=== PATIENT | male | born 1930 | race Hispanic/Latino ===

== ENCOUNTER 2017-12-12 10:25 | Inpatient (IN) | payer MEDICARE ==
--- NOTE | 2017-12-12 10:50 | Emergency Department Report ---
ED Altered Mental Status HPI - General Stated Complaint: SYNCOPE Time Seen by Provider: 12/12/17 10:38 Source: patient, EMS, old records reviewed Limitations: Altered Mental Status - History of Present Illness Initial Comments: Patient is 87 years old male with history of hypertension diabetes, GERD and pacemaker. Patient brought to the ER from [facility] for which he was admitted for suicidal ideation by trying to put pillows on his head and also was found to be paranoid. Patient brought to the ER today for evaluation of altered mental status and facility stated that patient was found unresponsive after breakfast this morning. Patient is alert and talking in no acute distress in the ER. Patient denying any chest pain or shortness of breath. No weakness numbness or tingling sensation. MD Complaint: altered mental status - Related Data Home Medications Medication Instructions Recorded Confirmed Last Taken Aspirin [Adult Aspirin] 81 mg PO QAM 12/12/17 12/12/17 12/11/17 Carvedilol [Coreg] 6.25 mg PO BID 12/12/17 12/12/17 12/11/17 Divalproex Sodium [Depakote] 250 mg PO QAM 12/12/17 12/12/17 12/11/17 Donepezil [Aricept] 5 mg PO HS 12/12/17 12/12/17 12/11/17 Famotidine [Pepcid] 20 mg PO QAM 12/12/17 12/12/17 12/11/17 Furosemide [Lasix] 20 mg PO QDAY 12/12/17 12/12/17 12/11/17 Multivitamin Tab [Multiple Vitamin 1 each PO DAILY 12/12/17 12/12/17 12/11/17 TAB (Theragran)] QUEtiapine [SEROquel] 25 mg PO HS 12/12/17 12/12/17 12/11/17 Simvastatin [Zocor] 40 mg PO HS 12/12/17 12/12/17 Unknown Allergies Allergy/AdvReac Type Severity Reaction Status Date / Time Penicillins Allergy Hives Verified 12/12/17 12:15 ED Review of Systems ROS: Stated complaint: SYNCOPE Other details as noted in HPI Comment: All other systems reviewed and negative Constitutional: denies: chills, fever Respiratory: denies: cough, orthopnea Cardiovascular: denies: chest pain, palpitations Gastrointestinal: denies: abdominal pain, nausea, vomiting Neurological: confusion. denies: headache, weakness, numbness, paresthesias, abnormal gait, vertigo ED Past Medical Hx - Past Medical History Hx Hypertension: Yes Hx Heart Attack/AMI: Yes (pacemaker) Hx Diabetes: Yes Hx Psychiatric Treatment: Yes (dementia psychosis, suicidal ideation) - Medications Home Medications: Home Medications Medication Instructions Recorded Confirmed Last Taken Type Aspirin [Adult Aspirin] 81 mg PO QAM 12/12/17 12/12/17 12/11/17 History Carvedilol [Coreg] 6.25 mg PO BID 12/12/17 12/12/17 12/11/17 History Divalproex Sodium [Depakote] 250 mg PO QAM 12/12/17 12/12/17 12/11/17 History Donepezil [Aricept] 5 mg PO HS 12/12/17 12/12/17 12/11/17 History Famotidine [Pepcid] 20 mg PO QAM 12/12/17 12/12/17 12/11/17 History Furosemide [Lasix] 20 mg PO QDAY 12/12/17 12/12/17 12/11/17 History Multivitamin Tab [Multiple Vitamin 1 each PO DAILY 12/12/17 12/12/17 12/11/17 History TAB (Theragran)] QUEtiapine [SEROquel] 25 mg PO HS 12/12/17 12/12/17 12/11/17 History Simvastatin [Zocor] 40 mg PO HS 12/12/17 12/12/17 Unknown History ED Physical Exam - General Limitations: Altered Mental Status General appearance: alert, in no apparent distress - Head Head exam: Present: atraumatic, normocephalic, normal inspection - ENT ENT exam: Present: normal exam, normal orophraynx - Neck Neck exam: Present: normal inspection, full ROM. Absent: tenderness, meningismus, lymphadenopathy, thyromegaly - Respiratory Respiratory exam: Present: normal lung sounds bilaterally. Absent: respiratory distress, wheezes, rales, rhonchi, chest wall tenderness, accessory muscle use, decreased breath sounds, prolonged expiratory - Cardiovascular Cardiovascular Exam: Present: regular rate, normal heart sounds. Absent: systolic murmur, diastolic murmur - GI/Abdominal GI/Abdominal exam: Present: soft, normal bowel sounds. Absent: distended, tenderness, guarding, rebound, rigid, organomegaly, mass, bruit, pulsatile mass , hernia - Extremities Exam Extremities exam: Present: normal inspection, full ROM, normal capillary refill - Back Exam Back exam: Present: normal inspection, full ROM. Absent: tenderness, CVA tenderness (R), CVA tenderness (L), muscle spasm, paraspinal tenderness, vertebral tenderness - Neurological Exam Neurological exam: Present: alert, altered, CN II-XII intact, reflexes normal - Skin Skin exam: Present: warm, intact, normal color - Assessment Assessment Interval: Baseline - Level of Consciousness 1a. Level of Consciousness: alert/keenly responsive - LOC Questions 1b. LOC Questions: answers no questions correctly - LOC Command 1c. LOC Commands: performs tasks correctly - Best Gaze 2. Best Gaze: normal - Visual 3. Visual: no visual loss - Facial Palsy 4. Facial Palsy: normal symmetrical movement - Motor Arm 5b. Motor Arm Right: no drift 5a. Motor Arm Left: no drift - Motor Leg 6a. Motor Leg Left: no drift 6b. Motor Leg Right: no drift - Limb Ataxia 7. Limb Ataxia: absent - Sensory 8. Sensory: normal - Best Language 9. Best Language: no aphasia - Dysarthria 10. Dysarthria: normal - Extinction and Inattention 11. Extinction/Inattention: no abnormality - Scoring Total Score: 2 Stroke Severity: Minor Stroke ED Course Vital Signs 12/12/17 12/12/17 12/12/17 10:40 12:11 12:15 Temperature 96.8 F L Pulse Rate 71 78 Respiratory 16 22 Rate Blood Pressure 115/77 144/82 O2 Sat by Pulse 99 98 97 Oximetry 12/12/17 12/12/17 12/12/17 12:30 12:45 13:01 Temperature Pulse Rate 72 70 78 Respiratory 15 13 16 Rate Blood Pressure 146/93 144/73 160/97 O2 Sat by Pulse 97 97 96 Oximetry 12/12/17 12/12/17 12/12/17 13:15 13:30 13:36 Temperature Pulse Rate 80 75 Respiratory 15 14 13 Rate Blood Pressure 144/83 149/71 O2 Sat by Pulse 96 96 Oximetry - Lab Data Result diagrams: 12/12/17 10:50 12/12/17 10:50 Lab Results 12/12/17 12/12/17 12/12/17 Range/Units 10:50 10:50 10:50 WBC 6.7 (4.5-11.0) K/mm3 RBC 4.25 (3.65-5.03) M/mm3 Hgb 13.6 (11.8-15.2) gm/dl Hct 39.2 (35.5-45.6) % MCV 92 (84-94) fl MCH 32 (28-32) pg MCHC 35 H (32-34) % RDW 16.5 H (13.2-15.2) % Plt Count 139 L (140-440) K/mm3 Lymph % (Auto) 11.9 L (13.4-35.0) % [place] % (Auto) 11.8 H (0.0-7.3) % Eos % (Auto) 1.2 (0.0-4.3) % Baso % (Auto) 0.5 (0.0-1.8) % Lymph # 0.8 L (1.2-5.4) K/mm3 Weston # 0.8 (0.0-0.8) K/mm3 Eos # 0.1 (0.0-0.4) K/mm3 Baso # 0.0 (0.0-0.1) K/mm3 Seg Neutrophils % 74.6 H (40.0-70.0) % Seg Neutrophils # 5.0 (1.8-7.7) K/mm3 D-Dimer (0-234) ng/mlDDU Sodium 124 L (137-145) mmol/L Potassium 4.2 (3.6-5.0) mmol/L Chloride 88.0 L (98-107) mmol/L Carbon Dioxide 22 (22-30) mmol/L Anion Gap 18 mmol/L BUN 13 (9-20) mg/dL Creatinine 0.5 L (0.8-1.5) mg/dL Estimated GFR > 60 ml/min BUN/Creatinine Ratio 26 % Glucose 106 H (75-100) mg/dL Lactic Acid 3.60 H* (0.7-2.0) mmol/L Calcium 8.9 (8.4-10.2) mg/dL Total Bilirubin 0.90 (0.1-1.2) mg/dL AST 32 (5-40) units/L ALT 31 (7-56) units/L Alkaline Phosphatase 110 (35-129) units/L Ammonia (25-60) umol/L Troponin T < 0.010 (0.00-0.029) ng/mL Total Protein 6.1 L (6.3-8.2) g/dL Albumin 3.2 L (3.9-5) g/dL Albumin/Globulin Ratio 1.1 % Urine Color (Yellow) Urine Turbidity (Clear) Urine pH (5.0-7.0) Ur Specific [place] (1.003-1.030) Urine Protein (Negative) mg/dL Urine Glucose (UA) (Negative) mg/dL Urine Ketones (Negative) mg/dL Urine Blood (Negative) Urine Nitrite (Negative) Urine Bilirubin (Negative) Urine Urobilinogen (<2.0) mg/dL Ur Leukocyte Esterase (Negative) Urine WBC (Auto) (0.0-6.0) /HPF Urine RBC (Auto) (0.0-6.0) /HPF U Epithel Cells (Auto) (0-13.0) /HPF Urine Mucus /HPF 12/12/17 12/12/17 12/12/17 Range/Units 10:50 12:08 12:34 WBC (4.5-11.0) K/mm3 RBC (3.65-5.03) M/mm3 Hgb (11.8-15.2) gm/dl Hct (35.5-45.6) % MCV (84-94) fl MCH (28-32) pg MCHC (32-34) % RDW (13.2-15.2) % Plt Count (140-440) K/mm3 Lymph % (Auto) (13.4-35.0) % Weston % (Auto) (0.0-7.3) % Eos % (Auto) (0.0-4.3) % Baso % (Auto) (0.0-1.8) % Lymph # (1.2-5.4) K/mm3 Weston # (0.0-0.8) K/mm3 Eos # (0.0-0.4) K/mm3 Baso # (0.0-0.1) K/mm3 Seg Neutrophils % (40.0-70.0) % Seg Neutrophils # (1.8-7.7) K/mm3 D-Dimer 389.72 H (0-234) ng/mlDDU Sodium (137-145) mmol/L Potassium (3.6-5.0) mmol/L Chloride (98-107) mmol/L Carbon Dioxide (22-30) mmol/L Anion Gap mmol/L BUN (9-20) mg/dL Creatinine (0.8-1.5) mg/dL Estimated GFR ml/min BUN/Creatinine Ratio % Glucose (75-100) mg/dL Lactic Acid 2.30 H* (0.7-2.0) mmol/L Calcium (8.4-10.2) mg/dL Total Bilirubin (0.1-1.2) mg/dL AST (5-40) units/L ALT (7-56) units/L Alkaline Phosphatase (35-129) units/L Ammonia 55.0 (25-60) umol/L Troponin T (0.00-0.029) ng/mL Total Protein (6.3-8.2) g/dL Albumin (3.9-5) g/dL Albumin/Globulin Ratio % Urine Color (Yellow) Urine Turbidity (Clear) Urine pH (5.0-7.0) Ur Specific [place] (1.003-1.030) Urine Protein (Negative) mg/dL Urine Glucose (UA) (Negative) mg/dL Urine Ketones (Negative) mg/dL Urine Blood (Negative) Urine Nitrite (Negative) Urine Bilirubin (Negative) Urine Urobilinogen (<2.0) mg/dL Ur Leukocyte Esterase (Negative) Urine WBC (Auto) (0.0-6.0) /HPF Urine RBC (Auto) (0.0-6.0) /HPF U Epithel Cells (Auto) (0-13.0) /HPF Urine Mucus /HPF 12/12/17 Range/Units Unknown WBC (4.5-11.0) K/mm3 RBC (3.65-5.03) M/mm3 Hgb (11.8-15.2) gm/dl Hct (35.5-45.6) % MCV (84-94) fl MCH (28-32) pg MCHC (32-34) % RDW (13.2-15.2) % Plt Count (140-440) K/mm3 Lymph % (Auto) (13.4-35.0) % Weston % (Auto) (0.0-7.3) % Eos % (Auto) (0.0-4.3) % Baso % (Auto) (0.0-1.8) % Lymph # (1.2-5.4) K/mm3 Weston # (0.0-0.8) K/mm3 Eos # (0.0-0.4) K/mm3 Baso # (0.0-0.1) K/mm3 Seg Neutrophils % (40.0-70.0) % Seg Neutrophils # (1.8-7.7) K/mm3 D-Dimer (0-234) ng/mlDDU Sodium (137-145) mmol/L Potassium (3.6-5.0) mmol/L Chloride (98-107) mmol/L Carbon Dioxide (22-30) mmol/L Anion Gap mmol/L BUN (9-20) mg/dL Creatinine (0.8-1.5) mg/dL Estimated GFR ml/min BUN/Creatinine Ratio % Glucose (75-100) mg/dL Lactic Acid (0.7-2.0) mmol/L Calcium (8.4-10.2) mg/dL Total Bilirubin (0.1-1.2) mg/dL AST (5-40) units/L ALT (7-56) units/L Alkaline Phosphatase (35-129) units/L Ammonia (25-60) umol/L Troponin T (0.00-0.029) ng/mL Total Protein (6.3-8.2) g/dL Albumin (3.9-5) g/dL Albumin/Globulin Ratio % Urine Color Yellow (Yellow) Urine Turbidity Clear (Clear) Urine pH 6.0 (5.0-7.0) Ur Specific [place] 1.009 (1.003-1.030) Urine Protein <15 mg/dl (Negative) mg/dL Urine Glucose (UA) Neg (Negative) mg/dL Urine Ketones Neg (Negative) mg/dL Urine Blood Neg (Negative) Urine Nitrite Neg (Negative) Urine Bilirubin Neg (Negative) Urine Urobilinogen 2.0 (<2.0) mg/dL Ur Leukocyte Esterase Tr (Negative) Urine WBC (Auto) 3.0 (0.0-6.0) /HPF Urine RBC (Auto) 5.0 (0.0-6.0) /HPF U Epithel Cells (Auto) < 1.0 (0-13.0) /HPF Urine Mucus Few /HPF - EKG Data -: EKG Interpreted by Me EKG shows normal: QRS complexes Rate: normal Interpretation: no acute changes - Radiology Data Radiology results: report reviewed Referring Physician: RICK LUTZ Patient Name: GEORGIANA JAUREGUI Date of : 1930 Sex: Male Report Date: 2017-12-12 Report Status: Finalized Findings [facility] [address] [place] [address] Cat Scan Report Signed Patient: GEORGIANA JAUREGUI MR#: [id number] : 1930 Acct:[id number] Age/Sex: 87 / M ADM Date: 12/12/17 Loc: ED Attending Dr: Ordering Physician: RICK LUTZ Date of Service: 12/12/17 Procedure(s): CT head/brain wo con Accession Number(s): [id number] cc: RICK LUTZ CT HEAD WITHOUT CONTRAST: HISTORY: Altered mental status. TECHNIQUE: Sequential CT images without contrast. FINDINGS: Images obtained show bilateral prominence of the sulci and ventricles. There are no abnormal intra- or extra-axial blood or fluid collections. There are no focal masses or evidence of mass effect. The rhodes white matter differentiation appears within normal limits. Regions of periventricular decreased attenuation are consistent with microangiopathic ischemic disease. The posterior fossa structures including the fourth ventricle, cerebellum, and brainstem appear normal. IMPRESSION: Evidence of atrophy and microangiopathic ischemic disease. No acute intracranial process noted. Transcribed By: TTR Dictated By: VITO VILLEDA JR, MD Electronically Authenticated By: VITO VILLEDA JR, MD Signed Date/Time: 12/12/171227 DD/ 26 TD/TT: 12/12/171227 - Medical Decision Making I discussed the patient with Dr Munroe, he agreed to admit the patient to medical service. Critical Care Time: Yes Critical care time in (mins) excluding proc time.: 30 Critical care attestation.: If time is entered above; I have spent that time in minutes in the direct care of this critically ill patient, excluding procedure time. ED Disposition Clinical Impression: Altered mental status, Hyponatremia Disposition: 09 OP ADMIT IP TO THIS HOSP Is pt being admited?: Yes Condition: Stable Referrals: PRIMARY CARE, [Primary Care Provider] - 3-5 Days
[2017-12-12 11:20] LABS: Basophils % (Auto) 0.5 % (0.0-1.8); Eosinophils # (Auto) 0.1 K/mm3 (0.0-0.4); Eosinophils % (Auto) 1.2 % (0.0-4.3); Hematocrit 39.2 % (35.5-45.6); Hemoglobin 13.6 gm/dl (11.8-15.2); Lymphocytes # (Auto) 0.8 K/mm3 (1.2-5.4); Lymphocytes % (Auto) 11.9 % (13.4-35.0); Mean Corpuscular HGB Conc 35 % (32-34); Mean Corpuscular Hemoglobin 32 pg (28-32); Mean Corpuscular Volume 92 fl (84-94); Monocytes # (Auto) 0.8 K/mm3 (0.0-0.8); Monocytes % (Auto) 11.8 % (0.0-7.3); Platelet Count 139 K/mm3 (140-440); Red Blood Count 4.25 M/mm3 (3.65-5.03); Red Cell Distribution Width 16.5 % (13.2-15.2)
[2017-12-12 11:32] LABS: Alanine Aminotransferase 31 units/L (7-56); Albumin 3.2 g/dL (3.9-5); BUN/Creatinine Ratio 26; Blood Urea Nitrogen 13 mg/dL (9-20); Calcium 8.9 mg/dL (8.4-10.2); Hemolysis Index 44
--- NOTE | 2017-12-12 11:37 | XRay Report ---
AP CHEST: HISTORY: Altered mental status No comparison. There is borderline to mild cardiomegaly. A 2-lead pacemaker device is in position. The lungs are clear. No evidence for pneumonia, CHF or pneumothorax. Chronic bilateral rotator cuff tears are suspected. IMPRESSION: Borderline to mild cardiomegaly. Lungs clear.
[2017-12-12] MEDS ORDERED: NACL 0.9% 1000 ML 1,000 ML IV ONE (11:49)
--- NOTE | 2017-12-12 12:29 | Cat Scan Report ---
CT HEAD WITHOUT CONTRAST: HISTORY: Altered mental status. TECHNIQUE: Sequential CT images without contrast. FINDINGS: Images obtained show bilateral prominence of the sulci and ventricles. There are no abnormal intra- or extra-axial blood or fluid collections. There are no focal masses or evidence of mass effect. The rhodes white matter differentiation appears within normal limits. Regions of periventricular decreased attenuation are consistent with microangiopathic ischemic disease. The posterior fossa structures including the fourth ventricle, cerebellum, and brainstem appear normal. IMPRESSION: Evidence of atrophy and microangiopathic ischemic disease. No acute intracranial process noted.
--- NOTE | 2017-12-12 12:39 | History and Physical Report ---
History of Present Illness Chief complaint: Unresponsive History of present illness: 87 YO Male currently an inpatient at [facility] for Suicide Ideation with Dementia, HTN, DM, Psychosis, Cardiomyopathy S/P Pacemaker placement presents to ED for evaluation. Pt is confused and unable to provide history. Pt history taken from ED staff, and [facility] staff. As per staff, the patient was found down and unresponsive this morning shortly after breakfast. EMS notified,and upon arrival the patient was found to be confused. Pt transported to [facility] for further care and evaluation. Pt seen and evaluated in ED and found to have symptoms suspicious for CVA, Encephalopathy, Hyponatremia, and Acidosis. Pt admitted to telemetry and initiated on CVA protocol. Past History Past Medical History: acute VA, diabetes, hypertension, other (dementia) Past Surgical History: Other (pacemaker placment) Social history: single. denies: smoking, alcohol abuse, prescription drug abuse Family history: diabetes, hypertension Medications and Allergies Allergies Allergy/AdvReac Type Severity Reaction Status Date / Time Penicillins Allergy Hives Verified 12/12/17 12:15 Home Medications Medication Instructions Recorded Confirmed Last Taken Type Aspirin [Adult Aspirin] 81 mg PO QAM 12/12/17 12/12/17 12/11/17 History Carvedilol [Coreg] 6.25 mg PO BID 12/12/17 12/12/17 12/11/17 History Divalproex Sodium [Depakote] 250 mg PO QAM 12/12/17 12/12/17 12/11/17 History Donepezil [Aricept] 5 mg PO HS 12/12/17 12/12/17 12/11/17 History Famotidine [Pepcid] 20 mg PO QAM 12/12/17 12/12/17 12/11/17 History Furosemide [Lasix] 20 mg PO QDAY 12/12/17 12/12/17 12/11/17 History Multivitamin Tab [Multiple Vitamin 1 each PO DAILY 12/12/17 12/12/17 12/11/17 History TAB (Theragran)] QUEtiapine [SEROquel] 25 mg PO HS 12/12/17 12/12/17 12/11/17 History Simvastatin [Zocor] 40 mg PO HS 12/12/17 12/12/17 Unknown History Active Meds: Active Medications Sodium Chloride (Nacl 0.9% 1000 Ml) 1,000 mls @ 125 mls/hr IV ONCE ONE Stop: 12/12/17 19:48 Review of Systems ROS unobtainable: due to mental status Exam - Constitutional General appearance: Present: mild distress - EENT Eyes: Present: PERRL ENT: hearing intact, clear oral mucosa - Neck Neck: Present: supple, normal ROM - Respiratory Respiratory effort: normal Respiratory: bilateral: CTA - Cardiovascular Heart Sounds: Present: S1 & S2. Absent: rub, click - Extremities Extremities: pulses symmetrical, No edema Peripheral Pulses: within normal limits - Abdominal General gastrointestinal: Present: soft, non-tender, non-distended, normal bowel sounds Male genitourinary: Present: normal - Integumentary Integumentary: Present: clear, warm, dry - Musculoskeletal Musculoskeletal: gait normal, strength equal bilaterally - Psychiatric Psychiatric: no appropriate mood/affect, no intact judgment & insight, no memory intact - Neurologic Neurologic: CNII-XII intact, moves all extremities, no gait normal Results - Labs CBC & Chem 7: 12/12/17 10:50 12/12/17 10:50 Labs: Abnormal lab results 12/12/17 12/12/17 12/12/17 Range/Units 10:50 10:50 10:50 MCHC 35 H (32-34) % RDW 16.5 H (13.2-15.2) % Plt Count 139 L (140-440) K/mm3 Lymph % (Auto) 11.9 L (13.4-35.0) % [place] % (Auto) 11.8 H (0.0-7.3) % Lymph # 0.8 L (1.2-5.4) K/mm3 Seg Neutrophils % 74.6 H (40.0-70.0) % Sodium 124 L (137-145) mmol/L Chloride 88.0 L (98-107) mmol/L Creatinine 0.5 L (0.8-1.5) mg/dL Glucose 106 H (75-100) mg/dL Lactic Acid 3.60 H* (0.7-2.0) mmol/L Total Protein 6.1 L (6.3-8.2) g/dL Albumin 3.2 L (3.9-5) g/dL Assessment and Plan - Patient Problems (1) CVA (cerebral vascular accident) Current Visit: Yes Status: Acute Qualifiers: Precerebral and cerebral artery: posterior cerebral artery Laterality of affected vessel: unspecified Plan to address problem: CVA Protocol: CT Head, MRI Brain, MRA Brain, Echo, EEG, Carotid doppler, neuro checks, antiplatelet therapy, (2) Encephalopathy Current Visit: Yes Status: Acute Plan to address problem: CT head, neuro checks (3) Acidosis Current Visit: Yes Status: Acute Plan to address problem: IVF resuscitation therapy, supportive care. repeat bmp (4) Hyponatremia syndrome Current Visit: Yes Status: Acute Plan to address problem: IVF resuscitation, monitor uop q shift, repeat bmp (5) DVT prophylaxis Current Visit: Yes Status: Acute Plan to address problem: SCD to BLE while in bed. - Assessment Assessment Interval: Baseline - Level of Consciousness 1a. Level of Consciousness: arousable/minor stimuli - LOC Questions 1b. LOC Questions: answers no questions correctly - LOC Command 1c. LOC Commands: performs tasks correctly - Best Gaze 2. Best Gaze: normal - Visual 3. Visual: no visual loss - Facial Palsy 4. Facial Palsy: normal symmetrical movement - Motor Arm 5b. Motor Arm Right: no drift - Motor Leg 6a. Motor Leg Left: no drift - Limb Ataxia 7. Limb Ataxia: absent - Sensory 8. Sensory: normal - Best Language 9. Best Language: no aphasia - Dysarthria 10. Dysarthria: normal - Extinction and Inattention 11. Extinction/Inattention: no abnormality
[2017-12-12 13:05] LABS: Bilirubin,Urine NEG (Negative); Blood,Urine NEG (Negative); Color,Urine Yellow (Yellow); Mucus,Urine FEW /HPF; Protein,Urine <15 mg/dL mg/dL (Negative)
[2017-12-12] MEDS ORDERED: DULCOLAX PR PRN (14:16)
[2017-12-12] MEDS ORDERED: PROVENTIL IH PRN (14:16)
[2017-12-12] MEDS ORDERED: ZOFRAN IV PRN (14:16)
[2017-12-12] MEDS ORDERED: PHENERGAN PR PRN (14:16)
[2017-12-12] MEDS ORDERED: REGLAN PO PRN (14:16)
[2017-12-12] MEDS ORDERED: MILK OF MAGNESIA PO PRN (14:16)
[2017-12-12 20:47] LABS: Free T4 (Free Thyroxine) 1.6 ng/dL (0.76-1.46)
[2017-12-12] MEDS: TYLENOL PO PRN (22:59)
[2017-12-12] MEDS: ARICEPT PO SCH (22:59)
[2017-12-13 05:17] LABS: Chol/HDL Ratio 1.78 %
[2017-12-13] MEDS ORDERED: NACL 0.9% 50 ML ONE (08:47)
[2017-12-13] MEDS: PEPCID PO SCH (10:00)
[2017-12-13] MEDS: THERAGRAN Tab PO SCH (10:00)
[2017-12-13] MEDS: LASIX PO SCH (10:00)
[2017-12-13] MEDS: HALFPRIN EC PO SCH (10:00)
--- NOTE | 2017-12-13 11:11 | Cat Scan Report ---
CTA CHEST: HISTORY: Dyspnea. COMPARISON: none. TECHNIQUE: Helical CT in 1.25mm intervals following IV contrast. Pulmonary embolus protocol. Sagittal and coronal reformatted images. Rotational MIP images. FINDINGS: Contrast bolus is satisfactory. No pulmonary embolus is identified. Thyroid gland: Normal. Tracheobronchial tree: Normal. Esophagus: Normal. Heart: Mild cardiomegaly. 2-lead pacemaker device is in position. Pericardium: Trace pericardial effusion. Mediastinum: Normal. Lung Hopper: Minimal patchy acinar infiltrate is identified in the right lower lobe. Correlate for very early pneumonia. The remainder of the lungs are clear. Pleural Spaces: Normal. Musculoskeletal: Chronic appearing compression deformity at T12 is noted. No acute fracture or suspicious bony lesion is identified. IMPRESSION: No evidence for pulmonary embolus. Mild cardiomegaly. Trace pericardial effusion. Question very early right lower lobe pneumonia.
[2017-12-13 12:37] LABS: Basophils % (Auto) 0.5 % (0.0-1.8); Eosinophils # (Auto) 0.1 K/mm3 (0.0-0.4); Eosinophils % (Auto) 1.6 % (0.0-4.3); Hematocrit 37.6 % (35.5-45.6); Hemoglobin 13.1 gm/dl (11.8-15.2); Lymphocytes % (Auto) 11.3 % (13.4-35.0); Mean Corpuscular HGB Conc 35 % (32-34); Mean Corpuscular Hemoglobin 32 pg (28-32); Mean Corpuscular Volume 92 fl (84-94); Monocytes # (Auto) 0.9 K/mm3 (0.0-0.8); Monocytes % (Auto) 10.1 % (0.0-7.3); Platelet Count 125 K/mm3 (140-440); Red Cell Distribution Width 16.6 % (13.2-15.2)
[2017-12-13 12:59] LABS: BUN/Creatinine Ratio 30; Blood Urea Nitrogen 12 mg/dL (9-20); Calcium 8.6 mg/dL (8.4-10.2); Hemolysis Index 13
--- NOTE | 2017-12-13 13:11 | Consultation ---
History of Present Illness Consult date: 12/13/17 Requesting physician: GELY PHAM Reason for Consult: altered mental status History of present illness: History is taken from the chart as the patient is not communicative at this time. This is an 87 year old male with diagnosis of Dementia, HTN, DM, Psychosis, Cardiomyopathy S/P Pacemaker. He is an inpatient at [facility] for Suicide Ideation History obtained in the ER states that the patient was found down and unresponsive the morning of admiossion shortly after breakfast. EMS notified,and upon arrival the patient was found to be confused. Pt transported to [facility] for further care and evaluation. Pt seen and evaluated in ED and found to have symptoms suspicious for CVA, Encephalopathy. CT scan reveals atrophy and microangiopathic disease, no acute stroke. Echo reveals EF 40% This morning the patient is lethargic and awakens only to painful stimuli. Past History Past Medical History: acute PA, diabetes, hypertension, other (dementia) Past Surgical History: Other (pacemaker placment) Social history: single. denies: smoking, alcohol abuse, prescription drug abuse Family history: diabetes, hypertension Medications and Allergies Allergies Allergy/AdvReac Type Severity Reaction Status Date / Time Penicillins Allergy Hives Verified 12/12/17 12:15 Home Medications Medication Instructions Recorded Confirmed Last Taken Type Aspirin [Adult Aspirin] 81 mg PO QAM 12/12/17 12/12/17 12/11/17 History Carvedilol [Coreg] 6.25 mg PO BID 12/12/17 12/12/17 12/11/17 History Divalproex Sodium [Depakote] 250 mg PO QAM 12/12/17 12/12/17 12/11/17 History Donepezil [Aricept] 5 mg PO HS 12/12/17 12/12/17 12/11/17 History Famotidine [Pepcid] 20 mg PO QAM 12/12/17 12/12/17 12/11/17 History Furosemide [Lasix] 20 mg PO QDAY 12/12/17 12/12/17 12/11/17 History Multivitamin Tab [Multiple Vitamin 1 each PO DAILY 12/12/17 12/12/17 12/11/17 History TAB (Theragran)] QUEtiapine [SEROquel] 25 mg PO HS 12/12/17 12/12/17 12/11/17 History Simvastatin [Zocor] 40 mg PO HS 12/12/17 12/12/17 Unknown History Active Meds: Active Medications Acetaminophen (Tylenol) 650 mg PO Q4H PRN PRN Reason: Pain, Mild (1-3) Last Admin: 12/12/17 22:59 Dose: 650 mg Albuterol (Proventil) 2.5 mg IH Q3HRT PRN PRN Reason: Shortness Of Breath Aspirin (Halfprin Ec) 81 mg PO QAM [facility] Atorvastatin Calcium (Lipitor) 40 mg PO QHS [facility] Last Admin: 12/12/17 23:00 Dose: 40 mg Bisacodyl (Dulcolax) 10 mg GA QDAY PRN PRN Reason: Constipation Divalproex Sodium (Depakote Dr) 250 mg PO QAM [facility] Donepezil HCl (Aricept) 5 mg PO [facility] Last Admin: 12/12/17 22:59 Dose: 5 mg Famotidine (Pepcid) 20 mg PO QAM [facility] Furosemide (Lasix) 20 mg PO QDAY [facility] Magnesium Hydroxide (Milk Of Magnesia) 30 ml PO Q4H PRN PRN Reason: Constipation Metoclopramide HCl (Reglan) 10 mg PO Q6H PRN PRN Reason: Nausea And Vomiting Multivitamins (Theragran Tab) 1 each PO DAILY [facility] Ondansetron HCl (Zofran) 4 mg IV Q8H PRN PRN Reason: Nausea And Vomiting Promethazine HCl (Phenergan) 25 mg GA Q6H PRN PRN Reason: Nausea And Vomiting Quetiapine Fumarate (Seroquel) 25 mg PO [facility] Last Admin: 12/12/17 22:59 Dose: 25 mg Sodium Chloride (Sodium Chloride Flush Syringe 10 Ml) 10 ml IV PRN PRN PRN Reason: LINE FLUSH Review of Systems ROS unobtainable: due to mental status Physical Examination - Vital Signs Vital Signs: Vital Signs Temp Pulse Resp BP Pulse Ox 96.8 F L 71 16 115/77 99 12/12/17 10:40 12/12/17 10:40 12/12/17 10:40 12/12/17 10:40 12/12/17 10:40 - Physical Exam Narrative exam: Lying in bed with jaws wide open Neurological - occasional slurred speech. Arouses to painful stimuli only. Follows some simple commands. 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 face symmetric. Tongue midline. Motor - Raises both arms in the air, left better than right. Moves toes bilaterally. Moves rt. leg more than left. Reflexes - +1 throughout. Sensory intact - Assessment Assessment Interval: Baseline - Level of Consciousness 1a. Level of Consciousness: arousable/minor stimuli - LOC Questions 1b. LOC Questions: answers no questions correctly - LOC Command 1c. LOC Commands: performs tasks correctly - Best Gaze 2. Best Gaze: normal - Visual 3. Visual: no visual loss - Facial Palsy 4. Facial Palsy: normal symmetrical movement - Motor Arm 5b. Motor Arm Right: no drift - Motor Leg 6a. Motor Leg Left: no drift - Limb Ataxia 7. Limb Ataxia: absent - Sensory 8. Sensory: normal - Best Language 9. Best Language: no aphasia - Dysarthria 10. Dysarthria: normal - Extinction and Inattention 11. Extinction/Inattention: no abnormality Results - Laboratory Findings CBC and BMP: 12/13/17 12:22 12/13/17 12:22 Abnormal Lab Findings: Abnormal Labs 12/12/17 12/12/17 12/12/17 10:50 10:50 10:50 MCHC 35 H RDW 16.5 H Plt Count 139 L Lymph % (Auto) 11.9 L Garfield % (Auto) 11.8 H Lymph # 0.8 L Garfield # Seg Neutrophils % 74.6 H D-Dimer Sodium 124 L Chloride 88.0 L Creatinine 0.5 L Glucose 106 H Lactic Acid 3.60 H* Total Protein 6.1 L Albumin 3.2 L HDL Cholesterol Vitamin B12 Free T4 12/12/17 12/12/17 12/12/17 12:08 12:34 19:58 MCHC RDW Plt Count Lymph % (Auto) Garfield % (Auto) Lymph # Garfield # Seg Neutrophils % D-Dimer 389.72 H Sodium Chloride Creatinine Glucose Lactic Acid 2.30 H* Total Protein Albumin HDL Cholesterol Vitamin B12 Free T4 1.60 H 12/12/17 12/13/17 12/13/17 19:58 03:38 12:22 MCHC 35 H RDW 16.6 H Plt Count 125 L Lymph % (Auto) 11.3 L Garfield % (Auto) 10.1 H Lymph # 1.0 L Garfield # 0.9 H Seg Neutrophils % 76.5 H D-Dimer Sodium Chloride Creatinine Glucose Lactic Acid Total Protein Albumin HDL Cholesterol 70 H Vitamin B12 > 2000 H Free T4 12/13/17 12:22 MCHC RDW Plt Count Lymph % (Auto) Garfield % (Auto) Lymph # Garfield # Seg Neutrophils % D-Dimer Sodium 130 L Chloride 90.3 L Creatinine 0.4 L Glucose 69 L Lactic Acid Total Protein Albumin HDL Cholesterol Vitamin B12 Free T4 Assessment and Plan 87 yr old male with history of dementia, cardiac disease, hypertension, diabetes , psychosis, presented to ER after being found down at the [facility]. Stroke evaluation underway. EEG has been done - it is slo, but no seizure activity or focus. CT Chest - is detecting possibly an early pneumonia. This could be the reason for his AMS. He is also dehydrated and will need an I.V. Plan - Start IV fluids. Would repeat CT brain on Sun. or Mon. to evaluate for stroke which may not show up for several days on CT. Patient cannot have MRI because of pacemaker.
--- NOTE | 2017-12-13 18:08 | Progress Note ---
Assessment and Plan Assessment and plan: Patient is an 87-year-old male with history of hypertension, diabetes mellitus, GERD, cardiomyopathy with pacemaker severe dementia per family who was transferred from [facility] facility where he was admitted for suicidal ideation but transported over his head according to documentation and also with paranoia after being found unresponsive this morning shortly after breakfast. The time of arrival of EMS the patient was noted to be confused and was transported to [facility] for further evaluation. Information provided by son indicates that the patient has severe dementia and has been a resident of [facility] where he was transferred to [facility] and then sent [facility] for supposedly suicidal ideation the son also reports that the patient stated that he was not suicidal. Acute encephalopathy Unresponsive possible CVA versus TIA Hyponatremia Metabolic acidosis Plan Continue supportive care CT of the head is negative for acute pathology MRI MRA could not be obtained due to pacemaker Continue neuro checks Continue IV hydration doubt pneumonia at this time Recheck sodium level Obtain mental health consult DVT and GI prophylaxis History Interval history: Patient seen and examined very lethargic not much information obtained no adverse event reported some stuff. Hospitalist Physical - Physical exam Narrative exam: VITAL SIGNS: Reviewed. GENERAL: The patient appeared lethargic.. Vital signs as documented. HEAD: No signs of head trauma. EYES: Pupils are equal. Extraocular motions intact. EARS: Hearing grossly intact. MOUTH: Oropharynx is normal. NECK: No adenopathy, no JVD. CHEST: Chest with clear breath sounds bilaterally. No wheezes, rales, or rhonchi. CARDIAC: Regular rate and rhythm. S1 and S2, without murmurs, gallops, or rubs. VASCULAR: No Edema. Peripheral pulses normal and equal in all extremities. ABDOMEN: Soft, without detectable tenderness. No sign of distention. No rebound or guarding, and no masses palpated. Bowel Sounds normal. MUSCULOSKELETAL: Good range of motion of all major joints. Extremities without clubbing, cyanosis or edema. NEUROLOGIC EXAM: Positive but arousable oriented to person only.. No focal sensory or strength deficits. PSYCHIATRIC: Unable to appropriately assess due to patient's drowsiness. SKIN: No rash or lesions. - Constitutional Vitals: Temp Pulse Resp BP Pulse Ox 98.0 F 69 16 145/68 98 12/13/17 15:53 12/13/17 15:53 12/13/17 15:53 12/13/17 15:53 12/13/17 15:53 General appearance: Present: mild distress Results - Labs CBC & Chem 7: 12/14/17 04:47 12/14/17 04:47 Labs: Laboratory Last Values WBC 8.6 K/mm3 (4.5-11.0) 12/13/17 12:22 RBC 4.10 M/mm3 (3.65-5.03) 12/13/17 12:22 Hgb 13.1 gm/dl (11.8-15.2) 12/13/17 12:22 Hct 37.6 % (35.5-45.6) 12/13/17 12:22 MCV 92 fl (84-94) 12/13/17 12:22 MCH 32 pg (28-32) 12/13/17 12:22 MCHC 35 % (32-34) H 12/13/17 12:22 RDW 16.6 % (13.2-15.2) H 12/13/17 12:22 Plt Count 125 K/mm3 (140-440) L 12/13/17 12:22 Lymph % (Auto) 11.3 % (13.4-35.0) L 12/13/17 12:22 Caldwell % (Auto) 10.1 % (0.0-7.3) H 12/13/17 12:22 Eos % (Auto) 1.6 % (0.0-4.3) 12/13/17 12:22 Baso % (Auto) 0.5 % (0.0-1.8) 12/13/17 12:22 Lymph # 1.0 K/mm3 (1.2-5.4) L 12/13/17 12:22 Caldwell # 0.9 K/mm3 (0.0-0.8) H 12/13/17 12:22 Eos # 0.1 K/mm3 (0.0-0.4) 12/13/17 12:22 Baso # 0.0 K/mm3 (0.0-0.1) 12/13/17 12:22 Seg Neutrophils % 76.5 % (40.0-70.0) H 12/13/17 12:22 Seg Neutrophils # 6.6 K/mm3 (1.8-7.7) 12/13/17 12:22 D-Dimer 389.72 ng/mlDDU (0-234) H 12/12/17 12:34 Sodium 130 mmol/L (137-145) L 12/13/17 12:22 Potassium 3.7 mmol/L (3.6-5.0) 12/13/17 12:22 Chloride 90.3 mmol/L (98-107) L 12/13/17 12:22 Carbon Dioxide 26 mmol/L (22-30) 12/13/17 12:22 Anion Gap 17 mmol/L 12/13/17 12:22 BUN 12 mg/dL (9-20) 12/13/17 12:22 Creatinine 0.4 mg/dL (0.8-1.5) L 12/13/17 12:22 Estimated GFR > 60 ml/min 12/13/17 12:22 BUN/Creatinine Ratio 30 % 12/13/17 12:22 Glucose 69 mg/dL (75-100) L 12/13/17 12:22 Lactic Acid 1.10 mmol/L (0.7-2.0) 12/13/17 12:22 Calcium 8.6 mg/dL (8.4-10.2) 12/13/17 12:22 Total Bilirubin 0.90 mg/dL (0.1-1.2) 12/12/17 10:50 AST 32 units/L (5-40) 12/12/17 10:50 ALT 31 units/L (7-56) 12/12/17 10:50 Alkaline Phosphatase 110 units/L (35-129) 12/12/17 10:50 Ammonia 55.0 umol/L (25-60) 12/12/17 10:50 Troponin T < 0.010 ng/mL (0.00-0.029) 12/12/17 10:50 Total Protein 6.1 g/dL (6.3-8.2) L 12/12/17 10:50 Albumin 3.2 g/dL (3.9-5) L 12/12/17 10:50 Albumin/Globulin Ratio 1.1 % 12/12/17 10:50 Triglycerides 76 mg/dL (2-149) 12/13/17 03:38 Cholesterol 125 mg/dL (50-199) 12/13/17 03:38 LDL Cholesterol Direct 57 mg/dL (50-130) 12/13/17 03:38 HDL Cholesterol 70 mg/dL (40-59) H 12/13/17 03:38 Cholesterol/HDL Ratio 1.78 % 12/13/17 03:38 Vitamin B12 > 2000 pg/mL (211-911) H 12/12/17 19:58 TSH 2.470 mlU/mL (0.270-4.200) 12/12/17 19:58 Free T4 1.60 ng/dL (0.76-1.46) H 12/12/17 19:58 Urine Color Yellow (Yellow) 12/12/17 Unknown Urine Turbidity Clear (Clear) 12/12/17 Unknown Urine pH 6.0 (5.0-7.0) 12/12/17 Unknown Ur Specific [place] 1.009 (1.003-1.030) 12/12/17 Unknown Urine Protein <15 mg/dl mg/dL (Negative) 12/12/17 Unknown Urine Glucose (UA) Neg mg/dL (Negative) 12/12/17 Unknown Urine Ketones Neg mg/dL (Negative) 12/12/17 Unknown Urine Blood Neg (Negative) 12/12/17 Unknown Urine Nitrite Neg (Negative) 12/12/17 Unknown Urine Bilirubin Neg (Negative) 12/12/17 Unknown Urine Urobilinogen 2.0 mg/dL (<2.0) 12/12/17 Unknown Ur Leukocyte Esterase Tr (Negative) 12/12/17 Unknown Urine WBC (Auto) 3.0 /HPF (0.0-6.0) 12/12/17 Unknown Urine RBC (Auto) 5.0 /HPF (0.0-6.0) 12/12/17 Unknown U Epithel Cells (Auto) < 1.0 /HPF (0-13.0) 12/12/17 Unknown Urine Mucus Few /HPF 12/12/17 Unknown
[2017-12-13] MEDS: ARICEPT PO SCH (22:21)
[2017-12-14 05:52] LABS: Hematocrit 38.5 % (35.5-45.6); Hemoglobin 13.5 gm/dl (11.8-15.2); Mean Corpuscular HGB Conc 35 % (32-34); Mean Corpuscular Hemoglobin 32 pg (28-32); Mean Corpuscular Volume 92 fl (84-94); Platelet Count 147 K/mm3 (140-440); Red Cell Distribution Width 16.8 % (13.2-15.2)
[2017-12-14 06:11] LABS: BUN/Creatinine Ratio 70; Blood Urea Nitrogen 28 mg/dL (9-20); Calcium 8.8 mg/dL (8.4-10.2); Hemolysis Index 11
[2017-12-14] MEDS: LASIX PO SCH (11:32)
[2017-12-14] MEDS: PEPCID PO SCH (11:32)
[2017-12-14] MEDS: HALFPRIN EC PO SCH (11:33)
[2017-12-14] MEDS: THERAGRAN Tab PO SCH (11:33)
--- NOTE | 2017-12-14 12:01 | Progress Note ---
Assessment and Plan Assessment and plan: Patient is an 87-year-old male with history of hypertension, diabetes mellitus, GERD, cardiomyopathy with pacemaker severe dementia per family who was transferred from [facility] facility where he was admitted for suicidal ideation but transported over his head according to documentation and also with paranoia after being found unresponsive this morning shortly after breakfast. The time of arrival of EMS the patient was noted to be confused and was transported to [facility] for further evaluation. Information provided by son indicates that the patient has severe dementia and has been a resident of [facility] where he was transferred to [facility] and then sent [facility] for supposedly suicidal ideation the son also reports that the patient stated that he was not suicidal. Acute encephalopathy Unresponsive possible CVA versus TIA Hyponatremia-RESOLVING Metabolic acidosis Hypoglycemia-Could be the etiology Plan Continue supportive care CT of the head is negative for acute pathology MRI, MRA could not be obtained due to pacemaker Continue D5 Neurology input noted Continue Neuro checks Continue IV hydration doubt pneumonia at this time Recheck sodium level Obtain mental health consult DVT and GI prophylaxis History Interval history: Patient seen and examined much more awake today. Reports no acute distress Hospitalist Physical - Physical exam Narrative exam: VITAL SIGNS: Reviewed. GENERAL: The patient appeared lethargic.. Vital signs as documented. HEAD: No signs of head trauma. EYES: Pupils are equal. Extraocular motions intact. EARS: Hearing grossly intact. MOUTH: Oropharynx is normal. NECK: No adenopathy, no JVD. CHEST: Chest with clear breath sounds bilaterally. No wheezes, rales, or rhonchi. CARDIAC: Regular rate and rhythm. S1 and S2, without murmurs, gallops, or rubs. VASCULAR: No Edema. Peripheral pulses normal and equal in all extremities. ABDOMEN: Soft, without detectable tenderness. No sign of distention. No rebound or guarding, and no masses palpated. Bowel Sounds normal. MUSCULOSKELETAL: Good range of motion of all major joints. Extremities without clubbing, cyanosis or edema. NEUROLOGIC EXAM: Awake and oriented to person No focal sensory or strength deficits. PSYCHIATRIC: Unable to appropriately assess due to patient's drowsiness. SKIN: No rash or lesions. - Constitutional Vitals: Temp Pulse Resp BP Pulse Ox 97.9 F 70 20 122/73 98 12/14/17 07:35 12/14/17 07:31 12/14/17 07:31 12/14/17 07:31 12/14/17 07:31 General appearance: Present: mild distress Results - Labs CBC & Chem 7: 12/14/17 04:47 12/14/17 04:47 Labs: Laboratory Last Values WBC 6.8 K/mm3 (4.5-11.0) 12/14/17 04:47 RBC 4.20 M/mm3 (3.65-5.03) 12/14/17 04:47 Hgb 13.5 gm/dl (11.8-15.2) 12/14/17 04:47 Hct 38.5 % (35.5-45.6) 12/14/17 04:47 MCV 92 fl (84-94) 12/14/17 04:47 MCH 32 pg (28-32) 12/14/17 04:47 MCHC 35 % (32-34) H 12/14/17 04:47 RDW 16.8 % (13.2-15.2) H 12/14/17 04:47 Plt Count 147 K/mm3 (140-440) 12/14/17 04:47 Lymph % (Auto) 11.3 % (13.4-35.0) L 12/13/17 12:22 Montgomery % (Auto) 10.1 % (0.0-7.3) H 12/13/17 12:22 Eos % (Auto) 1.6 % (0.0-4.3) 12/13/17 12:22 Baso % (Auto) 0.5 % (0.0-1.8) 12/13/17 12:22 Lymph # 1.0 K/mm3 (1.2-5.4) L 12/13/17 12:22 Montgomery # 0.9 K/mm3 (0.0-0.8) H 12/13/17 12:22 Eos # 0.1 K/mm3 (0.0-0.4) 12/13/17 12:22 Baso # 0.0 K/mm3 (0.0-0.1) 12/13/17 12:22 Seg Neutrophils % 76.5 % (40.0-70.0) H 12/13/17 12:22 Seg Neutrophils # 6.6 K/mm3 (1.8-7.7) 12/13/17 12:22 D-Dimer 389.72 ng/mlDDU (0-234) H 12/12/17 12:34 Sodium 133 mmol/L (137-145) L 12/14/17 04:47 Potassium 3.8 mmol/L (3.6-5.0) 12/14/17 04:47 Chloride 91.4 mmol/L (98-107) L 12/14/17 04:47 Carbon Dioxide 29 mmol/L (22-30) 12/14/17 04:47 Anion Gap 16 mmol/L 12/14/17 04:47 BUN 28 mg/dL (9-20) H 12/14/17 04:47 Creatinine 0.4 mg/dL (0.8-1.5) L 12/14/17 04:47 Estimated GFR > 60 ml/min 12/14/17 04:47 BUN/Creatinine Ratio 70 % 12/14/17 04:47 Glucose 59 mg/dL (75-100) L 12/14/17 04:47 Lactic Acid 1.10 mmol/L (0.7-2.0) 12/13/17 12:22 Calcium 8.8 mg/dL (8.4-10.2) 12/14/17 04:47 Total Bilirubin 0.90 mg/dL (0.1-1.2) 12/12/17 10:50 AST 32 units/L (5-40) 12/12/17 10:50 ALT 31 units/L (7-56) 12/12/17 10:50 Alkaline Phosphatase 110 units/L (35-129) 12/12/17 10:50 Ammonia 55.0 umol/L (25-60) 12/12/17 10:50 Troponin T < 0.010 ng/mL (0.00-0.029) 12/12/17 10:50 Total Protein 6.1 g/dL (6.3-8.2) L 12/12/17 10:50 Albumin 3.2 g/dL (3.9-5) L 12/12/17 10:50 Albumin/Globulin Ratio 1.1 % 12/12/17 10:50 Triglycerides 76 mg/dL (2-149) 12/13/17 03:38 Cholesterol 125 mg/dL (50-199) 12/13/17 03:38 LDL Cholesterol Direct 57 mg/dL (50-130) 12/13/17 03:38 HDL Cholesterol 70 mg/dL (40-59) H 12/13/17 03:38 Cholesterol/HDL Ratio 1.78 % 12/13/17 03:38 Vitamin B12 > 2000 pg/mL (211-911) H 12/12/17 19:58 TSH 2.470 mlU/mL (0.270-4.200) 12/12/17 19:58 Free T4 1.60 ng/dL (0.76-1.46) H 12/12/17 19:58 Urine Color Yellow (Yellow) 12/12/17 Unknown Urine Turbidity Clear (Clear) 12/12/17 Unknown Urine pH 6.0 (5.0-7.0) 12/12/17 Unknown Ur Specific Evans 1.009 (1.003-1.030) 12/12/17 Unknown Urine Protein <15 mg/dl mg/dL (Negative) 12/12/17 Unknown Urine Glucose (UA) Neg mg/dL (Negative) 12/12/17 Unknown Urine Ketones Neg mg/dL (Negative) 12/12/17 Unknown Urine Blood Neg (Negative) 12/12/17 Unknown Urine Nitrite Neg (Negative) 12/12/17 Unknown Urine Bilirubin Neg (Negative) 12/12/17 Unknown Urine Urobilinogen 2.0 mg/dL (<2.0) 12/12/17 Unknown Ur Leukocyte Esterase Tr (Negative) 12/12/17 Unknown Urine WBC (Auto) 3.0 /HPF (0.0-6.0) 12/12/17 Unknown Urine RBC (Auto) 5.0 /HPF (0.0-6.0) 12/12/17 Unknown U Epithel Cells (Auto) < 1.0 /HPF (0-13.0) 12/12/17 Unknown Urine Mucus Few /HPF 12/12/17 Unknown
[2017-12-14] MEDS: ARICEPT PO SCH (22:33)
--- NOTE | 2017-12-15 07:37 | Discharge Summary ---
Providers - Providers Date of Admission: 12/12/17 14:17 Attending physician: GERBER HERNANDEZ MD 12/12/17 14:17 Occupational Therapy Evaluate and Treat [CONS] Routine Comment: Reason For Exam: Neuro deficits Physical Therapy Evaluation and Treat [CONS] Routine Comment: Reason For Exam: Neuro deficits 12/12/17 16:33 Consult to Physician [CONS] Routine Comment: LEFT MESSAGE WITH THANIA AT 1659 Consulting Provider: EMELINA ARRIOLA Physician Instructions: Reason For Exam: cva 12/13/17 08:13 Consult to Wound/ET Nurse [CONS] Routine Reason For Exam: wound eval, redness buttock & skin tear left elbow 12/13/17 10:16 Consult to Mental Health [CONS] Routine Reason For Exam: suicidal hx Place consult to:: mental health Notified:: YES Phone number called:: [phone] Was contact made?: No Time called:: 10:45 Comment:: LEFT MESSAGE ON VOICE MAIL ONLY OPTION. 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 The time of arrival of EMS the patient was noted to be confused and was transported to [facility] for further evaluation. Information provided by son indicates that the patient has severe dementia and has been a resident of [facility] where he was transferred to [facility] and then sent [facility] for supposedly suicidal ideation the son also reports that the patient stated that he was not suicidal. Imaging studies are negative, glycemic and this could be the etiology patient was treated with D5 and D50 with good improvement in mental status. Pain is as tolerated his diet and is stable for discharge Acute encephalopathy Unresponsive possible CVA versus TIA Hyponatremia-RESOLVING Severe dementia Alzheimer dementia Metabolic acidosis Hypoglycemia-Could be the etiology Disposition: DC/TX-03 SNF [facility] Time spent for discharge: 35 MINS Exam - Constitutional Vitals: Temp Pulse Resp BP Pulse Ox 97.1 F L 100 H 20 151/74 96 12/14/17 20:12 12/14/17 22:00 12/14/17 22:00 12/14/17 20:12 12/14/17 22:00 Plan Activity: advance as tolerated, up only with assistance Diet: low fat Special Instructions: record daily BP diary Follow up with: PRIMARY CAREMD [Primary Care Provider] - 3-5 Days COURTNEY ONEAL MD [Staff Physician] - 7 Days CHELLE GURROLA MD [Staff Physician] - 7 Days Prescriptions: AtorvaSTATin [Lipitor] 40 mg PO QHS #30 tablet
--- NOTE | 2017-12-15 10:01 | Cat Scan Report ---
FINAL REPORT EXAM: CT HEAD/BRAIN WO CON HISTORY: CVA TECHNIQUE: CT of the Head without IV contrast. PRIORS: CT head December 12, 2017. FINDINGS: Decreased attenuation regions in the periventricular and subcortical white matter are nonspecific and may represent small vessel ischemic disease, encephalopathy, edema, or a demyelinating process. Small vessel ischemic disease (leukoaroaiosis) favored. Vascular calcifications. There is no evidence for acute ischemia. There is no hemorrhage. There is no midline shift. There is no hydrocephalus. There is no mass. Age appropriate rhodes-white matter attenuation is noted. [id number] atrophy. There is no calvarial fracture. Opacification of the left mastoid air cells and middle ear is unchanged compared to the prior. Right mastoid air cells and middle air are aerated without opacification. Mild mucosal thickening in both ethmoid sinuses. Globes are intact. IMPRESSION: No acute intracranial findings. Chronic ischemic disease. Atrophy, mild to moderate. Suspect left otomastoiditis. Differential diagnosis includes physiological fluid.
[2017-12-15] MEDS: THERAGRAN Tab PO SCH (10:19)
[2017-12-15] MEDS: PEPCID PO SCH (10:19)
[2017-12-15] MEDS: HALFPRIN EC PO SCH (10:19)
[2017-12-15] MEDS: LASIX PO SCH (10:19)
[2017-12-15] MEDS ORDERED: D50W (25GM) Syringe IV ONE (13:55)
--- NOTE | 2017-12-15 14:19 | Progress Note ---
Assessment and Plan Assessment and plan: Patient is an 87-year-old male with history of hypertension, diabetes mellitus, GERD, cardiomyopathy with pacemaker severe dementia per family who was transferred from [facility] where he was admitted for suicidal ideation but transported over his head according to documentation and also with paranoia after being found unresponsive this morning shortly after breakfast. The time of arrival of EMS the patient was noted to be confused and was transported to [facility] for further evaluation. Information provided by son indicates that the patient has severe dementia and has been a resident of [facility] where he was transferred to [facility] and then sent [facility] for supposedly suicidal ideation the son also reports that the patient stated that he was not suicidal. Acute encephalopathy Unresponsive possible CVA versus TIA Hyponatremia-RESOLVING Metabolic acidosis Hypoglycemia-Could be the etiology Plan Continue supportive care CT of the head is negative for acute pathology MRI, MRA could not be obtained due to pacemaker Continue D5 Neurology input noted Continue Neuro checks Continue IV hydration doubt pneumonia at this time Recheck sodium level Obtain mental health consult DVT and GI prophylaxis Pending discharge back to facility. History Interval history: Patient seen and examined much more awake today. New complaints. Hospitalist Physical - Physical exam Narrative exam: VITAL SIGNS: Reviewed. GENERAL: The patient appeared lethargic.. Vital signs as documented. HEAD: No signs of head trauma. EYES: Pupils are equal. Extraocular motions intact. EARS: Hearing grossly intact. MOUTH: Oropharynx is normal. NECK: No adenopathy, no JVD. CHEST: Chest with clear breath sounds bilaterally. No wheezes, rales, or rhonchi. CARDIAC: Regular rate and rhythm. S1 and S2, without murmurs, gallops, or rubs. VASCULAR: No Edema. Peripheral pulses normal and equal in all extremities. ABDOMEN: Soft, without detectable tenderness. No sign of distention. No rebound or guarding, and no masses palpated. Bowel Sounds normal. MUSCULOSKELETAL: Good range of motion of all major joints. Extremities without clubbing, cyanosis or edema. NEUROLOGIC EXAM: Awake and oriented to person No focal sensory or strength deficits. PSYCHIATRIC: Unable to appropriately assess due to patient's drowsiness. SKIN: No rash or lesions. - Constitutional Vitals: Temp Pulse Resp BP Pulse Ox 97.4 F L 75 18 118/70 97 12/15/17 07:29 12/15/17 07:29 12/15/17 07:29 12/15/17 07:29 12/15/17 07:29 General appearance: Present: mild distress Results - Labs CBC & Chem 7: 12/14/17 04:47 12/14/17 04:47 Labs: Laboratory Last Values WBC 6.8 K/mm3 (4.5-11.0) 12/14/17 04:47 RBC 4.20 M/mm3 (3.65-5.03) 12/14/17 04:47 Hgb 13.5 gm/dl (11.8-15.2) 12/14/17 04:47 Hct 38.5 % (35.5-45.6) 12/14/17 04:47 MCV 92 fl (84-94) 12/14/17 04:47 MCH 32 pg (28-32) 12/14/17 04:47 MCHC 35 % (32-34) H 12/14/17 04:47 RDW 16.8 % (13.2-15.2) H 12/14/17 04:47 Plt Count 147 K/mm3 (140-440) 12/14/17 04:47 Lymph % (Auto) 11.3 % (13.4-35.0) L 12/13/17 12:22 Lane % (Auto) 10.1 % (0.0-7.3) H 12/13/17 12:22 Eos % (Auto) 1.6 % (0.0-4.3) 12/13/17 12:22 Baso % (Auto) 0.5 % (0.0-1.8) 12/13/17 12:22 Lymph # 1.0 K/mm3 (1.2-5.4) L 12/13/17 12:22 Lane # 0.9 K/mm3 (0.0-0.8) H 12/13/17 12:22 Eos # 0.1 K/mm3 (0.0-0.4) 12/13/17 12:22 Baso # 0.0 K/mm3 (0.0-0.1) 12/13/17 12:22 Seg Neutrophils % 76.5 % (40.0-70.0) H 12/13/17 12:22 Seg Neutrophils # 6.6 K/mm3 (1.8-7.7) 12/13/17 12:22 D-Dimer 389.72 ng/mlDDU (0-234) H 12/12/17 12:34 Sodium 133 mmol/L (137-145) L 12/14/17 04:47 Potassium 3.8 mmol/L (3.6-5.0) 12/14/17 04:47 Chloride 91.4 mmol/L (98-107) L 12/14/17 04:47 Carbon Dioxide 29 mmol/L (22-30) 12/14/17 04:47 Anion Gap 16 mmol/L 12/14/17 04:47 BUN 28 mg/dL (9-20) H 12/14/17 04:47 Creatinine 0.4 mg/dL (0.8-1.5) L 12/14/17 04:47 Estimated GFR > 60 ml/min 12/14/17 04:47 BUN/Creatinine Ratio 70 % 12/14/17 04:47 Glucose 59 mg/dL (75-100) L 12/14/17 04:47 POC Glucose 96 (70-105) 12/15/17 14:03 Lactic Acid 1.10 mmol/L (0.7-2.0) 12/13/17 12:22 Calcium 8.8 mg/dL (8.4-10.2) 12/14/17 04:47 Total Bilirubin 0.90 mg/dL (0.1-1.2) 12/12/17 10:50 AST 32 units/L (5-40) 12/12/17 10:50 ALT 31 units/L (7-56) 12/12/17 10:50 Alkaline Phosphatase 110 units/L (35-129) 12/12/17 10:50 Ammonia 55.0 umol/L (25-60) 12/12/17 10:50 Troponin T < 0.010 ng/mL (0.00-0.029) 12/12/17 10:50 Total Protein 6.1 g/dL (6.3-8.2) L 12/12/17 10:50 Albumin 3.2 g/dL (3.9-5) L 12/12/17 10:50 Albumin/Globulin Ratio 1.1 % 12/12/17 10:50 Triglycerides 76 mg/dL (2-149) 12/13/17 03:38 Cholesterol 125 mg/dL (50-199) 12/13/17 03:38 LDL Cholesterol Direct 57 mg/dL (50-130) 12/13/17 03:38 HDL Cholesterol 70 mg/dL (40-59) H 12/13/17 03:38 Cholesterol/HDL Ratio 1.78 % 12/13/17 03:38 Vitamin B12 > 2000 pg/mL (211-911) H 12/12/17 19:58 TSH 2.470 mlU/mL (0.270-4.200) 12/12/17 19:58 Free T4 1.60 ng/dL (0.76-1.46) H 12/12/17 19:58 Urine Color Yellow (Yellow) 12/12/17 Unknown Urine Turbidity Clear (Clear) 12/12/17 Unknown Urine pH 6.0 (5.0-7.0) 12/12/17 Unknown Ur Specific [place] 1.009 (1.003-1.030) 12/12/17 Unknown Urine Protein <15 mg/dl mg/dL (Negative) 12/12/17 Unknown Urine Glucose (UA) Neg mg/dL (Negative) 12/12/17 Unknown Urine Ketones Neg mg/dL (Negative) 12/12/17 Unknown Urine Blood Neg (Negative) 12/12/17 Unknown Urine Nitrite Neg (Negative) 12/12/17 Unknown Urine Bilirubin Neg (Negative) 12/12/17 Unknown Urine Urobilinogen 2.0 mg/dL (<2.0) 12/12/17 Unknown Ur Leukocyte Esterase Tr (Negative) 12/12/17 Unknown Urine WBC (Auto) 3.0 /HPF (0.0-6.0) 12/12/17 Unknown Urine RBC (Auto) 5.0 /HPF (0.0-6.0) 12/12/17 Unknown U Epithel Cells (Auto) < 1.0 /HPF (0-13.0) 12/12/17 Unknown Urine Mucus Few /HPF 12/12/17 Unknown
[2017-12-15] MEDS: D5W/0.45% NACL/KCL 20 MEQ 20 MEQ/1,000 ML BAG IV SCH (15:41)
[2017-12-15] MEDS ORDERED: ATIVAN IV ONE (17:51)
--- NOTE | 2017-12-15 18:39 | Event Note ---
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
[2017-12-15] MEDS ORDERED: NACL 0.9% 1000 ML 1,000 ML IV ONE (18:43)
--- NOTE | 2017-12-15 18:54 | Cat Scan Report ---
FINAL REPORT PROCEDURE: CT HEAD/BRAIN WO CON TECHNIQUE: Computerized tomography of the head was performed without contrast material. HISTORY: AMS COMPARISON: 12/15/2017 FINDINGS: There are diffuse involutional changes, with prominence of the ventricles and the sulci. There is no CT evidence of intracranial mass, hemorrhage, acute territorial infarction, or hydrocephalus. The intracranial arteries are symmetric in density. There is fluid density within bilateral mastoid air cells. No fracture is seen IMPRESSION: No CT evidence of acute abnormality
[2017-12-15] MEDS ORDERED: VERSED IV NR (19:00)
--- NOTE | 2017-12-15 19:20 | Consultation ---
History of Present Illness - Reason for Consult Consult date: 12/15/17 Reason for consult: psychiatric evaluation - Chief Complaint Chief complaint: "dementia" - History of Present Psychiatric Illness Mr. Delatorre is a 87-year-old male with history of hypertension, diabetes mellitus , GERD, cardiomyopathy with pacemaker, severe dementia per family who was transferred from [facility] where he was admitted for suicidal ideation. He was found unresponsive. According to the record, information provided by son indicates that the patient has severe dementia and has been a resident of [facility] where he was transferred to [facility] and then sent [facility] for SI. Reportedly his son stated he was not suicidal. The medical team is addressing his medical needs, to include: acute encephalopathy, CVA versus TIA, hyponatremia, and metabolic acidosis. Today, staff report he has not had any behavioral problems. He is reported to scream out with over stimulation. Mr. Delatorre would say one word in response to questions and nothing at all to other questions. He made eye contact. He states he has dementia. Unable to obtain additional information from him. From a psychiatric standpoint, he does not need to return to the psychiatric facility. Medications and Allergies Allergies Allergy/AdvReac Type Severity Reaction Status Date / Time Penicillins Allergy Hives Verified 12/12/17 12:15 Home Medications Medication Instructions Recorded Confirmed Last Taken Type Aspirin [Adult Aspirin] 81 mg PO QAM 12/12/17 12/12/17 12/11/17 History Carvedilol [Coreg] 6.25 mg PO BID 12/12/17 12/12/17 12/11/17 History Divalproex Sodium [Depakote] 250 mg PO QAM 12/12/17 12/12/17 12/11/17 History Donepezil [Aricept] 5 mg PO HS 12/12/17 12/12/17 12/11/17 History Famotidine [Pepcid] 20 mg PO QAM 12/12/17 12/12/17 12/11/17 History Furosemide [Lasix] 20 mg PO QDAY 12/12/17 12/12/17 12/11/17 History Multivitamin Tab [Multiple Vitamin 1 each PO DAILY 12/12/17 12/12/17 12/11/17 History TAB (Theragran)] QUEtiapine [SEROquel] 25 mg PO HS 09/12/12/17 12/11/17 History AtorvaSTATin [Lipitor] 40 mg PO QHS #30 tablet 12/15/17 Unknown Rx Active Meds: Active Medications Acetaminophen (Tylenol) 650 mg PO Q4H PRN PRN Reason: Pain, Mild (1-3) Last Admin: 12/12/17 22:59 Dose: 650 mg Albuterol (Proventil) 2.5 mg IH Q3HRT PRN PRN Reason: Shortness Of Breath Aspirin (Halfprin Ec) 81 mg PO QAM [facility] Last Admin: 12/15/17 10:19 Dose: 81 mg Atorvastatin Calcium (Lipitor) 40 mg PO QHS [facility] Last Admin: 12/14/17 22:33 Dose: 40 mg Bisacodyl (Dulcolax) 10 mg [place] QDAY PRN PRN Reason: Constipation Divalproex Sodium (Depakote Dr) [facility] Last Admin: 12/15/17 10:20 Dose: 250 mg Donepezil HCl (Aricept) 5 mg PO HS [facility] Last Admin: 12/14/17 22:33 Dose: 5 mg Famotidine (Pepcid) [facility] Last Admin: 12/15/17 10:19 Dose: 20 mg Furosemide (Lasix) 20 mg PO QDAY [facility] Last Admin: 12/15/17 10:19 Dose: 20 mg Potassium Chloride/Dextrose/Sod Cl (D5w/0.45% Nacl/Kcl 20 Meq) 20 meq in 1,000 mls @ 75 mls/hr IV DIRECT [facility] Last Admin: 12/15/17 15:41 Dose: 75 mls/hr Levetiracetam 750 mg/ Sodium (Chloride) 107.5 mls @ 400 mls/hr IV Q12HR [facility] Ceftriaxone Sodium (Rocephin/Ns 2 Gm/100 Ml) 2 gm in 100 mls @ 200 mls/hr IV Q24H [facility]; Protocol Sodium Chloride (Nacl 0.9% 1000 Ml) 1,000 mls @ 999 mls/hr IV BOLUS ONE Stop: 12/15/17 19:43 Azithromycin 500 mg/ Sodium (Chloride) 250 mls @ 250 mls/hr IV Q24H [facility] Magnesium Hydroxide (Milk Of Magnesia) 30 ml PO Q4H PRN PRN Reason: Constipation Metoclopramide HCl (Reglan) 10 mg PO Q6H PRN PRN Reason: Nausea And Vomiting Midazolam HCl (Versed) 5 mg IV ONCE NR Stop: 12/15/17 23:59 Multivitamins (Theragran Tab) 1 each PO DAILY [facility] Last Admin: 12/15/17 10:19 Dose: 1 each Ondansetron HCl (Zofran) 4 mg IV Q8H PRN PRN Reason: Nausea And Vomiting Promethazine HCl (Phenergan) 25 mg [place] Q6H PRN PRN Reason: Nausea And Vomiting Quetiapine Fumarate (Seroquel) 25 mg PO HS [facility] Last Admin: 12/14/17 22:33 Dose: 25 mg Sodium Chloride (Sodium Chloride Flush Syringe 10 Ml) 10 ml IV PRN PRN PRN Reason: LINE FLUSH Mental Status Exam - Vital signs Last Vital Signs Temp 97.5 F L 12/15/17 13:44 Pulse 111 H 12/15/17 18:52 Resp 18 12/15/17 13:44 BP 67/40 12/15/17 18:52 Pulse Ox 99 12/15/17 18:52 Results Result Diagrams: 12/14/17 04:47 12/14/17 04:47 Abnormal lab results 12/15/17 12/15/17 Range/Units 17:48 18:04 POC ABG pH 7.084 L (7.35-7.45) POC ABG pCO2 82.8 H (35-45) POC ABG pO2 106 H (80-105) POC Glucose 108 H (70-105) All other labs normal.
--- NOTE | 2017-12-15 19:54 | XRay Report ---
FINAL REPORT EXAM: XR CHEST 1V AP HISTORY: ETT placement TECHNIQUE: Frontal portable view of the chest Comparison: None FINDINGS: The tip of the endotracheal tube is projected at the level of the bozena directed toward the right mainstem bronchus. There is mild elevation the left hemidiaphragm. There is no evidence of focal infiltrate, pneumothorax or pleural fluid collection. The cardiac silhouette is enlarged with dual lead AICD. The thoracic aorta is tortuous with atherosclerotic vascular calcification. The bony structures are notable for marked degenerative change of the shoulder joints bilaterally and dextrocurvature of the thoracic spine. IMPRESSION: 1. The tip of the endotracheal tube projected at the level of the bozena. If the tip were pulled back approximately 2.5 centimeters the tip would be below the level of the clavicles and above the level of the bozena. 2. No evidence of an acute pulmonary process.
[2017-12-15] MEDS: ROCEPHIN/NS 2 GM/100 ML 2 GM/100 ML BAG IV SCH (22:54)
[2017-12-15] MEDS: ZITHROMAX 500 MG in NACL 0.9% 250ML 250 ML IV SCH (22:55)
[2017-12-16] MEDS: KEPPRA 750 MG in NACL 0.9% 100 ML IV SCH ×3 (00:05→22:35)
[2017-12-16] MEDS: ARICEPT PO SCH ×2 (00:07→21:01)
[2017-12-16] MEDS ORDERED: VERSED IV ONE (00:24)
--- NOTE | 2017-12-16 03:32 | XRay Report ---
FINAL REPORT PROCEDURE: XR CHEST 1V AP TECHNIQUE: Chest radiograph anteroposterior view. CPT 10499 HISTORY: follow up respiratory failure COMPARISON: 12/15/2017 FINDINGS: Heart: Normal. Mediastinum/Vessels: There is calcified plaque in the thoracic aorta. There is no aneurysm.. Lungs/Pleural space: Lungs are expanded. There are no infiltrates, effusions or pneumothoraces. There is no pulmonary edema.. Bony thorax: No acute osseous abnormality. Life support devices: Endotracheal tube is in the mid trachea. Pacemaker leads are in proper position.. IMPRESSION: Heart size is normal.. There is no acute lung disease. ETT is in proper position.
[2017-12-16] MEDS: D5W/0.45% NACL/KCL 20 MEQ 20 MEQ/1,000 ML BAG IV SCH (06:09)
--- NOTE | 2017-12-16 11:19 | Progress Note ---
Subjective - Reason for Consult Consult date: 12/16/17 Reason for consult: Psychiatry Follow-up - Chief Complaint Chief complaint: "The patient is intubated" 87-year-old male with history of hypertension, diabetes mellitus, GERD, cardiomyopathy with pacemaker, severe dementia per family who was transferred from [facility] where he was admitted for suicidal ideation. He was found unresponsive. According to the record, information provided by son indicates that the patient has severe dementia and has been a resident of [facility] where he was transferred to [facility] and then sent [facility] for SI. Reportedly his son stated he was not suicidal. The medical team is addressing his medical needs, to include: acute encephalopathy, CVA versus TIA, hyponatremia, and metabolic acidosis. Per the record, the patient was intubated yesterday afternoon. Per the initial psy consult, the patient do not need to return back to the psy facility. Mental Status Exam - Vital signs Last Vital Signs Temp 98.2 F 12/16/17 08:00 Pulse 74 12/16/17 09:00 Resp 24 12/16/17 09:00 BP 125/65 12/16/17 09:00 Pulse Ox 99 12/16/17 09:00 - Exam Narrative exam: Cannot complete the MSE because of the patient's condition (intubated). Assessment and Plan Impression: Hx of Dementia. The patient was intubated yesterday afternoon. Recommendation/Plan: Per the initial psy consult (12/15/2017) the patient do not need to return back to a psy facility. Psychiatry sign off.
--- NOTE | 2017-12-16 11:45 | Consultation ---
History of Present Illness Consult date: 12/16/17 Requesting physician: KAVON WATSON Reason for consult: other (Acute Hypercapnic Hypoxemic Respiratory Failure) History of present illness: PULMONARY/CCM CONSULT NOTE (Full dictation # [id number]) Please see dictated notes for full details Past History Past Medical History: acute GA, diabetes, hypertension, other (dementia) Past Surgical History: Other (pacemaker placment) Social history: single. denies: smoking, alcohol abuse, prescription drug abuse Family history: diabetes, hypertension Medications and Allergies Allergies Allergy/AdvReac Type Severity Reaction Status Date / Time Penicillins Allergy Hives Verified 12/12/17 12:15 Home Medications Medication Instructions Recorded Confirmed Last Taken Type Aspirin [Adult Aspirin] 81 mg PO QAM 12/12/17 12/12/17 12/11/17 History Carvedilol [Coreg] 6.25 mg PO BID 12/12/17 12/12/17 12/11/17 History Divalproex Sodium [Depakote] 250 mg PO QAM 12/12/17 12/12/17 12/11/17 History Donepezil [Aricept] 5 mg PO HS 12/12/17 12/12/17 12/11/17 History Famotidine [Pepcid] 20 mg PO QAM 12/12/17 12/12/17 12/11/17 History Furosemide [Lasix] 20 mg PO QDAY 12/12/17 12/12/17 12/11/17 History Multivitamin Tab [Multiple Vitamin 1 each PO DAILY 12/12/17 12/12/17 12/11/17 History TAB (Theragran)] QUEtiapine [SEROquel] 25 mg PO HS 12/12/17 12/12/17 12/11/17 History AtorvaSTATin [Lipitor] 40 mg PO QHS #30 tablet 12/15/17 Unknown Rx Active Meds: Active Medications Acetaminophen (Tylenol) 650 mg PO Q4H PRN PRN Reason: Pain, Mild (1-3) Last Admin: 12/12/17 22:59 Dose: 650 mg Albuterol (Proventil) 2.5 mg IH Q3HRT PRN PRN Reason: Shortness Of Breath Aspirin (Halfprin Ec) 81 mg PO QAM [facility] Last Admin: 12/15/17 10:19 Dose: 81 mg Atorvastatin Calcium (Lipitor) 40 mg PO QHS [facility] Last Admin: 12/16/17 00:07 Dose: Not Given Bisacodyl (Dulcolax) 10 mg MD QDAY PRN PRN Reason: Constipation Divalproex Sodium (Depakote Dr) 250 mg PO QAM [facility] Last Admin: 12/15/17 10:20 Dose: 250 mg Donepezil HCl (Aricept) 5 mg PO HS [facility] Last Admin: 12/16/17 00:07 Dose: Not Given Famotidine (Pepcid) 20 mg PO BID [facility] Furosemide (Lasix) 20 mg PO QDAY [facility] Last Admin: 12/15/17 10:19 Dose: 20 mg Potassium Chloride/Dextrose/Sod Cl (D5w/0.45% Nacl/Kcl 20 Meq) 20 meq in 1,000 mls @ 75 mls/hr IV DIRECT [facility] Last Admin: 12/16/17 06:09 Dose: 75 mls/hr Levetiracetam 750 mg/ Sodium (Chloride) 107.5 mls @ 400 mls/hr IV Q12HR [facility] Last Admin: 12/16/17 00:05 Dose: 400 mls/hr Ceftriaxone Sodium (Rocephin/Ns 2 Gm/100 Ml) 2 gm in 100 mls @ 200 mls/hr IV Q24H [facility]; Protocol Last Admin: 12/15/17 22:54 Dose: 200 mls/hr Azithromycin 500 mg/ Sodium (Chloride) 250 mls @ 250 mls/hr IV Q24H [facility] Last Admin: 12/15/17 22:55 Dose: 250 mls/hr Magnesium Hydroxide (Milk Of Magnesia) 30 ml PO Q4H PRN PRN Reason: Constipation Metoclopramide HCl (Reglan) 10 mg PO Q6H PRN PRN Reason: Nausea And Vomiting Multivitamins (Theragran Tab) 1 each PO DAILY [facility] Last Admin: 12/15/17 10:19 Dose: 1 each Ondansetron HCl (Zofran) 4 mg IV Q8H PRN PRN Reason: Nausea And Vomiting Promethazine HCl (Phenergan) 25 mg MD Q6H PRN PRN Reason: Nausea And Vomiting Quetiapine Fumarate (Seroquel) 25 mg PO HS [facility] Last Admin: 12/16/17 00:07 Dose: Not Given Sodium Chloride (Sodium Chloride Flush Syringe 10 Ml) 10 ml IV PRN PRN PRN Reason: LINE FLUSH Physical Examination Vital signs: Vital Signs Temp Pulse Resp BP Pulse Ox 96.8 F L 71 16 115/77 99 12/12/17 10:40 12/12/17 10:40 12/12/17 10:40 12/12/17 10:40 12/12/17 10:40 Results - Laboratory Findings CBC and BMP: 12/14/17 04:47 12/14/17 04:47 ABG POC ABG pH 7.495 (7.35-7.45) H 12/16/17 05:56 POC ABG pCO2 31.7 (35-45) L 12/16/17 05:56 POC ABG pO2 112 (80-105) H 12/16/17 05:56 POC ABG HCO3 24.5 12/16/17 05:56 POC ABG Total CO2 25 12/16/17 05:56 POC ABG O2 Sat 99 12/16/17 05:56 PT/INR, D-dimer D-Dimer 389.72 ng/mlDDU (0-234) H 12/12/17 12:34 Abnormal lab findings: Abnormal Labs 12/12/17 12/12/17 12/12/17 10:50 10:50 10:50 MCHC 35 H RDW 16.5 H Plt Count 139 L Lymph % (Auto) 11.9 L [place] % (Auto) 11.8 H Lymph # 0.8 L [place] # Seg Neutrophils % 74.6 H D-Dimer POC ABG pH POC ABG pCO2 POC ABG pO2 Sodium 124 L Chloride 88.0 L BUN Creatinine 0.5 L Glucose 106 H POC Glucose Lactic Acid 3.60 H* Total Protein 6.1 L Albumin 3.2 L HDL Cholesterol Vitamin B12 Free T4 12/12/17 12/12/17 12/12/17 12:08 12:34 19:58 MCHC RDW Plt Count Lymph % (Auto) [place] % (Auto) Lymph # [place] # Seg Neutrophils % D-Dimer 389.72 H POC ABG pH POC ABG pCO2 POC ABG pO2 Sodium Chloride BUN Creatinine Glucose POC Glucose Lactic Acid 2.30 H* Total Protein Albumin HDL Cholesterol Vitamin B12 Free T4 1.60 H 12/12/17 12/13/17 12/13/17 19:58 03:38 12:22 MCHC 35 H RDW 16.6 H Plt Count 125 L Lymph % (Auto) 11.3 L [place] % (Auto) 10.1 H Lymph # 1.0 L [place] # 0.9 H Seg Neutrophils % 76.5 H D-Dimer POC ABG pH POC ABG pCO2 POC ABG pO2 Sodium Chloride BUN Creatinine Glucose POC Glucose Lactic Acid Total Protein Albumin HDL Cholesterol 70 H Vitamin B12 > 2000 H Free T4 12/13/17 12/14/17 12/14/17 12:22 04:47 04:47 MCHC 35 H RDW 16.8 H Plt Count Lymph % (Auto) [place] % (Auto) Lymph # [place] # Seg Neutrophils % D-Dimer POC ABG pH POC ABG pCO2 POC ABG pO2 Sodium 130 L 133 L Chloride 90.3 L 91.4 L BUN 28 H Creatinine 0.4 L 0.4 L Glucose 69 L 59 L POC Glucose Lactic Acid Total Protein Albumin HDL Cholesterol Vitamin B12 Free T4 12/15/17 12/15/17 12/15/17 17:48 18:04 20:01 MCHC RDW Plt Count Lymph % (Auto) [place] % (Auto) Lymph # [place] # Seg Neutrophils % D-Dimer POC ABG pH 7.084 L POC ABG pCO2 82.8 H 52.2 H POC ABG pO2 106 H 502 H Sodium Chloride BUN Creatinine Glucose POC Glucose 108 H Lactic Acid Total Protein Albumin HDL Cholesterol Vitamin B12 Free T4 12/16/17 05:56 MCHC RDW Plt Count Lymph % (Auto) [place] % (Auto) Lymph # [place] # Seg Neutrophils % D-Dimer POC ABG pH 7.495 H POC ABG pCO2 31.7 L POC ABG pO2 112 H Sodium Chloride BUN Creatinine Glucose POC Glucose Lactic Acid Total Protein Albumin HDL Cholesterol Vitamin B12 Free T4
[2017-12-16] MEDS ORDERED: SIMPLE SYRUP FEEDTUBE PRN ×2 (12:41)
[2017-12-16] MEDS ORDERED: PANCREAZE DR 10,500 UNIT FEEDTUBE PRN (12:41)
[2017-12-16] MEDS ORDERED: SODIUM BICARBONATE FEEDTUBE PRN (12:41)
--- NOTE | 2017-12-16 13:45 | XRay Report ---
AP ABDOMEN: HISTORY: Feeding tube placement. The Dobbhoff tube terminates in the antrum of the stomach. The abdominal gas pattern is unremarkable. No masses or organomegaly is identified and there is no gross evidence of free air or fluid. No significant soft tissue calcifications are noted. Cholecystectomy changes. IMPRESSION: Unremarkable abdomen.
[2017-12-16] MEDS: PEPCID PO SCH ×2 (14:02→21:01)
[2017-12-16] MEDS: THERAGRAN Tab PO SCH (14:02)
[2017-12-16] MEDS: LASIX PO SCH (14:03)
[2017-12-16] MEDS: HALFPRIN EC PO SCH (14:04)
--- NOTE | 2017-12-16 18:32 | Progress Note ---
Assessment and Plan Assessment and plan: Patient is an 87-year-old male with history of hypertension, diabetes mellitus, GERD, cardiomyopathy with pacemaker severe dementia per family who was transferred from [facility] where he was admitted for suicidal ideation but transported over his head according to documentation and also with paranoia after being found unresponsive this morning shortly after breakfast. The time of arrival of EMS the patient was noted to be confused and was transported to [facility] for further evaluation. Information provided by son indicates that the patient has severe dementia and has been a resident of [facility] where he was transferred to [facility] and then sent [facility] for supposedly suicidal ideation the son also reports that the patient stated that he was not suicidal. Imaging studies are negative, glycemic and this could be the etiology patient was treated with D5 and D50 with good improvement in mental status. PATIENT WAS Billed for discharge and shortly after the patient had a seizure episode and ABG showed sever respiratory acidosis with Hypercapenia requiring intubation. My colleague spoke with family and patient was made a DNR Acute encephalopathy Acute Respiratory failure on mv for 24 hrs Aspiration penumonia SEIZURE DISORDER Unresponsive possible CVA versus TIA Hyponatremia-RESOLVING Severe dementia Alzheimer dementia Metabolic acidosis Hypoglycemia-Could be the etiology Plan Continue supportive care Continue ventilatory support IV Rocephin and Zithromax initiated for possible pneumonia Intensivit consult Neurology consult Loan Adviser consult requested CT of the head is negative for acute pathology MRI, MRA could not be obtained due to pacemaker Continue Neuro checks Now DNR DVT and GI prophylaxis The high probability of a clinically significant, sudden or life threatening deterioration of the [neuro] system(s) required my full and direct attention, intervention and personal management. The aggregate critical care time was [45] minutes. This time is in addition to time spent performing reported procedures but includes the following: [x] Data Review and interpretation [x] Patient assessment and monitoring of vital signs [x] Documentation [x] Medication orders and management History Interval history: Patient seen and examined remains on mechanical ventilation Hospitalist Physical - Physical exam Narrative exam: VITAL SIGNS: Reviewed. GENERAL: intubated HEAD: No signs of head trauma. EYES: Pupils are equal. EARS: unable to access MOUTH: ETT Inplace NECK: No adenopathy, no JVD. CHEST: Chest with clear breath sounds bilaterally. CARDIAC: Regular rate and rhythm. S1 and S2, without murmurs, gallops, or rubs. VASCULAR: No Edema. Peripheral pulses normal and equal in all extremities. ABDOMEN: Soft, without detectable tenderness. No sign of distention. No rebound or guarding, and no masses palpated. Bowel Sounds normal. MUSCULOSKELETAL: Extremities without clubbing, cyanosis or edema. NEUROLOGIC EXAM: Sedated SKIN: No rash or lesions. - Constitutional Vitals: Temp Pulse Resp BP Pulse Ox 98.6 F 71 17 137/61 100 12/16/17 16:00 12/16/17 18:00 12/16/17 18:00 12/16/17 18:00 12/16/17 18:09 General appearance: Present: mild distress Results - Labs CBC & Chem 7: 12/14/17 04:47 12/14/17 04:47 Labs: Laboratory Last Values WBC 6.8 K/mm3 (4.5-11.0) 12/14/17 04:47 RBC 4.20 M/mm3 (3.65-5.03) 12/14/17 04:47 Hgb 13.5 gm/dl (11.8-15.2) 12/14/17 04:47 Hct 38.5 % (35.5-45.6) 12/14/17 04:47 MCV 92 fl (84-94) 12/14/17 04:47 MCH 32 pg (28-32) 12/14/17 04:47 MCHC 35 % (32-34) H 12/14/17 04:47 RDW 16.8 % (13.2-15.2) H 12/14/17 04:47 Plt Count 147 K/mm3 (140-440) 12/14/17 04:47 Lymph % (Auto) 11.3 % (13.4-35.0) L 12/13/17 12:22 [place] % (Auto) 10.1 % (0.0-7.3) H 12/13/17 12:22 Eos % (Auto) 1.6 % (0.0-4.3) 12/13/17 12:22 Baso % (Auto) 0.5 % (0.0-1.8) 12/13/17 12:22 Lymph # 1.0 K/mm3 (1.2-5.4) L 12/13/17 12:22 [place] # 0.9 K/mm3 (0.0-0.8) H 12/13/17 12:22 Eos # 0.1 K/mm3 (0.0-0.4) 12/13/17 12:22 Baso # 0.0 K/mm3 (0.0-0.1) 12/13/17 12:22 Seg Neutrophils % 76.5 % (40.0-70.0) H 12/13/17 12:22 Seg Neutrophils # 6.6 K/mm3 (1.8-7.7) 12/13/17 12:22 D-Dimer 389.72 ng/mlDDU (0-234) H 12/12/17 12:34 POC ABG pH 7.407 (7.35-7.45) 12/16/17 16:00 POC ABG pCO2 42.9 (35-45) 12/16/17 16:00 POC ABG pO2 133 (80-105) H 12/16/17 16:00 POC ABG HCO3 27.0 12/16/17 16:00 POC ABG Total CO2 28 12/16/17 16:00 POC ABG O2 Sat 99 12/16/17 16:00 POC ABG Base Excess 2 12/16/17 16:00 FiO2 30 % 12/16/17 16:00 Sodium 133 mmol/L (137-145) L 12/14/17 04:47 Potassium 3.8 mmol/L (3.6-5.0) 12/14/17 04:47 Chloride 91.4 mmol/L (98-107) L 12/14/17 04:47 Carbon Dioxide 29 mmol/L (22-30) 12/14/17 04:47 Anion Gap 16 mmol/L 12/14/17 04:47 BUN 28 mg/dL (9-20) H 12/14/17 04:47 Creatinine 0.4 mg/dL (0.8-1.5) L 12/14/17 04:47 Estimated GFR > 60 ml/min 12/14/17 04:47 BUN/Creatinine Ratio 70 % 12/14/17 04:47 Glucose 59 mg/dL (75-100) L 12/14/17 04:47 POC Glucose 85 (70-105) 12/15/17 18:25 Lactic Acid 1.10 mmol/L (0.7-2.0) 12/13/17 12:22 Calcium 8.8 mg/dL (8.4-10.2) 12/14/17 04:47 Total Bilirubin 0.90 mg/dL (0.1-1.2) 12/12/17 10:50 AST 32 units/L (5-40) 12/12/17 10:50 ALT 31 units/L (7-56) 12/12/17 10:50 Alkaline Phosphatase 110 units/L (35-129) 12/12/17 10:50 Ammonia 55.0 umol/L (25-60) 12/12/17 10:50 Troponin T < 0.010 ng/mL (0.00-0.029) 12/12/17 18:35 Total Protein 6.1 g/dL (6.3-8.2) L 12/12/17 10:50 Albumin 3.2 g/dL (3.9-5) L 12/12/17 10:50 Albumin/Globulin Ratio 1.1 % 12/12/17 10:50 Triglycerides 76 mg/dL (2-149) 12/13/17 03:38 Cholesterol 125 mg/dL (50-199) 12/13/17 03:38 LDL Cholesterol Direct 57 mg/dL (50-130) 12/13/17 03:38 HDL Cholesterol 70 mg/dL (40-59) H 12/13/17 03:38 Cholesterol/HDL Ratio 1.78 % 12/13/17 03:38 Vitamin B12 > 2000 pg/mL (211-911) H 12/12/17 19:58 TSH 2.470 mlU/mL (0.270-4.200) 12/12/17 19:58 Free T4 1.60 ng/dL (0.76-1.46) H 12/12/17 19:58 Urine Color Yellow (Yellow) 12/12/17 Unknown Urine Turbidity Clear (Clear) 12/12/17 Unknown Urine pH 6.0 (5.0-7.0) 12/12/17 Unknown Ur Specific [place] 1.009 (1.003-1.030) 12/12/17 Unknown Urine Protein <15 mg/dl mg/dL (Negative) 12/12/17 Unknown Urine Glucose (UA) Neg mg/dL (Negative) 12/12/17 Unknown Urine Ketones Neg mg/dL (Negative) 12/12/17 Unknown Urine Blood Neg (Negative) 12/12/17 Unknown Urine Nitrite Neg (Negative) 12/12/17 Unknown Urine Bilirubin Neg (Negative) 12/12/17 Unknown Urine Urobilinogen 2.0 mg/dL (<2.0) 12/12/17 Unknown Ur Leukocyte Esterase Tr (Negative) 12/12/17 Unknown Urine WBC (Auto) 3.0 /HPF (0.0-6.0) 12/12/17 Unknown Urine RBC (Auto) 5.0 /HPF (0.0-6.0) 12/12/17 Unknown U Epithel Cells (Auto) < 1.0 /HPF (0-13.0) 12/12/17 Unknown Urine Mucus Few /HPF 12/12/17 Unknown
[2017-12-16 19:26] LABS: Basophils % (Auto) 0.3 % (0.0-1.8); Eosinophils % (Auto) 0.3 % (0.0-4.3); Hematocrit 36.3 % (35.5-45.6); Hemoglobin 12.2 gm/dl (11.8-15.2); Lymphocytes # (Auto) 1.2 K/mm3 (1.2-5.4); Lymphocytes % (Auto) 8.7 % (13.4-35.0); Mean Corpuscular HGB Conc 34 % (32-34); Mean Corpuscular Hemoglobin 31 pg (28-32); Mean Corpuscular Volume 94 fl (84-94); Monocytes # (Auto) 1.2 K/mm3 (0.0-0.8); Monocytes % (Auto) 8.6 % (0.0-7.3); Platelet Count 148 K/mm3 (140-440); Red Blood Count 3.87 M/mm3 (3.65-5.03); Red Cell Distribution Width 16.4 % (13.2-15.2)
[2017-12-16] MEDS: ZITHROMAX 500 MG in NACL 0.9% 250ML 250 ML IV SCH (19:30)
[2017-12-16 19:40] LABS: BUN/Creatinine Ratio 60; Blood Urea Nitrogen 30 mg/dL (9-20); Calcium 8.6 mg/dL (8.4-10.2); Hemolysis Index 55
[2017-12-16] MEDS: ROCEPHIN/NS 2 GM/100 ML 2 GM/100 ML BAG IV SCH (20:40)
[2017-12-16] MEDS: LOVENOX SUB-Q SCH (21:00)
[2017-12-16] MEDS ORDERED: NACL 0.9% 250ML 250 ML IV ONE ×2 (22:40→23:27)
--- NOTE | 2017-12-17 00:22 | Consultation ---
PULMONARY CRITICAL CARE CONSULTATION CONSULTING PHYSICIAN: Dr. Klein. This is in coverage for Dr. Miles. REASON FOR CONSULTATION: Acute respiratory failure, on the mechanical ventilator support. CHIEF COMPLAINT AND HISTORY OF PRESENT ILLNESS: As follows: The patient is an 87-year-old male with a past medical history significant for an element of dementia. Currently, the patient at [facility] where he was being managed for suicidal ideations with his dementia. He came into the Emergency Room after being found down and unresponsive about 4 days ago after breakfast. He was confused in the Emergency Room. There was a clinical suspicion of a cerebrovascular accident. He was hyponatremic. He had an acidosis. He was admitted apparently to the medical floor with the above-mentioned diagnosis. Yesterday, a rapid response was called secondary to seizure type activity in the patient. He was evaluated by the responding physician, who was found to be in significant respiratory failure with hypercapnic etiology, they also was possible seizure activity. He was intubated after transfer to the intensive care unit. When I stopped by to see him today, he was on the mechanical ventilator. He looked pretty anxious, appeared to be asking for the endotracheal tube to be removed. I do not have any history of vomiting or overt aspiration. The patient's tobacco use/abuse history is unknown. He is not a current smoker. Remote history is unknown. The above is as much of the history of presentation as I have. PAST MEDICAL HISTORY: According to the record significant for coronary artery disease, diabetes, hypertension, and dementia. PAST SURGICAL HISTORY: He has had a pacemaker placed in his heart or in his chest wall. MEDICATIONS: He was on at the time I stopped by to see him were reviewed. Pertinent medications included the following: Tylenol 650 mg p.o. q. hours p.r.n. mild pain and fevers. Albuterol treatments, nebulized q. 3 hours p.r.n. shortness of breath, aspirin 81 mg p.o. daily, all p.o. meds now via the feeding tube. Lipitor 40 mg p.o. at bedtime, Zithromax 500 mg IV daily. Rocephin 2 grams IV daily. Depakote 250 mg p.o. q.a.m., Aricept 5 mg p.o. at bedtime, Lovenox 40 mg subcutaneous daily, Pepcid 20 mg p.o. b.i.d., Lasix 20 mg p.o. daily, Keppra 750 mg IV 12 hours, Reglan 10 mg p.o. q.6 hours p.r.n. nausea and vomiting, daily multivitamin, Zofran 4 mg IV q hours p.r.n. nausea and vomiting, and Seroquel 25 mg p.o. at bedtime. ALLERGIES: PENICILLINS. Nature of this allergy is unknown. DIET: Well-built gentleman, acute weight loss or gain history is unknown. FAMILY AND SOCIAL HISTORY: Reported as being single, was at the [facility], it is unclear if he was living in the community prior. No current alcohol, tobacco, or illicit drug use or abuse. Remote history is unknown. There is a family history of diabetes and hypertension. REVIEW OF SYSTEMS: Difficult to obtain secondary to the patient's medical and mental condition as well as a history of dementia. Since he has been here, no gross hematochezia or melena, no gross hematuria, no hematemesis, no bloody tracheal secretions. He had reported seizure type activity. Complete review of system was attempted to be obtained. Pertinent positives and/or negatives as in body of history above, otherwise unobtainable or noncontributory. PHYSICAL EXAMINATION: VITAL SIGNS: At presentation, he was afebrile, temperature 96.8 degrees Fahrenheit, pulse of 71, respiratory rate of 16, blood pressure 115/77, oxygen sats were 99%, inspired oxygen concentration at the time was not recorded. At the time of my evaluation, O2 sats were 100% that was on the assist control, mode of ventilation, tidal volumes 450, set rate of 20, PEEP of 6, and 30% FiO2. GENERAL: Elderly looking male, normocephalic, atraumatic, riding the set rate of 20 on the mechanical ventilator without overt ventilator patient dyssynchrony. HEAD, EYES, EARS, NOSE AND THROAT: He is anicteric. No conjunctival erythema. Endotracheal tube is in place, taped at the lips around 23 cm. Oropharynx is moist. No gross jugular venous distention. Grossly, no palpable lymph nodes in the supraclavicular or submandibular lymph node chains. LUNGS: Auscultation of both lung dunham reveal diminished breath sounds, occasional referred upper airway sounds clear mostly. HEART: Heart sounds 1 and 2 were heard. At the time of my evaluation, regular rate and rhythm without rubs or murmurs. ABDOMEN: Soft, full, bowel sounds are positive, nontender, no palpable hepatosplenomegaly. EXTREMITIES: Without overt digital clubbing, cyanosis, or pedal edema. NEUROLOGIC: The pupils were equal, round, about 3 mm, reactive to light. Extraocular muscle movements were intact. He moved all 4 extremities spontaneously. SKIN: Normal turgor without cellulitis or rash. LABORATORY DATA: From my review Admission white cell count 6700, hemoglobin 13.6, hematocrit 39.2 and platelet count was 139. D-dimer slightly elevated at 389. Serum sodium 124, potassium 4.2, chloride 88, bicarbonate 22, BUN 13, creatinine 0.5, glucose 106. Lactic acid level was 3.6 at presentation. Albumin 3.2, otherwise liver function tests essentially within normal limits. TSH within normal limits. Urinalysis negative for nitrites, showed trace leukocyte esterase with only 3 white cells per high power field and no bacteria reported. Platelet count is 147 today. Arterial blood gas at the time of the code showed a pH of 7.08, pCO2 of 83 and pO2 of 106 that was on 100% oxygen. Atrial blood gas this morning shows a pH of 7.50, pCO2 of 32, pO2 of 112 on the above-mentioned ventilator settings on 30%. Serum sodium is up to 133. Microbiology studies: Tracheal aspirate has been sent, results pending. Radiographic studies have been reviewed. A CT scan of the head was done at presentation, it was read as microangiopathic disease, atrophy, in no acute process. A repeat CT scan was done, post-decompensation yesterday. No acute abnormality. A repeat CT scan was done about 8 hours after, again no acute findings. A 2D echocardiogram was done at presentation, reduced ejection fraction 35-40%, reduced right ventricular global systolic function also, right ventricular systolic pressures calculated at 24 mmHg and a small pericardial effusion. A chest x-ray was done at presentation, implanted cardiac device in the left upper anterior chest wall. The film is rotated to the left. Mild blunting of the left costophrenic angle, cannot rule out a small pleural effusion. On the day of decompensation, initial post-intubation chest x-ray shows the ET tube riding low, left costophrenic angle is clear. No focal infiltrates or acute process. ET tube has been retracted to the level of the aortic knob now. No gross pneumothorax, no gross bony fracture. ASSESSMENT: 1. Acute hypercapnic hypoxemic respiratory failure, now on mechanical ventilatory support. 2. Acute encephalopathy, presumably related to the hypercapnia. 3. Hyponatremia, moderate at presentation, resolving. 4. Respiratory acidosis. 5. Thrombocytopenia at presentation, now resolved. 6. Elevated D-dimer with negative CT angiogram. 7. Cardiomyopathy, heart failure with reduced ejection fraction. 8. Lactic acidosis at presentation, resolved. 9. Hypoalbuminemia. PLAN: I will begin a spontaneous breathing trial right away. There is a small chance that the might have been some iatrogenic contribution to the hypoventilation and respiratory acidosis. We will avoid over sedating medications at this point. Keppra will be continued. If he continues to have troubles that we might consider a different antiepileptic drug. I will continue supplemental oxygen to keep sats greater than or equal to about 90%. Dopplers of the lower extremities will be ordered to complete the venous thromboembolic disorder workup and make sure PE or venous thromboembolic event did not contribute to his acute decompensation. He has been started on gastrointestinal prophylaxis as well as deep venous thrombosis prophylaxis. Ventilator-associated pneumonia bundle has been instituted. Aspiration precautions included. Enteral nutrition will be the feeding modality of choice. Psychiatric evaluation will be continued post-extubation. The set rate has been reduced to 8-10 as he is most likely a chronic CO2 retainer. Flu and pneumonia vaccination will be addressed per protocol. Thank you very much for the consult, Dr. Klein. We will follow along. We will make further recommendations as picture progresses/becomes clearer. I should mention a Neurology consult has also been placed. He is critically ill on life-sustaining interventions including mechanical ventilatory support at risk for further decompensation in the respiratory system including the risk of . At this time, I spent about 35-40 minutes of critical care time without overlap and excluding any procedural time that may be necessary. JOB# [id number] CLAUDIO/ANISH BECKER
[2017-12-17] MEDS: D5W/0.45% NACL/KCL 20 MEQ 20 MEQ/1,000 ML BAG IV SCH (02:35)
--- NOTE | 2017-12-17 02:40 | XRay Report ---
FINAL REPORT EXAM: XR CHEST 1V AP HISTORY: follow up respiratory failure COMPARISON: December 16, 2017 FINDINGS: Frontal view(s) of the chest obtained. Stable mild cardiac enlargement. ET tube is been removed. Feeding tube is present. Distal tip not visualized but extends at least to the mid stomach. Left-sided cardiac pacer remains in place. Patient is rotated to the left. Consolidation left lung base and small to moderate effusion new from prior study. Right lung is clear. IMPRESSION: Consolidation effusion at the left lung base new from prior study concerning for atelectasis and/or pneumonia. Removal of ET tube and placement of feeding tube.
[2017-12-17 04:56] LABS: Hematocrit 32.4 % (35.5-45.6); Mean Corpuscular HGB Conc 34 % (32-34); Mean Corpuscular Hemoglobin 32 pg (28-32); Mean Corpuscular Volume 94 fl (84-94); Platelet Count 131 K/mm3 (140-440); Red Blood Count 3.46 M/mm3 (3.65-5.03)
[2017-12-17 05:06] LABS: BUN/Creatinine Ratio 56; Blood Urea Nitrogen 28 mg/dL (9-20); Calcium 8.3 mg/dL (8.4-10.2); Hemolysis Index 4
--- NOTE | 2017-12-17 09:33 | Progress Note ---
Assessment and Plan Acute encephalopathy Acute Respiratory failure s/p intubation and MVS Acute hypercapnic respiratory failure Hypotension Aspiration pneumonia Seizure disorder Hyponatremia-improving Severe dementia Alzheimer dementia Metabolic acidosis Hypoglycemia-Could be the etiology for seizures Plan Continue supportive care Discontinue furosemide, re-evaluate need for ongoing diuresis CT of the head is negative for acute pathology MRI, MRA could not be obtained due to pacemaker Continue Neuro checks Mobility, avoid contractures Aspiration precautions MIXER PIGMENT to evaluate swallow function Avoid delirium Psychiatry evaluation( apparently was found trying to smother himself with a pillow overnight) VTE prophylaxis Stress ulcer prophylaxis Complete antibiotic therapy Discharge planning Subjective Date of service: 12/17/17 Objective Vital Signs - 12hr 12/16/17 12/16/17 12/16/17 22:00 23:00 23:20 Temperature Pulse Rate 73 80 76 Pulse Rate [ Apical] Respiratory 13 12 18 Rate Blood Pressure 73/36 79/50 68/35 O2 Sat by Pulse 99 99 100 Oximetry 12/16/17 12/16/17 12/17/17 23:22 23:40 00:00 Temperature 95.8 F L Pulse Rate 77 73 Pulse Rate [ Apical] Respiratory 25 H 24 Rate Blood Pressure 68/35 81/45 O2 Sat by Pulse 98 98 Oximetry 12/17/17 12/17/17 12/17/17 01:00 02:00 03:00 Temperature Pulse Rate 81 80 75 Pulse Rate [ Apical] Respiratory 16 19 19 Rate Blood Pressure 111/54 111/54 100/50 O2 Sat by Pulse 100 100 Oximetry 12/17/17 12/17/17 12/17/17 03:09 04:00 04:59 Temperature 98.6 F Pulse Rate 73 Pulse Rate [ Apical] Respiratory 18 11 L Rate Blood Pressure 94/49 O2 Sat by Pulse 100 Oximetry 12/17/17 12/17/17 12/17/17 05:00 06:00 07:00 Temperature Pulse Rate 77 69 74 Pulse Rate [ Apical] Respiratory 23 18 14 Rate Blood Pressure 101/56 103/46 91/37 O2 Sat by Pulse 100 100 100 Oximetry 12/17/17 12/17/17 12/17/17 08:00 09:00 09:04 Temperature 97.9 F Pulse Rate 74 70 Pulse Rate [ 70 Apical] Respiratory 15 14 Rate Blood Pressure 81/45 86/43 O2 Sat by Pulse 99 100 100 Oximetry CBC and BMP: 12/23/17 13:36 12/23/17 13:36 ABG, PT/INR, D-dimer: ABG POC ABG pH 7.407 (7.35-7.45) 12/16/17 16:00 POC ABG pCO2 42.9 (35-45) 12/16/17 16:00 POC ABG pO2 133 (80-105) H 12/16/17 16:00 POC ABG HCO3 27.0 12/16/17 16:00 POC ABG Total CO2 28 12/16/17 16:00 POC ABG O2 Sat 99 12/16/17 16:00 PT/INR, D-dimer D-Dimer 389.72 ng/mlDDU (0-234) H 12/12/17 12:34 Abnormal lab findings: Abnormal Labs 12/12/17 12/12/17 12/12/17 10:50 10:50 10:50 WBC RBC Hgb Hct MCHC 35 H RDW 16.5 H Plt Count 139 L Lymph % (Auto) 11.9 L [place] % (Auto) 11.8 H Lymph # 0.8 L [place] # Seg Neutrophils % 74.6 H Seg Neutrophils # D-Dimer POC ABG pH POC ABG pCO2 POC ABG pO2 Sodium 124 L Chloride 88.0 L Carbon Dioxide BUN Creatinine 0.5 L Glucose 106 H POC Glucose Lactic Acid 3.60 H* Calcium Total Protein 6.1 L Albumin 3.2 L HDL Cholesterol Vitamin B12 Free T4 12/12/17 12/12/17 12/12/17 12:08 12:34 19:58 WBC RBC Hgb Hct MCHC RDW Plt Count Lymph % (Auto) [place] % (Auto) Lymph # [place] # Seg Neutrophils % Seg Neutrophils # D-Dimer 389.72 H POC ABG pH POC ABG pCO2 POC ABG pO2 Sodium Chloride Carbon Dioxide BUN Creatinine Glucose POC Glucose Lactic Acid 2.30 H* Calcium Total Protein Albumin HDL Cholesterol Vitamin B12 Free T4 1.60 H 12/12/17 12/13/17 12/13/17 19:58 03:38 12:22 WBC RBC Hgb Hct MCHC 35 H RDW 16.6 H Plt Count 125 L Lymph % (Auto) 11.3 L [place] % (Auto) 10.1 H Lymph # 1.0 L [place] # 0.9 H Seg Neutrophils % 76.5 H Seg Neutrophils # D-Dimer POC ABG pH POC ABG pCO2 POC ABG pO2 Sodium Chloride Carbon Dioxide BUN Creatinine Glucose POC Glucose Lactic Acid Calcium Total Protein Albumin HDL Cholesterol 70 H Vitamin B12 > 2000 H Free T4 12/13/17 12/14/17 12/14/17 12:22 04:47 04:47 WBC RBC Hgb Hct MCHC 35 H RDW 16.8 H Plt Count Lymph % (Auto) [place] % (Auto) Lymph # [place] # Seg Neutrophils % Seg Neutrophils # D-Dimer POC ABG pH POC ABG pCO2 POC ABG pO2 Sodium 130 L 133 L Chloride 90.3 L 91.4 L Carbon Dioxide BUN 28 H Creatinine 0.4 L 0.4 L Glucose 69 L 59 L POC Glucose Lactic Acid Calcium Total Protein Albumin HDL Cholesterol Vitamin B12 Free T4 12/15/17 12/15/17 12/15/17 17:48 18:04 20:01 WBC RBC Hgb Hct MCHC RDW Plt Count Lymph % (Auto) [place] % (Auto) Lymph # [place] # Seg Neutrophils % Seg Neutrophils # D-Dimer POC ABG pH 7.084 L POC ABG pCO2 82.8 H 52.2 H POC ABG pO2 106 H 502 H Sodium Chloride Carbon Dioxide BUN Creatinine Glucose POC Glucose 108 H Lactic Acid Calcium Total Protein Albumin HDL Cholesterol Vitamin B12 Free T4 12/16/17 12/16/17 12/16/17 05:56 16:00 17:41 WBC RBC Hgb Hct MCHC RDW Plt Count Lymph % (Auto) [place] % (Auto) Lymph # [place] # Seg Neutrophils % Seg Neutrophils # D-Dimer POC ABG pH 7.495 H POC ABG pCO2 31.7 L POC ABG pO2 112 H 133 H Sodium Chloride Carbon Dioxide BUN Creatinine Glucose POC Glucose 106 H Lactic Acid Calcium Total Protein Albumin HDL Cholesterol Vitamin B12 Free T4 12/16/17 12/16/17 12/16/17 18:55 18:55 22:48 WBC 13.6 H RBC Hgb Hct MCHC RDW 16.4 H Plt Count Lymph % (Auto) 8.7 L [place] % (Auto) 8.6 H Lymph # [place] # 1.2 H Seg Neutrophils % 82.1 H Seg Neutrophils # 11.2 H D-Dimer POC ABG pH POC ABG pCO2 POC ABG pO2 Sodium 131 L Chloride Carbon Dioxide 20 L D BUN 30 H Creatinine 0.5 L Glucose 118 H POC Glucose 121 H Lactic Acid Calcium Total Protein Albumin HDL Cholesterol Vitamin B12 Free T4 12/17/17 12/17/17 04:35 04:35 WBC RBC 3.46 L Hgb 11.0 L Hct 32.4 L MCHC RDW 17.0 H Plt Count 131 L Lymph % (Auto) [place] % (Auto) Lymph # [place] # Seg Neutrophils % Seg Neutrophils # D-Dimer POC ABG pH POC ABG pCO2 POC ABG pO2 Sodium 132 L Chloride 97.8 L Carbon Dioxide BUN 28 H Creatinine 0.5 L Glucose POC Glucose Lactic Acid Calcium 8.3 L Total Protein Albumin HDL Cholesterol Vitamin B12 Free T4
[2017-12-17] MEDS ORDERED: NACL 0.9% 250ML 250 ML IV SCH (09:45)
[2017-12-17] MEDS: KEPPRA 750 MG in NACL 0.9% 100 ML IV SCH (09:56)
[2017-12-17] MEDS: PEPCID PO SCH ×2 (09:57→21:42)
[2017-12-17] MEDS: HALFPRIN EC PO SCH (09:57)
[2017-12-17] MEDS: THERAGRAN Tab PO SCH (09:57)
--- NOTE | 2017-12-17 13:27 | Progress Note ---
Subjective Date of service: 12/17/17 Interval history: went over the CT and there is considerably more atrophy over the right parietal lobe no stroke plan EEG low sodium can aggravate encephalopathy willl follow up Thanks Objective - Vital Sign Vital Signs - 12hr 12/17/17 12/17/17 12/17/17 02:00 03:00 03:09 Temperature 98.6 F Pulse Rate 80 75 Pulse Rate [ Apical] Respiratory 19 19 Rate Blood Pressure 111/54 100/50 O2 Sat by Pulse 100 Oximetry 12/17/17 12/17/17 12/17/17 04:00 04:59 05:00 Temperature Pulse Rate 73 77 Pulse Rate [ Apical] Respiratory 18 11 L 23 Rate Blood Pressure 94/49 101/56 O2 Sat by Pulse 100 100 Oximetry 12/17/17 12/17/17 12/17/17 06:00 07:00 08:00 Temperature 97.9 F Pulse Rate 69 74 74 Pulse Rate [ 70 Apical] Respiratory 18 14 15 Rate Blood Pressure 103/46 91/37 81/45 O2 Sat by Pulse 100 100 99 Oximetry 12/17/17 12/17/17 12/17/17 09:00 09:04 10:00 Temperature Pulse Rate 70 73 Pulse Rate [ Apical] Respiratory 14 15 Rate Blood Pressure 86/43 97/49 O2 Sat by Pulse 100 100 100 Oximetry 12/17/17 11:00 Temperature Pulse Rate 70 Pulse Rate [ Apical] Respiratory 15 Rate Blood Pressure 95/42 O2 Sat by Pulse 100 Oximetry - Laboratory Findings CBC and BMP: 12/17/17 04:35 12/17/17 04:35 Abnormal Lab Findings: Abnormal Labs 12/12/17 12/12/17 12/12/17 10:50 10:50 10:50 WBC RBC Hgb Hct MCHC 35 H RDW 16.5 H Plt Count 139 L Lymph % (Auto) 11.9 L [place] % (Auto) 11.8 H Lymph # 0.8 L [place] # Seg Neutrophils % 74.6 H Seg Neutrophils # D-Dimer POC ABG pH POC ABG pCO2 POC ABG pO2 Sodium 124 L Chloride 88.0 L Carbon Dioxide BUN Creatinine 0.5 L Glucose 106 H POC Glucose Lactic Acid 3.60 H* Calcium Total Protein 6.1 L Albumin 3.2 L HDL Cholesterol Vitamin B12 Free T4 09/20/18 09/20/18 09/20/18 12:08 12:34 19:58 WBC RBC Hgb Hct MCHC RDW Plt Count Lymph % (Auto) [place] % (Auto) Lymph # [place] # Seg Neutrophils % Seg Neutrophils # D-Dimer 389.72 H POC ABG pH POC ABG pCO2 POC ABG pO2 Sodium Chloride Carbon Dioxide BUN Creatinine Glucose POC Glucose Lactic Acid 2.30 H* Calcium Total Protein Albumin HDL Cholesterol Vitamin B12 Free T4 1.60 H 12/12/17 12/13/17 12/13/17 19:58 03:38 12:22 WBC RBC Hgb Hct MCHC 35 H RDW 16.6 H Plt Count 125 L Lymph % (Auto) 11.3 L [place] % (Auto) 10.1 H Lymph # 1.0 L [place] # 0.9 H Seg Neutrophils % 76.5 H Seg Neutrophils # D-Dimer POC ABG pH POC ABG pCO2 POC ABG pO2 Sodium Chloride Carbon Dioxide BUN Creatinine Glucose POC Glucose Lactic Acid Calcium Total Protein Albumin HDL Cholesterol 70 H Vitamin B12 > 2000 H Free T4 12/13/17 12/14/17 12/14/17 12:22 04:47 04:47 WBC RBC Hgb Hct MCHC 35 H RDW 16.8 H Plt Count Lymph % (Auto) [place] % (Auto) Lymph # [place] # Seg Neutrophils % Seg Neutrophils # D-Dimer POC ABG pH POC ABG pCO2 POC ABG pO2 Sodium 130 L 133 L Chloride 90.3 L 91.4 L Carbon Dioxide BUN 28 H Creatinine 0.4 L 0.4 L Glucose 69 L 59 L POC Glucose Lactic Acid Calcium Total Protein Albumin HDL Cholesterol Vitamin B12 Free T4 12/15/17 12/15/17 12/15/17 17:48 18:04 20:01 WBC RBC Hgb Hct MCHC RDW Plt Count Lymph % (Auto) [place] % (Auto) Lymph # [place] # Seg Neutrophils % Seg Neutrophils # D-Dimer POC ABG pH 7.084 L POC ABG pCO2 82.8 H 52.2 H POC ABG pO2 106 H 502 H Sodium Chloride Carbon Dioxide BUN Creatinine Glucose POC Glucose 108 H Lactic Acid Calcium Total Protein Albumin HDL Cholesterol Vitamin B12 Free T4 12/16/17 12/16/17 12/16/17 05:56 16:00 17:41 WBC RBC Hgb Hct MCHC RDW Plt Count Lymph % (Auto) [place] % (Auto) Lymph # [place] # Seg Neutrophils % Seg Neutrophils # D-Dimer POC ABG pH 7.495 H POC ABG pCO2 31.7 L POC ABG pO2 112 H 133 H Sodium Chloride Carbon Dioxide BUN Creatinine Glucose POC Glucose 106 H Lactic Acid Calcium Total Protein Albumin HDL Cholesterol Vitamin B12 Free T4 12/16/17 12/16/17 12/16/17 18:55 18:55 22:48 WBC 13.6 H RBC Hgb Hct MCHC RDW 16.4 H Plt Count Lymph % (Auto) 8.7 L [place] % (Auto) 8.6 H Lymph # [place] # 1.2 H Seg Neutrophils % 82.1 H Seg Neutrophils # 11.2 H D-Dimer POC ABG pH POC ABG pCO2 POC ABG pO2 Sodium 131 L Chloride Carbon Dioxide 20 L D BUN 30 H Creatinine 0.5 L Glucose 118 H POC Glucose 121 H Lactic Acid Calcium Total Protein Albumin HDL Cholesterol Vitamin B12 Free T4 12/17/17 12/17/17 04:35 04:35 WBC RBC 3.46 L Hgb 11.0 L Hct 32.4 L MCHC RDW 17.0 H Plt Count 131 L Lymph % (Auto) [place] % (Auto) Lymph # [place] # Seg Neutrophils % Seg Neutrophils # D-Dimer POC ABG pH POC ABG pCO2 POC ABG pO2 Sodium 132 L Chloride 97.8 L Carbon Dioxide BUN 28 H Creatinine 0.5 L Glucose POC Glucose Lactic Acid Calcium 8.3 L Total Protein Albumin HDL Cholesterol Vitamin B12 Free T4
--- NOTE | 2017-12-17 16:07 | Progress Note ---
Assessment and Plan Assessment and plan: Acute encephalopathy Acute Respiratory failure Hypotension Aspiration penumonia SEIZURE DISORDER Hyponatremia-RESOLVING Severe dementia Alzheimer dementia Metabolic acidosis Hypoglycemia-Could be the etiology Plan Continue supportive care Volume resuscitate CT of the head is negative for acute pathology MRI, MRA could not be obtained due to pacemaker, neurology evaluated Continue Neuro checks Now DNR DVT and GI prophylaxis Transferred to intermediate care unit History Interval history: Patient was seen and evaluated, patient was lethargic. Hospitalist Physical - Physical exam Narrative exam: Not in cardiopulmonary distress. The patient appeared well nourished and normally developed. Vital signs as documented. Head exam is unremarkable. No scleral icterus . Neck is without jugular venous distension, thyromegaly, or carotid bruits. Lungs are clear to auscultation. Cardiac exam reveals regular rate and Rhythm. First and second heart sounds normal. No murmurs, rubs or gallops. Abdominal exam reveals normal bowel sounds, no masses, no organomegaly and no aortic enlargement. Extremities are nonedematous and both femoral and pedal pulses are normal. 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 - Constitutional Vitals: Temp Pulse Resp BP Pulse Ox 97.9 F 73 14 98/51 100 12/17/17 16:00 12/17/17 16:00 12/17/17 16:00 12/17/17 16:00 12/17/17 16:00 General appearance: Present: mild distress Results - Labs CBC & Chem 7: 12/17/17 04:35 12/17/17 04:35 Labs: Laboratory Last Values WBC 8.8 K/mm3 (4.5-11.0) 12/17/17 04:35 RBC 3.46 M/mm3 (3.65-5.03) L 12/17/17 04:35 Hgb 11.0 gm/dl (11.8-15.2) L 12/17/17 04:35 Hct 32.4 % (35.5-45.6) L 12/17/17 04:35 MCV 94 fl (84-94) 12/17/17 04:35 MCH 32 pg (28-32) 12/17/17 04:35 MCHC 34 % (32-34) 12/17/17 04:35 RDW 17.0 % (13.2-15.2) H 12/17/17 04:35 Plt Count 131 K/mm3 (140-440) L 12/17/17 04:35 Lymph % (Auto) 8.7 % (13.4-35.0) L 12/16/17 18:55 [place] % (Auto) 8.6 % (0.0-7.3) H 12/16/17 18:55 [place] % (Auto) 0.3 % (0.0-4.3) 12/16/17 18:55 Baso % (Auto) 0.3 % (0.0-1.8) 12/16/17 18:55 Lymph # 1.2 K/mm3 (1.2-5.4) 12/16/17 18:55 [place] # 1.2 K/mm3 (0.0-0.8) H 12/16/17 18:55 Eos # 0.0 K/mm3 (0.0-0.4) 12/16/17 18:55 Baso # 0.0 K/mm3 (0.0-0.1) 12/16/17 18:55 Seg Neutrophils % 82.1 % (40.0-70.0) H 12/16/17 18:55 Seg Neutrophils # 11.2 K/mm3 (1.8-7.7) H 12/16/17 18:55 D-Dimer 389.72 ng/mlDDU (0-234) H 12/12/17 12:34 POC ABG pH 7.407 (7.35-7.45) 12/16/17 16:00 POC ABG pCO2 42.9 (35-45) 12/16/17 16:00 POC ABG pO2 133 (80-105) H 12/16/17 16:00 POC ABG HCO3 27.0 12/16/17 16:00 POC ABG Total CO2 28 12/16/17 16:00 POC ABG O2 Sat 99 12/16/17 16:00 POC ABG Base Excess 2 12/16/17 16:00 FiO2 30 % 12/16/17 16:00 Sodium 132 mmol/L (137-145) L 12/17/17 04:35 Potassium 3.9 mmol/L (3.6-5.0) 12/17/17 04:35 Chloride 97.8 mmol/L (98-107) L 12/17/17 04:35 Carbon Dioxide 25 mmol/L (22-30) 12/17/17 04:35 Anion Gap 13 mmol/L 12/17/17 04:35 BUN 28 mg/dL (9-20) H 12/17/17 04:35 Creatinine 0.5 mg/dL (0.8-1.5) L 12/17/17 04:35 Estimated GFR > 60 ml/min 12/17/17 04:35 BUN/Creatinine Ratio 56 % 12/17/17 04:35 Glucose 96 mg/dL (75-100) 12/17/17 04:35 POC Glucose 83 (70-105) 12/17/17 12:48 Lactic Acid 1.10 mmol/L (0.7-2.0) 12/13/17 12:22 Calcium 8.3 mg/dL (8.4-10.2) L 12/17/17 04:35 Total Bilirubin 0.90 mg/dL (0.1-1.2) 12/12/17 10:50 AST 32 units/L (5-40) 12/12/17 10:50 ALT 31 units/L (7-56) 12/12/17 10:50 Alkaline Phosphatase 110 units/L (35-129) 12/12/17 10:50 Ammonia 55.0 umol/L (25-60) 12/12/17 10:50 Troponin T < 0.010 ng/mL (0.00-0.029) 12/12/17 18:35 Total Protein 6.1 g/dL (6.3-8.2) L 12/12/17 10:50 Albumin 3.2 g/dL (3.9-5) L 12/12/17 10:50 Albumin/Globulin Ratio 1.1 % 12/12/17 10:50 Triglycerides 76 mg/dL (2-149) 12/13/17 03:38 Cholesterol 125 mg/dL (50-199) 12/13/17 03:38 LDL Cholesterol Direct 57 mg/dL (50-130) 12/13/17 03:38 HDL Cholesterol 70 mg/dL (40-59) H 12/13/17 03:38 Cholesterol/HDL Ratio 1.78 % 12/13/17 03:38 Vitamin B12 > 2000 pg/mL (211-911) H 12/12/17 19:58 TSH 2.470 mlU/mL (0.270-4.200) 12/12/17 19:58 Free T4 1.60 ng/dL (0.76-1.46) H 12/12/17 19:58 Urine Color Yellow (Yellow) 12/12/17 Unknown Urine Turbidity Clear (Clear) 12/12/17 Unknown Urine pH 6.0 (5.0-7.0) 12/12/17 Unknown Ur Specific [place] 1.009 (1.003-1.030) 12/12/17 Unknown Urine Protein <15 mg/dl mg/dL (Negative) 12/12/17 Unknown Urine Glucose (UA) Neg mg/dL (Negative) 12/12/17 Unknown Urine Ketones Neg mg/dL (Negative) 12/12/17 Unknown Urine Blood Neg (Negative) 12/12/17 Unknown Urine Nitrite Neg (Negative) 12/12/17 Unknown Urine Bilirubin Neg (Negative) 12/12/17 Unknown Urine Urobilinogen 2.0 mg/dL (<2.0) 12/12/17 Unknown Ur Leukocyte Esterase Tr (Negative) 12/12/17 Unknown Urine WBC (Auto) 3.0 /HPF (0.0-6.0) 12/12/17 Unknown Urine RBC (Auto) 5.0 /HPF (0.0-6.0) 12/12/17 Unknown U Epithel Cells (Auto) < 1.0 /HPF (0-13.0) 12/12/17 Unknown Urine Mucus Few /HPF 12/12/17 Unknown
[2017-12-17] MEDS: KEPPRA PO SCH (21:41)
[2017-12-17] MEDS: LOVENOX SUB-Q SCH (21:41)
[2017-12-17] MEDS: ARICEPT PO SCH (21:42)
[2017-12-17] MEDS: ROCEPHIN/NS 2 GM/100 ML 2 GM/100 ML BAG IV SCH (21:42)
[2017-12-17] MEDS: ZITHROMAX 500 MG in NACL 0.9% 250ML 250 ML IV SCH (21:42)
--- NOTE | 2017-12-18 02:47 | XRay Report ---
FINAL REPORT EXAM: XR CHEST 1V AP HISTORY: follow up respiratory failure COMPARISON: December 17, 2017 FINDINGS: Frontal view(s) of the chest obtained. Stable mild cardiac enlargement. Feeding tube and left-sided cardiac pacer remain in place. Slight decreased in size consolidation effusion at the left lung base. Small effusion consolidation likely remain. Right lung is clear. IMPRESSION: Improved aeration of the left lung base. Small consolidation and effusion likely remain.
[2017-12-18 05:07] LABS: Basophils % (Auto) 0.6 % (0.0-1.8); Eosinophils # (Auto) 0.1 K/mm3 (0.0-0.4); Eosinophils % (Auto) 1.7 % (0.0-4.3); Hematocrit 31.8 % (35.5-45.6); Lymphocytes # (Auto) 1.3 K/mm3 (1.2-5.4); Lymphocytes % (Auto) 17.6 % (13.4-35.0); Mean Corpuscular HGB Conc 35 % (32-34); Mean Corpuscular Hemoglobin 32 pg (28-32); Mean Corpuscular Volume 94 fl (84-94); Monocytes # (Auto) 0.8 K/mm3 (0.0-0.8); Monocytes % (Auto) 10.6 % (0.0-7.3); Platelet Count 137 K/mm3 (140-440); Red Cell Distribution Width 16.9 % (13.2-15.2)
[2017-12-18 05:27] LABS: BUN/Creatinine Ratio 60; Blood Urea Nitrogen 30 mg/dL (9-20); Calcium 8.3 mg/dL (8.4-10.2); Hemolysis Index 6
[2017-12-18] MEDS: KEPPRA PO SCH ×2 (11:06→21:01)
[2017-12-18] MEDS: THERAGRAN Tab PO SCH (11:07)
[2017-12-18] MEDS: PEPCID PO SCH ×2 (11:07→21:10)
[2017-12-18] MEDS: HALFPRIN EC PO SCH (11:07)
--- NOTE | 2017-12-18 11:41 | Progress Note ---
Assessment and Plan Acute hypercapnic hypoxemic respiratory failure, now on mechanical ventilatory support. Acute encephalopathy, presumably related to the hypercapnia. Hyponatremia, moderate at presentation, resolving. Respiratory acidosis. Thrombocytopenia at presentation, now resolved. Elevated D-dimer with negative CT angiogram. Cardiomyopathy, heart failure with reduced ejection fraction. Lactic acidosis at presentation, resolved. Hypoalbuminemia. - IVNS 250 mls bolus then run at 75mls/hr to complete 1 liter - continue supplemental oxygen to keep sats > 90% - ABG to evaluate for hypercapnia - continue BIPAP scheduled qhs with prn daytime use - aspiration precautions - complete AB's course - continue enteral nutrition as tolerated Subjective Date of service: 12/18/17 Principal diagnosis: Acute hypercapnic hypoxemic respiratory failure; Acute encephalopathy Interval history: Patient is seen today for: Acute hypercapnic hypoxemic respiratory failure s/p MVS; Acute encephalopathy; Hyponatremia; Respiratory acidosis; Thrombocytopenia Seen and examined at bedside; 24hour events reviewed; nursing and respiratory care staff consulted; no adverse overnight events reported to me; resting in bed ; lethargic; BP's borderline with MAP's < 60 mmHg at times; No N/V/F/C Objective Vital Signs - 12hr 12/18/17 12/18/17 12/18/17 00:00 01:00 01:20 Temperature 98.7 F Pulse Rate 81 78 82 Respiratory 16 13 19 Rate Blood Pressure 113/56 109/45 92/42 O2 Sat by Pulse 100 100 100 Oximetry 12/18/17 12/18/17 12/18/17 02:00 03:00 04:00 Temperature 98.9 F Pulse Rate 74 74 73 Respiratory 19 16 18 Rate Blood Pressure 110/57 93/57 93/57 O2 Sat by Pulse 100 100 100 Oximetry 12/18/17 12/18/17 12/18/17 04:16 05:00 06:00 Temperature Pulse Rate 81 76 75 Respiratory 18 18 21 Rate Blood Pressure 104/50 105/34 109/82 O2 Sat by Pulse 100 100 100 Oximetry 12/18/17 12/18/17 12/18/17 07:00 08:00 08:09 Temperature 97.9 F Pulse Rate 77 71 77 Respiratory 18 18 19 Rate Blood Pressure 109/82 102/72 104/45 O2 Sat by Pulse 100 100 100 Oximetry 12/18/17 08:11 Temperature Pulse Rate Respiratory Rate Blood Pressure O2 Sat by Pulse 100 Oximetry Constitutional: no acute distress, other (elderly looking CM, normocephalic and atraumatic) Eyes: non-icteric ENT: oropharynx moist, other (Mallampati 2) Neck: supple, no lymphadenopathy, no JVD, other (No thyromegaly) Effort: mildly labored Ascultation: Bilateral: diminished breath sounds, rhonchi (bases) Percussion: Bilateral: not dull Cardiovascular: regular rate and rhythm, murmur noted (systolic) Gastrointestinal: normoactive bowel sounds, soft, non-tender, non-distended, other (No HSM) Integumentary: normal Extremities: no cyanosis, no edema, pink and warm, pulses normal Neurologic: non-focal exam (grossly), pupils equal and round, motor strength normal and Psychiatric: other (flat affect) CBC and BMP: 12/18/17 04:40 12/18/17 04:40 ABG, PT/INR, D-dimer: ABG POC ABG pH 7.407 (7.35-7.45) 12/16/17 16:00 POC ABG pCO2 42.9 (35-45) 12/16/17 16:00 POC ABG pO2 133 (80-105) H 12/16/17 16:00 POC ABG HCO3 27.0 12/16/17 16:00 POC ABG Total CO2 28 12/16/17 16:00 POC ABG O2 Sat 99 12/16/17 16:00 PT/INR, D-dimer D-Dimer 389.72 ng/mlDDU (0-234) H 12/12/17 12:34 Abnormal lab findings: Abnormal Labs 12/12/17 12/12/17 12/12/17 10:50 10:50 10:50 WBC RBC Hgb Hct MCHC 35 H RDW 16.5 H Plt Count 139 L Lymph % (Auto) 11.9 L [place] % (Auto) 11.8 H Lymph # 0.8 L [place] # Seg Neutrophils % 74.6 H Seg Neutrophils # D-Dimer POC ABG pH POC ABG pCO2 POC ABG pO2 Sodium 124 L Chloride 88.0 L Carbon Dioxide BUN Creatinine 0.5 L Glucose 106 H POC Glucose Lactic Acid 3.60 H* Calcium Total Protein 6.1 L Albumin 3.2 L HDL Cholesterol Vitamin B12 Free T4 12/12/17 12/12/17 12/12/17 12:08 12:34 19:58 WBC RBC Hgb Hct MCHC RDW Plt Count Lymph % (Auto) [place] % (Auto) Lymph # [place] # Seg Neutrophils % Seg Neutrophils # D-Dimer 389.72 H POC ABG pH POC ABG pCO2 POC ABG pO2 Sodium Chloride Carbon Dioxide BUN Creatinine Glucose POC Glucose Lactic Acid 2.30 H* Calcium Total Protein Albumin HDL Cholesterol Vitamin B12 Free T4 1.60 H 12/12/17 12/13/17 12/13/17 19:58 03:38 12:22 WBC RBC Hgb Hct MCHC 35 H RDW 16.6 H Plt Count 125 L Lymph % (Auto) 11.3 L [place] % (Auto) 10.1 H Lymph # 1.0 L [place] # 0.9 H Seg Neutrophils % 76.5 H Seg Neutrophils # D-Dimer POC ABG pH POC ABG pCO2 POC ABG pO2 Sodium Chloride Carbon Dioxide BUN Creatinine Glucose POC Glucose Lactic Acid Calcium Total Protein Albumin HDL Cholesterol 70 H Vitamin B12 > 2000 H Free T4 12/13/17 12/14/17 12/14/17 12:22 04:47 04:47 WBC RBC Hgb Hct MCHC 35 H RDW 16.8 H Plt Count Lymph % (Auto) [place] % (Auto) Lymph # [place] # Seg Neutrophils % Seg Neutrophils # D-Dimer POC ABG pH POC ABG pCO2 POC ABG pO2 Sodium 130 L 133 L Chloride 90.3 L 91.4 L Carbon Dioxide BUN 28 H Creatinine 0.4 L 0.4 L Glucose 69 L 59 L POC Glucose Lactic Acid Calcium Total Protein Albumin HDL Cholesterol Vitamin B12 Free T4 12/15/17 12/15/17 12/15/17 17:48 18:04 20:01 WBC RBC Hgb Hct MCHC RDW Plt Count Lymph % (Auto) [place] % (Auto) Lymph # [place] # Seg Neutrophils % Seg Neutrophils # D-Dimer POC ABG pH 7.084 L POC ABG pCO2 82.8 H 52.2 H POC ABG pO2 106 H 502 H Sodium Chloride Carbon Dioxide BUN Creatinine Glucose POC Glucose 108 H Lactic Acid Calcium Total Protein Albumin HDL Cholesterol Vitamin B12 Free T4 12/16/17 12/16/17 12/16/17 05:56 16:00 17:41 WBC RBC Hgb Hct MCHC RDW Plt Count Lymph % (Auto) [place] % (Auto) Lymph # [place] # Seg Neutrophils % Seg Neutrophils # D-Dimer POC ABG pH 7.495 H POC ABG pCO2 31.7 L POC ABG pO2 112 H 133 H Sodium Chloride Carbon Dioxide BUN Creatinine Glucose POC Glucose 106 H Lactic Acid Calcium Total Protein Albumin HDL Cholesterol Vitamin B12 Free T4 12/16/17 12/16/17 12/16/17 18:55 18:55 22:48 WBC 13.6 H RBC Hgb Hct MCHC RDW 16.4 H Plt Count Lymph % (Auto) 8.7 L [place] % (Auto) 8.6 H Lymph # [place] # 1.2 H Seg Neutrophils % 82.1 H Seg Neutrophils # 11.2 H D-Dimer POC ABG pH POC ABG pCO2 POC ABG pO2 Sodium 131 L Chloride Carbon Dioxide 20 L D BUN 30 H Creatinine 0.5 L Glucose 118 H POC Glucose 121 H Lactic Acid Calcium Total Protein Albumin HDL Cholesterol Vitamin B12 Free T4 12/17/17 12/17/17 12/18/17 04:35 04:35 04:40 WBC RBC 3.46 L 3.40 L Hgb 11.0 L 11.0 L Hct 32.4 L 31.8 L MCHC 35 H RDW 17.0 H 16.9 H Plt Count 131 L 137 L Lymph % (Auto) [place] % (Auto) 10.6 H Lymph # [place] # Seg Neutrophils % Seg Neutrophils # D-Dimer POC ABG pH POC ABG pCO2 POC ABG pO2 Sodium 132 L Chloride 97.8 L Carbon Dioxide BUN 28 H Creatinine 0.5 L Glucose POC Glucose Lactic Acid Calcium 8.3 L Total Protein Albumin HDL Cholesterol Vitamin B12 Free T4 12/18/17 04:40 WBC RBC Hgb Hct MCHC RDW Plt Count Lymph % (Auto) [place] % (Auto) Lymph # [place] # Seg Neutrophils % Seg Neutrophils # D-Dimer POC ABG pH POC ABG pCO2 POC ABG pO2 Sodium Chloride Carbon Dioxide BUN 30 H Creatinine 0.5 L Glucose POC Glucose Lactic Acid Calcium 8.3 L Total Protein Albumin HDL Cholesterol Vitamin B12 Free T4 Chest x-ray: image reviewed (AICD; small volume LLL atelectasis) Allied health notes reviewed: nursing
[2017-12-18] MEDS ORDERED: NACL 0.9% 1000 ML 1,000 ML ONE (11:59)
[2017-12-18] MEDS ORDERED: NACL 0.9% 250ML 250 ML IV SCH (12:00)
[2017-12-18] MEDS ORDERED: NACL 0.9% 1000 ML 1,000 ML IV SCH (12:00)
[2017-12-18] MEDS: SODIUM CHLORIDE FLUSH SYRINGE 10 ML IV PRN (12:29)
--- NOTE | 2017-12-18 13:18 | Progress Note ---
Subjective Date of service: 12/18/17 Principal diagnosis: Acute hypercapnic hypoxemic respiratory failure; Acute encephalopathy Interval history: agree that encephalopathy likely from hypercapnia plan further check EEG plan f/u Objective - Vital Sign Vital Signs - 12hr 12/18/17 12/18/17 12/18/17 01:20 02:00 03:00 Temperature Pulse Rate 82 74 74 Respiratory 19 19 16 Rate Blood Pressure 92/42 110/57 93/57 O2 Sat by Pulse 100 100 100 Oximetry 12/18/17 12/18/17 12/18/17 04:00 04:16 05:00 Temperature 98.9 F Pulse Rate 73 81 76 Respiratory 18 18 18 Rate Blood Pressure 93/57 104/50 105/34 O2 Sat by Pulse 100 100 100 Oximetry 12/18/17 12/18/17 12/18/17 06:00 07:00 08:00 Temperature 97.9 F Pulse Rate 75 77 71 Respiratory 21 18 18 Rate Blood Pressure 109/82 109/82 102/72 O2 Sat by Pulse 100 100 100 Oximetry 12/18/17 12/18/17 12/18/17 08:09 08:11 09:00 Temperature Pulse Rate 77 71 Respiratory 19 14 Rate Blood Pressure 104/45 96/47 O2 Sat by Pulse 100 100 100 Oximetry 12/18/17 12/18/17 12/18/17 10:00 11:00 12:51 Temperature Pulse Rate 73 76 Respiratory 13 13 Rate Blood Pressure 89/38 89/38 O2 Sat by Pulse 99 99 100 Oximetry - Laboratory Findings CBC and BMP: 12/18/17 04:40 12/18/17 04:40 Abnormal Lab Findings: Abnormal Labs 12/12/17 12/12/17 12/12/17 10:50 10:50 10:50 WBC RBC Hgb Hct MCHC 35 H RDW 16.5 H Plt Count 139 L Lymph % (Auto) 11.9 L [place] % (Auto) 11.8 H Lymph # 0.8 L [place] # Seg Neutrophils % 74.6 H Seg Neutrophils # D-Dimer POC ABG pH POC ABG pCO2 POC ABG pO2 Sodium 124 L Chloride 88.0 L Carbon Dioxide BUN Creatinine 0.5 L Glucose 106 H POC Glucose Lactic Acid 3.60 H* Calcium Total Protein 6.1 L Albumin 3.2 L HDL Cholesterol Vitamin B12 Free T4 12/12/17 12/12/17 12/12/17 12:08 12:34 19:58 WBC RBC Hgb Hct MCHC RDW Plt Count Lymph % (Auto) [place] % (Auto) Lymph # [place] # Seg Neutrophils % Seg Neutrophils # D-Dimer 389.72 H POC ABG pH POC ABG pCO2 POC ABG pO2 Sodium Chloride Carbon Dioxide BUN Creatinine Glucose POC Glucose Lactic Acid 2.30 H* Calcium Total Protein Albumin HDL Cholesterol Vitamin B12 Free T4 1.60 H 12/12/17 12/13/17 12/13/17 19:58 03:38 12:22 WBC RBC Hgb Hct MCHC 35 H RDW 16.6 H Plt Count 125 L Lymph % (Auto) 11.3 L [place] % (Auto) 10.1 H Lymph # 1.0 L [place] # 0.9 H Seg Neutrophils % 76.5 H Seg Neutrophils # D-Dimer POC ABG pH POC ABG pCO2 POC ABG pO2 Sodium Chloride Carbon Dioxide BUN Creatinine Glucose POC Glucose Lactic Acid Calcium Total Protein Albumin HDL Cholesterol 70 H Vitamin B12 > 2000 H Free T4 12/13/17 12/14/17 12/14/17 12:22 04:47 04:47 WBC RBC Hgb Hct MCHC 35 H RDW 16.8 H Plt Count Lymph % (Auto) [place] % (Auto) Lymph # [place] # Seg Neutrophils % Seg Neutrophils # D-Dimer POC ABG pH POC ABG pCO2 POC ABG pO2 Sodium 130 L 133 L Chloride 90.3 L 91.4 L Carbon Dioxide BUN 28 H Creatinine 0.4 L 0.4 L Glucose 69 L 59 L POC Glucose Lactic Acid Calcium Total Protein Albumin HDL Cholesterol Vitamin B12 Free T4 12/15/17 12/15/17 12/15/17 17:48 18:04 20:01 WBC RBC Hgb Hct MCHC RDW Plt Count Lymph % (Auto) [place] % (Auto) Lymph # [place] # Seg Neutrophils % Seg Neutrophils # D-Dimer POC ABG pH 7.084 L POC ABG pCO2 82.8 H 52.2 H POC ABG pO2 106 H 502 H Sodium Chloride Carbon Dioxide BUN Creatinine Glucose POC Glucose 108 H Lactic Acid Calcium Total Protein Albumin HDL Cholesterol Vitamin B12 Free T4 12/16/17 12/16/17 12/16/17 05:56 16:00 17:41 WBC RBC Hgb Hct MCHC RDW Plt Count Lymph % (Auto) [place] % (Auto) Lymph # [place] # Seg Neutrophils % Seg Neutrophils # D-Dimer POC ABG pH 7.495 H POC ABG pCO2 31.7 L POC ABG pO2 112 H 133 H Sodium Chloride Carbon Dioxide BUN Creatinine Glucose POC Glucose 106 H Lactic Acid Calcium Total Protein Albumin HDL Cholesterol Vitamin B12 Free T4 12/16/17 12/16/17 12/16/17 18:55 18:55 22:48 WBC 13.6 H RBC Hgb Hct MCHC RDW 16.4 H Plt Count Lymph % (Auto) 8.7 L [place] % (Auto) 8.6 H Lymph # [place] # 1.2 H Seg Neutrophils % 82.1 H Seg Neutrophils # 11.2 H D-Dimer POC ABG pH POC ABG pCO2 POC ABG pO2 Sodium 131 L Chloride Carbon Dioxide 20 L D BUN 30 H Creatinine 0.5 L Glucose 118 H POC Glucose 121 H Lactic Acid Calcium Total Protein Albumin HDL Cholesterol Vitamin B12 Free T4 12/17/17 12/17/17 12/18/17 04:35 04:35 04:40 WBC RBC 3.46 L 3.40 L Hgb 11.0 L 11.0 L Hct 32.4 L 31.8 L MCHC 35 H RDW 17.0 H 16.9 H Plt Count 131 L 137 L Lymph % (Auto) [place] % (Auto) 10.6 H Lymph # [place] # Seg Neutrophils % Seg Neutrophils # D-Dimer POC ABG pH POC ABG pCO2 POC ABG pO2 Sodium 132 L Chloride 97.8 L Carbon Dioxide BUN 28 H Creatinine 0.5 L Glucose POC Glucose Lactic Acid Calcium 8.3 L Total Protein Albumin HDL Cholesterol Vitamin B12 Free T4 12/18/17 12/18/17 04:40 12:51 WBC RBC Hgb Hct MCHC RDW Plt Count Lymph % (Auto) [place] % (Auto) Lymph # [place] # Seg Neutrophils % Seg Neutrophils # D-Dimer POC ABG pH POC ABG pCO2 46.4 H POC ABG pO2 131 H Sodium Chloride Carbon Dioxide BUN 30 H Creatinine 0.5 L Glucose POC Glucose Lactic Acid Calcium 8.3 L Total Protein Albumin HDL Cholesterol Vitamin B12 Free T4
--- NOTE | 2017-12-18 14:48 | Vascular Lab Report ---
CAROTID DUPLEX STUDY: RIGHT PSVEDV CCA PROX:815 CCA DIST:905 ICA PROX:9432 ICA MID:8827 ICA DIST:7930 ECA: 701 VERT: 110 30 LEFT PSVEDV CCA PROX:5412 CCA DIST:4813 ICA PROX:6118 ICA MID:8531 ICA DIST:8030 ECA: 504 VERT: 64 20 REASON FOR EXAM: Stroke. COMMENTS ON THE RIGHT: Doppler frequency analysis is consistent with 16 to 49 percent diameter reduction of the internal carotid artery. A small amount of plaque is seen. The common carotid artery is patent. The external carotid artery is patent. The vertebral artery has antegrade flow. COMMENTS ON THE LEFT: Doppler frequency analysis is consistent with 16 to 49 percent diameter reduction of the internal carotid artery. A small to moderate amount of plaque is seen. The common carotid artery is patent. The external carotid artery is patent. The vertebral artery has antegrade flow. IMPRESSION: Less than 50% diameter reduction in the internal carotid arteries bilaterally. Recommend repeat carotid artery duplex in 12 months.
--- NOTE | 2017-12-18 16:18 | Progress Note ---
Assessment and Plan Assessment and plan: Acute encephalopathy Acute Respiratory failure Hypotension Aspiration penumonia SEIZURE DISORDER Hyponatremia-RESOLVING Severe dementia Alzheimer dementia Metabolic acidosis Hypoglycemia-Could be the etiology Plan Continue supportive care Volume resuscitate CT of the head is negative for acute pathology MRI, MRA could not be obtained due to pacemaker, neurology evaluated Continue Neuro checks Now DNR DVT and GI prophylaxis Transferred to intermediate care unit History Interval history: Patient was seen and evaluated, patient was lethargic. Hospitalist Physical - Physical exam Narrative exam: Not in cardiopulmonary distress. The patient appeared well nourished and normally developed. Vital signs as documented. Head exam is unremarkable. No scleral icterus . Neck is without jugular venous distension, thyromegaly, or carotid bruits. Lungs are clear to auscultation. Cardiac exam reveals regular rate and Rhythm. First and second heart sounds normal. No murmurs, rubs or gallops. Abdominal exam reveals normal bowel sounds, no masses, no organomegaly and no aortic enlargement. Extremities are nonedematous and both femoral and pedal pulses are normal. 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 - Constitutional Vitals: Temp Pulse Resp BP Pulse Ox 98.9 F 70 16 125/65 100 12/18/17 12:00 12/18/17 14:00 12/18/17 14:00 12/18/17 14:00 12/18/17 14:00 General appearance: Present: mild distress Results - Labs CBC & Chem 7: 12/18/17 04:40 12/18/17 04:40 Labs: Laboratory Last Values WBC 7.2 K/mm3 (4.5-11.0) 12/18/17 04:40 RBC 3.40 M/mm3 (3.65-5.03) L 12/18/17 04:40 Hgb 11.0 gm/dl (11.8-15.2) L 12/18/17 04:40 Hct 31.8 % (35.5-45.6) L 12/18/17 04:40 MCV 94 fl (84-94) 12/18/17 04:40 MCH 32 pg (28-32) 12/18/17 04:40 MCHC 35 % (32-34) H 12/18/17 04:40 RDW 16.9 % (13.2-15.2) H 12/18/17 04:40 Plt Count 137 K/mm3 (140-440) L 12/18/17 04:40 Lymph % (Auto) 17.6 % (13.4-35.0) 12/18/17 04:40 [place] % (Auto) 10.6 % (0.0-7.3) H 12/18/17 04:40 Eos % (Auto) 1.7 % (0.0-4.3) 12/18/17 04:40 Baso % (Auto) 0.6 % (0.0-1.8) 12/18/17 04:40 Lymph # 1.3 K/mm3 (1.2-5.4) 12/18/17 04:40 [place] # 0.8 K/mm3 (0.0-0.8) 12/18/17 04:40 Eos # 0.1 K/mm3 (0.0-0.4) 12/18/17 04:40 Baso # 0.0 K/mm3 (0.0-0.1) 12/18/17 04:40 Seg Neutrophils % 69.5 % (40.0-70.0) 12/18/17 04:40 Seg Neutrophils # 5.0 K/mm3 (1.8-7.7) 12/18/17 04:40 D-Dimer 389.72 ng/mlDDU (0-234) H 12/12/17 12:34 POC ABG pH 7.411 (7.35-7.45) 12/18/17 12:51 POC ABG pCO2 46.4 (35-45) H 12/18/17 12:51 POC ABG pO2 131 (80-105) H 12/18/17 12:51 POC ABG HCO3 29.4 12/18/17 12:51 POC ABG Total CO2 31 12/18/17 12:51 POC ABG O2 Sat 99 12/18/17 12:51 POC ABG Base Excess 5 12/18/17 12:51 FiO2 28 % 12/18/17 12:51 Sodium 140 mmol/L (137-145) D 12/18/17 04:40 Potassium 3.9 mmol/L (3.6-5.0) 12/18/17 04:40 Chloride 102.6 mmol/L (98-107) 12/18/17 04:40 Carbon Dioxide 27 mmol/L (22-30) 12/18/17 04:40 Anion Gap 14 mmol/L 12/18/17 04:40 BUN 30 mg/dL (9-20) H 12/18/17 04:40 Creatinine 0.5 mg/dL (0.8-1.5) L 12/18/17 04:40 Estimated GFR > 60 ml/min 12/18/17 04:40 BUN/Creatinine Ratio 60 % 12/18/17 04:40 Glucose 79 mg/dL (75-100) 12/18/17 04:40 POC Glucose 104 (70-105) 12/18/17 12:04 Lactic Acid 1.10 mmol/L (0.7-2.0) 12/13/17 12:22 Calcium 8.3 mg/dL (8.4-10.2) L 12/18/17 04:40 Total Bilirubin 0.90 mg/dL (0.1-1.2) 12/12/17 10:50 AST 32 units/L (5-40) 12/12/17 10:50 ALT 31 units/L (7-56) 12/12/17 10:50 Alkaline Phosphatase 110 units/L (35-129) 12/12/17 10:50 Ammonia 55.0 umol/L (25-60) 12/12/17 10:50 Troponin T < 0.010 ng/mL (0.00-0.029) 12/12/17 18:35 Total Protein 6.1 g/dL (6.3-8.2) L 12/12/17 10:50 Albumin 3.2 g/dL (3.9-5) L 12/12/17 10:50 Albumin/Globulin Ratio 1.1 % 12/12/17 10:50 Triglycerides 76 mg/dL (2-149) 12/13/17 03:38 Cholesterol 125 mg/dL (50-199) 12/13/17 03:38 LDL Cholesterol Direct 57 mg/dL (50-130) 12/13/17 03:38 HDL Cholesterol 70 mg/dL (40-59) H 12/13/17 03:38 Cholesterol/HDL Ratio 1.78 % 12/13/17 03:38 Vitamin B12 > 2000 pg/mL (211-911) H 12/12/17 19:58 TSH 2.470 mlU/mL (0.270-4.200) 12/12/17 19:58 Free T4 1.60 ng/dL (0.76-1.46) H 12/12/17 19:58 Urine Color Yellow (Yellow) 12/12/17 Unknown Urine Turbidity Clear (Clear) 12/12/17 Unknown Urine pH 6.0 (5.0-7.0) 12/12/17 Unknown Ur Specific [place] 1.009 (1.003-1.030) 12/12/17 Unknown Urine Protein <15 mg/dl mg/dL (Negative) 12/12/17 Unknown Urine Glucose (UA) Neg mg/dL (Negative) 12/12/17 Unknown Urine Ketones Neg mg/dL (Negative) 12/12/17 Unknown Urine Blood Neg (Negative) 12/12/17 Unknown Urine Nitrite Neg (Negative) 12/12/17 Unknown Urine Bilirubin Neg (Negative) 12/12/17 Unknown Urine Urobilinogen 2.0 mg/dL (<2.0) 12/12/17 Unknown Ur Leukocyte Esterase Tr (Negative) 12/12/17 Unknown Urine WBC (Auto) 3.0 /HPF (0.0-6.0) 12/12/17 Unknown Urine RBC (Auto) 5.0 /HPF (0.0-6.0) 12/12/17 Unknown U Epithel Cells (Auto) < 1.0 /HPF (0-13.0) 12/12/17 Unknown Urine Mucus Few /HPF 12/12/17 Unknown
[2017-12-18] MEDS: ROCEPHIN/NS 2 GM/100 ML 2 GM/100 ML BAG IV SCH (20:35)
[2017-12-18] MEDS: ZITHROMAX 500 MG in NACL 0.9% 250ML 250 ML IV SCH (20:40)
[2017-12-18] MEDS: LOVENOX SUB-Q SCH (21:00)
[2017-12-18] MEDS: ARICEPT PO SCH (21:01)
[2017-12-19] MEDS: PEPCID PO SCH ×2 (09:47→22:05)
[2017-12-19] MEDS: HALFPRIN EC PO SCH (09:47)
[2017-12-19] MEDS: THERAGRAN Tab PO SCH (09:47)
[2017-12-19] MEDS: KEPPRA PO SCH ×2 (09:47→22:04)
[2017-12-19] MEDS: DepaKENE Liq FEEDTUBE SCH (11:55)
--- NOTE | 2017-12-19 13:26 | Progress Note ---
Assessment and Plan Patient weak. Resting on 2 litres O2.O2 saturation 98%. No acute respiratory distress. Patient encephalopathic.Not oriented. - Patient Problems (1) CVA (cerebral vascular accident) Current Visit: Yes Status: Acute Qualifiers: Precerebral and cerebral artery: posterior cerebral artery Laterality of affected vessel: unspecified Plan to address problem: Management as per neurology. (2) Encephalopathy Current Visit: Yes Status: Acute Plan to address problem: management as per primary care and neurology. (3) Left lower lobe pulmonary infiltrate Current Visit: Yes Status: Acute Plan to address problem: Patient is on Zithromax and ceftrioxone. Subjective Date of service: 12/19/17 Principal diagnosis: Acute hypercapnic hypoxemic respiratory failure; Acute encephalopathy Interval history: Patient weak. Resting on 2 litres O2.O2 saturation 98%. No acute respiratory distress. Patient encephalopathic.Not oriented. Objective Vital Signs - 12hr 12/19/17 12/19/17 12/19/17 02:00 03:00 04:00 Temperature 95.9 F L Pulse Rate 77 78 72 Respiratory 21 18 18 Rate Blood Pressure 119/52 129/55 129/55 O2 Sat by Pulse 100 100 100 Oximetry 12/19/17 12/19/17 12/19/17 04:13 05:00 06:00 Temperature Pulse Rate 76 74 71 Respiratory 18 18 18 Rate Blood Pressure 140/50 140/50 142/58 O2 Sat by Pulse 100 100 100 Oximetry 12/19/17 12/19/17 12/19/17 07:00 08:00 08:02 Temperature 95.8 F L Pulse Rate 72 73 Respiratory 18 18 Rate Blood Pressure 137/67 137/67 O2 Sat by Pulse 100 100 100 Oximetry 12/19/17 12/19/17 12/19/17 09:00 10:00 11:00 Temperature Pulse Rate 78 75 79 Respiratory 15 14 16 Rate Blood Pressure 143/72 143/72 137/63 O2 Sat by Pulse 100 100 100 Oximetry 12/19/17 12/19/17 12:00 13:00 Temperature Pulse Rate 73 75 Respiratory 15 14 Rate Blood Pressure 130/70 133/77 O2 Sat by Pulse 100 99 Oximetry Constitutional: no acute distress, alert, other (elderly looking CM, normocephalic and atraumatic. Encephalopathic. weak.) Eyes: non-icteric ENT: oropharynx moist, other (Mallampati 2) Neck: supple, no lymphadenopathy, no JVD, other (No thyromegaly) Effort: mildly labored Ascultation: Bilateral: diminished breath sounds, rhonchi (bases) Percussion: Bilateral: not dull Cardiovascular: regular rate and rhythm, murmur noted (systolic) Gastrointestinal: normoactive bowel sounds, soft, non-tender, non-distended, other (No HSM) Integumentary: normal Extremities: no cyanosis, no edema, pink and warm, pulses normal Neurologic: non-focal exam (grossly), pupils equal and round, motor strength normal and Psychiatric: other (flat affect) CBC and BMP: 12/18/17 04:40 12/18/17 04:40 ABG, PT/INR, D-dimer: ABG POC ABG pH 7.411 (7.35-7.45) 12/18/17 12:51 POC ABG pCO2 46.4 (35-45) H 12/18/17 12:51 POC ABG pO2 131 (80-105) H 12/18/17 12:51 POC ABG HCO3 29.4 12/18/17 12:51 POC ABG Total CO2 31 12/18/17 12:51 POC ABG O2 Sat 99 12/18/17 12:51 PT/INR, D-dimer D-Dimer 389.72 ng/mlDDU (0-234) H 12/12/17 12:34 Abnormal lab findings: Abnormal Labs 12/12/17 12/12/17 12/12/17 10:50 10:50 10:50 WBC RBC Hgb Hct MCHC 35 H RDW 16.5 H Plt Count 139 L Lymph % (Auto) 11.9 L [place] % (Auto) 11.8 H Lymph # 0.8 L [place] # Seg Neutrophils % 74.6 H Seg Neutrophils # D-Dimer POC ABG pH POC ABG pCO2 POC ABG pO2 Sodium 124 L Chloride 88.0 L Carbon Dioxide BUN Creatinine 0.5 L Glucose 106 H POC Glucose Lactic Acid 3.60 H* Calcium Total Protein 6.1 L Albumin 3.2 L HDL Cholesterol Vitamin B12 Free T4 12/12/17 12/12/17 12/12/17 12:08 12:34 19:58 WBC RBC Hgb Hct MCHC RDW Plt Count Lymph % (Auto) [place] % (Auto) Lymph # [place] # Seg Neutrophils % Seg Neutrophils # D-Dimer 389.72 H POC ABG pH POC ABG pCO2 POC ABG pO2 Sodium Chloride Carbon Dioxide BUN Creatinine Glucose POC Glucose Lactic Acid 2.30 H* Calcium Total Protein Albumin HDL Cholesterol Vitamin B12 Free T4 1.60 H 12/12/17 12/13/17 12/13/17 19:58 03:38 12:22 WBC RBC Hgb Hct MCHC 35 H RDW 16.6 H Plt Count 125 L Lymph % (Auto) 11.3 L [place] % (Auto) 10.1 H Lymph # 1.0 L [place] # 0.9 H Seg Neutrophils % 76.5 H Seg Neutrophils # D-Dimer POC ABG pH POC ABG pCO2 POC ABG pO2 Sodium Chloride Carbon Dioxide BUN Creatinine Glucose POC Glucose Lactic Acid Calcium Total Protein Albumin HDL Cholesterol 70 H Vitamin B12 > 2000 H Free T4 12/13/17 12/14/17 12/14/17 12:22 04:47 04:47 WBC RBC Hgb Hct MCHC 35 H RDW 16.8 H Plt Count Lymph % (Auto) [place] % (Auto) Lymph # [place] # Seg Neutrophils % Seg Neutrophils # D-Dimer POC ABG pH POC ABG pCO2 POC ABG pO2 Sodium 130 L 133 L Chloride 90.3 L 91.4 L Carbon Dioxide BUN 28 H Creatinine 0.4 L 0.4 L Glucose 69 L 59 L POC Glucose Lactic Acid Calcium Total Protein Albumin HDL Cholesterol Vitamin B12 Free T4 12/15/17 12/15/17 12/15/17 17:48 18:04 20:01 WBC RBC Hgb Hct MCHC RDW Plt Count Lymph % (Auto) [place] % (Auto) Lymph # [place] # Seg Neutrophils % Seg Neutrophils # D-Dimer POC ABG pH 7.084 L POC ABG pCO2 82.8 H 52.2 H POC ABG pO2 106 H 502 H Sodium Chloride Carbon Dioxide BUN Creatinine Glucose POC Glucose 108 H Lactic Acid Calcium Total Protein Albumin HDL Cholesterol Vitamin B12 Free T4 12/16/17 12/16/17 12/16/17 05:56 16:00 17:41 WBC RBC Hgb Hct MCHC RDW Plt Count Lymph % (Auto) [place] % (Auto) Lymph # [place] # Seg Neutrophils % Seg Neutrophils # D-Dimer POC ABG pH 7.495 H POC ABG pCO2 31.7 L POC ABG pO2 112 H 133 H Sodium Chloride Carbon Dioxide BUN Creatinine Glucose POC Glucose 106 H Lactic Acid Calcium Total Protein Albumin HDL Cholesterol Vitamin B12 Free T4 12/16/17 12/16/17 12/16/17 18:55 18:55 22:48 WBC 13.6 H RBC Hgb Hct MCHC RDW 16.4 H Plt Count Lymph % (Auto) 8.7 L [place] % (Auto) 8.6 H Lymph # [place] # 1.2 H Seg Neutrophils % 82.1 H Seg Neutrophils # 11.2 H D-Dimer POC ABG pH POC ABG pCO2 POC ABG pO2 Sodium 131 L Chloride Carbon Dioxide 20 L D BUN 30 H Creatinine 0.5 L Glucose 118 H POC Glucose 121 H Lactic Acid Calcium Total Protein Albumin HDL Cholesterol Vitamin B12 Free T4 12/17/17 12/17/17 12/18/17 04:35 04:35 04:40 WBC RBC 3.46 L 3.40 L Hgb 11.0 L 11.0 L Hct 32.4 L 31.8 L MCHC 35 H RDW 17.0 H 16.9 H Plt Count 131 L 137 L Lymph % (Auto) [place] % (Auto) 10.6 H Lymph # [place] # Seg Neutrophils % Seg Neutrophils # D-Dimer POC ABG pH POC ABG pCO2 POC ABG pO2 Sodium 132 L Chloride 97.8 L Carbon Dioxide BUN 28 H Creatinine 0.5 L Glucose POC Glucose Lactic Acid Calcium 8.3 L Total Protein Albumin HDL Cholesterol Vitamin B12 Free T4 12/18/17 12/18/17 12/18/17 04:40 12:51 17:18 WBC RBC Hgb Hct MCHC RDW Plt Count Lymph % (Auto) [place] % (Auto) Lymph # [place] # Seg Neutrophils % Seg Neutrophils # D-Dimer POC ABG pH POC ABG pCO2 46.4 H POC ABG pO2 131 H Sodium Chloride Carbon Dioxide BUN 30 H Creatinine 0.5 L Glucose POC Glucose 109 H Lactic Acid Calcium 8.3 L Total Protein Albumin HDL Cholesterol Vitamin B12 Free T4 Chest x-ray: report reviewed (Improved seration of left lung base.), image reviewed Allied health notes reviewed: nursing
--- NOTE | 2017-12-19 16:27 | Progress Note ---
Assessment and Plan Assessment and plan: 87 YO Male currently an inpatient at [facility] for Suicide Ideation with Dementia, HTN, DM, Psychosis, Cardiomyopathy S/P Pacemaker placement presents to ED for evaluation. Pt is confused and unable to provide history. Pt history taken from ED staff, and [place] staff. As per staff, the patient was found down and unresponsive this morning shortly after breakfast. EMS notified,and upon arrival the patient was found to be confused. Pt transported to [facility] for further care and evaluation. Pt seen and evaluated in ED and found to have symptoms suspicious for CVA, Encephalopathy, Hyponatremia, and Acidosis. Pt admitted to telemetry and initiated on CVA protocol. Acute encephalopathy - Resolving Acute Respiratory failure - And is extubated and on when necessary BiPAP Hypotension - Patient was given bolus of IV fluid, blood pressure is normalized since yesterday Aspiration penumonia - Patient is on IV antibiotics SEIZURE DISORDER - Patient is on Keppra and now severe episode after admission Hyponatremia - Resolved Severe dementia Alzheimer dementia - Supportive care Metabolic acidosis - Resolved Hypoglycemia - Resolved CODE STATUS: AND Disposition - Continue intermediate unit care. History Interval history: Patient was seen and evaluated, patient was more responsive this morning Hospitalist Physical - Physical exam Narrative exam: Not in cardiopulmonary distress. The patient appeared well nourished and normally developed. Vital signs as documented. Head exam is unremarkable. No scleral icterus . Neck is without jugular venous distension, thyromegaly, or carotid bruits. Lungs are clear to auscultation. Cardiac exam reveals regular rate and Rhythm. First and second heart sounds normal. No murmurs, rubs or gallops. Abdominal exam reveals normal bowel sounds, no masses, no organomegaly and no aortic enlargement. Extremities are nonedematous and both femoral and pedal pulses are normal. 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 - Constitutional Vitals: Temp Pulse Resp BP Pulse Ox 96.7 F L 75 16 129/63 98 12/19/17 12:00 12/19/17 15:00 12/19/17 15:00 12/19/17 15:00 12/19/17 15:00 General appearance: Present: mild distress Results - Labs CBC & Chem 7: 12/18/17 04:40 12/18/17 04:40 Labs: Laboratory Last Values WBC 7.2 K/mm3 (4.5-11.0) 12/18/17 04:40 RBC 3.40 M/mm3 (3.65-5.03) L 12/18/17 04:40 Hgb 11.0 gm/dl (11.8-15.2) L 12/18/17 04:40 Hct 31.8 % (35.5-45.6) L 12/18/17 04:40 MCV 94 fl (84-94) 12/18/17 04:40 MCH 32 pg (28-32) 12/18/17 04:40 MCHC 35 % (32-34) H 12/18/17 04:40 RDW 16.9 % (13.2-15.2) H 12/18/17 04:40 Plt Count 137 K/mm3 (140-440) L 12/18/17 04:40 Lymph % (Auto) 17.6 % (13.4-35.0) 12/18/17 04:40 [place] % (Auto) 10.6 % (0.0-7.3) H 12/18/17 04:40 Eos % (Auto) 1.7 % (0.0-4.3) 12/18/17 04:40 Baso % (Auto) 0.6 % (0.0-1.8) 12/18/17 04:40 Lymph # 1.3 K/mm3 (1.2-5.4) 12/18/17 04:40 [place] # 0.8 K/mm3 (0.0-0.8) 12/18/17 04:40 Eos # 0.1 K/mm3 (0.0-0.4) 12/18/17 04:40 Baso # 0.0 K/mm3 (0.0-0.1) 12/18/17 04:40 Seg Neutrophils % 69.5 % (40.0-70.0) 12/18/17 04:40 Seg Neutrophils # 5.0 K/mm3 (1.8-7.7) 12/18/17 04:40 D-Dimer 389.72 ng/mlDDU (0-234) H 12/12/17 12:34 POC ABG pH 7.411 (7.35-7.45) 12/18/17 12:51 POC ABG pCO2 46.4 (35-45) H 12/18/17 12:51 POC ABG pO2 131 (80-105) H 12/18/17 12:51 POC ABG HCO3 29.4 12/18/17 12:51 POC ABG Total CO2 31 12/18/17 12:51 POC ABG O2 Sat 99 12/18/17 12:51 POC ABG Base Excess 5 12/18/17 12:51 FiO2 28 % 12/18/17 12:51 Sodium 140 mmol/L (137-145) D 12/18/17 04:40 Potassium 3.9 mmol/L (3.6-5.0) 12/18/17 04:40 Chloride 102.6 mmol/L (98-107) 12/18/17 04:40 Carbon Dioxide 27 mmol/L (22-30) 12/18/17 04:40 Anion Gap 14 mmol/L 12/18/17 04:40 BUN 30 mg/dL (9-20) H 12/18/17 04:40 Creatinine 0.5 mg/dL (0.8-1.5) L 12/18/17 04:40 Estimated GFR > 60 ml/min 12/18/17 04:40 BUN/Creatinine Ratio 60 % 12/18/17 04:40 Glucose 79 mg/dL (75-100) 12/18/17 04:40 POC Glucose 97 (70-105) 12/19/17 12:15 Lactic Acid 1.10 mmol/L (0.7-2.0) 12/13/17 12:22 Calcium 8.3 mg/dL (8.4-10.2) L 12/18/17 04:40 Total Bilirubin 0.90 mg/dL (0.1-1.2) 12/12/17 10:50 AST 32 units/L (5-40) 12/12/17 10:50 ALT 31 units/L (7-56) 12/12/17 10:50 Alkaline Phosphatase 110 units/L (35-129) 12/12/17 10:50 Ammonia 55.0 umol/L (25-60) 12/12/17 10:50 Troponin T < 0.010 ng/mL (0.00-0.029) 12/12/17 18:35 Total Protein 6.1 g/dL (6.3-8.2) L 12/12/17 10:50 Albumin 3.2 g/dL (3.9-5) L 12/12/17 10:50 Albumin/Globulin Ratio 1.1 % 12/12/17 10:50 Triglycerides 76 mg/dL (2-149) 12/13/17 03:38 Cholesterol 125 mg/dL (50-199) 12/13/17 03:38 LDL Cholesterol Direct 57 mg/dL (50-130) 12/13/17 03:38 HDL Cholesterol 70 mg/dL (40-59) H 12/13/17 03:38 Cholesterol/HDL Ratio 1.78 % 12/13/17 03:38 Vitamin B12 > 2000 pg/mL (211-911) H 12/12/17 19:58 TSH 2.470 mlU/mL (0.270-4.200) 12/12/17 19:58 Free T4 1.60 ng/dL (0.76-1.46) H 12/12/17 19:58 Urine Color Yellow (Yellow) 12/12/17 Unknown Urine Turbidity Clear (Clear) 12/12/17 Unknown Urine pH 6.0 (5.0-7.0) 12/12/17 Unknown Ur Specific [place] 1.009 (1.003-1.030) 12/12/17 Unknown Urine Protein <15 mg/dl mg/dL (Negative) 12/12/17 Unknown Urine Glucose (UA) Neg mg/dL (Negative) 12/12/17 Unknown Urine Ketones Neg mg/dL (Negative) 12/12/17 Unknown Urine Blood Neg (Negative) 12/12/17 Unknown Urine Nitrite Neg (Negative) 12/12/17 Unknown Urine Bilirubin Neg (Negative) 12/12/17 Unknown Urine Urobilinogen 2.0 mg/dL (<2.0) 12/12/17 Unknown Ur Leukocyte Esterase Tr (Negative) 12/12/17 Unknown Urine WBC (Auto) 3.0 /HPF (0.0-6.0) 12/12/17 Unknown Urine RBC (Auto) 5.0 /HPF (0.0-6.0) 12/12/17 Unknown U Epithel Cells (Auto) < 1.0 /HPF (0-13.0) 12/12/17 Unknown Urine Mucus Few /HPF 12/12/17 Unknown
--- NOTE | 2017-12-19 16:33 | Progress Note ---
Subjective Date of service: 12/19/17 Principal diagnosis: Acute hypercapnic hypoxemic respiratory failure; Acute encephalopathy Interval history: I have pressonally reviewed two radiology reports on CT of the head from last three days these show only age related changes nothing acute there seems to be proble with viewing the images which I plan to do personally in radiology department the reports are filed under " radiology" reports but are CT's agree with plan Thanks Objective - Vital Sign Vital Signs - 12hr 12/19/17 12/19/17 12/19/17 05:00 06:00 07:00 Temperature Pulse Rate 74 71 72 Respiratory 18 18 18 Rate Blood Pressure 140/50 142/58 137/67 O2 Sat by Pulse 100 100 100 Oximetry 12/19/17 12/19/17 12/19/17 08:00 08:02 09:00 Temperature 95.8 F L Pulse Rate 73 78 Respiratory 18 15 Rate Blood Pressure 137/67 143/72 O2 Sat by Pulse 100 100 100 Oximetry 12/19/17 12/19/17 12/19/17 10:00 11:00 12:00 Temperature 96.7 F L Pulse Rate 75 79 73 Respiratory 14 16 15 Rate Blood Pressure 143/72 137/63 130/70 O2 Sat by Pulse 100 100 100 Oximetry 12/19/17 12/19/17 12/19/17 13:00 14:00 15:00 Temperature Pulse Rate 75 76 75 Respiratory 14 14 16 Rate Blood Pressure 133/77 116/55 129/63 O2 Sat by Pulse 99 98 98 Oximetry - Laboratory Findings CBC and BMP: 12/18/17 04:40 12/18/17 04:40 Abnormal Lab Findings: Abnormal Labs 12/12/17 12/12/17 12/12/17 10:50 10:50 10:50 WBC RBC Hgb Hct MCHC 35 H RDW 16.5 H Plt Count 139 L Lymph % (Auto) 11.9 L [place] % (Auto) 11.8 H Lymph # 0.8 L [place] # Seg Neutrophils % 74.6 H Seg Neutrophils # D-Dimer POC ABG pH POC ABG pCO2 POC ABG pO2 Sodium 124 L Chloride 88.0 L Carbon Dioxide BUN Creatinine 0.5 L Glucose 106 H POC Glucose Lactic Acid 3.60 H* Calcium Total Protein 6.1 L Albumin 3.2 L HDL Cholesterol Vitamin B12 Free T4 12/12/17 12/12/17 12/12/17 12:08 12:34 19:58 WBC RBC Hgb Hct MCHC RDW Plt Count Lymph % (Auto) [place] % (Auto) Lymph # [place] # Seg Neutrophils % Seg Neutrophils # D-Dimer 389.72 H POC ABG pH POC ABG pCO2 POC ABG pO2 Sodium Chloride Carbon Dioxide BUN Creatinine Glucose POC Glucose Lactic Acid 2.30 H* Calcium Total Protein Albumin HDL Cholesterol Vitamin B12 Free T4 1.60 H 12/12/17 12/13/17 12/13/17 19:58 03:38 12:22 WBC RBC Hgb Hct MCHC 35 H RDW 16.6 H Plt Count 125 L Lymph % (Auto) 11.3 L [place] % (Auto) 10.1 H Lymph # 1.0 L [place] # 0.9 H Seg Neutrophils % 76.5 H Seg Neutrophils # D-Dimer POC ABG pH POC ABG pCO2 POC ABG pO2 Sodium Chloride Carbon Dioxide BUN Creatinine Glucose POC Glucose Lactic Acid Calcium Total Protein Albumin HDL Cholesterol 70 H Vitamin B12 > 2000 H Free T4 12/13/17 12/14/17 12/14/17 12:22 04:47 04:47 WBC RBC Hgb Hct MCHC 35 H RDW 16.8 H Plt Count Lymph % (Auto) [place] % (Auto) Lymph # [place] # Seg Neutrophils % Seg Neutrophils # D-Dimer POC ABG pH POC ABG pCO2 POC ABG pO2 Sodium 130 L 133 L Chloride 90.3 L 91.4 L Carbon Dioxide BUN 28 H Creatinine 0.4 L 0.4 L Glucose 69 L 59 L POC Glucose Lactic Acid Calcium Total Protein Albumin HDL Cholesterol Vitamin B12 Free T4 12/15/17 12/15/17 12/15/17 17:48 18:04 20:01 WBC RBC Hgb Hct MCHC RDW Plt Count Lymph % (Auto) [place] % (Auto) Lymph # [place] # Seg Neutrophils % Seg Neutrophils # D-Dimer POC ABG pH 7.084 L POC ABG pCO2 82.8 H 52.2 H POC ABG pO2 106 H 502 H Sodium Chloride Carbon Dioxide BUN Creatinine Glucose POC Glucose 108 H Lactic Acid Calcium Total Protein Albumin HDL Cholesterol Vitamin B12 Free T4 12/16/17 12/16/17 12/16/17 05:56 16:00 17:41 WBC RBC Hgb Hct MCHC RDW Plt Count Lymph % (Auto) [place] % (Auto) Lymph # [place] # Seg Neutrophils % Seg Neutrophils # D-Dimer POC ABG pH 7.495 H POC ABG pCO2 31.7 L POC ABG pO2 112 H 133 H Sodium Chloride Carbon Dioxide BUN Creatinine Glucose POC Glucose 106 H Lactic Acid Calcium Total Protein Albumin HDL Cholesterol Vitamin B12 Free T4 12/16/17 12/16/17 12/16/17 18:55 18:55 22:48 WBC 13.6 H RBC Hgb Hct MCHC RDW 16.4 H Plt Count Lymph % (Auto) 8.7 L [place] % (Auto) 8.6 H Lymph # [place] # 1.2 H Seg Neutrophils % 82.1 H Seg Neutrophils # 11.2 H D-Dimer POC ABG pH POC ABG pCO2 POC ABG pO2 Sodium 131 L Chloride Carbon Dioxide 20 L D BUN 30 H Creatinine 0.5 L Glucose 118 H POC Glucose 121 H Lactic Acid Calcium Total Protein Albumin HDL Cholesterol Vitamin B12 Free T4 12/17/17 12/17/17 12/18/17 04:35 04:35 04:40 WBC RBC 3.46 L 3.40 L Hgb 11.0 L 11.0 L Hct 32.4 L 31.8 L MCHC 35 H RDW 17.0 H 16.9 H Plt Count 131 L 137 L Lymph % (Auto) [place] % (Auto) 10.6 H Lymph # [place] # Seg Neutrophils % Seg Neutrophils # D-Dimer POC ABG pH POC ABG pCO2 POC ABG pO2 Sodium 132 L Chloride 97.8 L Carbon Dioxide BUN 28 H Creatinine 0.5 L Glucose POC Glucose Lactic Acid Calcium 8.3 L Total Protein Albumin HDL Cholesterol Vitamin B12 Free T4 12/18/17 12/18/17 12/18/17 04:40 12:51 17:18 WBC RBC Hgb Hct MCHC RDW Plt Count Lymph % (Auto) [place] % (Auto) Lymph # [place] # Seg Neutrophils % Seg Neutrophils # D-Dimer POC ABG pH POC ABG pCO2 46.4 H POC ABG pO2 131 H Sodium Chloride Carbon Dioxide BUN 30 H Creatinine 0.5 L Glucose POC Glucose 109 H Lactic Acid Calcium 8.3 L Total Protein Albumin HDL Cholesterol Vitamin B12 Free T4
[2017-12-19] MEDS: ZITHROMAX 500 MG in NACL 0.9% 250ML 250 ML IV SCH (20:03)
[2017-12-19] MEDS: ROCEPHIN/NS 2 GM/100 ML 2 GM/100 ML BAG IV SCH (20:05)
[2017-12-19] MEDS: ARICEPT PO SCH (22:05)
[2017-12-19] MEDS: LOVENOX SUB-Q SCH (22:06)
[2017-12-20] MEDS: DepaKENE Liq FEEDTUBE SCH (10:24)
[2017-12-20] MEDS: HALFPRIN EC PO SCH (10:24)
[2017-12-20] MEDS: PEPCID PO SCH ×2 (10:24→21:34)
[2017-12-20] MEDS: KEPPRA PO SCH ×2 (10:24→21:33)
[2017-12-20] MEDS: THERAGRAN Tab PO SCH (10:25)
--- NOTE | 2017-12-20 13:08 | Progress Note ---
Subjective - Reason for Consult Consult date: 12/20/17 Reason for consult: Psychiatry Follow-up - Chief Complaint Chief complaint: "How are you" The patient was initially assessed by psy 12/15/2017. 87-year-old male with history of hypertension, diabetes mellitus, GERD, cardiomyopathy with pacemaker, severe dementia per family who was transferred from [facility] where he was admitted for suicidal ideation. Today the patient is calm and cooperative during the assessment. He was able to tell me his name and recall 1/3 numbers in 5 mins. He had to be redirected to keep him on topic. He did acknowledged that he reside at [facility]. He denies SI/HI's and AVH's. Per the initial psy assessment, the patient do not need to return back to the psy facility. Mental Status Exam - Vital signs Last Vital Signs Temp 98.5 F 12/20/17 12:00 Pulse 74 12/20/17 10:01 Resp 18 12/20/17 10:01 BP 124/49 12/20/17 10:01 Pulse Ox 97 12/20/17 10:01 - Exam Narrative exam: MSE: Appearance: calm, cooperative Behavior: regular eye contact Speech: regular rate and tone Mood: "okay" Affect: congruent to mood Thought Process: circumstantial Thought Content: denies SI/HI's and AVH's Motor Activity: sitting up in bed Cognition: A/O x 3, with slight confusion Insight: variable Judgment: variable Assessment and Plan Impression: Hx of Dementia. The patient is calm and cooperative during the assessment. Recommendation/Plan: Continue Aricept 5 mg PO HS for dementia symptoms. Per the initial psy consult (12/15/2017) the patient do not need to return back to a psy facility. Psychiatry sign off. Recommend Delirium precautions below: 1. Frequently reorient patient and involve him/her in their care (simple explanations of procedures, tests, medications). 2. Lights on and shades open during daytime hours. 3. Write date and goals of care in a visible place. 4. Try to avoid unnecessary interruptions to sleep during nighttime hours. 5. Obtain glasses, hearing aids from home if patient uses these at baseline. 6. Avoid medications that may exacerbate delirium (especially narcotics, benzodiazepines, barbiturates, ambien, lunesta, and medications with excessive anticholinergic properties).
--- NOTE | 2017-12-20 14:11 | Progress Note ---
Assessment and Plan Assessment and plan: 87 YO Male currently an inpatient at [facility] for Suicide Ideation with Dementia, HTN, DM, Psychosis, Cardiomyopathy S/P Pacemaker placement presents to ED for evaluation. Pt is confused and unable to provide history. Pt history taken from ED staff, and [place] staff. As per staff, the patient was found down and unresponsive this morning shortly after breakfast. EMS notified,and upon arrival the patient was found to be confused. Pt transported to [facility] for further care and evaluation. Pt seen and evaluated in ED and found to have symptoms suspicious for CVA, Encephalopathy, Hyponatremia, and Acidosis. Pt admitted to telemetry and initiated on CVA protocol. Acute encephalopathy - Resolving Acute Respiratory failure - And is extubated and on when necessary BiPAP Hypotension - Patient was given bolus of IV fluid, blood pressure is normalized since yesterday Aspiration penumonia - Patient is on IV antibiotics SEIZURE DISORDER - Patient is on Keppra and now severe episode after admission Hyponatremia - Resolved Severe dementia Alzheimer dementia - Supportive care Metabolic acidosis - Resolved Hypoglycemia - Resolved CODE STATUS: AND Disposition - Patient need sppech evaluation. He is on NG tube feeding. History Interval history: Patient was seen and evaluated, patient was more responsive this morning, answers questions appropriately. Hospitalist Physical - Physical exam Narrative exam: Not in cardiopulmonary distress. The patient appeared well nourished and normally developed. Vital signs as documented. Head exam is unremarkable. No scleral icterus . Neck is without jugular venous distension, thyromegaly, or carotid bruits. Lungs are clear to auscultation. Cardiac exam reveals regular rate and Rhythm. First and second heart sounds normal. No murmurs, rubs or gallops. Abdominal exam reveals normal bowel sounds, no masses, no organomegaly and no aortic enlargement. Extremities are nonedematous and both femoral and pedal pulses are normal. 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 Hearing is better today. - Constitutional Vitals: Temp Pulse Resp BP Pulse Ox 98.5 F 74 18 124/49 97 12/20/17 12:00 12/20/17 10:01 12/20/17 10:01 12/20/17 10:01 12/20/17 10:01 General appearance: Present: mild distress Results - Labs CBC & Chem 7: 12/18/17 04:40 12/18/17 04:40 Labs: Laboratory Last Values WBC 7.2 K/mm3 (4.5-11.0) 12/18/17 04:40 RBC 3.40 M/mm3 (3.65-5.03) L 12/18/17 04:40 Hgb 11.0 gm/dl (11.8-15.2) L 12/18/17 04:40 Hct 31.8 % (35.5-45.6) L 12/18/17 04:40 MCV 94 fl (84-94) 12/18/17 04:40 MCH 32 pg (28-32) 12/18/17 04:40 MCHC 35 % (32-34) H 12/18/17 04:40 RDW 16.9 % (13.2-15.2) H 12/18/17 04:40 Plt Count 137 K/mm3 (140-440) L 12/18/17 04:40 Lymph % (Auto) 17.6 % (13.4-35.0) 12/18/17 04:40 [place] % (Auto) 10.6 % (0.0-7.3) H 12/18/17 04:40 Eos % (Auto) 1.7 % (0.0-4.3) 12/18/17 04:40 Baso % (Auto) 0.6 % (0.0-1.8) 12/18/17 04:40 Lymph # 1.3 K/mm3 (1.2-5.4) 12/18/17 04:40 [place] # 0.8 K/mm3 (0.0-0.8) 12/18/17 04:40 Eos # 0.1 K/mm3 (0.0-0.4) 12/18/17 04:40 Baso # 0.0 K/mm3 (0.0-0.1) 12/18/17 04:40 Seg Neutrophils % 69.5 % (40.0-70.0) 12/18/17 04:40 Seg Neutrophils # 5.0 K/mm3 (1.8-7.7) 12/18/17 04:40 D-Dimer 389.72 ng/mlDDU (0-234) H 12/12/17 12:34 POC ABG pH 7.411 (7.35-7.45) 12/18/17 12:51 POC ABG pCO2 46.4 (35-45) H 12/18/17 12:51 POC ABG pO2 131 (80-105) H 12/18/17 12:51 POC ABG HCO3 29.4 12/18/17 12:51 POC ABG Total CO2 31 12/18/17 12:51 POC ABG O2 Sat 99 12/18/17 12:51 POC ABG Base Excess 5 12/18/17 12:51 FiO2 28 % 12/18/17 12:51 Sodium 140 mmol/L (137-145) D 12/18/17 04:40 Potassium 3.9 mmol/L (3.6-5.0) 12/18/17 04:40 Chloride 102.6 mmol/L (98-107) 12/18/17 04:40 Carbon Dioxide 27 mmol/L (22-30) 12/18/17 04:40 Anion Gap 14 mmol/L 12/18/17 04:40 BUN 30 mg/dL (9-20) H 12/18/17 04:40 Creatinine 0.5 mg/dL (0.8-1.5) L 12/18/17 04:40 Estimated GFR > 60 ml/min 12/18/17 04:40 BUN/Creatinine Ratio 60 % 12/18/17 04:40 Glucose 79 mg/dL (75-100) 12/18/17 04:40 POC Glucose 96 (70-105) 12/20/17 12:06 Lactic Acid 1.10 mmol/L (0.7-2.0) 12/13/17 12:22 Calcium 8.3 mg/dL (8.4-10.2) L 12/18/17 04:40 Total Bilirubin 0.90 mg/dL (0.1-1.2) 12/12/17 10:50 AST 32 units/L (5-40) 12/12/17 10:50 ALT 31 units/L (7-56) 12/12/17 10:50 Alkaline Phosphatase 110 units/L (35-129) 12/12/17 10:50 Ammonia 55.0 umol/L (25-60) 12/12/17 10:50 Troponin T < 0.010 ng/mL (0.00-0.029) 12/12/17 18:35 Total Protein 6.1 g/dL (6.3-8.2) L 12/12/17 10:50 Albumin 3.2 g/dL (3.9-5) L 12/12/17 10:50 Albumin/Globulin Ratio 1.1 % 12/12/17 10:50 Triglycerides 76 mg/dL (2-149) 12/13/17 03:38 Cholesterol 125 mg/dL (50-199) 12/13/17 03:38 LDL Cholesterol Direct 57 mg/dL (50-130) 12/13/17 03:38 HDL Cholesterol 70 mg/dL (40-59) H 12/13/17 03:38 Cholesterol/HDL Ratio 1.78 % 12/13/17 03:38 Vitamin B12 > 2000 pg/mL (211-911) H 12/12/17 19:58 TSH 2.470 mlU/mL (0.270-4.200) 12/12/17 19:58 Free T4 1.60 ng/dL (0.76-1.46) H 12/12/17 19:58 Urine Color Yellow (Yellow) 12/12/17 Unknown Urine Turbidity Clear (Clear) 12/12/17 Unknown Urine pH 6.0 (5.0-7.0) 12/12/17 Unknown Ur Specific [place] 1.009 (1.003-1.030) 12/12/17 Unknown Urine Protein <15 mg/dl mg/dL (Negative) 12/12/17 Unknown Urine Glucose (UA) Neg mg/dL (Negative) 12/12/17 Unknown Urine Ketones Neg mg/dL (Negative) 12/12/17 Unknown Urine Blood Neg (Negative) 12/12/17 Unknown Urine Nitrite Neg (Negative) 12/12/17 Unknown Urine Bilirubin Neg (Negative) 12/12/17 Unknown Urine Urobilinogen 2.0 mg/dL (<2.0) 12/12/17 Unknown Ur Leukocyte Esterase Tr (Negative) 12/12/17 Unknown Urine WBC (Auto) 3.0 /HPF (0.0-6.0) 12/12/17 Unknown Urine RBC (Auto) 5.0 /HPF (0.0-6.0) 12/12/17 Unknown U Epithel Cells (Auto) < 1.0 /HPF (0-13.0) 12/12/17 Unknown Urine Mucus Few /HPF 12/12/17 Unknown
--- NOTE | 2017-12-20 18:35 | Progress Note ---
Assessment and Plan Patient awake.. Resting on 2 litres O2.O2 saturation 98%. No acute respiratory distress. Patient encephalopathic.Not well oriented. - Patient Problems (1) CVA (cerebral vascular accident) Current Visit: Yes Status: Acute Qualifiers: Precerebral and cerebral artery: posterior cerebral artery Laterality of affected vessel: unspecified Plan to address problem: Management as per neurology. (2) Encephalopathy Current Visit: Yes Status: Acute Plan to address problem: management as per primary care and neurology. (3) Left lower lobe pulmonary infiltrate Current Visit: Yes Status: Acute Plan to address problem: Patient is on Zithromax and ceftrioxone. Subjective Date of service: 12/20/17 Principal diagnosis: Acute hypercapnic hypoxemic respiratory failure; Acute encephalopathy Interval history: Patient awake.. Resting on 2 litres O2.O2 saturation 98%. No acute respiratory distress. Patient encephalopathic.Not well oriented. Objective Vital Signs - 12hr 12/20/17 12/20/17 12/20/17 07:00 08:00 09:00 Temperature 97.9 F Pulse Rate 77 76 93 H Respiratory 18 18 20 Rate Blood Pressure 143/62 153/54 141/70 O2 Sat by Pulse 98 97 97 Oximetry 12/20/17 12/20/17 12/20/17 10:00 10:01 11:00 Temperature Pulse Rate 83 74 74 Respiratory 18 19 Rate Blood Pressure 124/49 130/53 O2 Sat by Pulse 98 97 98 Oximetry 12/20/17 12/20/17 12/20/17 12:00 13:00 14:00 Temperature 98.5 F Pulse Rate 74 77 75 Respiratory 19 19 19 Rate Blood Pressure 126/59 126/59 118/59 O2 Sat by Pulse 98 98 98 Oximetry 12/20/17 12/20/17 12/20/17 15:00 16:00 17:00 Temperature 98.5 F Pulse Rate 72 76 72 Respiratory 20 19 19 Rate Blood Pressure 117/54 124/55 126/64 O2 Sat by Pulse 97 98 98 Oximetry Constitutional: no acute distress, alert, other (elderly looking CM, normocephalic and atraumatic. Encephalopathic. weak.) Eyes: non-icteric ENT: oropharynx moist, other (Mallampati 2) Neck: supple, no lymphadenopathy, no JVD, other (No thyromegaly) Effort: mildly labored Ascultation: Bilateral: diminished breath sounds, rhonchi (bases) Percussion: Bilateral: not dull Cardiovascular: regular rate and rhythm, murmur noted (systolic) Gastrointestinal: normoactive bowel sounds, soft, non-tender, non-distended, other (No HSM) Integumentary: normal Extremities: no cyanosis, no edema, pink and warm, pulses normal Neurologic: non-focal exam (grossly), pupils equal and round, motor strength normal and Psychiatric: other (flat affect) CBC and BMP: 12/18/17 04:40 12/18/17 04:40 ABG, PT/INR, D-dimer: ABG POC ABG pH 7.411 (7.35-7.45) 12/18/17 12:51 POC ABG pCO2 46.4 (35-45) H 12/18/17 12:51 POC ABG pO2 131 (80-105) H 12/18/17 12:51 POC ABG HCO3 29.4 12/18/17 12:51 POC ABG Total CO2 31 12/18/17 12:51 POC ABG O2 Sat 99 12/18/17 12:51 PT/INR, D-dimer D-Dimer 389.72 ng/mlDDU (0-234) H 12/12/17 12:34 Abnormal lab findings: Abnormal Labs 12/12/17 12/12/17 12/12/17 10:50 10:50 10:50 WBC RBC Hgb Hct MCHC 35 H RDW 16.5 H Plt Count 139 L Lymph % (Auto) 11.9 L [place] % (Auto) 11.8 H Lymph # 0.8 L [place] # Seg Neutrophils % 74.6 H Seg Neutrophils # D-Dimer POC ABG pH POC ABG pCO2 POC ABG pO2 Sodium 124 L Chloride 88.0 L Carbon Dioxide BUN Creatinine 0.5 L Glucose 106 H POC Glucose Lactic Acid 3.60 H* Calcium Total Protein 6.1 L Albumin 3.2 L HDL Cholesterol Vitamin B12 Free T4 12/12/17 12/12/17 12/12/17 12:08 12:34 19:58 WBC RBC Hgb Hct MCHC RDW Plt Count Lymph % (Auto) [place] % (Auto) Lymph # [place] # Seg Neutrophils % Seg Neutrophils # D-Dimer 389.72 H POC ABG pH POC ABG pCO2 POC ABG pO2 Sodium Chloride Carbon Dioxide BUN Creatinine Glucose POC Glucose Lactic Acid 2.30 H* Calcium Total Protein Albumin HDL Cholesterol Vitamin B12 Free T4 1.60 H 12/12/17 12/13/17 12/13/17 19:58 03:38 12:22 WBC RBC Hgb Hct MCHC 35 H RDW 16.6 H Plt Count 125 L Lymph % (Auto) 11.3 L [place] % (Auto) 10.1 H Lymph # 1.0 L [place] # 0.9 H Seg Neutrophils % 76.5 H Seg Neutrophils # D-Dimer POC ABG pH POC ABG pCO2 POC ABG pO2 Sodium Chloride Carbon Dioxide BUN Creatinine Glucose POC Glucose Lactic Acid Calcium Total Protein Albumin HDL Cholesterol 70 H Vitamin B12 > 2000 H Free T4 12/13/17 12/14/17 12/14/17 12:22 04:47 04:47 WBC RBC Hgb Hct MCHC 35 H RDW 16.8 H Plt Count Lymph % (Auto) [place] % (Auto) Lymph # [place] # Seg Neutrophils % Seg Neutrophils # D-Dimer POC ABG pH POC ABG pCO2 POC ABG pO2 Sodium 130 L 133 L Chloride 90.3 L 91.4 L Carbon Dioxide BUN 28 H Creatinine 0.4 L 0.4 L Glucose 69 L 59 L POC Glucose Lactic Acid Calcium Total Protein Albumin HDL Cholesterol Vitamin B12 Free T4 12/15/17 12/15/17 12/15/17 17:48 18:04 20:01 WBC RBC Hgb Hct MCHC RDW Plt Count Lymph % (Auto) [place] % (Auto) Lymph # [place] # Seg Neutrophils % Seg Neutrophils # D-Dimer POC ABG pH 7.084 L POC ABG pCO2 82.8 H 52.2 H POC ABG pO2 106 H 502 H Sodium Chloride Carbon Dioxide BUN Creatinine Glucose POC Glucose 108 H Lactic Acid Calcium Total Protein Albumin HDL Cholesterol Vitamin B12 Free T4 12/16/17 12/16/17 12/16/17 05:56 16:00 17:41 WBC RBC Hgb Hct MCHC RDW Plt Count Lymph % (Auto) [place] % (Auto) Lymph # [place] # Seg Neutrophils % Seg Neutrophils # D-Dimer POC ABG pH 7.495 H POC ABG pCO2 31.7 L POC ABG pO2 112 H 133 H Sodium Chloride Carbon Dioxide BUN Creatinine Glucose POC Glucose 106 H Lactic Acid Calcium Total Protein Albumin HDL Cholesterol Vitamin B12 Free T4 09/12/16/17 12/16/17 18:55 18:55 22:48 WBC 13.6 H RBC Hgb Hct MCHC RDW 16.4 H Plt Count Lymph % (Auto) 8.7 L [place] % (Auto) 8.6 H Lymph # [place] # 1.2 H Seg Neutrophils % 82.1 H Seg Neutrophils # 11.2 H D-Dimer POC ABG pH POC ABG pCO2 POC ABG pO2 Sodium 131 L Chloride Carbon Dioxide 20 L D BUN 30 H Creatinine 0.5 L Glucose 118 H POC Glucose 121 H Lactic Acid Calcium Total Protein Albumin HDL Cholesterol Vitamin B12 Free T4 12/17/17 12/17/17 12/18/17 04:35 04:35 04:40 WBC RBC 3.46 L 3.40 L Hgb 11.0 L 11.0 L Hct 32.4 L 31.8 L MCHC 35 H RDW 17.0 H 16.9 H Plt Count 131 L 137 L Lymph % (Auto) [place] % (Auto) 10.6 H Lymph # [place] # Seg Neutrophils % Seg Neutrophils # D-Dimer POC ABG pH POC ABG pCO2 POC ABG pO2 Sodium 132 L Chloride 97.8 L Carbon Dioxide BUN 28 H Creatinine 0.5 L Glucose POC Glucose Lactic Acid Calcium 8.3 L Total Protein Albumin HDL Cholesterol Vitamin B12 Free T4 12/18/17 12/18/17 12/18/17 04:40 12:51 17:18 WBC RBC Hgb Hct MCHC RDW Plt Count Lymph % (Auto) [place] % (Auto) Lymph # [place] # Seg Neutrophils % Seg Neutrophils # D-Dimer POC ABG pH POC ABG pCO2 46.4 H POC ABG pO2 131 H Sodium Chloride Carbon Dioxide BUN 30 H Creatinine 0.5 L Glucose POC Glucose 109 H Lactic Acid Calcium 8.3 L Total Protein Albumin HDL Cholesterol Vitamin B12 Free T4 Allied health notes reviewed: nursing
[2017-12-20] MEDS: ZITHROMAX 500 MG in NACL 0.9% 250ML 250 ML IV SCH (19:59)
[2017-12-20] MEDS: ROCEPHIN/NS 2 GM/100 ML 2 GM/100 ML BAG IV SCH (20:00)
[2017-12-20] MEDS: LOVENOX SUB-Q SCH (21:33)
[2017-12-20] MEDS: ARICEPT PO SCH (21:34)
[2017-12-21] MEDS: DepaKENE Liq FEEDTUBE SCH (10:03)
[2017-12-21] MEDS: PEPCID PO SCH ×2 (10:03→21:01)
[2017-12-21] MEDS: KEPPRA PO SCH ×2 (10:03→21:01)
[2017-12-21] MEDS: HALFPRIN EC PO SCH (10:03)
[2017-12-21] MEDS: THERAGRAN Tab PO SCH (10:03)
--- NOTE | 2017-12-21 12:52 | Progress Note ---
Assessment and Plan Assessment and plan: 87 YO Male currently an inpatient at [facility] ([facility]) for Suicide Ideation with Dementia, HTN, DM, Psychosis, Cardiomyopathy S/P Pacemaker placement presents to ED for evaluation. Pt is confused and unable to provide history. Pt history taken from ED staff, and [place] staff. As per staff, the patient was found down and unresponsive this morning shortly after breakfast. EMS notified,and upon arrival the patient was found to be confused. Pt transported to [facility] for further care and evaluation. Pt seen and evaluated in ED and found to have symptoms suspicious for CVA, Encephalopathy, Hyponatremia, and Acidosis. Pt admitted to telemetry and initiated on CVA protocol. Acute encephalopathy - Resolving Acute Respiratory failure - And is extubated and on when necessary BiPAP Hypotension - Patient was given bolus of IV fluid, blood pressure is normalized since yesterday Aspiration penumonia - Patient is on IV antibiotics SEIZURE DISORDER - Patient is on Keppra and now severe episode after admission Hyponatremia - Resolved Severe dementia Alzheimer dementia - Supportive care Metabolic acidosis - Resolved Hypoglycemia - Resolved CODE STATUS: AND Disposition - Patient need speech evaluation. I have reconsulted and asked the patient's nurse to call speech therapy, but he wasn't seen. - Patient's son asked to be transferred to a long-term facility close to his home, will discuss this with immigration case manager on Saturday. History Interval history: Patient was seen and evaluated, patient was more responsive this morning, answers questions appropriately. Hospitalist Physical - Physical exam Narrative exam: Not in cardiopulmonary distress. The patient appeared well nourished and normally developed. Vital signs as documented. Head exam is unremarkable. No scleral icterus . Neck is without jugular venous distension, thyromegaly, or carotid bruits. Lungs are clear to auscultation. Cardiac exam reveals regular rate and Rhythm. First and second heart sounds normal. No murmurs, rubs or gallops. Abdominal exam reveals normal bowel sounds, no masses, no organomegaly and no aortic enlargement. Extremities are nonedematous and both femoral and pedal pulses are normal. 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 Hearing is better today. - Constitutional Vitals: Temp Pulse Resp BP Pulse Ox 97.5 F L 86 23 111/54 97 12/21/17 12:00 12/21/17 12:01 12/21/17 12:01 12/21/17 12:01 12/21/17 12:11 General appearance: Present: mild distress Results - Labs CBC & Chem 7: 12/18/17 04:40 12/18/17 04:40 Labs: Laboratory Last Values WBC 7.2 K/mm3 (4.5-11.0) 12/18/17 04:40 RBC 3.40 M/mm3 (3.65-5.03) L 12/18/17 04:40 Hgb 11.0 gm/dl (11.8-15.2) L 12/18/17 04:40 Hct 31.8 % (35.5-45.6) L 12/18/17 04:40 MCV 94 fl (84-94) 12/18/17 04:40 MCH 32 pg (28-32) 12/18/17 04:40 MCHC 35 % (32-34) H 12/18/17 04:40 RDW 16.9 % (13.2-15.2) H 12/18/17 04:40 Plt Count 137 K/mm3 (140-440) L 12/18/17 04:40 Lymph % (Auto) 17.6 % (13.4-35.0) 12/18/17 04:40 [place] % (Auto) 10.6 % (0.0-7.3) H 12/18/17 04:40 Eos % (Auto) 1.7 % (0.0-4.3) 12/18/17 04:40 Baso % (Auto) 0.6 % (0.0-1.8) 12/18/17 04:40 Lymph # 1.3 K/mm3 (1.2-5.4) 12/18/17 04:40 [place] # 0.8 K/mm3 (0.0-0.8) 12/18/17 04:40 Eos # 0.1 K/mm3 (0.0-0.4) 12/18/17 04:40 Baso # 0.0 K/mm3 (0.0-0.1) 12/18/17 04:40 Seg Neutrophils % 69.5 % (40.0-70.0) 12/18/17 04:40 Seg Neutrophils # 5.0 K/mm3 (1.8-7.7) 12/18/17 04:40 D-Dimer 389.72 ng/mlDDU (0-234) H 12/12/17 12:34 POC ABG pH 7.411 (7.35-7.45) 12/18/17 12:51 POC ABG pCO2 46.4 (35-45) H 12/18/17 12:51 POC ABG pO2 131 (80-105) H 12/18/17 12:51 POC ABG HCO3 29.4 12/18/17 12:51 POC ABG Total CO2 31 12/18/17 12:51 POC ABG O2 Sat 99 12/18/17 12:51 POC ABG Base Excess 5 12/18/17 12:51 FiO2 28 % 12/18/17 12:51 Sodium 140 mmol/L (137-145) D 12/18/17 04:40 Potassium 3.9 mmol/L (3.6-5.0) 12/18/17 04:40 Chloride 102.6 mmol/L (98-107) 12/18/17 04:40 Carbon Dioxide 27 mmol/L (22-30) 12/18/17 04:40 Anion Gap 14 mmol/L 12/18/17 04:40 BUN 30 mg/dL (9-20) H 12/18/17 04:40 Creatinine 0.5 mg/dL (0.8-1.5) L 12/18/17 04:40 Estimated GFR > 60 ml/min 12/18/17 04:40 BUN/Creatinine Ratio 60 % 12/18/17 04:40 Glucose 79 mg/dL (75-100) 12/18/17 04:40 POC Glucose 93 (70-105) 12/21/17 12:17 Lactic Acid 1.10 mmol/L (0.7-2.0) 12/13/17 12:22 Calcium 8.3 mg/dL (8.4-10.2) L 12/18/17 04:40 Total Bilirubin 0.90 mg/dL (0.1-1.2) 12/12/17 10:50 AST 32 units/L (5-40) 12/12/17 10:50 ALT 31 units/L (7-56) 12/12/17 10:50 Alkaline Phosphatase 110 units/L (35-129) 12/12/17 10:50 Ammonia 55.0 umol/L (25-60) 12/12/17 10:50 Troponin T < 0.010 ng/mL (0.00-0.029) 12/12/17 18:35 Total Protein 6.1 g/dL (6.3-8.2) L 12/12/17 10:50 Albumin 3.2 g/dL (3.9-5) L 12/12/17 10:50 Albumin/Globulin Ratio 1.1 % 12/12/17 10:50 Triglycerides 76 mg/dL (2-149) 12/13/17 03:38 Cholesterol 125 mg/dL (50-199) 12/13/17 03:38 LDL Cholesterol Direct 57 mg/dL (50-130) 12/13/17 03:38 HDL Cholesterol 70 mg/dL (40-59) H 12/13/17 03:38 Cholesterol/HDL Ratio 1.78 % 12/13/17 03:38 Vitamin B12 > 2000 pg/mL (211-911) H 12/12/17 19:58 TSH 2.470 mlU/mL (0.270-4.200) 12/12/17 19:58 Free T4 1.60 ng/dL (0.76-1.46) H 12/12/17 19:58 Urine Color Yellow (Yellow) 12/12/17 Unknown Urine Turbidity Clear (Clear) 12/12/17 Unknown Urine pH 6.0 (5.0-7.0) 12/12/17 Unknown Ur Specific [place] 1.009 (1.003-1.030) 12/12/17 Unknown Urine Protein <15 mg/dl mg/dL (Negative) 12/12/17 Unknown Urine Glucose (UA) Neg mg/dL (Negative) 12/12/17 Unknown Urine Ketones Neg mg/dL (Negative) 12/12/17 Unknown Urine Blood Neg (Negative) 12/12/17 Unknown Urine Nitrite Neg (Negative) 12/12/17 Unknown Urine Bilirubin Neg (Negative) 12/12/17 Unknown Urine Urobilinogen 2.0 mg/dL (<2.0) 12/12/17 Unknown Ur Leukocyte Esterase Tr (Negative) 12/12/17 Unknown Urine WBC (Auto) 3.0 /HPF (0.0-6.0) 12/12/17 Unknown Urine RBC (Auto) 5.0 /HPF (0.0-6.0) 12/12/17 Unknown U Epithel Cells (Auto) < 1.0 /HPF (0-13.0) 12/12/17 Unknown Urine Mucus Few /HPF 12/12/17 Unknown
--- NOTE | 2017-12-21 15:57 | Progress Note ---
Assessment and Plan Patient awake.Patients condition same. Resting on 2 litres O2.O2 saturation 97% . No acute respiratory distress. Patient encephalopathic.Not well oriented. - Patient Problems (1) CVA (cerebral vascular accident) Current Visit: Yes Status: Acute Qualifiers: Precerebral and cerebral artery: posterior cerebral artery Laterality of affected vessel: unspecified Plan to address problem: Management as per neurology. (2) Encephalopathy Current Visit: Yes Status: Acute Plan to address problem: management as per primary care and neurology. (3) Left lower lobe pulmonary infiltrate Current Visit: Yes Status: Acute Plan to address problem: Patient is on Zithromax and ceftrioxone. Subjective Date of service: 12/21/17 Principal diagnosis: Acute hypercapnic hypoxemic respiratory failure; Acute encephalopathy Interval history: Patient awake. Condition same. Resting on 2 litres O2.O2 saturation 97%. No acute respiratory distress. Patient encephalopathic.Not well oriented. Objective Vital Signs - 12hr 12/21/17 12/21/17 12/21/17 04:00 05:00 06:00 Temperature 99 F Pulse Rate 79 71 74 Respiratory 18 19 19 Rate Blood Pressure 125/58 126/57 126/59 O2 Sat by Pulse 97 98 97 Oximetry 12/21/17 12/21/17 12/21/17 07:00 08:00 08:01 Temperature 97.8 F Pulse Rate 71 87 Respiratory 19 18 Rate Blood Pressure 126/58 108/59 O2 Sat by Pulse 98 98 Oximetry 12/21/17 12/21/17 12/21/17 09:01 10:00 11:00 Temperature Pulse Rate 87 86 78 Respiratory 22 15 20 Rate Blood Pressure 118/48 111/54 111/42 O2 Sat by Pulse 96 97 97 Oximetry 12/21/17 12/21/17 12/21/17 12:00 12:01 12:11 Temperature 97.5 F L Pulse Rate 86 Respiratory 23 Rate Blood Pressure 111/54 O2 Sat by Pulse 97 97 Oximetry 12/21/17 12/21/17 13:00 14:01 Temperature Pulse Rate 90 84 Respiratory 20 21 Rate Blood Pressure 106/53 78/44 O2 Sat by Pulse 97 97 Oximetry Constitutional: no acute distress, alert, other (elderly looking CM, normocephalic and atraumatic. Encephalopathic. weak.) Eyes: non-icteric ENT: oropharynx moist, other (Mallampati 2) Neck: supple, no lymphadenopathy, no JVD, other (No thyromegaly) Effort: mildly labored Ascultation: Bilateral: diminished breath sounds, rhonchi (bases) Percussion: Bilateral: not dull Cardiovascular: regular rate and rhythm, murmur noted (systolic) Gastrointestinal: normoactive bowel sounds, soft, non-tender, non-distended, other (No HSM) Integumentary: normal Extremities: no cyanosis, no edema, pink and warm, pulses normal Neurologic: non-focal exam (grossly), pupils equal and round, motor strength normal and Psychiatric: other (flat affect) CBC and BMP: 12/18/17 04:40 12/18/17 04:40 ABG, PT/INR, D-dimer: ABG POC ABG pH 7.411 (7.35-7.45) 12/18/17 12:51 POC ABG pCO2 46.4 (35-45) H 12/18/17 12:51 POC ABG pO2 131 (80-105) H 12/18/17 12:51 POC ABG HCO3 29.4 12/18/17 12:51 POC ABG Total CO2 31 12/18/17 12:51 POC ABG O2 Sat 99 12/18/17 12:51 PT/INR, D-dimer D-Dimer 389.72 ng/mlDDU (0-234) H 12/12/17 12:34 Abnormal lab findings: Abnormal Labs 12/12/17 12/12/17 12/12/17 10:50 10:50 10:50 WBC RBC Hgb Hct MCHC 35 H RDW 16.5 H Plt Count 139 L Lymph % (Auto) 11.9 L [place] % (Auto) 11.8 H Lymph # 0.8 L [place] # Seg Neutrophils % 74.6 H Seg Neutrophils # D-Dimer POC ABG pH POC ABG pCO2 POC ABG pO2 Sodium 124 L Chloride 88.0 L Carbon Dioxide BUN Creatinine 0.5 L Glucose 106 H POC Glucose Lactic Acid 3.60 H* Calcium Total Protein 6.1 L Albumin 3.2 L HDL Cholesterol Vitamin B12 Free T4 12/12/17 12/12/17 12/12/17 12:08 12:34 19:58 WBC RBC Hgb Hct MCHC RDW Plt Count Lymph % (Auto) [place] % (Auto) Lymph # [place] # Seg Neutrophils % Seg Neutrophils # D-Dimer 389.72 H POC ABG pH POC ABG pCO2 POC ABG pO2 Sodium Chloride Carbon Dioxide BUN Creatinine Glucose POC Glucose Lactic Acid 2.30 H* Calcium Total Protein Albumin HDL Cholesterol Vitamin B12 Free T4 1.60 H 12/12/17 12/13/17 12/13/17 19:58 03:38 12:22 WBC RBC Hgb Hct MCHC 35 H RDW 16.6 H Plt Count 125 L Lymph % (Auto) 11.3 L [place] % (Auto) 10.1 H Lymph # 1.0 L [place] # 0.9 H Seg Neutrophils % 76.5 H Seg Neutrophils # D-Dimer POC ABG pH POC ABG pCO2 POC ABG pO2 Sodium Chloride Carbon Dioxide BUN Creatinine Glucose POC Glucose Lactic Acid Calcium Total Protein Albumin HDL Cholesterol 70 H Vitamin B12 > 2000 H Free T4 12/13/17 12/14/17 12/14/17 12:22 04:47 04:47 WBC RBC Hgb Hct MCHC 35 H RDW 16.8 H Plt Count Lymph % (Auto) [place] % (Auto) Lymph # [place] # Seg Neutrophils % Seg Neutrophils # D-Dimer POC ABG pH POC ABG pCO2 POC ABG pO2 Sodium 130 L 133 L Chloride 90.3 L 91.4 L Carbon Dioxide BUN 28 H Creatinine 0.4 L 0.4 L Glucose 69 L 59 L POC Glucose Lactic Acid Calcium Total Protein Albumin HDL Cholesterol Vitamin B12 Free T4 12/15/17 12/15/17 12/15/17 17:48 18:04 20:01 WBC RBC Hgb Hct MCHC RDW Plt Count Lymph % (Auto) [place] % (Auto) Lymph # [place] # Seg Neutrophils % Seg Neutrophils # D-Dimer POC ABG pH 7.084 L POC ABG pCO2 82.8 H 52.2 H POC ABG pO2 106 H 502 H Sodium Chloride Carbon Dioxide BUN Creatinine Glucose POC Glucose 108 H Lactic Acid Calcium Total Protein Albumin HDL Cholesterol Vitamin B12 Free T4 12/16/17 12/16/17 12/16/17 05:56 16:00 17:41 WBC RBC Hgb Hct MCHC RDW Plt Count Lymph % (Auto) [place] % (Auto) Lymph # [place] # Seg Neutrophils % Seg Neutrophils # D-Dimer POC ABG pH 7.495 H POC ABG pCO2 31.7 L POC ABG pO2 112 H 133 H Sodium Chloride Carbon Dioxide BUN Creatinine Glucose POC Glucose 106 H Lactic Acid Calcium Total Protein Albumin HDL Cholesterol Vitamin B12 Free T4 12/16/17 12/16/17 12/16/17 18:55 18:55 22:48 WBC 13.6 H RBC Hgb Hct MCHC RDW 16.4 H Plt Count Lymph % (Auto) 8.7 L [place] % (Auto) 8.6 H Lymph # [place] # 1.2 H Seg Neutrophils % 82.1 H Seg Neutrophils # 11.2 H D-Dimer POC ABG pH POC ABG pCO2 POC ABG pO2 Sodium 131 L Chloride Carbon Dioxide 20 L D BUN 30 H Creatinine 0.5 L Glucose 118 H POC Glucose 121 H Lactic Acid Calcium Total Protein Albumin HDL Cholesterol Vitamin B12 Free T4 12/17/17 12/17/17 12/18/17 04:35 04:35 04:40 WBC RBC 3.46 L 3.40 L Hgb 11.0 L 11.0 L Hct 32.4 L 31.8 L MCHC 35 H RDW 17.0 H 16.9 H Plt Count 131 L 137 L Lymph % (Auto) [place] % (Auto) 10.6 H Lymph # [place] # Seg Neutrophils % Seg Neutrophils # D-Dimer POC ABG pH POC ABG pCO2 POC ABG pO2 Sodium 132 L Chloride 97.8 L Carbon Dioxide BUN 28 H Creatinine 0.5 L Glucose POC Glucose Lactic Acid Calcium 8.3 L Total Protein Albumin HDL Cholesterol Vitamin B12 Free T4 12/18/17 12/18/17 12/18/17 04:40 12:51 17:18 WBC RBC Hgb Hct MCHC RDW Plt Count Lymph % (Auto) [place] % (Auto) Lymph # [place] # Seg Neutrophils % Seg Neutrophils # D-Dimer POC ABG pH POC ABG pCO2 46.4 H POC ABG pO2 131 H Sodium Chloride Carbon Dioxide BUN 30 H Creatinine 0.5 L Glucose POC Glucose 109 H Lactic Acid Calcium 8.3 L Total Protein Albumin HDL Cholesterol Vitamin B12 Free T4 Allied health notes reviewed: nursing
[2017-12-21] MEDS: FLONASE NS SCH ×2 (18:18→23:56)
[2017-12-21] MEDS: ARICEPT PO SCH (21:01)
[2017-12-21] MEDS: ZITHROMAX 500 MG in NACL 0.9% 250ML 250 ML IV SCH (21:02)
[2017-12-21] MEDS: LOVENOX SUB-Q SCH (21:02)
[2017-12-21] MEDS: ROCEPHIN/NS 2 GM/100 ML 2 GM/100 ML BAG IV SCH (21:02)
[2017-12-21] MEDS: SODIUM CHLORIDE FLUSH SYRINGE 10 ML IV PRN (21:03)
[2017-12-22] MEDS: TYLENOL PO PRN (02:05)
[2017-12-22] MEDS: KEPPRA PO SCH ×2 (09:16→21:54)
[2017-12-22] MEDS: DepaKENE Liq FEEDTUBE SCH (09:16)
[2017-12-22] MEDS: HALFPRIN EC PO SCH (09:17)
[2017-12-22] MEDS: THERAGRAN Tab PO SCH (09:17)
[2017-12-22] MEDS: PEPCID PO SCH ×2 (09:17→21:54)
[2017-12-22] MEDS: FLONASE NS SCH ×2 (09:21→21:55)
--- NOTE | 2017-12-22 11:21 | XRay Report ---
FINAL REPORT EXAM: XR CHEST 1V AP HISTORY: SOB COMPARISON: Chest radiograph performed on 12/17/2017. TECHNIQUE: Single frontal view of the chest FINDINGS: Left-sided pacemaker device is unchanged in position. Enteric tube with tip in the stomach. The cardiomediastinal silhouette is normal in appearance. Unchanged silhouetting of the left hemidiaphragm. The right lung is clear. No pneumothorax. No acute bony or soft tissue abnormality. IMPRESSION: Unchanged silhouetting of the left hemidiaphragm that may represent atelectasis, infiltrate, or effusion.
--- NOTE | 2017-12-22 12:54 | Progress Note ---
Assessment and Plan Assessment and plan: 87 YO Male currently an inpatient at [facility] for Suicide Ideation with Dementia, HTN, DM, Psychosis, Cardiomyopathy S/P Pacemaker placement presents to ED for evaluation. Pt is confused and unable to provide history. Pt history taken from ED staff, and [place] staff. As per staff, the patient was found down and unresponsive this morning shortly after breakfast. EMS notified,and upon arrival the patient was found to be confused. Pt transported to [facility] for further care and evaluation. Pt seen and evaluated in ED and found to have symptoms suspicious for CVA, Encephalopathy, Hyponatremia, and Acidosis. Pt admitted to telemetry and initiated on CVA protocol. Acute encephalopathy - Resolving Acute Respiratory failure - And is extubated and on when necessary BiPAP Hypotension - Patient was given bolus of IV fluid, blood pressure is normalized since yesterday Aspiration penumonia - Patient is on IV antibiotics SEIZURE DISORDER - Patient is on Keppra and now severe episode after admission Hyponatremia - Resolved Severe dementia Alzheimer dementia - Supportive care Metabolic acidosis - Resolved Hypoglycemia - Resolved CODE STATUS: AND Disposition - Patient need speech evaluation. I have reconsulted and asked the patient's nurse to call speech therapy, but he wasn't seen. - Patient's son asked to be transferred to a jail facility close to his home, will discuss this with porter sample case on Saturday. History Interval history: Patient was seen and evaluated, patient was more responsive this morning. Patient has dementia and paranoia. Hospitalist Physical - Physical exam Narrative exam: Not in cardiopulmonary distress. The patient appeared well nourished and normally developed. Vital signs as documented. Head exam is unremarkable. No scleral icterus . Neck is without jugular venous distension, thyromegaly, or carotid bruits. Lungs are clear to auscultation. Cardiac exam reveals regular rate and Rhythm. First and second heart sounds normal. No murmurs, rubs or gallops. Abdominal exam reveals normal bowel sounds, no masses, no organomegaly and no aortic enlargement. Extremities are nonedematous and both femoral and pedal pulses are normal. 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 Hearing is better today. - Constitutional Vitals: Temp Pulse Resp BP Pulse Ox 98.8 F 85 21 122/50 99 12/22/17 08:00 12/22/17 10:12/22/17 10:12/22/17 10:00 12/22/17 10:00 General appearance: Present: mild distress Results - Labs CBC & Chem 7: 12/18/17 04:40 12/18/17 04:40 Labs: Laboratory Last Values WBC 7.2 K/mm3 (4.5-11.0) 12/18/17 04:40 RBC 3.40 M/mm3 (3.65-5.03) L 12/18/17 04:40 Hgb 11.0 gm/dl (11.8-15.2) L 12/18/17 04:40 Hct 31.8 % (35.5-45.6) L 12/18/17 04:40 MCV 94 fl (84-94) 12/18/17 04:40 MCH 32 pg (28-32) 12/18/17 04:40 MCHC 35 % (32-34) H 12/18/17 04:40 RDW 16.9 % (13.2-15.2) H 12/18/17 04:40 Plt Count 137 K/mm3 (140-440) L 12/18/17 04:40 Lymph % (Auto) 17.6 % (13.4-35.0) 12/18/17 04:40 [place] % (Auto) 10.6 % (0.0-7.3) H 12/18/17 04:40 Eos % (Auto) 1.7 % (0.0-4.3) 12/18/17 04:40 Baso % (Auto) 0.6 % (0.0-1.8) 12/18/17 04:40 Lymph # 1.3 K/mm3 (1.2-5.4) 12/18/17 04:40 [place] # 0.8 K/mm3 (0.0-0.8) 12/18/17 04:40 Eos # 0.1 K/mm3 (0.0-0.4) 12/18/17 04:40 Baso # 0.0 K/mm3 (0.0-0.1) 12/18/17 04:40 Seg Neutrophils % 69.5 % (40.0-70.0) 12/18/17 04:40 Seg Neutrophils # 5.0 K/mm3 (1.8-7.7) 12/18/17 04:40 D-Dimer 389.72 ng/mlDDU (0-234) H 12/12/17 12:34 POC ABG pH 7.411 (7.35-7.45) 12/18/17 12:51 POC ABG pCO2 46.4 (35-45) H 12/18/17 12:51 POC ABG pO2 131 (80-105) H 12/18/17 12:51 POC ABG HCO3 29.4 12/18/17 12:51 POC ABG Total CO2 31 12/18/17 12:51 POC ABG O2 Sat 99 12/18/17 12:51 POC ABG Base Excess 5 12/18/17 12:51 FiO2 28 % 12/18/17 12:51 Sodium 140 mmol/L (137-145) D 12/18/17 04:40 Potassium 3.9 mmol/L (3.6-5.0) 12/18/17 04:40 Chloride 102.6 mmol/L (98-107) 12/18/17 04:40 Carbon Dioxide 27 mmol/L (22-30) 12/18/17 04:40 Anion Gap 14 mmol/L 12/18/17 04:40 BUN 30 mg/dL (9-20) H 12/18/17 04:40 Creatinine 0.5 mg/dL (0.8-1.5) L 12/18/17 04:40 Estimated GFR > 60 ml/min 12/18/17 04:40 BUN/Creatinine Ratio 60 % 12/18/17 04:40 Glucose 79 mg/dL (75-100) 12/18/17 04:40 POC Glucose 120 (70-105) H 12/22/17 11:43 Lactic Acid 1.10 mmol/L (0.7-2.0) 12/13/17 12:22 Calcium 8.3 mg/dL (8.4-10.2) L 12/18/17 04:40 Total Bilirubin 0.90 mg/dL (0.1-1.2) 12/12/17 10:50 AST 32 units/L (5-40) 12/12/17 10:50 ALT 31 units/L (7-56) 12/12/17 10:50 Alkaline Phosphatase 110 units/L (35-129) 12/12/17 10:50 Ammonia 55.0 umol/L (25-60) 12/12/17 10:50 Troponin T < 0.010 ng/mL (0.00-0.029) 12/12/17 18:35 Total Protein 6.1 g/dL (6.3-8.2) L 12/12/17 10:50 Albumin 3.2 g/dL (3.9-5) L 12/12/17 10:50 Albumin/Globulin Ratio 1.1 % 12/12/17 10:50 Triglycerides 76 mg/dL (2-149) 12/13/17 03:38 Cholesterol 125 mg/dL (50-199) 12/13/17 03:38 LDL Cholesterol Direct 57 mg/dL (50-130) 12/13/17 03:38 HDL Cholesterol 70 mg/dL (40-59) H 12/13/17 03:38 Cholesterol/HDL Ratio 1.78 % 12/13/17 03:38 Vitamin B12 > 2000 pg/mL (211-911) H 12/12/17 19:58 TSH 2.470 mlU/mL (0.270-4.200) 12/12/17 19:58 Free T4 1.60 ng/dL (0.76-1.46) H 12/12/17 19:58 Urine Color Yellow (Yellow) 12/12/17 Unknown Urine Turbidity Clear (Clear) 12/12/17 Unknown Urine pH 6.0 (5.0-7.0) 12/12/17 Unknown Ur Specific [place] 1.009 (1.003-1.030) 12/12/17 Unknown Urine Protein <15 mg/dl mg/dL (Negative) 12/12/17 Unknown Urine Glucose (UA) Neg mg/dL (Negative) 12/12/17 Unknown Urine Ketones Neg mg/dL (Negative) 12/12/17 Unknown Urine Blood Neg (Negative) 12/12/17 Unknown Urine Nitrite Neg (Negative) 12/12/17 Unknown Urine Bilirubin Neg (Negative) 12/12/17 Unknown Urine Urobilinogen 2.0 mg/dL (<2.0) 12/12/17 Unknown Ur Leukocyte Esterase Tr (Negative) 12/12/17 Unknown Urine WBC (Auto) 3.0 /HPF (0.0-6.0) 12/12/17 Unknown Urine RBC (Auto) 5.0 /HPF (0.0-6.0) 12/12/17 Unknown U Epithel Cells (Auto) < 1.0 /HPF (0-13.0) 12/12/17 Unknown Urine Mucus Few /HPF 12/12/17 Unknown
--- NOTE | 2017-12-22 14:11 | Progress Note ---
Assessment and Plan Patient awake but confused. Resting on 2 litres O2.O2 saturation 98%. No acute respiratory distress. Patient encephalopathic. - Patient Problems (1) CVA (cerebral vascular accident) Current Visit: Yes Status: Acute Qualifiers: Precerebral and cerebral artery: posterior cerebral artery Laterality of affected vessel: unspecified Plan to address problem: Management as per neurology. (2) Encephalopathy Current Visit: Yes Status: Acute Plan to address problem: management as per primary care and neurology. (3) Left lower lobe pulmonary infiltrate Current Visit: Yes Status: Acute Plan to address problem: Patient is on Zithromax and ceftrioxone. Subjective Date of service: 12/22/17 Principal diagnosis: Acute hypercapnic hypoxemic respiratory failure; Acute encephalopathy Interval history: Patient awake but confused. Resting on 2 litres O2.O2 saturation 98%. No acute respiratory distress. Patient encephalopathic. Objective Vital Signs - 12hr 12/22/17 12/22/17 12/22/17 03:00 04:00 05:00 Temperature 98.5 F Pulse Rate 77 81 84 Respiratory 19 18 20 Rate Blood Pressure 96/44 118/51 110/58 O2 Sat by Pulse 98 99 99 Oximetry 12/22/17 12/22/17 12/22/17 06:00 07:00 08:00 Temperature 98.8 F Pulse Rate 93 H 83 89 Respiratory 20 19 22 Rate Blood Pressure 118/65 110/44 112/51 O2 Sat by Pulse 98 98 99 Oximetry 12/22/17 12/22/17 12/22/17 08:56 09:00 10:00 Temperature Pulse Rate 84 85 Respiratory 20 21 Rate Blood Pressure 112/55 122/50 O2 Sat by Pulse 99 99 99 Oximetry Constitutional: no acute distress, alert, other (elderly looking CM, normocephalic and atraumatic. Encephalopathic. weak.) Eyes: non-icteric ENT: oropharynx moist, other (Mallampati 2) Neck: supple, no lymphadenopathy, no JVD, other (No thyromegaly) Effort: mildly labored Ascultation: Bilateral: diminished breath sounds, rhonchi (bases) Percussion: Bilateral: not dull Cardiovascular: regular rate and rhythm, murmur noted (systolic) Gastrointestinal: normoactive bowel sounds, soft, non-tender, non-distended, other (No HSM) Integumentary: normal Extremities: no cyanosis, no edema, pink and warm, pulses normal Neurologic: non-focal exam (grossly), pupils equal and round, motor strength normal and Psychiatric: other (flat affect) CBC and BMP: 12/18/17 04:40 12/18/17 04:40 ABG, PT/INR, D-dimer: ABG POC ABG pH 7.411 (7.35-7.45) 12/18/17 12:51 POC ABG pCO2 46.4 (35-45) H 12/18/17 12:51 POC ABG pO2 131 (80-105) H 12/18/17 12:51 POC ABG HCO3 29.4 12/18/17 12:51 POC ABG Total CO2 31 12/18/17 12:51 POC ABG O2 Sat 99 12/18/17 12:51 PT/INR, D-dimer D-Dimer 389.72 ng/mlDDU (0-234) H 12/12/17 12:34 Abnormal lab findings: Abnormal Labs 12/12/17 12/12/17 12/12/17 10:50 10:50 10:50 WBC RBC Hgb Hct MCHC 35 H RDW 16.5 H Plt Count 139 L Lymph % (Auto) 11.9 L [place] % (Auto) 11.8 H Lymph # 0.8 L [place] # Seg Neutrophils % 74.6 H Seg Neutrophils # D-Dimer POC ABG pH POC ABG pCO2 POC ABG pO2 Sodium 124 L Chloride 88.0 L Carbon Dioxide BUN Creatinine 0.5 L Glucose 106 H POC Glucose Lactic Acid 3.60 H* Calcium Total Protein 6.1 L Albumin 3.2 L HDL Cholesterol Vitamin B12 Free T4 12/12/17 12/12/17 12/12/17 12:08 12:34 19:58 WBC RBC Hgb Hct MCHC RDW Plt Count Lymph % (Auto) [place] % (Auto) Lymph # [place] # Seg Neutrophils % Seg Neutrophils # D-Dimer 389.72 H POC ABG pH POC ABG pCO2 POC ABG pO2 Sodium Chloride Carbon Dioxide BUN Creatinine Glucose POC Glucose Lactic Acid 2.30 H* Calcium Total Protein Albumin HDL Cholesterol Vitamin B12 Free T4 1.60 H 12/12/17 12/13/17 12/13/17 19:58 03:38 12:22 WBC RBC Hgb Hct MCHC 35 H RDW 16.6 H Plt Count 125 L Lymph % (Auto) 11.3 L [place] % (Auto) 10.1 H Lymph # 1.0 L [place] # 0.9 H Seg Neutrophils % 76.5 H Seg Neutrophils # D-Dimer POC ABG pH POC ABG pCO2 POC ABG pO2 Sodium Chloride Carbon Dioxide BUN Creatinine Glucose POC Glucose Lactic Acid Calcium Total Protein Albumin HDL Cholesterol 70 H Vitamin B12 > 2000 H Free T4 12/13/17 12/14/17 12/14/17 12:22 04:47 04:47 WBC RBC Hgb Hct MCHC 35 H RDW 16.8 H Plt Count Lymph % (Auto) [place] % (Auto) Lymph # [place] # Seg Neutrophils % Seg Neutrophils # D-Dimer POC ABG pH POC ABG pCO2 POC ABG pO2 Sodium 130 L 133 L Chloride 90.3 L 91.4 L Carbon Dioxide BUN 28 H Creatinine 0.4 L 0.4 L Glucose 69 L 59 L POC Glucose Lactic Acid Calcium Total Protein Albumin HDL Cholesterol Vitamin B12 Free T4 12/15/17 12/15/17 12/15/17 17:48 18:04 20:01 WBC RBC Hgb Hct MCHC RDW Plt Count Lymph % (Auto) [place] % (Auto) Lymph # [place] # Seg Neutrophils % Seg Neutrophils # D-Dimer POC ABG pH 7.084 L POC ABG pCO2 82.8 H 52.2 H POC ABG pO2 106 H 502 H Sodium Chloride Carbon Dioxide BUN Creatinine Glucose POC Glucose 108 H Lactic Acid Calcium Total Protein Albumin HDL Cholesterol Vitamin B12 Free T4 12/16/17 12/16/17 12/16/17 05:56 16:00 17:41 WBC RBC Hgb Hct MCHC RDW Plt Count Lymph % (Auto) [place] % (Auto) Lymph # [place] # Seg Neutrophils % Seg Neutrophils # D-Dimer POC ABG pH 7.495 H POC ABG pCO2 31.7 L POC ABG pO2 112 H 133 H Sodium Chloride Carbon Dioxide BUN Creatinine Glucose POC Glucose 106 H Lactic Acid Calcium Total Protein Albumin HDL Cholesterol Vitamin B12 Free T4 12/16/17 12/16/17 12/16/17 18:55 18:55 22:48 WBC 13.6 H RBC Hgb Hct MCHC RDW 16.4 H Plt Count Lymph % (Auto) 8.7 L [place] % (Auto) 8.6 H Lymph # [place] # 1.2 H Seg Neutrophils % 82.1 H Seg Neutrophils # 11.2 H D-Dimer POC ABG pH POC ABG pCO2 POC ABG pO2 Sodium 131 L Chlor[place] Carbon Dioxide 20 L D BUN 30 H Creatinine 0.5 L Glucose 118 H POC Glucose 121 H Lactic Acid Calcium Total Protein Albumin HDL Cholesterol Vitamin B12 Free T4 12/17/17 12/17/17 12/18/17 04:35 04:35 04:40 WBC RBC 3.46 L 3.40 L Hgb 11.0 L 11.0 L Hct 32.4 L 31.8 L MCHC 35 H RDW 17.0 H 16.9 H Plt Count 131 L 137 L Lymph % (Auto) [place] % (Auto) 10.6 H Lymph # [place] # Seg Neutrophils % Seg Neutrophils # D-Dimer POC ABG pH POC ABG pCO2 POC ABG pO2 Sodium 132 L Chloride 97.8 L Carbon Dioxide BUN 28 H Creatinine 0.5 L Glucose POC Glucose Lactic Acid Calcium 8.3 L Total Protein Albumin HDL Cholesterol Vitamin B12 Free T4 12/18/17 12/18/17 12/18/17 04:40 12:51 17:18 WBC RBC Hgb Hct MCHC RDW Plt Count Lymph % (Auto) [place] % (Auto) Lymph # [place] # Seg Neutrophils % Seg Neutrophils # D-Dimer POC ABG pH POC ABG pCO2 46.4 H POC ABG pO2 131 H Sodium Chloride Carbon Dioxide BUN 30 H Creatinine 0.5 L Glucose POC Glucose 109 H Lactic Acid Calcium 8.3 L Total Protein Albumin HDL Cholesterol Vitamin B12 Free T4 12/22/17 12/22/17 05:49 11:43 WBC RBC Hgb Hct MCHC RDW Plt Count Lymph % (Auto) [place] % (Auto) Lymph # [place] # Seg Neutrophils % Seg Neutrophils # D-Dimer POC ABG pH POC ABG pCO2 POC ABG pO2 Sodium Chloride Carbon Dioxide BUN Creatinine Glucose POC Glucose 112 H 120 H Lactic Acid Calcium Total Protein Albumin HDL Cholesterol Vitamin B12 Free T4 Chest x-ray: report reviewed (Left base atelectasis, infiltrate or effusion.), image reviewed Allied health notes reviewed: nursing
[2017-12-22] MEDS: ARICEPT PO SCH (21:54)
[2017-12-22] MEDS: LOVENOX SUB-Q SCH (21:54)
[2017-12-23] MEDS: FLONASE NS SCH ×2 (09:27→22:11)
[2017-12-23] MEDS: KEPPRA PO SCH ×2 (09:27→22:03)
[2017-12-23] MEDS: PEPCID PO SCH ×2 (09:28→21:56)
[2017-12-23] MEDS: HALFPRIN EC PO SCH (09:28)
[2017-12-23] MEDS: DepaKENE Liq FEEDTUBE SCH (09:28)
[2017-12-23] MEDS: THERAGRAN Tab PO SCH (09:28)
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
--- NOTE | 2017-12-23 13:03 | Progress Note ---
Assessment and Plan Assessment and plan: 87 YO Male currently an inpatient at [facility] with Dementia, HTN, DM, Psychosis, Cardiomyopathy S/P Pacemaker placement presents to ED for evaluation. Pt is confused and unable to provide history. Pt history taken from ED staff, and [place] staff. As per staff, the patient was found down and unresponsive this morning shortly after breakfast. EMS notified,and upon arrival the patient was found to be confused. Pt transported to [facility] for further care and evaluation. Pt seen and evaluated in ED and found to have symptoms suspicious for CVA, Encephalopathy, Hyponatremia, and Acidosis. Pt admitted to telemetry and initiated on CVA protocol. Acute encephalopathy - Resolving Acute Respiratory failure - And is extubated and on when necessary BiPAP Hypotension - Patient was given bolus of IV fluid, blood pressure is normalized since yesterday Aspiration penumonia - Patient is on IV antibiotics SEIZURE DISORDER - Patient is on Keppra and now severe episode after admission Hyponatremia - Resolved Severe dementia Alzheimer dementia - Supportive care Metabolic acidosis - Resolved Hypoglycemia - Resolved CODE STATUS: AND Disposition - to SNF once stable This morning while evaluated by PT the patient developed tachycardia in the 140- 150's and EKG showed a fib, cardiology consult placed. History Interval history: Patient was seen and evaluated, patient was alert. Not in distress. Hospitalist Physical - Physical exam Narrative exam: Not in cardiopulmonary distress. The patient appeared well nourished and normally developed. Vital signs as documented. Head exam is unremarkable. No scleral icterus . Neck is without jugular venous distension, thyromegaly, or carotid bruits. Lungs are clear to auscultation. Cardiac exam reveals regular rate and Rhythm. First and second heart sounds normal. No murmurs, rubs or gallops. Abdominal exam reveals normal bowel sounds, no masses, no organomegaly and no aortic enlargement. Extremities are nonedematous and both femoral and pedal pulses are normal. [place]: Patient is communicative, answers questions appropriately. Hearing is better today. - Constitutional Vitals: Temp Pulse Resp BP Pulse Ox 97.3 F L 106 H 22 113/54 100 12/23/17 12:00 12/23/17 12:00 12/23/17 12:00 12/23/17 12:00 12/23/17 12:00 General appearance: Present: mild distress Results - Labs CBC & Chem 7: 12/18/17 04:40 12/18/17 04:40 Labs: Laboratory Last Values WBC 7.2 K/mm3 (4.5-11.0) 12/18/17 04:40 RBC 3.40 M/mm3 (3.65-5.03) L 12/18/17 04:40 Hgb 11.0 gm/dl (11.8-15.2) L 12/18/17 04:40 Hct 31.8 % (35.5-45.6) L 12/18/17 04:40 MCV 94 fl (84-94) 12/18/17 04:40 MCH 32 pg (28-32) 12/18/17 04:40 MCHC 35 % (32-34) H 12/18/17 04:40 RDW 16.9 % (13.2-15.2) H 12/18/17 04:40 Plt Count 137 K/mm3 (140-440) L 12/18/17 04:40 Lymph % (Auto) 17.6 % (13.4-35.0) 12/18/17 04:40 [place] % (Auto) 10.6 % (0.0-7.3) H 12/18/17 04:40 Eos % (Auto) 1.7 % (0.0-4.3) 12/18/17 04:40 Baso % (Auto) 0.6 % (0.0-1.8) 12/18/17 04:40 Lymph # 1.3 K/mm3 (1.2-5.4) 12/18/17 04:40 [place] # 0.8 K/mm3 (0.0-0.8) 12/18/17 04:40 Eos # 0.1 K/mm3 (0.0-0.4) 12/18/17 04:40 Baso # 0.0 K/mm3 (0.0-0.1) 12/18/17 04:40 Seg Neutrophils % 69.5 % (40.0-70.0) 12/18/17 04:40 Seg Neutrophils # 5.0 K/mm3 (1.8-7.7) 12/18/17 04:40 D-Dimer 389.72 ng/mlDDU (0-234) H 12/12/17 12:34 POC ABG pH 7.411 (7.35-7.45) 12/18/17 12:51 POC ABG pCO2 46.4 (35-45) H 12/18/17 12:51 POC ABG pO2 131 (80-105) H 12/18/17 12:51 POC ABG HCO3 29.4 12/18/17 12:51 POC ABG Total CO2 31 12/18/17 12:51 POC ABG O2 Sat 99 12/18/17 12:51 POC ABG Base Excess 5 12/18/17 12:51 FiO2 28 % 12/18/17 12:51 Sodium 140 mmol/L (137-145) D 12/18/17 04:40 Potassium 3.9 mmol/L (3.6-5.0) 12/18/17 04:40 Chloride 102.6 mmol/L (98-107) 12/18/17 04:40 Carbon Dioxide 27 mmol/L (22-30) 12/18/17 04:40 Anion Gap 14 mmol/L 12/18/17 04:40 BUN 30 mg/dL (9-20) H 12/18/17 04:40 Creatinine 0.5 mg/dL (0.8-1.5) L 12/18/17 04:40 Estimated GFR > 60 ml/min 12/18/17 04:40 BUN/Creatinine Ratio 60 % 12/18/17 04:40 Glucose 79 mg/dL (75-100) 12/18/17 04:40 POC Glucose 145 (70-105) H 12/23/17 12:05 Lactic Acid 1.10 mmol/L (0.7-2.0) 12/13/17 12:22 Calcium 8.3 mg/dL (8.4-10.2) L 12/18/17 04:40 Total Bilirubin 0.90 mg/dL (0.1-1.2) 12/12/17 10:50 AST 32 units/L (5-40) 12/12/17 10:50 ALT 31 units/L (7-56) 12/12/17 10:50 Alkaline Phosphatase 110 units/L (35-129) 12/12/17 10:50 Ammonia 55.0 umol/L (25-60) 12/12/17 10:50 Troponin T < 0.010 ng/mL (0.00-0.029) 12/12/17 18:35 Total Protein 6.1 g/dL (6.3-8.2) L 12/12/17 10:50 Albumin 3.2 g/dL (3.9-5) L 12/12/17 10:50 Albumin/Globulin Ratio 1.1 % 12/12/17 10:50 Triglycerides 76 mg/dL (2-149) 12/13/17 03:38 Cholesterol 125 mg/dL (50-199) 12/13/17 03:38 LDL Cholesterol Direct 57 mg/dL (50-130) 12/13/17 03:38 HDL Cholesterol 70 mg/dL (40-59) H 12/13/17 03:38 Cholesterol/HDL Ratio 1.78 % 12/13/17 03:38 Vitamin B12 > 2000 pg/mL (211-911) H 12/12/17 19:58 TSH 2.470 mlU/mL (0.270-4.200) 12/12/17 19:58 Free T4 1.60 ng/dL (0.76-1.46) H 12/12/17 19:58 Urine Color Yellow (Yellow) 12/12/17 Unknown Urine Turbidity Clear (Clear) 12/12/17 Unknown Urine pH 6.0 (5.0-7.0) 12/12/17 Unknown Ur Specific [place] 1.009 (1.003-1.030) 12/12/17 Unknown Urine Protein <15 mg/dl mg/dL (Negative) 12/12/17 Unknown Urine Glucose (UA) Neg mg/dL (Negative) 12/12/17 Unknown Urine Ketones Neg mg/dL (Negative) 12/12/17 Unknown Urine Blood Neg (Negative) 12/12/17 Unknown Urine Nitrite Neg (Negative) 12/12/17 Unknown Urine Bilirubin Neg (Negative) 12/12/17 Unknown Urine Urobilinogen 2.0 mg/dL (<2.0) 12/12/17 Unknown Ur Leukocyte Esterase Tr (Negative) 12/12/17 Unknown Urine WBC (Auto) 3.0 /HPF (0.0-6.0) 12/12/17 Unknown Urine RBC (Auto) 5.0 /HPF (0.0-6.0) 12/12/17 Unknown U Epithel Cells (Auto) < 1.0 /HPF (0-13.0) 12/12/17 Unknown Urine Mucus Few /HPF 12/12/17 Unknown
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
[2017-12-23 14:30] LABS: Basophils # (Auto) 0.1 K/mm3 (0.0-0.1); Basophils % (Auto) 0.6 % (0.0-1.8); Eosinophils # (Auto) 0.2 K/mm3 (0.0-0.4); Eosinophils % (Auto) 1.7 % (0.0-4.3); Hematocrit 21.4 % (35.5-45.6); Hemoglobin 7.3 gm/dl (11.8-15.2); Lymphocytes # (Auto) 1.9 K/mm3 (1.2-5.4); Lymphocytes % (Auto) 16.8 % (13.4-35.0); Mean Corpuscular HGB Conc 34 % (32-34); Mean Corpuscular Hemoglobin 33 pg (28-32); Mean Corpuscular Volume 95 fl (84-94); Monocytes # (Auto) 0.9 K/mm3 (0.0-0.8); Monocytes % (Auto) 8.5 % (0.0-7.3); Platelet Count 301 K/mm3 (140-440); Red Blood Count 2.24 M/mm3 (3.65-5.03); Red Cell Distribution Width 16.7 % (13.2-15.2)
[2017-12-23 14:39] LABS: BUN/Creatinine Ratio 122; Blood Urea Nitrogen 61 mg/dL (9-20); Hemolysis Index 11
[2017-12-23] MEDS: ARICEPT PO SCH (21:54)
[2017-12-23] MEDS: LOPRESSOR PO SCH (21:54)
[2017-12-23] MEDS: LOVENOX SUB-Q SCH (22:10)
[2017-12-24 05:52] LABS: Hemoglobin 6.6 gm/dl (11.8-15.2); Mean Corpuscular HGB Conc 33 % (32-34); Mean Corpuscular Hemoglobin 32 pg (28-32); Mean Corpuscular Volume 98 fl (84-94); Platelet Count 336 K/mm3 (140-440); Red Blood Count 2.04 M/mm3 (3.65-5.03); Red Cell Distribution Width 17.2 % (13.2-15.2)
[2017-12-24 06:07] LABS: Hematocrit 19.9 % (35.5-45.6)
[2017-12-24 07:47] LABS: Hematocrit 20.3 % (35.5-45.6); Hemoglobin 6.7 gm/dl (11.8-15.2); Mean Corpuscular HGB Conc 33 % (32-34); Mean Corpuscular Hemoglobin 32 pg (28-32); Mean Corpuscular Volume 98 fl (84-94); Platelet Count 339 K/mm3 (140-440); Red Blood Count 2.08 M/mm3 (3.65-5.03); Red Cell Distribution Width 17.3 % (13.2-15.2)
[2017-12-24] MEDS ORDERED: NACL 0.9% 500 ML 500 ML IV ONE (08:49)
[2017-12-24] MEDS: DepaKENE Liq FEEDTUBE SCH (09:09)
[2017-12-24] MEDS: PEPCID PO SCH ×2 (09:09→21:20)
[2017-12-24] MEDS: FLONASE NS SCH ×2 (09:09→21:20)
[2017-12-24] MEDS: KEPPRA PO SCH ×2 (09:09→21:24)
[2017-12-24] MEDS: THERAGRAN Tab PO SCH (09:09)
[2017-12-24] MEDS: LASIX PO SCH (09:10)
[2017-12-24] MEDS: HALFPRIN EC PO SCH (09:10)
[2017-12-24] MEDS: LOPRESSOR PO SCH ×2 (09:14→21:22)
--- NOTE | 2017-12-24 10:56 | Progress Note ---
Assessment and Plan Assessment: Atrial fibrillation with CVR H/o CAD with PCI per pt report H/o cardiomyopathy with AICD in situ per pt report - EF 35-40% Elevated DDimer - chest CTA negative for PE AMS / acute encephalopathy Seizure disorder Pneumonia - suspected aspiration Acute respiratory failure, s/p intubation Anemia HTN DM Advanced dementia ? SI/HI - psych team evaluated and signed off AND/DNR code status Plan: Currently stable cardiac status. Cont present cardiac regimen. Pt may benefit from systemic anticoagulation in regards to atrial fibrillation. However, pt's anemia with H&H of 6.7/20.3, advanced dementia, seizure disorder, advanced age, ? SI/HI are concerning. Will not initiate systemic AC at this time. Monitor H&H closely. 1 unit PRBC ordered for transfusion today per primary. Recommend further eval/management per primary. The patient has been seen in conjunction with Dr. Kat who agrees with the assessment and plan of care. Subjective Date of service: 12/24/17 Principal diagnosis: Acute hypercapnic hypoxemic respiratory failure; Acute encephalopathy Interval history: pt resting in bed, appears more withdrawn today, no apparent distress. unable to answer where he is or what year it is. tele reviewed - he remains in AFib with CVR. Objective Last Vital Signs Temp 98.1 F 12/24/17 08:00 Pulse 83 12/24/17 10:01 Resp 20 12/24/17 10:01 BP 104/42 12/24/17 10:01 Pulse Ox 100 12/24/17 10:01 - Physical Examination General: No Apparent Distress, Other (withdrawn, confused) HEENT: Positive: PERRL, Normocephaly, Mucus Membranes Moist Neck: Positive: neck supple, trachea midline Cardiac: Positive: irregularly irregular, S1/S2 Lungs: Positive: Decreased Breath Sounds Neuro: Positive: Grossly Intact, Other (withdrawn) Skin: Negative: Rash, Wound Musculoskeletal: No Pain Extremities: Absent: edema - Labs and Meds CBC 12/23/17 12/24/17 12/24/17 Range/Units 13:36 04:58 07:16 WBC 11.0 12.9 H 13.5 H (4.5-11.0) K/mm3 RBC 2.24 L 2.04 L 2.08 L (3.65-5.03) M/mm3 Hgb 7.3 L 6.6 L 6.7 L (11.8-15.2) gm/dl Hct 21.4 L 19.9 L* 20.3 L (35.5-45.6) % Plt Count 301 336 339 (140-440) K/mm3 Lymph # 1.9 (1.2-5.4) K/mm3 [place] # 0.9 H (0.0-0.8) K/mm3 Eos # 0.2 (0.0-0.4) K/mm3 Baso # 0.1 (0.0-0.1) K/mm3 Comprehensive Metabolic Panel 12/23/17 Range/Units 13:36 Sodium 137 (137-145) mmol/L Potassium 4.7 (3.6-5.0) mmol/L Chloride 100.5 (98-107) mmol/L Carbon Dioxide 30 (22-30) mmol/L BUN 61 H (9-20) mg/dL Creatinine 0.5 L (0.8-1.5) mg/dL Glucose 138 H (75-100) mg/dL Calcium 9.0 (8.4-10.2) mg/dL - Imaging and Cardiology EKG: report reviewed, image reviewed Echo: report reviewed (12/12/2017 showed mild LVH, EF 35-40%, LA and RA mod dilated, RV mod dilated, RV systolic function mildly reduced, small pericardial effusion. ) - Telemetry EKG Rhythm: Atrial Fibrillation - Allied health notes Allied health notes reviewed: nursing
[2017-12-24] MEDS ORDERED: NACL 0.9% 500 ML 500 ML ONE (11:26)
--- NOTE | 2017-12-24 16:31 | Progress Note ---
Assessment and Plan Assessment Acute encephalopathy Acute Respiratory failure s/p intubation and MVS Acute hypercapnic respiratory failure Hypotension Aspiration pneumonia Seizure disorder Hyponatremia-reolved Severe dementia Alzheimer dementia Metabolic acidosis Hypoglycemia-reolved Anemia Atrial fibrillation, being evaluated by Cardiology Plan Supplemental oxygen as needed to keep O2 sats>90% Continue supportive care Transfuse 1 unit PRBCs FOBT Mobility, avoid contractures Aspiration precautions Modified diet Avoid delirium VTE prophylaxis-SCDs for now Stress ulcer prophylaxis Complete antibiotic therapy Discharge planning Subjective Date of service: 12/24/17 Principal diagnosis: Acute hypercapnic hypoxemic respiratory failure; Acute encephalopathy Interval history: Seen and examined. Vitals, labs, medications, chart reviewed. denies any chest pain, no shortness of breath, no fevers or chills. "I feel pretty good" Not in any distress. reviewed 24 hour events. Rn samuel not report any acute events Objective Vital Signs - 12hr 12/24/17 12/24/17 12/24/17 05:00 06:00 07:00 Temperature Pulse Rate 80 77 76 Pulse Rate [ Apical] Respiratory 21 19 18 Rate Blood Pressure 94/48 97/50 90/37 O2 Sat by Pulse 98 99 100 Oximetry 12/24/17 12/24/17 12/24/17 08:00 09:00 09:14 Temperature 98.1 F Pulse Rate 83 79 86 Pulse Rate [ 79 Apical] Respiratory 18 19 Rate Blood Pressure 87/44 96/48 96/48 O2 Sat by Pulse 98 100 Oximetry 12/24/17 12/24/17 12/24/17 10:01 11:01 11:45 Temperature 97.9 F Pulse Rate 83 86 77 Pulse Rate [ Apical] Respiratory 20 19 21 Rate Blood Pressure 104/42 93/32 101/52 O2 Sat by Pulse 100 98 96 Oximetry 12/24/17 12/24/17 12/24/17 12:00 12:15 12:50 Temperature 97.2 F L Pulse Rate 77 82 86 Pulse Rate [ 77 Apical] Respiratory 18 18 16 Rate Blood Pressure 98/54 114/51 114/56 O2 Sat by Pulse 96 98 99 Oximetry 12/24/17 12/24/17 12/24/17 13:00 13:10 13:20 Temperature 97.6 F Pulse Rate 88 79 84 Pulse Rate [ Apical] Respiratory 18 19 19 Rate Blood Pressure 108/47 108/47 122/54 O2 Sat by Pulse 98 100 100 Oximetry 12/24/17 12/24/17 12/24/17 13:30 13:40 13:50 Temperature Pulse Rate 87 87 82 Pulse Rate [ Apical] Respiratory 22 17 19 Rate Blood Pressure 122/54 114/56 99/54 O2 Sat by Pulse 100 99 99 Oximetry 12/24/17 12/24/17 12/24/17 14:00 14:10 14:20 Temperature 97.7 F Pulse Rate 80 84 82 Pulse Rate [ Apical] Respiratory 17 19 18 Rate Blood Pressure 111/70 111/70 114/51 O2 Sat by Pulse 99 100 99 Oximetry 12/24/17 12/24/17 12/24/17 14:30 14:40 14:50 Temperature Pulse Rate 84 81 82 Pulse Rate [ Apical] Respiratory 18 18 19 Rate Blood Pressure 102/55 102/55 123/57 O2 Sat by Pulse 98 99 99 Oximetry Constitutional: no acute distress, alert, other (elderly looking CM, normocephalic and atraumatic. Encephalopathic. weak.) Eyes: non-icteric ENT: oropharynx moist, other (Mallampati 2) Neck: supple, no lymphadenopathy, no JVD, other (No thyromegaly) Effort: mildly labored Ascultation: Bilateral: diminished breath sounds, rhonchi (bases) Percussion: Bilateral: not dull Cardiovascular: irregular rhythm, murmur noted (systolic) Gastrointestinal: normoactive bowel sounds, soft, non-tender, non-distended, other (No HSM) Integumentary: normal Extremities: no cyanosis, no edema, pink and warm, pulses normal Neurologic: non-focal exam (grossly), pupils equal and round, motor strength normal and Psychiatric: other (flat affect) CBC and BMP: 12/24/17 07:16 12/23/17 13:36 ABG, PT/INR, D-dimer: ABG POC ABG pH 7.411 (7.35-7.45) 12/18/17 12:51 POC ABG pCO2 46.4 (35-45) H 12/18/17 12:51 POC ABG pO2 131 (80-105) H 12/18/17 12:51 POC ABG HCO3 29.4 12/18/17 12:51 POC ABG Total CO2 31 12/18/17 12:51 POC ABG O2 Sat 99 12/18/17 12:51 PT/INR, D-dimer D-Dimer 389.72 ng/mlDDU (0-234) H 12/12/17 12:34 Abnormal lab findings: Abnormal Labs 12/12/17 12/12/17 12/12/17 10:50 10:50 10:50 WBC RBC Hgb Hct MCV MCH MCHC 35 H RDW 16.5 H Plt Count 139 L Lymph % (Auto) 11.9 L Gregory % (Auto) 11.8 H Lymph # 0.8 L Gregory # Seg Neutrophils % 74.6 H Seg Neutrophils # D-Dimer POC ABG pH POC ABG pCO2 POC ABG pO2 Sodium 124 L Chloride 88.0 L Carbon Dioxide BUN Creatinine 0.5 L Glucose 106 H POC Glucose Lactic Acid 3.60 H* Calcium Total Protein 6.1 L Albumin 3.2 L HDL Cholesterol Vitamin B12 Free T4 Crossmatch 12/12/17 12/12/17 12/12/17 12:08 12:34 19:58 WBC RBC Hgb Hct MCV MCH MCHC RDW Plt Count Lymph % (Auto) Gregory % (Auto) Lymph # Gregory # Seg Neutrophils % Seg Neutrophils # D-Dimer 389.72 H POC ABG pH POC ABG pCO2 POC ABG pO2 Sodium Chloride Carbon Dioxide BUN Creatinine Glucose POC Glucose Lactic Acid 2.30 H* Calcium Total Protein Albumin HDL Cholesterol Vitamin B12 Free T4 1.60 H Crossmatch 12/12/17 12/13/17 12/13/17 19:58 03:38 12:22 WBC RBC Hgb Hct MCV MCH MCHC 35 H RDW 16.6 H Plt Count 125 L Lymph % (Auto) 11.3 L Gregory % (Auto) 10.1 H Lymph # 1.0 L Gregory # 0.9 H Seg Neutrophils % 76.5 H Seg Neutrophils # D-Dimer POC ABG pH POC ABG pCO2 POC ABG pO2 Sodium Chloride Carbon Dioxide BUN Creatinine Glucose POC Glucose Lactic Acid Calcium Total Protein Albumin HDL Cholesterol 70 H Vitamin B12 > 2000 H Free T4 Crossmatch 12/13/17 12/14/17 12/14/17 12:22 04:47 04:47 WBC RBC Hgb Hct MCV MCH MCHC 35 H RDW 16.8 H Plt Count Lymph % (Auto) Gregory % (Auto) Lymph # Gregory # Seg Neutrophils % Seg Neutrophils # D-Dimer POC ABG pH POC ABG pCO2 POC ABG pO2 Sodium 130 L 133 L Chloride 90.3 L 91.4 L Carbon Dioxide BUN 28 H Creatinine 0.4 L 0.4 L Glucose 69 L 59 L POC Glucose Lactic Acid Calcium Total Protein Albumin HDL Cholesterol Vitamin B12 Free T4 Crossmatch 12/15/17 12/15/17 12/15/17 17:48 18:04 20:01 WBC RBC Hgb Hct MCV MCH MCHC RDW Plt Count Lymph % (Auto) Gregory % (Auto) Lymph # Gregory # Seg Neutrophils % Seg Neutrophils # D-Dimer POC ABG pH 7.084 L POC ABG pCO2 82.8 H 52.2 H POC ABG pO2 106 H 502 H Sodium Chloride Carbon Dioxide BUN Creatinine Glucose POC Glucose 108 H Lactic Acid Calcium Total Protein Albumin HDL Cholesterol Vitamin B12 Free T4 Crossmatch 12/16/17 12/16/17 12/16/17 05:56 16:00 17:41 WBC RBC Hgb Hct MCV MCH MCHC RDW Plt Count Lymph % (Auto) Gregory % (Auto) Lymph # Gregory # Seg Neutrophils % Seg Neutrophils # D-Dimer POC ABG pH 7.495 H POC ABG pCO2 31.7 L POC ABG pO2 112 H 133 H Sodium Chloride Carbon Dioxide BUN Creatinine Glucose POC Glucose 106 H Lactic Acid Calcium Total Protein Albumin HDL Cholesterol Vitamin B12 Free T4 Crossmatch 12/16/17 12/16/17 12/16/17 18:55 18:55 22:48 WBC 13.6 H RBC Hgb Hct MCV MCH MCHC RDW 16.4 H Plt Count Lymph % (Auto) 8.7 L Gregory % (Auto) 8.6 H Lymph # Gregory # 1.2 H Seg Neutrophils % 82.1 H Seg Neutrophils # 11.2 H D-Dimer POC ABG pH POC ABG pCO2 POC ABG pO2 Sodium 131 L Chloride Carbon Dioxide 20 L D BUN 30 H Creatinine 0.5 L Glucose 118 H POC Glucose 121 H Lactic Acid Calcium Total Protein Albumin HDL Cholesterol Vitamin B12 Free T4 Crossmatch 12/17/17 12/17/17 12/18/17 04:35 04:35 04:40 WBC RBC 3.46 L 3.40 L Hgb 11.0 L 11.0 L Hct 32.4 L 31.8 L MCV MCH MCHC 35 H RDW 17.0 H 16.9 H Plt Count 131 L 137 L Lymph % (Auto) Gregory % (Auto) 10.6 H Lymph # Gregory # Seg Neutrophils % Seg Neutrophils # D-Dimer POC ABG pH POC ABG pCO2 POC ABG pO2 Sodium 132 L Chloride 97.8 L Carbon Dioxide BUN 28 H Creatinine 0.5 L Glucose POC Glucose Lactic Acid Calcium 8.3 L Total Protein Albumin HDL Cholesterol Vitamin B12 Free T4 Crossmatch 12/18/17 12/18/17 12/18/17 04:40 12:51 17:18 WBC RBC Hgb Hct MCV MCH MCHC RDW Plt Count Lymph % (Auto) Gregory % (Auto) Lymph # Gregory # Seg Neutrophils % Seg Neutrophils # D-Dimer POC ABG pH POC ABG pCO2 46.4 H POC ABG pO2 131 H Sodium Chloride Carbon Dioxide BUN 30 H Creatinine 0.5 L Glucose POC Glucose 109 H Lactic Acid Calcium 8.3 L Total Protein Albumin HDL Cholesterol Vitamin B12 Free T4 Crossmatch 12/22/17 12/22/17 12/23/17 05:49 11:43 06:45 WBC RBC Hgb Hct MCV MCH MCHC RDW Plt Count Lymph % (Auto) Gregory % (Auto) Lymph # Gregory # Seg Neutrophils % Seg Neutrophils # D-Dimer POC ABG pH POC ABG pCO2 POC ABG pO2 Sodium Chloride Carbon Dioxide BUN Creatinine Glucose POC Glucose 112 H 120 H 138 H Lactic Acid Calcium Total Protein Albumin HDL Cholesterol Vitamin B12 Free T4 Crossmatch 12/23/17 12/23/17 12/23/17 12:05 13:36 13:36 WBC RBC 2.24 L Hgb 7.3 L Hct 21.4 L MCV 95 H MCH 33 H MCHC RDW 16.7 H Plt Count Lymph % (Auto) Gregory % (Auto) 8.5 H Lymph # Gregory # 0.9 H Seg Neutrophils % 72.4 H Seg Neutrophils # 8.0 H D-Dimer POC ABG pH POC ABG pCO2 POC ABG pO2 Sodium Chloride Carbon Dioxide BUN 61 H Creatinine 0.5 L Glucose 138 H POC Glucose 145 H Lactic Acid Calcium Total Protein Albumin HDL Cholesterol Vitamin B12 Free T4 Crossmatch 12/23/17 12/23/17 12/24/17 18:03 23:50 04:58 WBC 12.9 H RBC 2.04 L Hgb 6.6 L Hct 19.9 L* MCV 98 H MCH MCHC RDW 17.2 H Plt Count Lymph % (Auto) Gregory % (Auto) Lymph # Gregory # Seg Neutrophils % Seg Neutrophils # D-Dimer POC ABG pH POC ABG pCO2 POC ABG pO2 Sodium Chloride Carbon Dioxide BUN Creatinine Glucose POC Glucose 176 H 107 H Lactic Acid Calcium Total Protein Albumin HDL Cholesterol Vitamin B12 Free T4 Crossmatch 12/24/17 12/24/17 12/24/17 05:56 07:16 09:43 WBC 13.5 H RBC 2.08 L Hgb 6.7 L Hct 20.3 L MCV 98 H MCH MCHC RDW 17.3 H Plt Count Lymph % (Auto) Gregory % (Auto) Lymph # Gregory # Seg Neutrophils % Seg Neutrophils # D-Dimer POC ABG pH POC ABG pCO2 POC ABG pO2 Sodium Chloride Carbon Dioxide BUN Creatinine Glucose POC Glucose 122 H Lactic Acid Calcium Total Protein Albumin HDL Cholesterol Vitamin B12 Free T4 Crossmatch See Detail 12/24/17 12:06 WBC RBC Hgb Hct MCV MCH MCHC RDW Plt Count Lymph % (Auto) Gregory % (Auto) Lymph # Gregory # Seg Neutrophils % Seg Neutrophils # D-Dimer POC ABG pH POC ABG pCO2 POC ABG pO2 Sodium Chloride Carbon Dioxide BUN Creatinine Glucose POC Glucose 163 H Lactic Acid Calcium Total Protein Albumin HDL Cholesterol Vitamin B12 Free T4 Crossmatch Allied health notes reviewed: nursing
--- NOTE | 2017-12-24 17:46 | Progress Note ---
Assessment and Plan Assessment and plan: 87 YO Male currently an inpatient at [facility] for Suicide Ideation with Dementia, HTN, DM, Psychosis, Cardiomyopathy S/P Pacemaker placement presents to ED for evaluation. Pt is confused and unable to provide history. Pt history taken from ED staff, and [facility] staff. As per staff, the patient was found down and unresponsive this morning shortly after breakfast. EMS notified,and upon arrival the patient was found to be confused. Pt transported to [facility] for further care and evaluation. Pt seen and evaluated in ED and found to have symptoms suspicious for CVA, Encephalopathy, Hyponatremia, and Acidosis. Pt admitted to telemetry and initiated on CVA protocol. Afib-per son, patient known to have Afib and was on anticoagulation prior- Eliquis But not sure as patient also had a hx of bleeding ulcer in the past. -CARDIOLOGY FOLLOWING Acute blood loss Anemia-Give one unit of PRBC, START PPI. CHECK STOOL FOR OCCULT BLOOD- GI CONSULT Acute encephalopathy - Resolving Acute Respiratory failure And is extubated and on when necessary BiPAP Hypotension - Patient was given bolus of IV fluid, blood pressure is normalized since yesterday Aspiration penumonia - Patient is on IV antibiotics SEIZURE DISORDER - Patient is on Keppra and now severe episode after admission Hyponatremia - Resolved Severe dementia Alzheimer dementia - Supportive care Metabolic acidosis - Resolved Hypoglycemia - Resolved CODE STATUS: AND Disposition - to SNF once stable - Discussed with son The high probability of a clinically significant, sudden or life threatening deterioration of the [GI, neurol] system(s) required my full and direct attention, intervention and personal management. The aggregate critical care time was [35] minutes. This time is in addition to time spent performing reported procedures but includes the following: [x] Data Review and interpretation [x] Patient assessment and monitoring of vital signs [x] Documentation [x] Medication orders and management Hospitalist Physical - Physical exam Narrative exam: Not in cardiopulmonary distress. The patient appeared well nourished and normally developed. Vital signs as documented. Head exam is unremarkable. No scleral icterus . Neck is without jugular venous distension, thyromegaly, or carotid bruits. Lungs are clear to auscultation. Cardiac exam reveals regular rate and Rhythm. First and second heart sounds normal. No murmurs, rubs or gallops. Abdominal exam reveals normal bowel sounds, no masses, no organomegaly and no aortic enlargement. Extremities are nonedematous and both femoral and pedal pulses are normal. 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 Delayed speech today - Constitutional Vitals: Temp Pulse Resp BP Pulse Ox 97.7 F 82 19 123/57 99 12/24/17 14:00 12/24/17 14:50 12/24/17 14:50 12/24/17 14:50 12/24/17 14:50 General appearance: Present: no acute distress Results - Labs CBC & Chem 7: 12/24/17 07:16 12/23/17 13:36 Labs: Laboratory Last Values WBC 13.5 K/mm3 (4.5-11.0) H 12/24/17 07:16 RBC 2.08 M/mm3 (3.65-5.03) L 12/24/17 07:16 Hgb 6.7 gm/dl (11.8-15.2) L 12/24/17 07:16 Hct 20.3 % (35.5-45.6) L 12/24/17 07:16 MCV 98 fl (84-94) H 12/24/17 07:16 MCH 32 pg (28-32) 12/24/17 07:16 MCHC 33 % (32-34) 12/24/17 07:16 RDW 17.3 % (13.2-15.2) H 12/24/17 07:16 Plt Count 339 K/mm3 (140-440) 12/24/17 07:16 Lymph % (Auto) 16.8 % (13.4-35.0) 12/23/17 13:36 Moffat % (Auto) 8.5 % (0.0-7.3) H 12/23/17 13:36 Eos % (Auto) 1.7 % (0.0-4.3) 12/23/17 13:36 Baso % (Auto) 0.6 % (0.0-1.8) 12/23/17 13:36 Lymph # 1.9 K/mm3 (1.2-5.4) 12/23/17 13:36 Moffat # 0.9 K/mm3 (0.0-0.8) H 12/23/17 13:36 Eos # 0.2 K/mm3 (0.0-0.4) 12/23/17 13:36 Baso # 0.1 K/mm3 (0.0-0.1) 12/23/17 13:36 Seg Neutrophils % 72.4 % (40.0-70.0) H 12/23/17 13:36 Seg Neutrophils # 8.0 K/mm3 (1.8-7.7) H 12/23/17 13:36 D-Dimer 389.72 ng/mlDDU (0-234) H 12/12/17 12:34 POC ABG pH 7.411 (7.35-7.45) 12/18/17 12:51 POC ABG pCO2 46.4 (35-45) H 12/18/17 12:51 POC ABG pO2 131 (80-105) H 12/18/17 12:51 POC ABG HCO3 29.4 12/18/17 12:51 POC ABG Total CO2 31 12/18/17 12:51 POC ABG O2 Sat 99 12/18/17 12:51 POC ABG Base Excess 5 12/18/17 12:51 FiO2 28 % 12/18/17 12:51 Sodium 137 mmol/L (137-145) 12/23/17 13:36 Potassium 4.7 mmol/L (3.6-5.0) 12/23/17 13:36 Chloride 100.5 mmol/L (98-107) 12/23/17 13:36 Carbon Dioxide 30 mmol/L (22-30) 12/23/17 13:36 Anion Gap 11 mmol/L 12/23/17 13:36 BUN 61 mg/dL (9-20) H 12/23/17 13:36 Creatinine 0.5 mg/dL (0.8-1.5) L 12/23/17 13:36 Estimated GFR > 60 ml/min 12/23/17 13:36 BUN/Creatinine Ratio 122 % 12/23/17 13:36 Glucose 138 mg/dL (75-100) H 12/23/17 13:36 POC Glucose 163 (70-105) H 12/24/17 12:06 Lactic Acid 1.10 mmol/L (0.7-2.0) 12/13/17 12:22 Calcium 9.0 mg/dL (8.4-10.2) 12/23/17 13:36 Total Bilirubin 0.90 mg/dL (0.1-1.2) 12/12/17 10:50 AST 32 units/L (5-40) 12/12/17 10:50 ALT 31 units/L (7-56) 12/12/17 10:50 Alkaline Phosphatase 110 units/L (35-129) 12/12/17 10:50 Ammonia 55.0 umol/L (25-60) 12/12/17 10:50 Troponin T < 0.010 ng/mL (0.00-0.029) 12/12/17 18:35 Total Protein 6.1 g/dL (6.3-8.2) L 12/12/17 10:50 Albumin 3.2 g/dL (3.9-5) L 12/12/17 10:50 Albumin/Globulin Ratio 1.1 % 12/12/17 10:50 Triglycerides 76 mg/dL (2-149) 12/13/17 03:38 Cholesterol 125 mg/dL (50-199) 12/13/17 03:38 LDL Cholesterol Direct 57 mg/dL (50-130) 12/13/17 03:38 HDL Cholesterol 70 mg/dL (40-59) H 12/13/17 03:38 Cholesterol/HDL Ratio 1.78 % 12/13/17 03:38 Vitamin B12 > 2000 pg/mL (211-911) H 12/12/17 19:58 TSH 2.470 mlU/mL (0.270-4.200) 12/12/17 19:58 Free T4 1.60 ng/dL (0.76-1.46) H 12/12/17 19:58 Urine Color Yellow (Yellow) 12/12/17 Unknown Urine Turbidity Clear (Clear) 12/12/17 Unknown Urine pH 6.0 (5.0-7.0) 12/12/17 Unknown Ur Specific [place] 1.009 (1.003-1.030) 12/12/17 Unknown Urine Protein <15 mg/dl mg/dL (Negative) 12/12/17 Unknown Urine Glucose (UA) Neg mg/dL (Negative) 12/12/17 Unknown Urine Ketones Neg mg/dL (Negative) 12/12/17 Unknown Urine Blood Neg (Negative) 12/12/17 Unknown Urine Nitrite Neg (Negative) 12/12/17 Unknown Urine Bilirubin Neg (Negative) 12/12/17 Unknown Urine Urobilinogen 2.0 mg/dL (<2.0) 12/12/17 Unknown Ur Leukocyte Esterase Tr (Negative) 12/12/17 Unknown Urine WBC (Auto) 3.0 /HPF (0.0-6.0) 12/12/17 Unknown Urine RBC (Auto) 5.0 /HPF (0.0-6.0) 12/12/17 Unknown U Epithel Cells (Auto) < 1.0 /HPF (0-13.0) 12/12/17 Unknown Urine Mucus Few /HPF 12/12/17 Unknown Blood Type O POSITIVE 12/24/17 09:43 Antibody Screen Negative 12/24/17 09:43 Crossmatch See Detail 12/24/17 09:43
[2017-12-24 19:23] LABS: Hematocrit 22.5 % (35.5-45.6); Hemoglobin 7.5 gm/dl (11.8-15.2); Mean Corpuscular HGB Conc 33 % (32-34); Mean Corpuscular Hemoglobin 32 pg (28-32); Mean Corpuscular Volume 96 fl (84-94); Platelet Count 353 K/mm3 (140-440); Red Blood Count 2.35 M/mm3 (3.65-5.03); Red Cell Distribution Width 17.3 % (13.2-15.2)
[2017-12-24] MEDS: ARICEPT PO SCH (21:24)
[2017-12-25 05:00] LABS: Hematocrit 22.7 % (35.5-45.6); Hemoglobin 7.6 gm/dl (11.8-15.2); Mean Corpuscular HGB Conc 34 % (32-34); Mean Corpuscular Hemoglobin 32 pg (28-32); Mean Corpuscular Volume 97 fl (84-94); Platelet Count 356 K/mm3 (140-440); Red Blood Count 2.35 M/mm3 (3.65-5.03); Red Cell Distribution Width 17.7 % (13.2-15.2)
[2017-12-25 05:18] LABS: BUN/Creatinine Ratio 90; Blood Urea Nitrogen 54 mg/dL (9-20); Calcium 8.2 mg/dL (8.4-10.2); Hemolysis Index 0
--- NOTE | 2017-12-25 08:58 | Progress Note ---
Assessment and Plan Assessment Acute encephalopathy Acute Respiratory failure s/p intubation and MVS Acute hypercapnic respiratory failure Hypotension Aspiration pneumonia Seizure disorder Hyponatremia-reolved Severe dementia Alzheimer dementia Metabolic acidosis Hypoglycemia-reolved Anemia Atrial fibrillation, being evaluated by Cardiology Plan Supplemental oxygen as needed to keep O2 sats>90% Continue supportive care Transfuse 1 unit PRBCs FOBT Mobility, avoid contractures Aspiration precautions Modified diet Avoid delirium VTE prophylaxis-SCDs for now Stress ulcer prophylaxis Complete antibiotic therapy Discharge planning Subjective Date of service: 12/25/17 Principal diagnosis: Acute hypercapnic hypoxemic respiratory failure; Acute encephalopathy Interval history: Seen and examined. Vitals, labs, medications, chart reviewed. denies any chest pain, no shortness of breath, no fevers or chills. "I feel pretty good" Not in any distress. reviewed 24 hour events. Rn samuel not report any acute events Objective Vital Signs - 12hr 12/24/17 12/24/17 12/24/17 21:00 21:22 22:00 Temperature Pulse Rate 81 79 84 Respiratory 16 17 Rate Blood Pressure 115/54 117/56 97/64 O2 Sat by Pulse 100 98 Oximetry 12/24/17 12/24/17 12/25/17 23:00 23:34 00:00 Temperature 97.6 F Pulse Rate 76 72 73 Respiratory 16 18 18 Rate Blood Pressure 104/54 105/58 102/57 O2 Sat by Pulse 99 100 100 Oximetry 12/25/17 12/25/17 12/25/17 00:08 01:00 02:00 Temperature Pulse Rate 70 72 74 Respiratory 18 17 18 Rate Blood Pressure 102/57 121/61 114/64 O2 Sat by Pulse 100 100 100 Oximetry 12/25/17 12/25/17 12/25/17 03:00 04:00 05:00 Temperature 97.5 F L Pulse Rate 77 71 74 Respiratory 19 17 19 Rate Blood Pressure 116/65 123/60 111/56 O2 Sat by Pulse 100 100 100 Oximetry 12/25/17 12/25/17 12/25/17 06:00 07:00 08:09 Temperature Pulse Rate 72 70 Respiratory 18 18 Rate Blood Pressure 121/57 111/53 O2 Sat by Pulse 100 100 100 Oximetry Constitutional: no acute distress, alert, other (elderly looking CM, normocephalic and atraumatic. Encephalopathic. weak.) Eyes: non-icteric ENT: oropharynx moist, other (Mallampati 2) Neck: supple, no lymphadenopathy, no JVD, other (No thyromegaly) Effort: mildly labored Ascultation: Bilateral: diminished breath sounds, rhonchi (bases) Percussion: Bilateral: not dull Cardiovascular: irregular rhythm, murmur noted (systolic) Gastrointestinal: normoactive bowel sounds, soft, non-tender, non-distended, other (No HSM) Integumentary: normal Extremities: no cyanosis, no edema, pink and warm, pulses normal Neurologic: non-focal exam (grossly), pupils equal and round, motor strength normal and Psychiatric: other (flat affect) CBC and BMP: 12/25/17 04:06 12/25/17 04:06 ABG, PT/INR, D-dimer: ABG POC ABG pH 7.411 (7.35-7.45) 12/18/17 12:51 POC ABG pCO2 46.4 (35-45) H 12/18/17 12:51 POC ABG pO2 131 (80-105) H 12/18/17 12:51 POC ABG HCO3 29.4 12/18/17 12:51 POC ABG Total CO2 31 12/18/17 12:51 POC ABG O2 Sat 99 12/18/17 12:51 PT/INR, D-dimer D-Dimer 389.72 ng/mlDDU (0-234) H 12/12/17 12:34 Abnormal lab findings: Abnormal Labs 12/12/17 12/12/17 12/12/17 10:50 10:50 10:50 WBC RBC Hgb Hct MCV MCH MCHC 35 H RDW 16.5 H Plt Count 139 L Lymph % (Auto) 11.9 L Starr % (Auto) 11.8 H Lymph # 0.8 L Starr # Seg Neutrophils % 74.6 H Seg Neutrophils # D-Dimer POC ABG pH POC ABG pCO2 POC ABG pO2 Sodium 124 L Chloride 88.0 L Carbon Dioxide BUN Creatinine 0.5 L Glucose 106 H POC Glucose Lactic Acid 3.60 H* Calcium Total Protein 6.1 L Albumin 3.2 L HDL Cholesterol Vitamin B12 Free T4 Crossmatch 12/12/17 12/12/17 12/12/17 12:08 12:34 19:58 WBC RBC Hgb Hct MCV MCH MCHC RDW Plt Count Lymph % (Auto) Starr % (Auto) Lymph # Starr # Seg Neutrophils % Seg Neutrophils # D-Dimer 389.72 H POC ABG pH POC ABG pCO2 POC ABG pO2 Sodium Chloride Carbon Dioxide BUN Creatinine Glucose POC Glucose Lactic Acid 2.30 H* Calcium Total Protein Albumin HDL Cholesterol Vitamin B12 Free T4 1.60 H Crossmatch 12/12/17 12/13/17 12/13/17 19:58 03:38 12:22 WBC RBC Hgb Hct MCV MCH MCHC 35 H RDW 16.6 H Plt Count 125 L Lymph % (Auto) 11.3 L Starr % (Auto) 10.1 H Lymph # 1.0 L Starr # 0.9 H Seg Neutrophils % 76.5 H Seg Neutrophils # D-Dimer POC ABG pH POC ABG pCO2 POC ABG pO2 Sodium Chloride Carbon Dioxide BUN Creatinine Glucose POC Glucose Lactic Acid Calcium Total Protein Albumin HDL Cholesterol 70 H Vitamin B12 > 2000 H Free T4 Crossmatch 12/13/17 12/14/17 12/14/17 12:22 04:47 04:47 WBC RBC Hgb Hct MCV MCH MCHC 35 H RDW 16.8 H Plt Count Lymph % (Auto) Starr % (Auto) Lymph # Starr # Seg Neutrophils % Seg Neutrophils # D-Dimer POC ABG pH POC ABG pCO2 POC ABG pO2 Sodium 130 L 133 L Chloride 90.3 L 91.4 L Carbon Dioxide BUN 28 H Creatinine 0.4 L 0.4 L Glucose 69 L 59 L POC Glucose Lactic Acid Calcium Total Protein Albumin HDL Cholesterol Vitamin B12 Free T4 Crossmatch 12/15/17 12/15/17 12/15/17 17:48 18:04 20:01 WBC RBC Hgb Hct MCV MCH MCHC RDW Plt Count Lymph % (Auto) Starr % (Auto) Lymph # Starr # Seg Neutrophils % Seg Neutrophils # D-Dimer POC ABG pH 7.084 L POC ABG pCO2 82.8 H 52.2 H POC ABG pO2 106 H 502 H Sodium Chloride Carbon Dioxide BUN Creatinine Glucose POC Glucose 108 H Lactic Acid Calcium Total Protein Albumin HDL Cholesterol Vitamin B12 Free T4 Crossmatch 12/16/17 12/16/17 12/16/17 05:56 16:00 17:41 WBC RBC Hgb Hct MCV MCH MCHC RDW Plt Count Lymph % (Auto) Starr % (Auto) Lymph # Starr # Seg Neutrophils % Seg Neutrophils # D-Dimer POC ABG pH 7.495 H POC ABG pCO2 31.7 L POC ABG pO2 112 H 133 H Sodium Chloride Carbon Dioxide BUN Creatinine Glucose POC Glucose 106 H Lactic Acid Calcium Total Protein Albumin HDL Cholesterol Vitamin B12 Free T4 Crossmatch 12/16/17 12/16/17 12/16/17 18:55 18:55 22:48 WBC 13.6 H RBC Hgb Hct MCV MCH MCHC RDW 16.4 H Plt Count Lymph % (Auto) 8.7 L Starr % (Auto) 8.6 H Lymph # Starr # 1.2 H Seg Neutrophils % 82.1 H Seg Neutrophils # 11.2 H D-Dimer POC ABG pH POC ABG pCO2 POC ABG pO2 Sodium 131 L Chloride Carbon Dioxide 20 L D BUN 30 H Creatinine 0.5 L Glucose 118 H POC Glucose 121 H Lactic Acid Calcium Total Protein Albumin HDL Cholesterol Vitamin B12 Free T4 Crossmatch 12/17/17 12/17/17 12/18/17 04:35 04:35 04:40 WBC RBC 3.46 L 3.40 L Hgb 11.0 L 11.0 L Hct 32.4 L 31.8 L MCV MCH MCHC 35 H RDW 17.0 H 16.9 H Plt Count 131 L 137 L Lymph % (Auto) Starr % (Auto) 10.6 H Lymph # Starr # Seg Neutrophils % Seg Neutrophils # D-Dimer POC ABG pH POC ABG pCO2 POC ABG pO2 Sodium 132 L Chloride 97.8 L Carbon Dioxide BUN 28 H Creatinine 0.5 L Glucose POC Glucose Lactic Acid Calcium 8.3 L Total Protein Albumin HDL Cholesterol Vitamin B12 Free T4 Crossmatch 12/18/17 12/18/17 12/18/17 04:40 12:51 17:18 WBC RBC Hgb Hct MCV MCH MCHC RDW Plt Count Lymph % (Auto) Starr % (Auto) Lymph # Starr # Seg Neutrophils % Seg Neutrophils # D-Dimer POC ABG pH POC ABG pCO2 46.4 H POC ABG pO2 131 H Sodium Chloride Carbon Dioxide BUN 30 H Creatinine 0.5 L Glucose POC Glucose 109 H Lactic Acid Calcium 8.3 L Total Protein Albumin HDL Cholesterol Vitamin B12 Free T4 Crossmatch 12/22/17 12/22/17 12/23/17 05:49 11:43 06:45 WBC RBC Hgb Hct MCV MCH MCHC RDW Plt Count Lymph % (Auto) Starr % (Auto) Lymph # Starr # Seg Neutrophils % Seg Neutrophils # D-Dimer POC ABG pH POC ABG pCO2 POC ABG pO2 Sodium Chloride Carbon Dioxide BUN Creatinine Glucose POC Glucose 112 H 120 H 138 H Lactic Acid Calcium Total Protein Albumin HDL Cholesterol Vitamin B12 Free T4 Crossmatch 12/23/17 12/23/17 12/23/17 12:05 13:36 13:36 WBC RBC 2.24 L Hgb 7.3 L Hct 21.4 L MCV 95 H MCH 33 H MCHC RDW 16.7 H Plt Count Lymph % (Auto) Starr % (Auto) 8.5 H Lymph # Starr # 0.9 H Seg Neutrophils % 72.4 H Seg Neutrophils # 8.0 H D-Dimer POC ABG pH POC ABG pCO2 POC ABG pO2 Sodium Chloride Carbon Dioxide BUN 61 H Creatinine 0.5 L Glucose 138 H POC Glucose 145 H Lactic Acid Calcium Total Protein Albumin HDL Cholesterol Vitamin B12 Free T4 Crossmatch 12/23/17 12/23/17 12/24/17 18:03 23:50 04:58 WBC 12.9 H RBC 2.04 L Hgb 6.6 L Hct 19.9 L* MCV 98 H MCH MCHC RDW 17.2 H Plt Count Lymph % (Auto) Starr % (Auto) Lymph # Starr # Seg Neutrophils % Seg Neutrophils # D-Dimer POC ABG pH POC ABG pCO2 POC ABG pO2 Sodium Chloride Carbon Dioxide BUN Creatinine Glucose POC Glucose 176 H 107 H Lactic Acid Calcium Total Protein Albumin HDL Cholesterol Vitamin B12 Free T4 Crossmatch 12/24/17 12/24/17 12/24/17 05:56 07:16 09:43 WBC 13.5 H RBC 2.08 L Hgb 6.7 L Hct 20.3 L MCV 98 H MCH MCHC RDW 17.3 H Plt Count Lymph % (Auto) Starr % (Auto) Lymph # Starr # Seg Neutrophils % Seg Neutrophils # D-Dimer POC ABG pH POC ABG pCO2 POC ABG pO2 Sodium Chloride Carbon Dioxide BUN Creatinine Glucose POC Glucose 122 H Lactic Acid Calcium Total Protein Albumin HDL Cholesterol Vitamin B12 Free T4 Crossmatch See Detail 12/24/17 12/24/17 12/24/17 12:06 18:55 23:52 WBC 11.3 H RBC 2.35 L Hgb 7.5 L Hct 22.5 L MCV 96 H MCH MCHC RDW 17.3 H Plt Count Lymph % (Auto) Starr % (Auto) Lymph # Starr # Seg Neutrophils % Seg Neutrophils # D-Dimer POC ABG pH POC ABG pCO2 POC ABG pO2 Sodium Chloride Carbon Dioxide BUN Creatinine Glucose POC Glucose 163 H 110 H Lactic Acid Calcium Total Protein Albumin HDL Cholesterol Vitamin B12 Free T4 Crossmatch 12/25/17 12/25/17 12/25/17 04:06 04:06 05:16 WBC RBC 2.35 L Hgb 7.6 L Hct 22.7 L MCV 97 H MCH MCHC RDW 17.7 H Plt Count Lymph % (Auto) Starr % (Auto) Lymph # Starr # Seg Neutrophils % Seg Neutrophils # D-Dimer POC ABG pH POC ABG pCO2 POC ABG pO2 Sodium Chloride Carbon Dioxide 32 H BUN 54 H Creatinine 0.6 L Glucose 101 H POC Glucose 127 H Lactic Acid Calcium 8.2 L Total Protein Albumin HDL Cholesterol Vitamin B12 Free T4 Crossmatch Allied health notes reviewed: nursing
[2017-12-25] MEDS: DepaKENE Liq FEEDTUBE SCH (09:22)
[2017-12-25] MEDS: THERAGRAN Tab PO SCH (09:22)
[2017-12-25] MEDS: KEPPRA PO SCH ×2 (09:22→22:13)
[2017-12-25] MEDS: LOPRESSOR PO SCH (09:23)
[2017-12-25] MEDS: PEPCID PO SCH ×2 (09:23→22:16)
[2017-12-25] MEDS: LASIX PO SCH (09:23)
--- NOTE | 2017-12-25 09:32 | Progress Note ---
Assessment and Plan Assessment: Atrial fibrillation with CVR - chronic per pt's son H/o CAD with PCI per pt report H/o cardiomyopathy with AICD in situ per pt report - EF 35-40% Elevated DDimer - chest CTA negative for PE AMS / acute encephalopathy Seizure disorder Pneumonia - suspected aspiration Acute respiratory failure, s/p intubation Anemia - H/H 7.6/22.7 this AM HTN DM Advanced dementia ? SI/HI - psych team evaluated and signed off AND/DNR code status Plan: Pt's son was contacted by Dr. Miles. Per pt's son, pt has history of chronic AFib and was anticoagulated with Eliquis in the past. However, in setting of current anemia, advanced dementia, seizure disorder, advanced age, ? SI/HI, recommend against resuming systemic anticoagulation at this time. Additionally, pt's son wishes to have pt tx to SNF once medically stable and possibly initiated on hospice. Currently stable cardiac status. Cont present cardiac regimen. Nothing further to add from cardiac perspective at this time. Will follow on as needed basis. Recommend pt follow up with his primary cardiologists in [place], [place] , within 1-2 weeks of hospital discharge. The patient has been seen in conjunction with Dr. Kat who agrees with the assessment and plan of care. Subjective Date of service: 12/25/17 Principal diagnosis: Acute hypercapnic hypoxemic respiratory failure; Acute encephalopathy Interval history: pt resting in bed, appears lethargic and more withdrawn today, no apparent distress. tele reviewed - he remains in AFib with CVR. Objective Last Vital Signs Temp 97.5 F L 12/25/17 04:00 Pulse 78 12/25/17 08:00 Resp 16 12/25/17 08:00 BP 105/44 12/25/17 09:23 Pulse Ox 100 12/25/17 08:09 - Physical Examination General: No Apparent Distress, Other (withdrawn, confused) HEENT: Positive: PERRL, Normocephaly, Mucus Membranes Moist Neck: Positive: neck supple, trachea midline Cardiac: Positive: irregularly irregular, S1/S2 Lungs: Positive: Decreased Breath Sounds Neuro: Positive: Grossly Intact, Other (withdrawn) Skin: Negative: Rash, Wound Musculoskeletal: No Pain Extremities: Absent: edema - Labs and Meds CBC 12/24/17 12/25/17 Range/Units 18:55 04:06 WBC 11.3 H 10.1 (4.5-11.0) K/mm3 RBC 2.35 L 2.35 L (3.65-5.03) M/mm3 Hgb 7.5 L 7.6 L (11.8-15.2) gm/dl Hct 22.5 L 22.7 L (35.5-45.6) % Plt Count 353 356 (140-440) K/mm3 Comprehensive Metabolic Panel 12/25/17 Range/Units 04:06 Sodium 139 (137-145) mmol/L Potassium 4.2 (3.6-5.0) mmol/L Chloride 101.2 (98-107) mmol/L Carbon Dioxide 32 H (22-30) mmol/L BUN 54 H (9-20) mg/dL Creatinine 0.6 L (0.8-1.5) mg/dL Glucose 101 H (75-100) mg/dL Calcium 8.2 L (8.4-10.2) mg/dL - Imaging and Cardiology EKG: report reviewed, image reviewed Echo: report reviewed (12/12/2017 showed mild LVH, EF 35-40%, LA and RA mod dilated, RV mod dilated, RV systolic function mildly reduced, small pericardial effusion. ) - Telemetry EKG Rhythm: Atrial Fibrillation - Allied health notes Allied health notes reviewed: nursing
[2017-12-25] MEDS: FLONASE NS SCH (09:36)
--- NOTE | 2017-12-25 09:50 | Discharge Summary ---
Providers - Providers Date of Admission: 12/12/17 14:17 Attending physician: GERBER HERNANDEZ MD 12/12/17 14:17 Occupational Therapy Evaluate and Treat [CONS] Routine Comment: Reason For Exam: Neuro deficits Physical Therapy Evaluation and Treat [CONS] Routine Comment: Reason For Exam: Neuro deficits 12/12/17 16:33 Consult to Physician [CONS] Routine Comment: LEFT MESSAGE WITH THANIA AT 1659 Consulting Provider: EMELINA ARRIOLA Physician Instructions: Reason For Exam: cva 12/13/17 08:13 Consult to Wound/ET Nurse [CONS] Routine Reason For Exam: wound eval, redness buttock & skin tear left elbow 12/13/17 10:16 Consult to Mental Health [CONS] Routine Reason For Exam: suicidal hx Place consult to:: mental health Notified:: YES Phone number called:: [phone] Was contact made?: No Time called:: 10:45 Comment:: LEFT MESSAGE ON VOICE MAIL ONLY OPTION. [id number] NO ANSWER 12/13/17 12:17 Speech Therapy Evaluation and Treat [CONS] Routine Reason For Exam: Possible stroke 12/15/17 18:34 Consult to Physician [CONS] Routine Comment: Consulting Provider: JOHN VARGHESE Physician Instructions: Reason For Exam: Acute resp failure 12/16/17 12:18 Consult to Dietitian/Nutrition [CONS] Stat Physician Instructions: Reason For Exam: Reason for Consult: Write/Manage Tube Feeding Consult to Physician [CONS] Routine Comment: Consulting Provider: COURTNEY ONEAL Physician Instructions: Reason For Exam: seizure 12/19/17 13:11 Consult to Mental Health [CONS] Routine Reason For Exam: suicide hx Place consult to:: [id number] Notified:: yes Phone number called:: [phone] Was contact made?: Yes If yes, spoke with:: Oni Time called:: 13:12 12/20/17 14:01 Speech Therapy Evaluation and Treat [CONS] Routine Reason For Exam: difficulty w/swallow screen need further evaluatio 12/23/17 12:51 Consult to Physician [CONS] Routine Comment: Consulting Provider: MAYA CULP Physician Instructions: Reason For Exam: Change in rhythm Primary care physician: EMPLOYEE BENEFITS DIRECTOR Hospitalization Condition: Stable Hospital course: 87 YO Male currently an inpatient at [facility] for Suicide Ideation with Dementia, HTN, DM, Psychosis, Cardiomyopathy S/P Pacemaker placement presents to ED for evaluation. Pt is confused and unable to provide history. Pt history taken from ED staff, and [facility] staff. As per staff, the patient was found down and unresponsive this morning shortly after breakfast. EMS notified,and upon arrival the patient was found to be confused. Pt transported to [facility] for further care and evaluation. Pt seen and evaluated in ED and found to have symptoms suspicious for CVA, Encephalopathy, Hyponatremia, and Acidosis. Pt admitted to telemetry and initiated on CVA protocol. Afib-per son, patient known to have Afib and was on anticoagulation prior- Eliquis But not sure as patient also had a hx of bleeding ulcer in the past. -CARDIOLOGY FOLLOWING. - anticoagulation deferred to outpatient cardiology. Due to recent anemia will hold off. Risk discussed with son and patient. Acute blood loss Anemia-good response following a unit of blood Acute encephalopathy With some delirum - Resolving Acute Respiratory failure And is extubated and on when necessary BiPAP Hypotension - Patient was given bolus of IV fluid, blood pressure is normalized Aspiration penumonia - Patient is on IV antibiotics SEIZURE DISORDER - Patient is on Keppra Hyponatremia - Resolved Severe dementia- Likely secondary to alzhimers Alzheimer dementia - Supportive care Metabolic acidosis - Resolved Hypoglycemia - Resolved CODE STATUS: AND Disposition - to SNF once stable - Discussed with son pending discharge Disposition: DC/[place]-03 SN[facility] Time spent for discharge: 35 mins Core Measure Documentation - Palliative Care Palliative Care/ Comfort Measures: Not Applicable - Core Measures Any of the following diagnoses?: none - VTE Discharge Requirements Deep Vein Thrombosis/Pulmonary Embolism Present on Admission: No Exam - Physical Exam Narrative exam: Not in cardiopulmonary distress. The patient appeared well nourished and normally developed. Vital signs as documented. Head exam is unremarkable. No scleral icterus . Neck is without jugular venous distension, thyromegaly, or carotid bruits. Lungs are clear to auscultation. Cardiac exam reveals regular rate and Rhythm. First and second heart sounds normal. No murmurs, rubs or gallops. Abdominal exam reveals normal bowel sounds, no masses, no organomegaly and no aortic enlargement. Extremities are nonedematous and both femoral and pedal pulses are normal. 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 - Constitutional Vitals: Temp Pulse Resp BP Pulse Ox 97.6 F 78 16 105/44 100 12/25/17 08:00 12/25/17 08:00 12/25/17 08:00 12/25/17 09:23 12/25/17 08:09 Plan Activity: advance as tolerated, fall precautions Diet: low salt Special Instructions: record daily BP diary Additional Instructions: repeat HEMOGLOBIN AND HEMATOCRIT IN 2-3 DAYS- SEND REPORT TO PCP Follow up with: CHELLE GURROLA MD [Staff Physician] - 7 Days PRIMARY CARE, [Primary Care Provider] - 3-5 Days COURTNEY ONEAL MD [Staff Physician] - 7 Days Prescriptions: AtorvaSTATin [Lipitor] 40 mg PO QHS #30 tablet Fluticasone [Flonase] 100 mcg NS BID #1 bottle Furosemide [Lasix TAB] 20 mg PO QDAY #30 tablet levETIRAcetam [Keppra TAB] 750 mg PO BID #60 tablet Metoprolol [Lopressor TAB] 12.5 mg PO BID #60 tablet
--- NOTE | 2017-12-25 17:23 | Progress Note ---
Assessment and Plan Assessment and plan: 87 YO Male currently an inpatient at [facility] for Suicide Ideation with Dementia, HTN, DM, Psychosis, Cardiomyopathy S/P Pacemaker placement presents to ED for evaluation. Pt is confused and unable to provide history. Pt history taken from ED staff, and [place] staff. As per staff, the patient was found down and unresponsive this morning shortly after breakfast. EMS notified,and upon arrival the patient was found to be confused. Pt transported to [facility] for further care and evaluation. Pt seen and evaluated in ED and found to have symptoms suspicious for CVA, Encephalopathy, Hyponatremia, and Acidosis. Pt admitted to telemetry and initiated on CVA protocol. Afib-per son, patient known to have Afib and was on anticoagulation prior- Eliquis But not sure as patient also had a hx of bleeding ulcer in the past. -CARDIOLOGY FOLLOWING. Acute blood loss Anemia-good response following a unit of blood Acute encephalopathy - Resolving Acute Respiratory failure And is extubated and on when necessary BiPAP Hypotension - Patient was given bolus of IV fluid, blood pressure is normalized since yesterday Aspiration penumonia - Patient is on IV antibiotics SEIZURE DISORDER - Patient is on Keppra and now severe episode after admission Hyponatremia - Resolved Severe dementia Alzheimer dementia - Supportive care Metabolic acidosis - Resolved Hypoglycemia - Resolved CODE STATUS: AND Disposition - to SNF once stable - Discussed with son pending discharge History Interval history: Patient seen and examined in no acute distress. Resting comfortably Hospitalist Physical - Physical exam Narrative exam: Not in cardiopulmonary distress. The patient appeared well nourished and normally developed. Vital signs as documented. Head exam is unremarkable. No scleral icterus . Neck is without jugular venous distension, thyromegaly, or carotid bruits. Lungs are clear to auscultation. Cardiac exam reveals regular rate and Rhythm. First and second heart sounds normal. No murmurs, rubs or gallops. Abdominal exam reveals normal bowel sounds, no masses, no organomegaly and no aortic enlargement. Extremities are nonedematous and both femoral and pedal pulses are normal. RN NICU: Patient is communicative, answers questions appropriately. Delayed speech today - Constitutional Vitals: Temp Pulse Resp BP Pulse Ox 98.4 F 72 17 98/45 99 12/25/17 12:00 12/25/17 16:00 12/25/17 16:00 12/25/17 16:00 12/25/17 16:00 General appearance: Present: no acute distress Results - Labs CBC & Chem 7: 12/25/17 04:06 12/25/17 04:06 Labs: Laboratory Last Values WBC 10.1 K/mm3 (4.5-11.0) 12/25/17 04:06 RBC 2.35 M/mm3 (3.65-5.03) L 12/25/17 04:06 Hgb 7.6 gm/dl (11.8-15.2) L 12/25/17 04:06 Hct 22.7 % (35.5-45.6) L 12/25/17 04:06 MCV 97 fl (84-94) H 12/25/17 04:06 MCH 32 pg (28-32) 12/25/17 04:06 MCHC 34 % (32-34) 12/25/17 04:06 RDW 17.7 % (13.2-15.2) H 12/25/17 04:06 Plt Count 356 K/mm3 (140-440) 12/25/17 04:06 Lymph % (Auto) 16.8 % (13.4-35.0) 12/23/17 13:36 [place] % (Auto) 8.5 % (0.0-7.3) H 12/23/17 13:36 Eos % (Auto) 1.7 % (0.0-4.3) 12/23/17 13:36 Baso % (Auto) 0.6 % (0.0-1.8) 12/23/17 13:36 Lymph # 1.9 K/mm3 (1.2-5.4) 12/23/17 13:36 [place] # 0.9 K/mm3 (0.0-0.8) H 12/23/17 13:36 Eos # 0.2 K/mm3 (0.0-0.4) 12/23/17 13:36 Baso # 0.1 K/mm3 (0.0-0.1) 12/23/17 13:36 Seg Neutrophils % 72.4 % (40.0-70.0) H 12/23/17 13:36 Seg Neutrophils # 8.0 K/mm3 (1.8-7.7) H 12/23/17 13:36 D-Dimer 389.72 ng/mlDDU (0-234) H 12/12/17 12:34 POC ABG pH 7.411 (7.35-7.45) 12/18/17 12:51 POC ABG pCO2 46.4 (35-45) H 12/18/17 12:51 POC ABG pO2 131 (80-105) H 12/18/17 12:51 POC ABG HCO3 29.4 12/18/17 12:51 POC ABG Total CO2 31 12/18/17 12:51 POC ABG O2 Sat 99 12/18/17 12:51 POC ABG Base Excess 5 12/18/17 12:51 FiO2 28 % 12/18/17 12:51 Sodium 139 mmol/L (137-145) 12/25/17 04:06 Potassium 4.2 mmol/L (3.6-5.0) 12/25/17 04:06 Chloride 101.2 mmol/L (98-107) 12/25/17 04:06 Carbon Dioxide 32 mmol/L (22-30) H 12/25/17 04:06 Anion Gap 10 mmol/L 12/25/17 04:06 BUN 54 mg/dL (9-20) H 12/25/17 04:06 Creatinine 0.6 mg/dL (0.8-1.5) L 12/25/17 04:06 Estimated GFR > 60 ml/min 12/25/17 04:06 BUN/Creatinine Ratio 90 % 12/25/17 04:06 Glucose 101 mg/dL (75-100) H 12/25/17 04:06 POC Glucose 146 (70-105) H 12/25/17 12:03 Lactic Acid 1.10 mmol/L (0.7-2.0) 12/13/17 12:22 Calcium 8.2 mg/dL (8.4-10.2) L 12/25/17 04:06 Total Bilirubin 0.90 mg/dL (0.1-1.2) 12/12/17 10:50 AST 32 units/L (5-40) 12/12/17 10:50 ALT 31 units/L (7-56) 12/12/17 10:50 Alkaline Phosphatase 110 units/L (35-129) 12/12/17 10:50 Ammonia 55.0 umol/L (25-60) 12/12/17 10:50 Troponin T < 0.010 ng/mL (0.00-0.029) 12/12/17 18:35 Total Protein 6.1 g/dL (6.3-8.2) L 12/12/17 10:50 Albumin 3.2 g/dL (3.9-5) L 12/12/17 10:50 Albumin/Globulin Ratio 1.1 % 12/12/17 10:50 Triglycerides 76 mg/dL (2-149) 12/13/17 03:38 Cholesterol 125 mg/dL (50-199) 12/13/17 03:38 LDL Cholesterol Direct 57 mg/dL (50-130) 12/13/17 03:38 HDL Cholesterol 70 mg/dL (40-59) H 12/13/17 03:38 Cholesterol/HDL Ratio 1.78 % 12/13/17 03:38 Vitamin B12 > 2000 pg/mL (211-911) H 12/12/17 19:58 TSH 2.470 mlU/mL (0.270-4.200) 12/12/17 19:58 Free T4 1.60 ng/dL (0.76-1.46) H 12/12/17 19:58 Urine Color Yellow (Yellow) 12/12/17 Unknown Urine Turbidity Clear (Clear) 12/12/17 Unknown Urine pH 6.0 (5.0-7.0) 12/12/17 Unknown Ur Specific [place] 1.009 (1.003-1.030) 12/12/17 Unknown Urine Protein <15 mg/dl mg/dL (Negative) 12/12/17 Unknown Urine Glucose (UA) Neg mg/dL (Negative) 12/12/17 Unknown Urine Ketones Neg mg/dL (Negative) 12/12/17 Unknown Urine Blood Neg (Negative) 12/12/17 Unknown Urine Nitrite Neg (Negative) 12/12/17 Unknown Urine Bilirubin Neg (Negative) 12/12/17 Unknown Urine Urobilinogen 2.0 mg/dL (<2.0) 12/12/17 Unknown Ur Leukocyte Esterase Tr (Negative) 12/12/17 Unknown Urine WBC (Auto) 3.0 /HPF (0.0-6.0) 12/12/17 Unknown Urine RBC (Auto) 5.0 /HPF (0.0-6.0) 12/12/17 Unknown U Epithel Cells (Auto) < 1.0 /HPF (0-13.0) 12/12/17 Unknown Urine Mucus Few /HPF 12/12/17 Unknown Blood Type O POSITIVE 12/24/17 09:43 Antibody Screen Negative 12/24/17 09:43 Crossmatch See Detail 12/24/17 09:43
[2017-12-25] MEDS: ARICEPT PO SCH (22:13)
[2017-12-26] MEDS: LOPRESSOR PO SCH ×3 (07:10→23:36)
[2017-12-26] MEDS: FLONASE NS SCH ×3 (07:10→23:40)
--- NOTE | 2017-12-26 09:02 | Progress Note ---
Assessment and Plan Assessment and plan: 87 YO Male currently an inpatient at [facility] for Suicide Ideation with Dementia, HTN, DM, Psychosis, Cardiomyopathy S/P Pacemaker placement presents to ED for evaluation. Pt is confused and unable to provide history. Pt history taken from ED staff, and [place] staff. As per staff, the patient was found down and unresponsive this morning shortly after breakfast. EMS notified,and upon arrival the patient was found to be confused. Pt transported to [facility] for further care and evaluation. Pt seen and evaluated in ED and found to have symptoms suspicious for CVA, Encephalopathy, Hyponatremia, and Acidosis. Pt admitted to telemetry and initiated on CVA protocol. Afib-per son, patient known to have Afib and was on anticoagulation prior- Eliquis But not sure as patient also had a hx of bleeding ulcer in the past. -CARDIOLOGY FOLLOWING. - anticoagulation deferred to outpatient cardiology. Due to recent anemia will hold off. Risk discussed with son and patient. Acute blood loss Anemia-good response following a unit of blood Acute encephalopathy - Resolving Acute Respiratory failure And is extubated and on when necessary BiPAP Hypotension - Patient was given bolus of IV fluid, blood pressure is normalized since yesterday Aspiration penumonia - Patient is on IV antibiotics SEIZURE DISORDER - Patient is on Keppra and now severe episode after admission Hyponatremia - Resolved Severe dementia Alzheimer dementia - Supportive care Metabolic acidosis - Resolved Hypoglycemia - Resolved CODE STATUS: AND Disposition - to SNF once stable - Discussed with son pending discharge History Interval history: Patient seen and examined in no acute distress. Resting comfortably, No new complaints Hospitalist Physical - Physical exam Narrative exam: Not in cardiopulmonary distress. The patient appeared well nourished and normally developed. Vital signs as documented. Head exam is unremarkable. No scleral icterus . Neck is without jugular venous distension, thyromegaly, or carotid bruits. Lungs are clear to auscultation. Cardiac exam reveals regular rate and Rhythm. First and second heart sounds normal. No murmurs, rubs or gallops. Abdominal exam reveals normal bowel sounds, no masses, no organomegaly and no aortic enlargement. Extremities are nonedematous and both femoral and pedal pulses are normal. GALLERY INTERN: Patient is communicative, answers questions appropriately. Delayed speech today - Constitutional Vitals: Temp Pulse Resp BP Pulse Ox 97.8 F 82 16 102/51 98 12/26/17 08:00 12/26/17 08:00 12/26/17 08:00 12/26/17 08:00 12/26/17 08:00 General appearance: Present: no acute distress Results - Labs CBC & Chem 7: 12/25/17 04:06 12/25/17 04:06 Labs: Laboratory Last Values WBC 10.1 K/mm3 (4.5-11.0) 12/25/17 04:06 RBC 2.35 M/mm3 (3.65-5.03) L 12/25/17 04:06 Hgb 7.6 gm/dl (11.8-15.2) L 12/25/17 04:06 Hct 22.7 % (35.5-45.6) L 12/25/17 04:06 MCV 97 fl (84-94) H 12/25/17 04:06 MCH 32 pg (28-32) 12/25/17 04:06 MCHC 34 % (32-34) 12/25/17 04:06 RDW 17.7 % (13.2-15.2) H 12/25/17 04:06 Plt Count 356 K/mm3 (140-440) 12/25/17 04:06 Lymph % (Auto) 16.8 % (13.4-35.0) 12/23/17 13:36 [place] % (Auto) 8.5 % (0.0-7.3) H 12/23/17 13:36 Eos % (Auto) 1.7 % (0.0-4.3) 12/23/17 13:36 Baso % (Auto) 0.6 % (0.0-1.8) 12/23/17 13:36 Lymph # 1.9 K/mm3 (1.2-5.4) 12/23/17 13:36 [place] # 0.9 K/mm3 (0.0-0.8) H 12/23/17 13:36 Eos # 0.2 K/mm3 (0.0-0.4) 12/23/17 13:36 Baso # 0.1 K/mm3 (0.0-0.1) 12/23/17 13:36 Seg Neutrophils % 72.4 % (40.0-70.0) H 12/23/17 13:36 Seg Neutrophils # 8.0 K/mm3 (1.8-7.7) H 12/23/17 13:36 D-Dimer 389.72 ng/mlDDU (0-234) H 12/12/17 12:34 POC ABG pH 7.411 (7.35-7.45) 12/18/17 12:51 POC ABG pCO2 46.4 (35-45) H 12/18/17 12:51 POC ABG pO2 131 (80-105) H 12/18/17 12:51 POC ABG HCO3 29.4 12/18/17 12:51 POC ABG Total CO2 31 12/18/17 12:51 POC ABG O2 Sat 99 12/18/17 12:51 POC ABG Base Excess 5 12/18/17 12:51 FiO2 28 % 12/18/17 12:51 Sodium 139 mmol/L (137-145) 12/25/17 04:06 Potassium 4.2 mmol/L (3.6-5.0) 12/25/17 04:06 Chloride 101.2 mmol/L (98-107) 12/25/17 04:06 Carbon Dioxide 32 mmol/L (22-30) H 12/25/17 04:06 Anion Gap 10 mmol/L 12/25/17 04:06 BUN 54 mg/dL (9-20) H 12/25/17 04:06 Creatinine 0.6 mg/dL (0.8-1.5) L 12/25/17 04:06 Estimated GFR > 60 ml/min 12/25/17 04:06 BUN/Creatinine Ratio 90 % 12/25/17 04:06 Glucose 101 mg/dL (75-100) H 12/25/17 04:06 POC Glucose 113 (70-105) H 12/26/17 04:51 Lactic Acid 1.10 mmol/L (0.7-2.0) 12/13/17 12:22 Calcium 8.2 mg/dL (8.4-10.2) L 12/25/17 04:06 Total Bilirubin 0.90 mg/dL (0.1-1.2) 12/12/17 10:50 AST 32 units/L (5-40) 12/12/17 10:50 ALT 31 units/L (7-56) 12/12/17 10:50 Alkaline Phosphatase 110 units/L (35-129) 12/12/17 10:50 Ammonia 55.0 umol/L (25-60) 12/12/17 10:50 Troponin T < 0.010 ng/mL (0.00-0.029) 12/12/17 18:35 Total Protein 6.1 g/dL (6.3-8.2) L 12/12/17 10:50 Albumin 3.2 g/dL (3.9-5) L 12/12/17 10:50 Albumin/Globulin Ratio 1.1 % 12/12/17 10:50 Triglycerides 76 mg/dL (2-149) 12/13/17 03:38 Cholesterol 125 mg/dL (50-199) 12/13/17 03:38 LDL Cholesterol Direct 57 mg/dL (50-130) 12/13/17 03:38 HDL Cholesterol 70 mg/dL (40-59) H 12/13/17 03:38 Cholesterol/HDL Ratio 1.78 % 12/13/17 03:38 Vitamin B12 > 2000 pg/mL (211-911) H 12/12/17 19:58 TSH 2.470 mlU/mL (0.270-4.200) 12/12/17 19:58 Free T4 1.60 ng/dL (0.76-1.46) H 12/12/17 19:58 Urine Color Yellow (Yellow) 12/12/17 Unknown Urine Turbidity Clear (Clear) 12/12/17 Unknown Urine pH 6.0 (5.0-7.0) 12/12/17 Unknown Ur Specific [place] 1.009 (1.003-1.030) 12/12/17 Unknown Urine Protein <15 mg/dl mg/dL (Negative) 12/12/17 Unknown Urine Glucose (UA) Neg mg/dL (Negative) 12/12/17 Unknown Urine Ketones Neg mg/dL (Negative) 12/12/17 Unknown Urine Blood Neg (Negative) 12/12/17 Unknown Urine Nitrite Neg (Negative) 12/12/17 Unknown Urine Bilirubin Neg (Negative) 12/12/17 Unknown Urine Urobilinogen 2.0 mg/dL (<2.0) 12/12/17 Unknown Ur Leukocyte Esterase Tr (Negative) 12/12/17 Unknown Urine WBC (Auto) 3.0 /HPF (0.0-6.0) 12/12/17 Unknown Urine RBC (Auto) 5.0 /HPF (0.0-6.0) 12/12/17 Unknown U Epithel Cells (Auto) < 1.0 /HPF (0-13.0) 12/12/17 Unknown Urine Mucus Few /HPF 12/12/17 Unknown Blood Type O POSITIVE 12/24/17 09:43 Antibody Screen Negative 12/24/17 09:43 Crossmatch See Detail 12/24/17 09:43
[2017-12-26] MEDS: KEPPRA PO SCH ×2 (09:25→23:37)
[2017-12-26] MEDS: PEPCID PO SCH ×2 (09:27→23:34)
[2017-12-26] MEDS: DepaKENE Liq FEEDTUBE SCH (09:27)
[2017-12-26] MEDS: THERAGRAN Tab PO SCH (09:27)
[2017-12-26] MEDS: LASIX PO SCH (09:27)
--- NOTE | 2017-12-26 09:29 | Progress Note ---
Assessment and Plan Acute hypercapnic hypoxemic respiratory failure, now on mechanical ventilatory support. Acute encephalopathy, presumably related to the hypercapnia. Hyponatremia, moderate at presentation, resolving. Respiratory acidosis. Thrombocytopenia at presentation, now resolved. Elevated D-dimer with negative CT angiogram. Cardiomyopathy, heart failure with reduced ejection fraction. Lactic acidosis at presentation, resolved. Hypoalbuminemia. - supplemental oxygen as needed to keep sats > 90% - prn BIPAP scheduled qhs with prn daytime use - continue aspiration precautions - complete AB's course - continue enteral nutrition as tolerated - d/c planning per attending and ongoing concurrently ..... re-evaluate in am & prn Subjective Date of service: 12/26/17 Principal diagnosis: Acute hypercapnic hypoxemic respiratory failure; Acute encephalopathy Interval history: Patient is seen today for: Acute hypercapnic hypoxemic respiratory failure s/p MVS; Acute encephalopathy; Hyponatremia; Respiratory acidosis; Thrombocytopenia Seen and examined at bedside; 24hour events reviewed; nursing and respiratory care staff consulted; no adverse overnight events reported to me; resting in bed ; appears to answer "no" when asked about pain or increased Objective Vital Signs - 12hr 12/25/17 12/26/17 12/26/17 23:59 00:00 04:00 Temperature 97.3 F L 97.5 F L Pulse Rate 82 79 82 Respiratory 18 16 18 Rate Blood Pressure 101/53 O2 Sat by Pulse 100 100 98 Oximetry 12/26/17 08:00 Temperature 97.8 F Pulse Rate 82 Respiratory 16 Rate Blood Pressure 102/51 O2 Sat by Pulse 98 Oximetry Constitutional: no acute distress, alert, other (elderly looking CM, normocephalic and atraumatic. Encephalopathic. weak.) Eyes: non-icteric ENT: oropharynx moist, other (Mallampati 2) Neck: supple, no lymphadenopathy, no JVD, other (No thyromegaly) Effort: mildly labored Ascultation: Bilateral: diminished breath sounds, rhonchi (bases) Percussion: Bilateral: not dull Cardiovascular: irregular rhythm, murmur noted (systolic) Gastrointestinal: normoactive bowel sounds, soft, non-tender, non-distended, other (No HSM) Integumentary: normal Extremities: no cyanosis, no edema, pink and warm, pulses normal Neurologic: non-focal exam (grossly), pupils equal and round, motor strength normal and Psychiatric: other (flat affect) CBC and BMP: 12/25/17 04:06 12/25/17 04:06 ABG, PT/INR, D-dimer: ABG POC ABG pH 7.411 (7.35-7.45) 12/18/17 12:51 POC ABG pCO2 46.4 (35-45) H 12/18/17 12:51 POC ABG pO2 131 (80-105) H 12/18/17 12:51 POC ABG HCO3 29.4 12/18/17 12:51 POC ABG Total CO2 31 12/18/17 12:51 POC ABG O2 Sat 99 12/18/17 12:51 PT/INR, D-dimer D-Dimer 389.72 ng/mlDDU (0-234) H 12/12/17 12:34 Abnormal lab findings: Abnormal Labs 12/12/17 12/12/17 12/12/17 10:50 10:50 10:50 WBC RBC Hgb Hct MCV MCH MCHC 35 H RDW 16.5 H Plt Count 139 L Lymph % (Auto) 11.9 L [place] % (Auto) 11.8 H Lymph # 0.8 L [place] # Seg Neutrophils % 74.6 H Seg Neutrophils # D-Dimer POC ABG pH POC ABG pCO2 POC ABG pO2 Sodium 124 L Chloride 88.0 L Carbon Dioxide BUN Creatinine 0.5 L Glucose 106 H POC Glucose Lactic Acid 3.60 H* Calcium Total Protein 6.1 L Albumin 3.2 L HDL Cholesterol Vitamin B12 Free T4 Crossmatch 12/12/17 12/12/17 12/12/17 12:08 12:34 19:58 WBC RBC Hgb Hct MCV MCH MCHC RDW Plt Count Lymph % (Auto) [place] % (Auto) Lymph # [place] # Seg Neutrophils % Seg Neutrophils # D-Dimer 389.72 H POC ABG pH POC ABG pCO2 POC ABG pO2 Sodium Chloride Carbon Dioxide BUN Creatinine Glucose POC Glucose Lactic Acid 2.30 H* Calcium Total Protein Albumin HDL Cholesterol Vitamin B12 Free T4 1.60 H Crossmatch 12/12/17 12/13/17 12/13/17 19:58 03:38 12:22 WBC RBC Hgb Hct MCV MCH MCHC 35 H RDW 16.6 H Plt Count 125 L Lymph % (Auto) 11.3 L [place] % (Auto) 10.1 H Lymph # 1.0 L [place] # 0.9 H Seg Neutrophils % 76.5 H Seg Neutrophils # D-Dimer POC ABG pH POC ABG pCO2 POC ABG pO2 Sodium Chloride Carbon Dioxide BUN Creatinine Glucose POC Glucose Lactic Acid Calcium Total Protein Albumin HDL Cholesterol 70 H Vitamin B12 > 2000 H Free T4 Crossmatch 12/13/17 12/14/17 12/14/17 12:22 04:47 04:47 WBC RBC Hgb Hct MCV MCH MCHC 35 H RDW 16.8 H Plt Count Lymph % (Auto) [place] % (Auto) Lymph # [place] # Seg Neutrophils % Seg Neutrophils # D-Dimer POC ABG pH POC ABG pCO2 POC ABG pO2 Sodium 130 L 133 L Chloride 90.3 L 91.4 L Carbon Dioxide BUN 28 H Creatinine 0.4 L 0.4 L Glucose 69 L 59 L POC Glucose Lactic Acid Calcium Total Protein Albumin HDL Cholesterol Vitamin B12 Free T4 Crossmatch 12/15/17 12/15/17 12/15/17 17:48 18:04 20:01 WBC RBC Hgb Hct MCV MCH MCHC RDW Plt Count Lymph % (Auto) [place] % (Auto) Lymph # [place] # Seg Neutrophils % Seg Neutrophils # D-Dimer POC ABG pH 7.084 L POC ABG pCO2 82.8 H 52.2 H POC ABG pO2 106 H 502 H Sodium Chloride Carbon Dioxide BUN Creatinine Glucose POC Glucose 108 H Lactic Acid Calcium Total Protein Albumin HDL Cholesterol Vitamin B12 Free T4 Crossmatch 12/16/17 12/16/17 12/16/17 05:56 16:00 17:41 WBC RBC Hgb Hct MCV MCH MCHC RDW Plt Count Lymph % (Auto) [place] % (Auto) Lymph # [place] # Seg Neutrophils % Seg Neutrophils # D-Dimer POC ABG pH 7.495 H POC ABG pCO2 31.7 L POC ABG pO2 112 H 133 H Sodium Chloride Carbon Dioxide BUN Creatinine Glucose POC Glucose 106 H Lactic Acid Calcium Total Protein Albumin HDL Cholesterol Vitamin B12 Free T4 Crossmatch 12/16/17 12/16/17 12/16/17 18:55 18:55 22:48 WBC 13.6 H RBC Hgb Hct MCV MCH MCHC RDW 16.4 H Plt Count Lymph % (Auto) 8.7 L [place] % (Auto) 8.6 H Lymph # [place] # 1.2 H Seg Neutrophils % 82.1 H Seg Neutrophils # 11.2 H D-Dimer POC ABG pH POC ABG pCO2 POC ABG pO2 Sodium 131 L Chloride Carbon Dioxide 20 L D BUN 30 H Creatinine 0.5 L Glucose 118 H POC Glucose 121 H Lactic Acid Calcium Total Protein Albumin HDL Cholesterol Vitamin B12 Free T4 Crossmatch 12/17/17 12/17/17 12/18/17 04:35 04:35 04:40 WBC RBC 3.46 L 3.40 L Hgb 11.0 L 11.0 L Hct 32.4 L 31.8 L MCV MCH MCHC 35 H RDW 17.0 H 16.9 H Plt Count 131 L 137 L Lymph % (Auto) [place] % (Auto) 10.6 H Lymph # [place] # Seg Neutrophils % Seg Neutrophils # D-Dimer POC ABG pH POC ABG pCO2 POC ABG pO2 Sodium 132 L Chloride 97.8 L Carbon Dioxide BUN 28 H Creatinine 0.5 L Glucose POC Glucose Lactic Acid Calcium 8.3 L Total Protein Albumin HDL Cholesterol Vitamin B12 Free T4 Crossmatch 12/18/17 12/18/17 12/18/17 04:40 12:51 17:18 WBC RBC Hgb Hct MCV MCH MCHC RDW Plt Count Lymph % (Auto) [place] % (Auto) Lymph # [place] # Seg Neutrophils % Seg Neutrophils # D-Dimer POC ABG pH POC ABG pCO2 46.4 H POC ABG pO2 131 H Sodium Chloride Carbon Dioxide BUN 30 H Creatinine 0.5 L Glucose POC Glucose 109 H Lactic Acid Calcium 8.3 L Total Protein Albumin HDL Cholesterol Vitamin B12 Free T4 Crossmatch 12/22/17 12/22/17 12/23/17 05:49 11:43 06:45 WBC RBC Hgb Hct MCV MCH MCHC RDW Plt Count Lymph % (Auto) [place] % (Auto) Lymph # [place] # Seg Neutrophils % Seg Neutrophils # D-Dimer POC ABG pH POC ABG pCO2 POC ABG pO2 Sodium Chloride Carbon Dioxide BUN Creatinine Glucose POC Glucose 112 H 120 H 138 H Lactic Acid Calcium Total Protein Albumin HDL Cholesterol Vitamin B12 Free T4 Crossmatch 12/23/17 12/23/17 12/23/17 12:05 13:36 13:36 WBC RBC 2.24 L Hgb 7.3 L Hct 21.4 L MCV 95 H MCH 33 H MCHC RDW 16.7 H Plt Count Lymph % (Auto) [place] % (Auto) 8.5 H Lymph # [place] # 0.9 H Seg Neutrophils % 72.4 H Seg Neutrophils # 8.0 H D-Dimer POC ABG pH POC ABG pCO2 POC ABG pO2 Sodium Chloride Carbon Dioxide BUN 61 H Creatinine 0.5 L Glucose 138 H POC Glucose 145 H Lactic Acid Calcium Total Protein Albumin HDL Cholesterol Vitamin B12 Free T4 Crossmatch 12/23/17 12/23/17 12/24/17 18:03 23:50 04:58 WBC 12.9 H RBC 2.04 L Hgb 6.6 L Hct 19.9 L* MCV 98 H MCH MCHC RDW 17.2 H Plt Count Lymph % (Auto) [place] % (Auto) Lymph # [place] # Seg Neutrophils % Seg Neutrophils # D-Dimer POC ABG pH POC ABG pCO2 POC ABG pO2 Sodium Chloride Carbon Dioxide BUN Creatinine Glucose POC Glucose 176 H 107 H Lactic Acid Calcium Total Protein Albumin HDL Cholesterol Vitamin B12 Free T4 Crossmatch 12/24/17 12/24/17 12/24/17 05:56 07:16 09:43 WBC 13.5 H RBC 2.08 L Hgb 6.7 L Hct 20.3 L MCV 98 H MCH MCHC RDW 17.3 H Plt Count Lymph % (Auto) [place] % (Auto) Lymph # [place] # Seg Neutrophils % Seg Neutrophils # D-Dimer POC ABG pH POC ABG pCO2 POC ABG pO2 Sodium Chloride Carbon Dioxide BUN Creatinine Glucose POC Glucose 122 H Lactic Acid Calcium Total Protein Albumin HDL Cholesterol Vitamin B12 Free T4 Crossmatch See Detail 12/24/17 12/24/17 12/24/17 12:06 18:55 23:52 WBC 11.3 H RBC 2.35 L Hgb 7.5 L Hct 22.5 L MCV 96 H MCH MCHC RDW 17.3 H Plt Count Lymph % (Auto) [place] % (Auto) Lymph # [place] # Seg Neutrophils % Seg Neutrophils # D-Dimer POC ABG pH POC ABG pCO2 POC ABG pO2 Sodium Chloride Carbon Dioxide BUN Creatinine Glucose POC Glucose 163 H 110 H Lactic Acid Calcium Total Protein Albumin HDL Cholesterol Vitamin B12 Free T4 Crossmatch 12/25/17 12/25/17 12/25/17 04:06 04:06 05:16 WBC RBC 2.35 L Hgb 7.6 L Hct 22.7 L MCV 97 H MCH MCHC RDW 17.7 H Plt Count Lymph % (Auto) [place] % (Auto) Lymph # [place] # Seg Neutrophils % Seg Neutrophils # D-Dimer POC ABG pH POC ABG pCO2 POC ABG pO2 Sodium Chloride Carbon Dioxide 32 H BUN 54 H Creatinine 0.6 L Glucose 101 H POC Glucose 127 H Lactic Acid Calcium 8.2 L Total Protein Albumin HDL Cholesterol Vitamin B12 Free T4 Crossmatch 12/25/17 12/25/17 12/25/17 12:03 18:10 23:38 WBC RBC Hgb Hct MCV MCH MCHC RDW Plt Count Lymph % (Auto) [place] % (Auto) Lymph # [place] # Seg Neutrophils % Seg Neutrophils # D-Dimer POC ABG pH POC ABG pCO2 POC ABG pO2 Sodium Chloride Carbon Dioxide BUN Creatinine Glucose POC Glucose 146 H 152 H 124 H Lactic Acid Calcium Total Protein Albumin HDL Cholesterol Vitamin B12 Free T4 Crossmatch 12/26/17 04:51 WBC RBC Hgb Hct MCV MCH MCHC RDW Plt Count Lymph % (Auto) [place] % (Auto) Lymph # [place] # Seg Neutrophils % Seg Neutrophils # D-Dimer POC ABG pH POC ABG pCO2 POC ABG pO2 Sodium Chloride Carbon Dioxide BUN Creatinine Glucose POC Glucose 113 H Lactic Acid Calcium Total Protein Albumin HDL Cholesterol Vitamin B12 Free T4 Crossmatch Allied health notes reviewed: nursing
[2017-12-26] MEDS: ARICEPT PO SCH (23:34)
--- NOTE | 2017-12-27 08:44 | Progress Note ---
Assessment and Plan Patient awake but confused. Resting on 3 litres O2.O2 saturation 100%. No acute respiratory distress. Patient encephalopathic. - Patient Problems (1) CVA (cerebral vascular accident) Current Visit: Yes Status: Acute Qualifiers: Precerebral and cerebral artery: posterior cerebral artery Laterality of affected vessel: unspecified Plan to address problem: Management as per neurology. (2) Encephalopathy Current Visit: Yes Status: Acute Plan to address problem: management as per primary care and neurology. (3) Left lower lobe pulmonary infiltrate Current Visit: Yes Status: Acute Plan to address problem: Improved. Patient was treated with Zithromax and ceftrioxone. Subjective Date of service: 12/27/17 Principal diagnosis: Acute hypercapnic hypoxemic respiratory failure; Acute encephalopathy Interval history: Patient awake but confused. Resting on 3 litres O2.O2 saturation 100%. No acute respiratory distress. Patient encephalopathic. Objective Vital Signs - 12hr 12/26/17 12/26/17 12/27/17 22:46 23:36 00:00 Temperature 97.8 F Pulse Rate 80 80 82 Respiratory 20 18 Rate Blood Pressure 106/46 Blood Pressure 106/46 [Left] O2 Sat by Pulse 96 100 Oximetry Constitutional: no acute distress, alert, other (elderly looking CM, normocephalic and atraumatic. Encephalopathic. weak.) Eyes: non-icteric ENT: oropharynx moist, other (Mallampati 2) Neck: supple, no lymphadenopathy, no JVD, other (No thyromegaly) Effort: mildly labored Ascultation: Bilateral: diminished breath sounds, rhonchi (bases) Percussion: Bilateral: not dull Cardiovascular: irregular rhythm, murmur noted (systolic) Gastrointestinal: normoactive bowel sounds, soft, non-tender, non-distended, other (No HSM) Integumentary: normal Extremities: no cyanosis, no edema, pink and warm, pulses normal Neurologic: non-focal exam (grossly), pupils equal and round, motor strength normal and Psychiatric: other (flat affect) CBC and BMP: 12/25/17 04:06 12/25/17 04:06 ABG, PT/INR, D-dimer: ABG POC ABG pH 7.411 (7.35-7.45) 12/18/17 12:51 POC ABG pCO2 46.4 (35-45) H 12/18/17 12:51 POC ABG pO2 131 (80-105) H 12/18/17 12:51 POC ABG HCO3 29.4 12/18/17 12:51 POC ABG Total CO2 31 12/18/17 12:51 POC ABG O2 Sat 99 12/18/17 12:51 PT/INR, D-dimer D-Dimer 389.72 ng/mlDDU (0-234) H 12/12/17 12:34 Abnormal lab findings: Abnormal Labs 12/12/17 12/12/17 12/12/17 10:50 10:50 10:50 WBC RBC Hgb Hct MCV MCH MCHC 35 H RDW 16.5 H Plt Count 139 L Lymph % (Auto) 11.9 L [place] % (Auto) 11.8 H Lymph # 0.8 L [place] # Seg Neutrophils % 74.6 H Seg Neutrophils # D-Dimer POC ABG pH POC ABG pCO2 POC ABG pO2 Sodium 124 L Chloride 88.0 L Carbon Dioxide BUN Creatinine 0.5 L Glucose 106 H POC Glucose Lactic Acid 3.60 H* Calcium Total Protein 6.1 L Albumin 3.2 L HDL Cholesterol Vitamin B12 Free T4 Crossmatch 12/12/17 12/12/17 12/12/17 12:08 12:34 19:58 WBC RBC Hgb Hct MCV MCH MCHC RDW Plt Count Lymph % (Auto) [place] % (Auto) Lymph # [place] # Seg Neutrophils % Seg Neutrophils # D-Dimer 389.72 H POC ABG pH POC ABG pCO2 POC ABG pO2 Sodium Chloride Carbon Dioxide BUN Creatinine Glucose POC Glucose Lactic Acid 2.30 H* Calcium Total Protein Albumin HDL Cholesterol Vitamin B12 Free T4 1.60 H Crossmatch 12/12/17 12/13/17 12/13/17 19:58 03:38 12:22 WBC RBC Hgb Hct MCV MCH MCHC 35 H RDW 16.6 H Plt Count 125 L Lymph % (Auto) 11.3 L [place] % (Auto) 10.1 H Lymph # 1.0 L [place] # 0.9 H Seg Neutrophils % 76.5 H Seg Neutrophils # D-Dimer POC ABG pH POC ABG pCO2 POC ABG pO2 Sodium Chloride Carbon Dioxide BUN Creatinine Glucose POC Glucose Lactic Acid Calcium Total Protein Albumin HDL Cholesterol 70 H Vitamin B12 > 2000 H Free T4 Crossmatch 12/13/17 12/14/17 12/14/17 12:22 04:47 04:47 WBC RBC Hgb Hct MCV MCH MCHC 35 H RDW 16.8 H Plt Count Lymph % (Auto) [place] % (Auto) Lymph # [place] # Seg Neutrophils % Seg Neutrophils # D-Dimer POC ABG pH POC ABG pCO2 POC ABG pO2 Sodium 130 L 133 L Chloride 90.3 L 91.4 L Carbon Dioxide BUN 28 H Creatinine 0.4 L 0.4 L Glucose 69 L 59 L POC Glucose Lactic Acid Calcium Total Protein Albumin HDL Cholesterol Vitamin B12 Free T4 Crossmatch 12/15/17 12/15/17 12/15/17 17:48 18:04 20:01 WBC RBC Hgb Hct MCV MCH MCHC RDW Plt Count Lymph % (Auto) [place] % (Auto) Lymph # [place] # Seg Neutrophils % Seg Neutrophils # D-Dimer POC ABG pH 7.084 L POC ABG pCO2 82.8 H 52.2 H POC ABG pO2 106 H 502 H Sodium Chloride Carbon Dioxide BUN Creatinine Glucose POC Glucose 108 H Lactic Acid Calcium Total Protein Albumin HDL Cholesterol Vitamin B12 Free T4 Crossmatch 12/16/17 12/16/17 12/16/17 05:56 16:00 17:41 WBC RBC Hgb Hct MCV MCH MCHC RDW Plt Count Lymph % (Auto) [place] % (Auto) Lymph # [place] # Seg Neutrophils % Seg Neutrophils # D-Dimer POC ABG pH 7.495 H POC ABG pCO2 31.7 L POC ABG pO2 112 H 133 H Sodium Chloride Carbon Dioxide BUN Creatinine Glucose POC Glucose 106 H Lactic Acid Calcium Total Protein Albumin HDL Cholesterol Vitamin B12 Free T4 Crossmatch 12/16/17 12/16/17 12/16/17 18:55 18:55 22:48 WBC 13.6 H RBC Hgb Hct MCV MCH MCHC RDW 16.4 H Plt Count Lymph % (Auto) 8.7 L [place] % (Auto) 8.6 H Lymph # [place] # 1.2 H Seg Neutrophils % 82.1 H Seg Neutrophils # 11.2 H D-Dimer POC ABG pH POC ABG pCO2 POC ABG pO2 Sodium 131 L Chloride Carbon Dioxide 20 L D BUN 30 H Creatinine 0.5 L Glucose 118 H POC Glucose 121 H Lactic Acid Calcium Total Protein Albumin HDL Cholesterol Vitamin B12 Free T4 Crossmatch 12/17/17 12/17/17 12/18/17 04:35 04:35 04:40 WBC RBC 3.46 L 3.40 L Hgb 11.0 L 11.0 L Hct 32.4 L 31.8 L MCV MCH MCHC 35 H RDW 17.0 H 16.9 H Plt Count 131 L 137 L Lymph % (Auto) [place] % (Auto) 10.6 H Lymph # [place] # Seg Neutrophils % Seg Neutrophils # D-Dimer POC ABG pH POC ABG pCO2 POC ABG pO2 Sodium 132 L Chloride 97.8 L Carbon Dioxide BUN 28 H Creatinine 0.5 L Glucose POC Glucose Lactic Acid Calcium 8.3 L Total Protein Albumin HDL Cholesterol Vitamin B12 Free T4 Crossmatch 12/18/17 12/18/17 12/18/17 04:40 12:51 17:18 WBC RBC Hgb Hct MCV MCH MCHC RDW Plt Count Lymph % (Auto) [place] % (Auto) Lymph # [place] # Seg Neutrophils % Seg Neutrophils # D-Dimer POC ABG pH POC ABG pCO2 46.4 H POC ABG pO2 131 H Sodium Chloride Carbon Dioxide BUN 30 H Creatinine 0.5 L Glucose POC Glucose 109 H Lactic Acid Calcium 8.3 L Total Protein Albumin HDL Cholesterol Vitamin B12 Free T4 Crossmatch 12/22/17 12/22/17 12/23/17 05:49 11:43 06:45 WBC RBC Hgb Hct MCV MCH MCHC RDW Plt Count Lymph % (Auto) [place] % (Auto) Lymph # [place] # Seg Neutrophils % Seg Neutrophils # D-Dimer POC ABG pH POC ABG pCO2 POC ABG pO2 Sodium Chloride Carbon Dioxide BUN Creatinine Glucose POC Glucose 112 H 120 H 138 H Lactic Acid Calcium Total Protein Albumin HDL Cholesterol Vitamin B12 Free T4 Crossmatch 12/23/17 12/23/17 12/23/17 12:05 13:36 13:36 WBC RBC 2.24 L Hgb 7.3 L Hct 21.4 L MCV 95 H MCH 33 H MCHC RDW 16.7 H Plt Count Lymph % (Auto) [place] % (Auto) 8.5 H Lymph # [place] # 0.9 H Seg Neutrophils % 72.4 H Seg Neutrophils # 8.0 H D-Dimer POC ABG pH POC ABG pCO2 POC ABG pO2 Sodium Chloride Carbon Dioxide BUN 61 H Creatinine 0.5 L Glucose 138 H POC Glucose 145 H Lactic Acid Calcium Total Protein Albumin HDL Cholesterol Vitamin B12 Free T4 Crossmatch 12/23/17 12/23/17 12/24/17 18:03 23:50 04:58 WBC 12.9 H RBC 2.04 L Hgb 6.6 L Hct 19.9 L* MCV 98 H MCH MCHC RDW 17.2 H Plt Count Lymph % (Auto) [place] % (Auto) Lymph # [place] # Seg Neutrophils % Seg Neutrophils # D-Dimer POC ABG pH POC ABG pCO2 POC ABG pO2 Sodium Chloride Carbon Dioxide BUN Creatinine Glucose POC Glucose 176 H 107 H Lactic Acid Calcium Total Protein Albumin HDL Cholesterol Vitamin B12 Free T4 Crossmatch 12/24/17 12/24/17 12/24/17 05:56 07:16 09:43 WBC 13.5 H RBC 2.08 L Hgb 6.7 L Hct 20.3 L MCV 98 H MCH MCHC RDW 17.3 H Plt Count Lymph % (Auto) [place] % (Auto) Lymph # [place] # Seg Neutrophils % Seg Neutrophils # D-Dimer POC ABG pH POC ABG pCO2 POC ABG pO2 Sodium Chloride Carbon Dioxide BUN Creatinine Glucose POC Glucose 122 H Lactic Acid Calcium Total Protein Albumin HDL Cholesterol Vitamin B12 Free T4 Crossmatch See Detail 12/24/17 12/24/17 12/24/17 12:06 18:55 23:52 WBC 11.3 H RBC 2.35 L Hgb 7.5 L Hct 22.5 L MCV 96 H MCH MCHC RDW 17.3 H Plt Count Lymph % (Auto) [place] % (Auto) Lymph # [place] # Seg Neutrophils % Seg Neutrophils # D-Dimer POC ABG pH POC ABG pCO2 POC ABG pO2 Sodium Chloride Carbon Dioxide BUN Creatinine Glucose POC Glucose 163 H 110 H Lactic Acid Calcium Total Protein Albumin HDL Cholesterol Vitamin B12 Free T4 Crossmatch 12/25/17 12/25/17 12/25/17 04:06 04:06 05:16 WBC RBC 2.35 L Hgb 7.6 L Hct 22.7 L MCV 97 H MCH MCHC RDW 17.7 H Plt Count Lymph % (Auto) [place] % (Auto) Lymph # [place] # Seg Neutrophils % Seg Neutrophils # D-Dimer POC ABG pH POC ABG pCO2 POC ABG pO2 Sodium Chloride Carbon Dioxide 32 H BUN 54 H Creatinine 0.6 L Glucose 101 H POC Glucose 127 H Lactic Acid Calcium 8.2 L Total Protein Albumin HDL Cholesterol Vitamin B12 Free T4 Crossmatch 12/25/17 12/25/17 12/25/17 12:03 18:10 23:38 WBC RBC Hgb Hct MCV MCH MCHC RDW Plt Count Lymph % (Auto) [place] % (Auto) Lymph # [place] # Seg Neutrophils % Seg Neutrophils # D-Dimer POC ABG pH POC ABG pCO2 POC ABG pO2 Sodium Chloride Carbon Dioxide BUN Creatinine Glucose POC Glucose 146 H 152 H 124 H Lactic Acid Calcium Total Protein Albumin HDL Cholesterol Vitamin B12 Free T4 Crossmatch 12/26/17 12/26/17 04:51 11:06 WBC RBC Hgb Hct MCV MCH MCHC RDW Plt Count Lymph % (Auto) [place] % (Auto) Lymph # [place] # Seg Neutrophils % Seg Neutrophils # D-Dimer POC ABG pH POC ABG pCO2 POC ABG pO2 Sodium Chloride Carbon Dioxide BUN Creatinine Glucose POC Glucose 113 H 123 H Lactic Acid Calcium Total Protein Albumin HDL Cholesterol Vitamin B12 Free T4 Crossmatch Allied health notes reviewed: nursing
[2017-12-27] MEDS: PEPCID PO SCH ×2 (09:52→23:06)
[2017-12-27] MEDS: DepaKENE Liq FEEDTUBE SCH (09:53)
[2017-12-27] MEDS: KEPPRA PO SCH ×2 (09:53→23:05)
[2017-12-27] MEDS: THERAGRAN Tab PO SCH (09:53)
[2017-12-27] MEDS: LASIX PO SCH (09:53)
[2017-12-27] MEDS: LOPRESSOR PO SCH ×2 (09:54→23:06)
[2017-12-27] MEDS: FLONASE NS SCH ×2 (09:55→23:06)
--- NOTE | 2017-12-27 12:11 | Progress Note ---
Assessment and Plan Assessment and plan: 87 YO Male currently an inpatient at [facility] with Dementia, HTN, DM, Psychosis, Cardiomyopathy S/P Pacemaker placement presents to ED for evaluation. Pt is confused and unable to provide history. Pt history taken from ED staff, and [place] staff. As per staff, the patient was found down and unresponsive this morning shortly after breakfast. EMS notified,and upon arrival the patient was found to be confused. Pt transported to [facility] for further care and evaluation. Pt seen and evaluated in ED and found to have symptoms suspicious for CVA, Encephalopathy, Hyponatremia, and Acidosis. Pt admitted to telemetry and initiated on CVA protocol. patient was a resident of [facility] prior to going to the [facility]. on discharge [facility] Declined accepting the patient, CASE Management is pending Afib-per son, patient known to have Afib and was on anticoagulation prior- Eliquis But not sure as patient also had a hx of bleeding ulcer in the past. -CARDIOLOGY FOLLOWING. - anticoagulation deferred to outpatient cardiology. Due to recent anemia will hold off. Risk discussed with son and patient. Acute blood loss Anemia-good response following a unit of blood Repeat H/H today Acute encephalopathy With some delirum - Resolving Acute Respiratory failure And is extubated and on when necessary BiPAP Hypotension - Patient was given bolus of IV fluid, blood pressure is normalized Aspiration penumonia - Patient is on IV antibiotics. COMPLETED. 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 Resting comfortably, although intermittent confusion Hospitalist Physical - Physical exam Narrative exam: Not in cardiopulmonary distress. The patient appeared well nourished and normally developed. Vital signs as documented. Head exam is unremarkable. No scleral icterus . Neck is without jugular venous distension, thyromegaly, or carotid bruits. Lungs are clear to auscultation. Cardiac exam reveals regular rate and Rhythm. First and second heart sounds normal. No murmurs, rubs or gallops. Abdominal exam reveals normal bowel sounds, no masses, no organomegaly and no aortic enlargement. Extremities are nonedematous and both femoral and pedal pulses are normal. 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 - Constitutional Vitals: Temp Pulse Resp BP Pulse Ox 97.8 F 92 H 18 105/51 100 12/26/17 22:46 12/27/17 09:54 12/27/17 00:00 12/27/17 09:54 12/27/17 10:00 General appearance: Present: no acute distress Results - Labs CBC & Chem 7: 12/25/17 04:06 12/25/17 04:06 Labs: Laboratory Last Values WBC 10.1 K/mm3 (4.5-11.0) 12/25/17 04:06 RBC 2.35 M/mm3 (3.65-5.03) L 12/25/17 04:06 Hgb 7.6 gm/dl (11.8-15.2) L 12/25/17 04:06 Hct 22.7 % (35.5-45.6) L 12/25/17 04:06 MCV 97 fl (84-94) H 12/25/17 04:06 MCH 32 pg (28-32) 12/25/17 04:06 MCHC 34 % (32-34) 12/25/17 04:06 RDW 17.7 % (13.2-15.2) H 12/25/17 04:06 Plt Count 356 K/mm3 (140-440) 12/25/17 04:06 Lymph % (Auto) 16.8 % (13.4-35.0) 12/23/17 13:36 [place] % (Auto) 8.5 % (0.0-7.3) H 12/23/17 13:36 Eos % (Auto) 1.7 % (0.0-4.3) 12/23/17 13:36 Baso % (Auto) 0.6 % (0.0-1.8) 12/23/17 13:36 Lymph # 1.9 K/mm3 (1.2-5.4) 12/23/17 13:36 [place] # 0.9 K/mm3 (0.0-0.8) H 12/23/17 13:36 Eos # 0.2 K/mm3 (0.0-0.4) 12/23/17 13:36 Baso # 0.1 K/mm3 (0.0-0.1) 12/23/17 13:36 Seg Neutrophils % 72.4 % (40.0-70.0) H 12/23/17 13:36 Seg Neutrophils # 8.0 K/mm3 (1.8-7.7) H 12/23/17 13:36 D-Dimer 389.72 ng/mlDDU (0-234) H 12/12/17 12:34 POC ABG pH 7.411 (7.35-7.45) 12/18/17 12:51 POC ABG pCO2 46.4 (35-45) H 12/18/17 12:51 POC ABG pO2 131 (80-105) H 12/18/17 12:51 POC ABG HCO3 29.4 12/18/17 12:51 POC ABG Total CO2 31 12/18/17 12:51 POC ABG O2 Sat 99 12/18/17 12:51 POC ABG Base Excess 5 12/18/17 12:51 FiO2 28 % 12/18/17 12:51 Sodium 139 mmol/L (137-145) 12/25/17 04:06 Potassium 4.2 mmol/L (3.6-5.0) 12/25/17 04:06 Chloride 101.2 mmol/L (98-107) 12/25/17 04:06 Carbon Dioxide 32 mmol/L (22-30) H 12/25/17 04:06 Anion Gap 10 mmol/L 12/25/17 04:06 BUN 54 mg/dL (9-20) H 12/25/17 04:06 Creatinine 0.6 mg/dL (0.8-1.5) L 12/25/17 04:06 Estimated GFR > 60 ml/min 12/25/17 04:06 BUN/Creatinine Ratio 90 % 12/25/17 04:06 Glucose 101 mg/dL (75-100) H 12/25/17 04:06 POC Glucose 91 (70-105) 12/26/17 17:13 Lactic Acid 1.10 mmol/L (0.7-2.0) 12/13/17 12:22 Calcium 8.2 mg/dL (8.4-10.2) L 12/25/17 04:06 Total Bilirubin 0.90 mg/dL (0.1-1.2) 12/12/17 10:50 AST 32 units/L (5-40) 12/12/17 10:50 ALT 31 units/L (7-56) 12/12/17 10:50 Alkaline Phosphatase 110 units/L (35-129) 12/12/17 10:50 Ammonia 55.0 umol/L (25-60) 12/12/17 10:50 Troponin T < 0.010 ng/mL (0.00-0.029) 12/12/17 18:35 Total Protein 6.1 g/dL (6.3-8.2) L 12/12/17 10:50 Albumin 3.2 g/dL (3.9-5) L 12/12/17 10:50 Albumin/Globulin Ratio 1.1 % 12/12/17 10:50 Triglycerides 76 mg/dL (2-149) 12/13/17 03:38 Cholesterol 125 mg/dL (50-199) 12/13/17 03:38 LDL Cholesterol Direct 57 mg/dL (50-130) 12/13/17 03:38 HDL Cholesterol 70 mg/dL (40-59) H 12/13/17 03:38 Cholesterol/HDL Ratio 1.78 % 12/13/17 03:38 Vitamin B12 > 2000 pg/mL (211-911) H 12/12/17 19:58 TSH 2.470 mlU/mL (0.270-4.200) 12/12/17 19:58 Free T4 1.60 ng/dL (0.76-1.46) H 12/12/17 19:58 Urine Color Yellow (Yellow) 12/12/17 Unknown Urine Turbidity Clear (Clear) 12/12/17 Unknown Urine pH 6.0 (5.0-7.0) 12/12/17 Unknown Ur Specific [place] 1.009 (1.003-1.030) 12/12/17 Unknown Urine Protein <15 mg/dl mg/dL (Negative) 12/12/17 Unknown Urine Glucose (UA) Neg mg/dL (Negative) 12/12/17 Unknown Urine Ketones Neg mg/dL (Negative) 12/12/17 Unknown Urine Blood Neg (Negative) 12/12/17 Unknown Urine Nitrite Neg (Negative) 12/12/17 Unknown Urine Bilirubin Neg (Negative) 12/12/17 Unknown Urine Urobilinogen 2.0 mg/dL (<2.0) 12/12/17 Unknown Ur Leukocyte Esterase Tr (Negative) 12/12/17 Unknown Urine WBC (Auto) 3.0 /HPF (0.0-6.0) 12/12/17 Unknown Urine RBC (Auto) 5.0 /HPF (0.0-6.0) 12/12/17 Unknown U Epithel Cells (Auto) < 1.0 /HPF (0-13.0) 12/12/17 Unknown Urine Mucus Few /HPF 12/12/17 Unknown Blood Type O POSITIVE 12/24/17 09:43 Antibody Screen Negative 12/24/17 09:43 Crossmatch See Detail 12/24/17 09:43
[2017-12-27 13:54] LABS: Hematocrit 20.1 % (35.5-45.6); Hemoglobin 6.7 gm/dl (11.8-15.2)
[2017-12-27] MEDS ORDERED: NACL 0.9% 500 ML 500 ML IV SCH (17:34)
[2017-12-27] MEDS: ARICEPT PO SCH (23:05)
[2017-12-28 05:00] LABS: Hematocrit 21.9 % (35.5-45.6); Hemoglobin 7.4 gm/dl (11.8-15.2); Mean Corpuscular HGB Conc 34 % (32-34); Mean Corpuscular Hemoglobin 32 pg (28-32); Mean Corpuscular Volume 94 fl (84-94); Platelet Count 357 K/mm3 (140-440); Red Blood Count 2.33 M/mm3 (3.65-5.03); Red Cell Distribution Width 17.9 % (13.2-15.2)
[2017-12-28 05:15] LABS: BUN/Creatinine Ratio 97; Blood Urea Nitrogen 29 mg/dL (9-20); Calcium 7.5 mg/dL (8.4-10.2); Hemolysis Index 11
[2017-12-28] MEDS: LOPRESSOR PO SCH ×2 (10:00→22:39)
[2017-12-28] MEDS: PEPCID PO SCH ×2 (10:00→22:39)
[2017-12-28] MEDS: KEPPRA PO SCH ×2 (10:00→22:38)
[2017-12-28] MEDS: DepaKENE Liq FEEDTUBE SCH (10:00)
[2017-12-28] MEDS: LASIX PO SCH (10:00)
[2017-12-28] MEDS: THERAGRAN Tab PO SCH (10:01)
[2017-12-28] MEDS: FLONASE NS SCH ×2 (10:02→22:39)
--- NOTE | 2017-12-28 11:52 | Event Note ---
Date: 12/28/17 full gi consult dictated - pt reported dark stools with mild drop h/h from admission - unsure if GI bleed - follow h/, PPI qd - no plans to scope at this time - if h/h stable in am ok to d/c from GI standpoint - will follow
--- NOTE | 2017-12-28 11:52 | Progress Note ---
Assessment and Plan Assessment and plan: Acute encephalopathy with delirum - Resolving - CT scan negative for acute abnormality History of Afib-per son -Rate controlled -for outpatient cardiology follow-up Acute blood loss Anemia -Status post blood transfusion with 2 units of packed red blood cells -H/H improved, will monitor -GI consulted Acute hypoxic respiratory failure Status post extubation -on when necessary BiPAP Hypotension, resolved - Blood pressure stable Aspiration penumonia - Completed IV antibiotics. Seizure disorder - Stable on Keppra and valproic acid Hyponatremia - Resolved Alzheimer dementia - Cont supportive care Metabolic acidosis - Resolved Hypoglycemia - Resolved LLE pain -Will do further evaluation with x-ray Deconditioning - PT/OT following - Awaiting inpatient rehabilitation facility placement Disp: pt is awaiting placement History Interval history: Patient complaining of left lower extremity pain with movement Hospitalist Physical - Constitutional Vitals: Temp Pulse Resp BP Pulse Ox 97.7 F 72 20 119/64 95 12/28/17 05:19 12/28/17 02:25 12/28/17 10:00 12/28/17 10:00 12/28/17 02:25 General appearance: Present: no acute distress - EENT Eyes: Present: PERRL, EOM intact ENT: clear oral mucosa - Neck Neck: Present: supple - Respiratory Respiratory effort: normal Respiratory: bilateral: CTA - Cardiovascular Rhythm: regular Heart Sounds: Present: S1 & S2 - Extremities Extremities: No edema - Abdominal General gastrointestinal: soft, non-tender, normal bowel sounds - Neurologic Neurologic: other (awake and responsive) Results - Labs CBC & Chem 7: 12/28/17 03:54 12/28/17 03:54 Labs: Laboratory Last Values WBC 6.7 K/mm3 (4.5-11.0) 12/28/17 03:54 RBC 2.33 M/mm3 (3.65-5.03) L 12/28/17 03:54 Hgb 7.4 gm/dl (11.8-15.2) L 12/28/17 03:54 Hct 21.9 % (35.5-45.6) L 12/28/17 03:54 MCV 94 fl (84-94) 12/28/17 03:54 MCH 32 pg (28-32) 12/28/17 03:54 MCHC 34 % (32-34) 12/28/17 03:54 RDW 17.9 % (13.2-15.2) H 12/28/17 03:54 Plt Count 357 K/mm3 (140-440) 12/28/17 03:54 Lymph % (Auto) 16.8 % (13.4-35.0) 12/23/17 13:36 [place] % (Auto) 8.5 % (0.0-7.3) H 12/23/17 13:36 Eos % (Auto) 1.7 % (0.0-4.3) 12/23/17 13:36 Baso % (Auto) 0.6 % (0.0-1.8) 12/23/17 13:36 Lymph # 1.9 K/mm3 (1.2-5.4) 12/23/17 13:36 [place] # 0.9 K/mm3 (0.0-0.8) H 12/23/17 13:36 Eos # 0.2 K/mm3 (0.0-0.4) 12/23/17 13:36 Baso # 0.1 K/mm3 (0.0-0.1) 12/23/17 13:36 Seg Neutrophils % 72.4 % (40.0-70.0) H 12/23/17 13:36 Seg Neutrophils # 8.0 K/mm3 (1.8-7.7) H 12/23/17 13:36 D-Dimer 389.72 ng/mlDDU (0-234) H 12/12/17 12:34 POC ABG pH 7.411 (7.35-7.45) 12/18/17 12:51 POC ABG pCO2 46.4 (35-45) H 12/18/17 12:51 POC ABG pO2 131 (80-105) H 12/18/17 12:51 POC ABG HCO3 29.4 12/18/17 12:51 POC ABG Total CO2 31 12/18/17 12:51 POC ABG O2 Sat 99 12/18/17 12:51 POC ABG Base Excess 5 12/18/17 12:51 FiO2 28 % 12/18/17 12:51 Sodium 138 mmol/L (137-145) 12/28/17 03:54 Potassium 3.8 mmol/L (3.6-5.0) 12/28/17 03:54 Chloride 103.5 mmol/L (98-107) 12/28/17 03:54 Carbon Dioxide 28 mmol/L (22-30) 12/28/17 03:54 Anion Gap 10 mmol/L 12/28/17 03:54 BUN 29 mg/dL (9-20) H 12/28/17 03:54 Creatinine 0.3 mg/dL (0.8-1.5) L 12/28/17 03:54 Estimated GFR > 60 ml/min 12/28/17 03:54 BUN/Creatinine Ratio 97 % 12/28/17 03:54 Glucose 77 mg/dL (75-100) 12/28/17 03:54 POC Glucose 91 (70-105) 12/26/17 17:13 Lactic Acid 1.10 mmol/L (0.7-2.0) 12/13/17 12:22 Calcium 7.5 mg/dL (8.4-10.2) L 12/28/17 03:54 Total Bilirubin 0.90 mg/dL (0.1-1.2) 12/12/17 10:50 AST 32 units/L (5-40) 12/12/17 10:50 ALT 31 units/L (7-56) 12/12/17 10:50 Alkaline Phosphatase 110 units/L (35-129) 12/12/17 10:50 Ammonia 55.0 umol/L (25-60) 12/12/17 10:50 Troponin T < 0.010 ng/mL (0.00-0.029) 12/12/17 18:35 Total Protein 6.1 g/dL (6.3-8.2) L 12/12/17 10:50 Albumin 3.2 g/dL (3.9-5) L 12/12/17 10:50 Albumin/Globulin Ratio 1.1 % 12/12/17 10:50 Triglycerides 76 mg/dL (2-149) 12/13/17 03:38 Cholesterol 125 mg/dL (50-199) 12/13/17 03:38 LDL Cholesterol Direct 57 mg/dL (50-130) 12/13/17 03:38 HDL Cholesterol 70 mg/dL (40-59) H 12/13/17 03:38 Cholesterol/HDL Ratio 1.78 % 12/13/17 03:38 Vitamin B12 > 2000 pg/mL (211-911) H 12/12/17 19:58 TSH 2.470 mlU/mL (0.270-4.200) 12/12/17 19:58 Free T4 1.60 ng/dL (0.76-1.46) H 12/12/17 19:58 Urine Color Yellow (Yellow) 12/12/17 Unknown Urine Turbidity Clear (Clear) 12/12/17 Unknown Urine pH 6.0 (5.0-7.0) 12/12/17 Unknown Ur Specific [place] 1.009 (1.003-1.030) 12/12/17 Unknown Urine Protein <15 mg/dl mg/dL (Negative) 12/12/17 Unknown Urine Glucose (UA) Neg mg/dL (Negative) 12/12/17 Unknown Urine Ketones Neg mg/dL (Negative) 12/12/17 Unknown Urine Blood Neg (Negative) 12/12/17 Unknown Urine Nitrite Neg (Negative) 12/12/17 Unknown Urine Bilirubin Neg (Negative) 12/12/17 Unknown Urine Urobilinogen 2.0 mg/dL (<2.0) 12/12/17 Unknown Ur Leukocyte Esterase Tr (Negative) 12/12/17 Unknown Urine WBC (Auto) 3.0 /HPF (0.0-6.0) 12/12/17 Unknown Urine RBC (Auto) 5.0 /HPF (0.0-6.0) 12/12/17 Unknown U Epithel Cells (Auto) < 1.0 /HPF (0-13.0) 12/12/17 Unknown Urine Mucus Few /HPF 12/12/17 Unknown Blood Type O POSITIVE 12/27/17 18:06 Antibody Screen Negative 12/27/17 18:06 Crossmatch See Detail 12/27/17 18:06
--- NOTE | 2017-12-28 14:42 | Progress Note ---
Assessment and Plan Acute hypercapnic hypoxemic respiratory failure, now on mechanical ventilatory support. Acute encephalopathy, presumably related to the hypercapnia. Hyponatremia, moderate at presentation, resolving. Respiratory acidosis. Thrombocytopenia at presentation, now resolved. Elevated D-dimer with negative CT angiogram. Cardiomyopathy, heart failure with reduced ejection fraction. Lactic acidosis at presentation, resolved. Hypoalbuminemia. - continue supplemental oxygen as needed to keep sats > 90% - prn BIPAP at this point - continue aspiration precautions - follow clinically off antibiotics - ST evaluation - continue enteral nutrition as tolerated - d/c planning per attending and ongoing concurrently ..... re-evaluate in am & prn Subjective Date of service: 12/28/17 Principal diagnosis: Acute hypercapnic hypoxemic respiratory failure; Acute encephalopathy Interval history: Patient is seen today for: Acute hypercapnic hypoxemic respiratory failure s/p MVS; Acute encephalopathy; Hyponatremia; Respiratory acidosis; Thrombocytopenia Seen and examined at bedside; 24hour events reviewed; nursing and respiratory care staff consulted; no adverse overnight events reported to me; resting in bed ; on supplemental oxygen at 2L?min; denies chest pains; No emesis or overt aspiration Objective Vital Signs - 12hr 12/28/17 12/28/17 12/28/17 05:19 10:00 12:25 Temperature 97.7 F 98.0 F Pulse Rate 73 Respiratory 20 20 22 Rate Blood Pressure 119/64 119/64 106/58 O2 Sat by Pulse 99 Oximetry Constitutional: no acute distress, alert, other (elderly looking CM, normocephalic and atraumatic. Encephalopathic. weak.) Eyes: non-icteric ENT: oropharynx moist, other (Mallampati 2) Neck: supple, no lymphadenopathy, no JVD, other (No thyromegaly) Effort: mildly labored Ascultation: Bilateral: diminished breath sounds, rhonchi (bases) Percussion: Bilateral: not dull Cardiovascular: irregular rhythm, murmur noted (systolic) Gastrointestinal: normoactive bowel sounds, soft, non-tender, non-distended, other (No HSM) Integumentary: normal Extremities: no cyanosis, no edema, pink and warm, pulses normal Neurologic: non-focal exam (grossly), pupils equal and round, motor strength normal and Psychiatric: other (flat affect) CBC and BMP: 12/31/17 05:11 12/31/17 05:11 ABG, PT/INR, D-dimer: ABG POC ABG pH 7.411 (7.35-7.45) 12/18/17 12:51 POC ABG pCO2 46.4 (35-45) H 12/18/17 12:51 POC ABG pO2 131 (80-105) H 12/18/17 12:51 POC ABG HCO3 29.4 12/18/17 12:51 POC ABG Total CO2 31 12/18/17 12:51 POC ABG O2 Sat 99 12/18/17 12:51 PT/INR, D-dimer D-Dimer 389.72 ng/mlDDU (0-234) H 12/12/17 12:34 Abnormal lab findings: Abnormal Labs 12/12/17 12/12/17 12/12/17 10:50 10:50 10:50 WBC RBC Hgb Hct MCV MCH MCHC 35 H RDW 16.5 H Plt Count 139 L Lymph % (Auto) 11.9 L [place] % (Auto) 11.8 H Lymph # 0.8 L [place] # Seg Neutrophils % 74.6 H Seg Neutrophils # D-Dimer POC ABG pH POC ABG pCO2 POC ABG pO2 Sodium 124 L Chloride 88.0 L Carbon Dioxide BUN Creatinine 0.5 L Glucose 106 H POC Glucose Lactic Acid 3.60 H* Calcium Total Protein 6.1 L Albumin 3.2 L HDL Cholesterol Vitamin B12 Free T4 Crossmatch 12/12/17 12/12/17 12/12/17 12:08 12:34 19:58 WBC RBC Hgb Hct MCV MCH MCHC RDW Plt Count Lymph % (Auto) [place] % (Auto) Lymph # [place] # Seg Neutrophils % Seg Neutrophils # D-Dimer 389.72 H POC ABG pH POC ABG pCO2 POC ABG pO2 Sodium Chloride Carbon Dioxide BUN Creatinine Glucose POC Glucose Lactic Acid 2.30 H* Calcium Total Protein Albumin HDL Cholesterol Vitamin B12 Free T4 1.60 H Crossmatch 12/12/17 12/13/17 12/13/17 19:58 03:38 12:22 WBC RBC Hgb Hct MCV MCH MCHC 35 H RDW 16.6 H Plt Count 125 L Lymph % (Auto) 11.3 L [place] % (Auto) 10.1 H Lymph # 1.0 L [place] # 0.9 H Seg Neutrophils % 76.5 H Seg Neutrophils # D-Dimer POC ABG pH POC ABG pCO2 POC ABG pO2 Sodium Chloride Carbon Dioxide BUN Creatinine Glucose POC Glucose Lactic Acid Calcium Total Protein Albumin HDL Cholesterol 70 H Vitamin B12 > 2000 H Free T4 Crossmatch 12/13/17 12/14/17 12/14/17 12:22 04:47 04:47 WBC RBC Hgb Hct MCV MCH MCHC 35 H RDW 16.8 H Plt Count Lymph % (Auto) [place] % (Auto) Lymph # [place] # Seg Neutrophils % Seg Neutrophils # D-Dimer POC ABG pH POC ABG pCO2 POC ABG pO2 Sodium 130 L 133 L Chloride 90.3 L 91.4 L Carbon Dioxide BUN 28 H Creatinine 0.4 L 0.4 L Glucose 69 L 59 L POC Glucose Lactic Acid Calcium Total Protein Albumin HDL Cholesterol Vitamin B12 Free T4 Crossmatch 12/15/17 12/15/17 12/15/17 17:48 18:04 20:01 WBC RBC Hgb Hct MCV MCH MCHC RDW Plt Count Lymph % (Auto) [place] % (Auto) Lymph # [place] # Seg Neutrophils % Seg Neutrophils # D-Dimer POC ABG pH 7.084 L POC ABG pCO2 82.8 H 52.2 H POC ABG pO2 106 H 502 H Sodium Chloride Carbon Dioxide BUN Creatinine Glucose POC Glucose 108 H Lactic Acid Calcium Total Protein Albumin HDL Cholesterol Vitamin B12 Free T4 Crossmatch 12/16/17 12/16/17 12/16/17 05:56 16:00 17:41 WBC RBC Hgb Hct MCV MCH MCHC RDW Plt Count Lymph % (Auto) [place] % (Auto) Lymph # [place] # Seg Neutrophils % Seg Neutrophils # D-Dimer POC ABG pH 7.495 H POC ABG pCO2 31.7 L POC ABG pO2 112 H 133 H Sodium Chloride Carbon Dioxide BUN Creatinine Glucose POC Glucose 106 H Lactic Acid Calcium Total Protein Albumin HDL Cholesterol Vitamin B12 Free T4 Crossmatch 12/16/17 12/16/17 12/16/17 18:55 18:55 22:48 WBC 13.6 H RBC Hgb Hct MCV MCH MCHC RDW 16.4 H Plt Count Lymph % (Auto) 8.7 L [place] % (Auto) 8.6 H Lymph # [place] # 1.2 H Seg Neutrophils % 82.1 H Seg Neutrophils # 11.2 H D-Dimer POC ABG pH POC ABG pCO2 POC ABG pO2 Sodium 131 L Chloride Carbon Dioxide 20 L D BUN 30 H Creatinine 0.5 L Glucose 118 H POC Glucose 121 H Lactic Acid Calcium Total Protein Albumin HDL Cholesterol Vitamin B12 Free T4 Crossmatch 12/17/17 12/17/17 12/18/17 04:35 04:35 04:40 WBC RBC 3.46 L 3.40 L Hgb 11.0 L 11.0 L Hct 32.4 L 31.8 L MCV MCH MCHC 35 H RDW 17.0 H 16.9 H Plt Count 131 L 137 L Lymph % (Auto) [place] % (Auto) 10.6 H Lymph # [place] # Seg Neutrophils % Seg Neutrophils # D-Dimer POC ABG pH POC ABG pCO2 POC ABG pO2 Sodium 132 L Chloride 97.8 L Carbon Dioxide BUN 28 H Creatinine 0.5 L Glucose POC Glucose Lactic Acid Calcium 8.3 L Total Protein Albumin HDL Cholesterol Vitamin B12 Free T4 Crossmatch 12/18/17 12/18/17 12/18/17 04:40 12:51 17:18 WBC RBC Hgb Hct MCV MCH MCHC RDW Plt Count Lymph % (Auto) [place] % (Auto) Lymph # [place] # Seg Neutrophils % Seg Neutrophils # D-Dimer POC ABG pH POC ABG pCO2 46.4 H POC ABG pO2 131 H Sodium Chloride Carbon Dioxide BUN 30 H Creatinine 0.5 L Glucose POC Glucose 109 H Lactic Acid Calcium 8.3 L Total Protein Albumin HDL Cholesterol Vitamin B12 Free T4 Crossmatch 12/22/17 12/22/17 12/23/17 05:49 11:43 06:45 WBC RBC Hgb Hct MCV MCH MCHC RDW Plt Count Lymph % (Auto) [place] % (Auto) Lymph # [place] # Seg Neutrophils % Seg Neutrophils # D-Dimer POC ABG pH POC ABG pCO2 POC ABG pO2 Sodium Chloride Carbon Dioxide BUN Creatinine Glucose POC Glucose 112 H 120 H 138 H Lactic Acid Calcium Total Protein Albumin HDL Cholesterol Vitamin B12 Free T4 Crossmatch 12/23/17 12/23/17 12/23/17 12:05 13:36 13:36 WBC RBC 2.24 L Hgb 7.3 L Hct 21.4 L MCV 95 H MCH 33 H MCHC RDW 16.7 H Plt Count Lymph % (Auto) [place] % (Auto) 8.5 H Lymph # [place] # 0.9 H Seg Neutrophils % 72.4 H Seg Neutrophils # 8.0 H D-Dimer POC ABG pH POC ABG pCO2 POC ABG pO2 Sodium Chloride Carbon Dioxide BUN 61 H Creatinine 0.5 L Glucose 138 H POC Glucose 145 H Lactic Acid Calcium Total Protein Albumin HDL Cholesterol Vitamin B12 Free T4 Crossmatch 12/23/17 12/23/17 12/24/17 18:03 23:50 04:58 WBC 12.9 H RBC 2.04 L Hgb 6.6 L Hct 19.9 L* MCV 98 H MCH MCHC RDW 17.2 H Plt Count Lymph % (Auto) [place] % (Auto) Lymph # [place] # Seg Neutrophils % Seg Neutrophils # D-Dimer POC ABG pH POC ABG pCO2 POC ABG pO2 Sodium Chloride Carbon Dioxide BUN Creatinine Glucose POC Glucose 176 H 107 H Lactic Acid Calcium Total Protein Albumin HDL Cholesterol Vitamin B12 Free T4 Crossmatch 12/24/17 12/24/17 12/24/17 05:56 07:16 09:43 WBC 13.5 H RBC 2.08 L Hgb 6.7 L Hct 20.3 L MCV 98 H MCH MCHC RDW 17.3 H Plt Count Lymph % (Auto) [place] % (Auto) Lymph # [place] # Seg Neutrophils % Seg Neutrophils # D-Dimer POC ABG pH POC ABG pCO2 POC ABG pO2 Sodium Chloride Carbon Dioxide BUN Creatinine Glucose POC Glucose 122 H Lactic Acid Calcium Total Protein Albumin HDL Cholesterol Vitamin B12 Free T4 Crossmatch See Detail 12/24/17 12/24/17 12/24/17 12:06 18:55 23:52 WBC 11.3 H RBC 2.35 L Hgb 7.5 L Hct 22.5 L MCV 96 H MCH MCHC RDW 17.3 H Plt Count Lymph % (Auto) [place] % (Auto) Lymph # [place] # Seg Neutrophils % Seg Neutrophils # D-Dimer POC ABG pH POC ABG pCO2 POC ABG pO2 Sodium Chloride Carbon Dioxide BUN Creatinine Glucose POC Glucose 163 H 110 H Lactic Acid Calcium Total Protein Albumin HDL Cholesterol Vitamin B12 Free T4 Crossmatch 12/25/17 12/25/17 12/25/17 04:06 04:06 05:16 WBC RBC 2.35 L Hgb 7.6 L Hct 22.7 L MCV 97 H MCH MCHC RDW 17.7 H Plt Count Lymph % (Auto) [place] % (Auto) Lymph # [place] # Seg Neutrophils % Seg Neutrophils # D-Dimer POC ABG pH POC ABG pCO2 POC ABG pO2 Sodium Chloride Carbon Dioxide 32 H BUN 54 H Creatinine 0.6 L Glucose 101 H POC Glucose 127 H Lactic Acid Calcium 8.2 L Total Protein Albumin HDL Cholesterol Vitamin B12 Free T4 Crossmatch 12/25/17 12/25/17 12/25/17 12:03 18:10 23:38 WBC RBC Hgb Hct MCV MCH MCHC RDW Plt Count Lymph % (Auto) [place] % (Auto) Lymph # [place] # Seg Neutrophils % Seg Neutrophils # D-Dimer POC ABG pH POC ABG pCO2 POC ABG pO2 Sodium Chloride Carbon Dioxide BUN Creatinine Glucose POC Glucose 146 H 152 H 124 H Lactic Acid Calcium Total Protein Albumin HDL Cholesterol Vitamin B12 Free T4 Crossmatch 12/26/17 12/26/17 12/27/17 04:51 11:06 13:45 WBC RBC Hgb 6.7 L Hct 20.1 L MCV MCH MCHC RDW Plt Count Lymph % (Auto) [place] % (Auto) Lymph # [place] # Seg Neutrophils % Seg Neutrophils # D-Dimer POC ABG pH POC ABG pCO2 POC ABG pO2 Sodium Chloride Carbon Dioxide BUN Creatinine Glucose POC Glucose 113 H 123 H Lactic Acid Calcium Total Protein Albumin HDL Cholesterol Vitamin B12 Free T4 Crossmatch 12/27/17 12/28/17 12/28/17 18:06 03:54 03:54 WBC RBC 2.33 L Hgb 7.4 L Hct 21.9 L MCV MCH MCHC RDW 17.9 H Plt Count Lymph % (Auto) [place] % (Auto) Lymph # [place] # Seg Neutrophils % Seg Neutrophils # D-Dimer POC ABG pH POC ABG pCO2 POC ABG pO2 Sodium Chloride Carbon Dioxide BUN 29 H Creatinine 0.3 L Glucose POC Glucose Lactic Acid Calcium 7.5 L Total Protein Albumin HDL Cholesterol Vitamin B12 Free T4 Crossmatch See Detail Allied health notes reviewed: nursing
--- NOTE | 2017-12-28 18:48 | XRay Report ---
FINAL REPORT PROCEDURE: XR TIBIA FIBULA 2V LT TECHNIQUE: LEFT tibia and fibula radiographs, AP and lateral views. CPT 14645 HISTORY: LLE pain COMPARISON: No prior studies are available for comparison. FINDINGS: no fractures seen. Bones appear mildly demineralized. Small joint effusion incidentally noted in the suprapatellar bursa of the knee. Large calcaneal spur visualized at the plantar fascia insertion site. Vascular calcifications visualized in the region of the ankle. IMPRESSION: No acute abnormalities are identified. No evidence of fracture. Atherosclerosis. Large calcaneal spur is present. Small effusion present in the knee..
--- NOTE | 2017-12-28 20:17 | Consultation ---
REFERRING PHYSICIAN: Dr. Ziggy Miles. INDICATION: 1. Anemia. 2. GI bleed. HISTORY OF PRESENT ILLNESS: The patient is an 87-year-old white male with a history of dementia, hypertension, diabetes, psychosis, cardiomyopathy, status post pacemaker. The patient was admitted for suicidal ideation. The patient was found confused and disoriented and subsequently brought [facility]. The patient subsequently was evaluated for possible CVA. The patient was being treated and then was noted to have reported dark stools. No hematemesis or bright red blood reported per staff. The patient himself denies any bleeding. Denies any other specific complaints. GI is consulted to aid in management. PAST MEDICAL HISTORY: 1. MN. 2. Diabetes. 3. Hypertension. 4. Dementia. PAST SURGICAL HISTORY: Status post pacemaker. MEDICATIONS: See chart. ALLERGIES: PENICILLIN. SOCIAL HISTORY: Denies alcohol, tobacco or drug abuse. FAMILY HISTORY: Negative for colon cancer, IBD, or liver disease. REVIEW OF SYSTEMS: GENERAL: Reports weakness. HEENT: No visual complaints or tinnitus. PULMONARY: No shortness of breath. No cough. No chest pain. GASTROINTESTINAL: Reports dark stools. All points of 13-point review of systems otherwise negative. PHYSICAL EXAMINATION: VITAL SIGNS: Temperature 97.7, pulse is 70, respirations 20, and blood pressure 119/64. GENERAL: Fairly nourished male, in no acute distress. HEENT: Pupils are equal, round and reactive. PULMONARY: Rhonchi. CARDIOVASCULAR: Regular rhythm. Normal S1, S2. ABDOMEN: Soft. SKIN: No obvious rashes. LABORATORY DATA: Pertinent for white count of 6.7, hemoglobin and hematocrit of 7.4 and 21.9, and platelet count of 357. Chem-7 is within normal limits. ASSESSMENT AND PLAN: An 87-year-old male with a history of dementia and past medical history as noted above, admitted to rule out cerebrovascular accident when found down, now with reported dark stools. The patient's hemoglobin has only trended slightly down from when he was first admitted. Per staff, no obvious melena or other specific complaints. At this time, conservative approach. PLAN: 1. We will follow hematocrit and transfuse as needed. 2. PPI daily. 3. Avoid NSAIDs and aspirin. 4. Guaiac stool. 5. If signs of further active bleeding, we will consider EGD. 6. We will follow. JOB# [id number] CAB/NTS
[2017-12-28] MEDS: SODIUM CHLORIDE FLUSH SYRINGE 10 ML IV PRN (22:38)
[2017-12-28] MEDS: ARICEPT PO SCH (22:39)
[2017-12-29 08:59] LABS: Basophils # (Auto) 0.1 K/mm3 (0.0-0.1); Basophils % (Auto) 0.8 % (0.0-1.8); Eosinophils # (Auto) 0.2 K/mm3 (0.0-0.4); Eosinophils % (Auto) 2.6 % (0.0-4.3); Hematocrit 24.1 % (35.5-45.6); Lymphocytes # (Auto) 1.4 K/mm3 (1.2-5.4); Lymphocytes % (Auto) 19.6 % (13.4-35.0); Mean Corpuscular HGB Conc 33 % (32-34); Mean Corpuscular Hemoglobin 32 pg (28-32); Mean Corpuscular Volume 95 fl (84-94); Monocytes # (Auto) 0.7 K/mm3 (0.0-0.8); Monocytes % (Auto) 9.3 % (0.0-7.3); Platelet Count 401 K/mm3 (140-440); Red Blood Count 2.54 M/mm3 (3.65-5.03)
[2017-12-29] MEDS: KEPPRA PO SCH ×2 (10:25→23:26)
[2017-12-29] MEDS: DepaKENE Liq FEEDTUBE SCH (10:25)
[2017-12-29] MEDS: PEPCID PO SCH ×2 (10:26→23:26)
[2017-12-29] MEDS: THERAGRAN Tab PO SCH (10:26)
[2017-12-29] MEDS: FLONASE NS SCH ×2 (10:26→23:26)
[2017-12-29] MEDS: LOPRESSOR PO SCH (10:27)
--- NOTE | 2017-12-29 10:38 | Gastroenterology Progress Note ---
Assessment and Plan GI: no current signs bleeding - h/h stable after transfusion - no plans to scope unless necessary - continue PPI qd - will sign off, call if situation changes Subjective Date of service: 12/29/17 Principal diagnosis: Acute hypercapnic hypoxemic respiratory failure; Acute encephalopathy Interval history: - no signs bleeding overnight per staff Objective - Constitutional Vitals: Temp Pulse Resp BP Pulse Ox 98.3 F 71 16 112/67 99 12/29/17 05:51 12/29/17 05:51 12/29/17 05:51 12/29/17 10:27 12/29/17 05:51 General appearance: no acute distress - EENT Eyes: PERRL - Respiratory Respiratory: bilateral: CTA - Cardiovascular Rhythm: regular Heart Sounds: Present: S1 & S2 - Gastrointestinal General gastrointestinal: Present: soft, non-tender, non-distended - Labs CBC & Chem 7: 12/29/17 07:00 12/28/17 03:54 Labs: Laboratory Results - last 24 hr 12/29/17 07:00 WBC 7.3 RBC 2.54 L Hgb 8.0 L Hct 24.1 L MCV 95 H MCH 32 MCHC 33 RDW 18.0 H Plt Count 401 Lymph % (Auto) 19.6 [place] % (Auto) 9.3 H Eos % (Auto) 2.6 Baso % (Auto) 0.8 Lymph # 1.4 [place] # 0.7 Eos # 0.2 Baso # 0.1 Seg Neutrophils % 67.7 Seg Neutrophils # 4.9
[2017-12-29] MEDS: LASIX PO SCH (11:07)
--- NOTE | 2017-12-29 13:18 | Progress Note ---
Assessment and Plan Assessment and plan: 87 YO Male currently an inpatient at [facility] for Suicide Ideation with Dementia, HTN, DM, Psychosis, Cardiomyopathy S/P Pacemaker placement presents to ED for evaluation. Pt is confused and unable to provide history. Pt history taken from ED staff, and [facility] staff. As per staff, the patient was found down and unresponsive this morning shortly after breakfast. EMS notified,and upon arrival the patient was found to be confused. Pt transported to [facility] for further care and evaluation. Pt seen and evaluated in ED and found to have symptoms suspicious for CVA, Encephalopathy, Hyponatremia, and Acidosis. Pt admitted to telemetry and initiated on CVA protocol. patient was a resident of [facility] prior to going to the [facility]. on discharge [facility] Declined accepting the patient, CASE Management is pending Afib-per son, patient known to have Afib and was on anticoagulation prior- Eliquis But not sure as patient also had a hx of bleeding ulcer in the past. -CARDIOLOGY FOLLOWING. - anticoagulation deferred to outpatient cardiology. Due to recent anemia will hold off. Risk discussed with son and patient. Acute blood loss Anemia-good response following a unit of blood s/p 2 unit PRBC. stable Acute encephalopathy With some delirum - Resolving Acute Respiratory failure extubated and on when necessary BiPAP Hypotension - Patient was given bolus of IV fluid, blood pressure is normalized Aspiration penumonia - Patient is on IV antibiotics. COMPLETED. 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 Resting comfortably, although intermittent confusion persist Hospitalist Physical - Physical exam Narrative exam: Not in cardiopulmonary distress. The patient appeared well nourished and normally developed. Vital signs as documented. Head exam is unremarkable. No scleral icterus . Neck is without jugular venous distension, thyromegaly, or carotid bruits. Lungs are clear to auscultation. Cardiac exam reveals regular rate and Rhythm. First and second heart sounds normal. No murmurs, rubs or gallops. Abdominal exam reveals normal bowel sounds, no masses, no organomegaly and no aortic enlargement. Extremities are nonedematous and both femoral and pedal pulses are normal. 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 - Constitutional Vitals: Temp Pulse Resp BP Pulse Ox 97.5 F L 70 18 107/63 100 12/29/17 12:38 12/29/17 12:38 12/29/17 12:38 12/29/17 12:38 12/29/17 12:38 General appearance: Present: no acute distress Results - Labs CBC & Chem 7: 12/29/17 07:00 12/28/17 03:54 Labs: Laboratory Last Values WBC 7.3 K/mm3 (4.5-11.0) 12/29/17 07:00 RBC 2.54 M/mm3 (3.65-5.03) L 12/29/17 07:00 Hgb 8.0 gm/dl (11.8-15.2) L 12/29/17 07:00 Hct 24.1 % (35.5-45.6) L 12/29/17 07:00 MCV 95 fl (84-94) H 12/29/17 07:00 MCH 32 pg (28-32) 12/29/17 07:00 MCHC 33 % (32-34) 12/29/17 07:00 RDW 18.0 % (13.2-15.2) H 12/29/17 07:00 Plt Count 401 K/mm3 (140-440) 12/29/17 07:00 Lymph % (Auto) 19.6 % (13.4-35.0) 12/29/17 07:00 [place] % (Auto) 9.3 % (0.0-7.3) H 12/29/17 07:00 Eos % (Auto) 2.6 % (0.0-4.3) 12/29/17 07:00 Baso % (Auto) 0.8 % (0.0-1.8) 12/29/17 07:00 Lymph # 1.4 K/mm3 (1.2-5.4) 12/29/17 07:00 [place] # 0.7 K/mm3 (0.0-0.8) 12/29/17 07:00 Eos # 0.2 K/mm3 (0.0-0.4) 12/29/17 07:00 Baso # 0.1 K/mm3 (0.0-0.1) 12/29/17 07:00 Seg Neutrophils % 67.7 % (40.0-70.0) 12/29/17 07:00 Seg Neutrophils # 4.9 K/mm3 (1.8-7.7) 12/29/17 07:00 D-Dimer 389.72 ng/mlDDU (0-234) H 12/12/17 12:34 POC ABG pH 7.411 (7.35-7.45) 12/18/17 12:51 POC ABG pCO2 46.4 (35-45) H 12/18/17 12:51 POC ABG pO2 131 (80-105) H 12/18/17 12:51 POC ABG HCO3 29.4 12/18/17 12:51 POC ABG Total CO2 31 12/18/17 12:51 POC ABG O2 Sat 99 12/18/17 12:51 POC ABG Base Excess 5 12/18/17 12:51 FiO2 28 % 12/18/17 12:51 Sodium 138 mmol/L (137-145) 12/28/17 03:54 Potassium 3.8 mmol/L (3.6-5.0) 12/28/17 03:54 Chloride 103.5 mmol/L (98-107) 12/28/17 03:54 Carbon Dioxide 28 mmol/L (22-30) 12/28/17 03:54 Anion Gap 10 mmol/L 12/28/17 03:54 BUN 29 mg/dL (9-20) H 12/28/17 03:54 Creatinine 0.3 mg/dL (0.8-1.5) L 12/28/17 03:54 Estimated GFR > 60 ml/min 12/28/17 03:54 BUN/Creatinine Ratio 97 % 12/28/17 03:54 Glucose 77 mg/dL (75-100) 12/28/17 03:54 POC Glucose 91 (70-105) 12/26/17 17:13 Lactic Acid 1.10 mmol/L (0.7-2.0) 12/13/17 12:22 Calcium 7.5 mg/dL (8.4-10.2) L 12/28/17 03:54 Total Bilirubin 0.90 mg/dL (0.1-1.2) 12/12/17 10:50 AST 32 units/L (5-40) 12/12/17 10:50 ALT 31 units/L (7-56) 12/12/17 10:50 Alkaline Phosphatase 110 units/L (35-129) 12/12/17 10:50 Ammonia 55.0 umol/L (25-60) 12/12/17 10:50 Troponin T < 0.010 ng/mL (0.00-0.029) 12/12/17 18:35 Total Protein 6.1 g/dL (6.3-8.2) L 12/12/17 10:50 Albumin 3.2 g/dL (3.9-5) L 12/12/17 10:50 Albumin/Globulin Ratio 1.1 % 12/12/17 10:50 Triglycerides 76 mg/dL (2-149) 12/13/17 03:38 Cholesterol 125 mg/dL (50-199) 12/13/17 03:38 LDL Cholesterol Direct 57 mg/dL (50-130) 12/13/17 03:38 HDL Cholesterol 70 mg/dL (40-59) H 12/13/17 03:38 Cholesterol/HDL Ratio 1.78 % 12/13/17 03:38 Vitamin B12 > 2000 pg/mL (211-911) H 12/12/17 19:58 TSH 2.470 mlU/mL (0.270-4.200) 12/12/17 19:58 Free T4 1.60 ng/dL (0.76-1.46) H 12/12/17 19:58 Urine Color Yellow (Yellow) 12/12/17 Unknown Urine Turbidity Clear (Clear) 12/12/17 Unknown Urine pH 6.0 (5.0-7.0) 12/12/17 Unknown Ur Specific [place] 1.009 (1.003-1.030) 12/12/17 Unknown Urine Protein <15 mg/dl mg/dL (Negative) 12/12/17 Unknown Urine Glucose (UA) Neg mg/dL (Negative) 12/12/17 Unknown Urine Ketones Neg mg/dL (Negative) 12/12/17 Unknown Urine Blood Neg (Negative) 12/12/17 Unknown Urine Nitrite Neg (Negative) 12/12/17 Unknown Urine Bilirubin Neg (Negative) 12/12/17 Unknown Urine Urobilinogen 2.0 mg/dL (<2.0) 12/12/17 Unknown Ur Leukocyte Esterase Tr (Negative) 12/12/17 Unknown Urine WBC (Auto) 3.0 /HPF (0.0-6.0) 12/12/17 Unknown Urine RBC (Auto) 5.0 /HPF (0.0-6.0) 12/12/17 Unknown U Epithel Cells (Auto) < 1.0 /HPF (0-13.0) 12/12/17 Unknown Urine Mucus Few /HPF 12/12/17 Unknown Blood Type O POSITIVE 12/27/17 18:06 Antibody Screen Negative 12/27/17 18:06 Crossmatch See Detail 12/27/17 18:06
--- NOTE | 2017-12-29 13:54 | Progress Note ---
Assessment and Plan Acute hypercapnic hypoxemic respiratory failure, now on mechanical ventilatory support. Acute encephalopathy, presumably related to the hypercapnia. Hyponatremia, moderate at presentation, resolving. Respiratory acidosis. Thrombocytopenia at presentation, now resolved. Elevated D-dimer with negative CT angiogram. Cardiomyopathy, heart failure with reduced ejection fraction. Lactic acidosis at presentation, resolved. Hypoalbuminemia. - prn CXR's - continue supplemental oxygen as needed to keep sats > 90% - prn BIPAP at this point - continue aspiration precautions - continue to follow clinically off antibiotics - ST evaluation - continue enteral nutrition as tolerated - d/c planning per attending and ongoing concurrently ..... re-evaluate in am & prn Subjective Date of service: 12/29/17 Principal diagnosis: Acute hypercapnic hypoxemic respiratory failure; Acute encephalopathy Interval history: Patient is seen today for: Acute hypercapnic hypoxemic respiratory failure s/p MVS; Acute encephalopathy; Hyponatremia; Respiratory acidosis; Thrombocytopenia Seen and examined at bedside; 24hour events reviewed; nursing and respiratory care staff consulted; no adverse overnight events reported to me; resting in bed ; denies chest pains; No emesis or overt aspiration; no active bleeding reported Objective Vital Signs - 12hr 12/29/17 12/29/17 12/29/17 05:51 10:27 12:38 Temperature 98.3 F 97.5 F L Pulse Rate 71 70 Respiratory 16 18 Rate Blood Pressure 112/67 112/67 107/63 O2 Sat by Pulse 99 100 Oximetry Constitutional: no acute distress, alert, other (elderly looking CM, normocephalic and atraumatic. Encephalopathic. weak.) Eyes: non-icteric ENT: oropharynx moist, other (Mallampati 2) Neck: supple, no lymphadenopathy, no JVD, other (No thyromegaly) Effort: mildly labored Ascultation: Bilateral: diminished breath sounds, rhonchi (bases) Percussion: Bilateral: not dull Cardiovascular: irregular rhythm, murmur noted (systolic) Gastrointestinal: normoactive bowel sounds, soft, non-tender, non-distended, other (No HSM) Integumentary: normal Extremities: no cyanosis, no edema, pink and warm, pulses normal Neurologic: non-focal exam (grossly), pupils equal and round, motor strength normal and Psychiatric: other (flat affect) CBC and BMP: 12/31/17 05:11 12/31/17 05:11 ABG, PT/INR, D-dimer: ABG POC ABG pH 7.411 (7.35-7.45) 12/18/17 12:51 POC ABG pCO2 46.4 (35-45) H 12/18/17 12:51 POC ABG pO2 131 (80-105) H 12/18/17 12:51 POC ABG HCO3 29.4 12/18/17 12:51 POC ABG Total CO2 31 12/18/17 12:51 POC ABG O2 Sat 99 12/18/17 12:51 PT/INR, D-dimer D-Dimer 389.72 ng/mlDDU (0-234) H 12/12/17 12:34 Abnormal lab findings: Abnormal Labs 12/12/17 12/12/17 12/12/17 10:50 10:50 10:50 WBC RBC Hgb Hct MCV MCH MCHC 35 H RDW 16.5 H Plt Count 139 L Lymph % (Auto) 11.9 L [place] % (Auto) 11.8 H Lymph # 0.8 L [place] # Seg Neutrophils % 74.6 H Seg Neutrophils # D-Dimer POC ABG pH POC ABG pCO2 POC ABG pO2 Sodium 124 L Chloride 88.0 L Carbon Dioxide BUN Creatinine 0.5 L Glucose 106 H POC Glucose Lactic Acid 3.60 H* Calcium Total Protein 6.1 L Albumin 3.2 L HDL Cholesterol Vitamin B12 Free T4 Crossmatch 12/12/17 12/12/17 12/12/17 12:08 12:34 19:58 WBC RBC Hgb Hct MCV MCH MCHC RDW Plt Count Lymph % (Auto) [place] % (Auto) Lymph # [place] # Seg Neutrophils % Seg Neutrophils # D-Dimer 389.72 H POC ABG pH POC ABG pCO2 POC ABG pO2 Sodium Chloride Carbon Dioxide BUN Creatinine Glucose POC Glucose Lactic Acid 2.30 H* Calcium Total Protein Albumin HDL Cholesterol Vitamin B12 Free T4 1.60 H Crossmatch 12/12/17 12/13/17 12/13/17 19:58 03:38 12:22 WBC RBC Hgb Hct MCV MCH MCHC 35 H RDW 16.6 H Plt Count 125 L Lymph % (Auto) 11.3 L [place] % (Auto) 10.1 H Lymph # 1.0 L [place] # 0.9 H Seg Neutrophils % 76.5 H Seg Neutrophils # D-Dimer POC ABG pH POC ABG pCO2 POC ABG pO2 Sodium Chloride Carbon Dioxide BUN Creatinine Glucose POC Glucose Lactic Acid Calcium Total Protein Albumin HDL Cholesterol 70 H Vitamin B12 > 2000 H Free T4 Crossmatch 12/13/17 12/14/17 12/14/17 12:22 04:47 04:47 WBC RBC Hgb Hct MCV MCH MCHC 35 H RDW 16.8 H Plt Count Lymph % (Auto) [place] % (Auto) Lymph # [place] # Seg Neutrophils % Seg Neutrophils # D-Dimer POC ABG pH POC ABG pCO2 POC ABG pO2 Sodium 130 L 133 L Chloride 90.3 L 91.4 L Carbon Dioxide BUN 28 H Creatinine 0.4 L 0.4 L Glucose 69 L 59 L POC Glucose Lactic Acid Calcium Total Protein Albumin HDL Cholesterol Vitamin B12 Free T4 Crossmatch 12/15/17 12/15/17 12/15/17 17:48 18:04 20:01 WBC RBC Hgb Hct MCV MCH MCHC RDW Plt Count Lymph % (Auto) [place] % (Auto) Lymph # [place] # Seg Neutrophils % Seg Neutrophils # D-Dimer POC ABG pH 7.084 L POC ABG pCO2 82.8 H 52.2 H POC ABG pO2 106 H 502 H Sodium Chloride Carbon Dioxide BUN Creatinine Glucose POC Glucose 108 H Lactic Acid Calcium Total Protein Albumin HDL Cholesterol Vitamin B12 Free T4 Crossmatch 12/16/17 12/16/17 12/16/17 05:56 16:00 17:41 WBC RBC Hgb Hct MCV MCH MCHC RDW Plt Count Lymph % (Auto) [place] % (Auto) Lymph # [place] # Seg Neutrophils % Seg Neutrophils # D-Dimer POC ABG pH 7.495 H POC ABG pCO2 31.7 L POC ABG pO2 112 H 133 H Sodium Chloride Carbon Dioxide BUN Creatinine Glucose POC Glucose 106 H Lactic Acid Calcium Total Protein Albumin HDL Cholesterol Vitamin B12 Free T4 Crossmatch 12/16/17 12/16/17 12/16/17 18:55 18:55 22:48 WBC 13.6 H RBC Hgb Hct MCV MCH MCHC RDW 16.4 H Plt Count Lymph % (Auto) 8.7 L [place] % (Auto) 8.6 H Lymph # [place] # 1.2 H Seg Neutrophils % 82.1 H Seg Neutrophils # 11.2 H D-Dimer POC ABG pH POC ABG pCO2 POC ABG pO2 Sodium 131 L Chloride Carbon Dioxide 20 L D BUN 30 H Creatinine 0.5 L Glucose 118 H POC Glucose 121 H Lactic Acid Calcium Total Protein Albumin HDL Cholesterol Vitamin B12 Free T4 Crossmatch 12/17/17 12/17/17 12/18/17 04:35 04:35 04:40 WBC RBC 3.46 L 3.40 L Hgb 11.0 L 11.0 L Hct 32.4 L 31.8 L MCV MCH MCHC 35 H RDW 17.0 H 16.9 H Plt Count 131 L 137 L Lymph % (Auto) [place] % (Auto) 10.6 H Lymph # [place] # Seg Neutrophils % Seg Neutrophils # D-Dimer POC ABG pH POC ABG pCO2 POC ABG pO2 Sodium 132 L Chloride 97.8 L Carbon Dioxide BUN 28 H Creatinine 0.5 L Glucose POC Glucose Lactic Acid Calcium 8.3 L Total Protein Albumin HDL Cholesterol Vitamin B12 Free T4 Crossmatch 12/18/17 12/18/17 12/18/17 04:40 12:51 17:18 WBC RBC Hgb Hct MCV MCH MCHC RDW Plt Count Lymph % (Auto) [place] % (Auto) Lymph # [place] # Seg Neutrophils % Seg Neutrophils # D-Dimer POC ABG pH POC ABG pCO2 46.4 H POC ABG pO2 131 H Sodium Chloride Carbon Dioxide BUN 30 H Creatinine 0.5 L Glucose POC Glucose 109 H Lactic Acid Calcium 8.3 L Total Protein Albumin HDL Cholesterol Vitamin B12 Free T4 Crossmatch 12/22/17 12/22/17 12/23/17 05:49 11:43 06:45 WBC RBC Hgb Hct MCV MCH MCHC RDW Plt Count Lymph % (Auto) [place] % (Auto) Lymph # [place] # Seg Neutrophils % Seg Neutrophils # D-Dimer POC ABG pH POC ABG pCO2 POC ABG pO2 Sodium Chloride Carbon Dioxide BUN Creatinine Glucose POC Glucose 112 H 120 H 138 H Lactic Acid Calcium Total Protein Albumin HDL Cholesterol Vitamin B12 Free T4 Crossmatch 12/23/17 12/23/17 12/23/17 12:05 13:36 13:36 WBC RBC 2.24 L Hgb 7.3 L Hct 21.4 L MCV 95 H MCH 33 H MCHC RDW 16.7 H Plt Count Lymph % (Auto) [place] % (Auto) 8.5 H Lymph # [place] # 0.9 H Seg Neutrophils % 72.4 H Seg Neutrophils # 8.0 H D-Dimer POC ABG pH POC ABG pCO2 POC ABG pO2 Sodium Chloride Carbon Dioxide BUN 61 H Creatinine 0.5 L Glucose 138 H POC Glucose 145 H Lactic Acid Calcium Total Protein Albumin HDL Cholesterol Vitamin B12 Free T4 Crossmatch 12/23/17 12/23/17 12/24/17 18:03 23:50 04:58 WBC 12.9 H RBC 2.04 L Hgb 6.6 L Hct 19.9 L* MCV 98 H MCH MCHC RDW 17.2 H Plt Count Lymph % (Auto) [place] % (Auto) Lymph # [place] # Seg Neutrophils % Seg Neutrophils # D-Dimer POC ABG pH POC ABG pCO2 POC ABG pO2 Sodium Chloride Carbon Dioxide BUN Creatinine Glucose POC Glucose 176 H 107 H Lactic Acid Calcium Total Protein Albumin HDL Cholesterol Vitamin B12 Free T4 Crossmatch 12/24/17 12/24/17 12/24/17 05:56 07:16 09:43 WBC 13.5 H RBC 2.08 L Hgb 6.7 L Hct 20.3 L MCV 98 H MCH MCHC RDW 17.3 H Plt Count Lymph % (Auto) [place] % (Auto) Lymph # [place] # Seg Neutrophils % Seg Neutrophils # D-Dimer POC ABG pH POC ABG pCO2 POC ABG pO2 Sodium Chloride Carbon Dioxide BUN Creatinine Glucose POC Glucose 122 H Lactic Acid Calcium Total Protein Albumin HDL Cholesterol Vitamin B12 Free T4 Crossmatch See Detail 12/24/17 12/24/17 12/24/17 12:06 18:55 23:52 WBC 11.3 H RBC 2.35 L Hgb 7.5 L Hct 22.5 L MCV 96 H MCH MCHC RDW 17.3 H Plt Count Lymph % (Auto) [place] % (Auto) Lymph # [place] # Seg Neutrophils % Seg Neutrophils # D-Dimer POC ABG pH POC ABG pCO2 POC ABG pO2 Sodium Chloride Carbon Dioxide BUN Creatinine Glucose POC Glucose 163 H 110 H Lactic Acid Calcium Total Protein Albumin HDL Cholesterol Vitamin B12 Free T4 Crossmatch 12/25/17 12/25/17 12/25/17 04:06 04:06 05:16 WBC RBC 2.35 L Hgb 7.6 L Hct 22.7 L MCV 97 H MCH MCHC RDW 17.7 H Plt Count Lymph % (Auto) [place] % (Auto) Lymph # [place] # Seg Neutrophils % Seg Neutrophils # D-Dimer POC ABG pH POC ABG pCO2 POC ABG pO2 Sodium Chloride Carbon Dioxide 32 H BUN 54 H Creatinine 0.6 L Glucose 101 H POC Glucose 127 H Lactic Acid Calcium 8.2 L Total Protein Albumin HDL Cholesterol Vitamin B12 Free T4 Crossmatch 12/25/17 12/25/17 12/25/17 12:03 18:10 23:38 WBC RBC Hgb Hct MCV MCH MCHC RDW Plt Count Lymph % (Auto) [place] % (Auto) Lymph # [place] # Seg Neutrophils % Seg Neutrophils # D-Dimer POC ABG pH POC ABG pCO2 POC ABG pO2 Sodium Chloride Carbon Dioxide BUN Creatinine Glucose POC Glucose 146 H 152 H 124 H Lactic Acid Calcium Total Protein Albumin HDL Cholesterol Vitamin B12 Free T4 Crossmatch 12/26/17 12/26/17 12/27/17 04:51 11:06 13:45 WBC RBC Hgb 6.7 L Hct 20.1 L MCV MCH MCHC RDW Plt Count Lymph % (Auto) [place] % (Auto) Lymph # [place] # Seg Neutrophils % Seg Neutrophils # D-Dimer POC ABG pH POC ABG pCO2 POC ABG pO2 Sodium Chloride Carbon Dioxide BUN Creatinine Glucose POC Glucose 113 H 123 H Lactic Acid Calcium Total Protein Albumin HDL Cholesterol Vitamin B12 Free T4 Crossmatch 12/27/17 12/28/17 12/28/17 18:06 03:54 03:54 WBC RBC 2.33 L Hgb 7.4 L Hct 21.9 L MCV MCH MCHC RDW 17.9 H Plt Count Lymph % (Auto) [place] % (Auto) Lymph # [place] # Seg Neutrophils % Seg Neutrophils # D-Dimer POC ABG pH POC ABG pCO2 POC ABG pO2 Sodium Chloride Carbon Dioxide BUN 29 H Creatinine 0.3 L Glucose POC Glucose Lactic Acid Calcium 7.5 L Total Protein Albumin HDL Cholesterol Vitamin B12 Free T4 Crossmatch See Detail 12/29/17 07:00 WBC RBC 2.54 L Hgb 8.0 L Hct 24.1 L MCV 95 H MCH MCHC RDW 18.0 H Plt Count Lymph % (Auto) [place] % (Auto) 9.3 H Lymph # [place] # Seg Neutrophils % Seg Neutrophils # D-Dimer POC ABG pH POC ABG pCO2 POC ABG pO2 Sodium Chloride Carbon Dioxide BUN Creatinine Glucose POC Glucose Lactic Acid Calcium Total Protein Albumin HDL Cholesterol Vitamin B12 Free T4 Crossmatch Allied health notes reviewed: nursing
[2017-12-29] MEDS: ARICEPT PO SCH (23:26)
[2017-12-30] MEDS: LOPRESSOR PO SCH ×3 (02:28→22:28)
[2017-12-30] MEDS: KEPPRA PO SCH ×2 (10:17→22:29)
[2017-12-30] MEDS: DepaKENE Liq FEEDTUBE SCH (10:18)
[2017-12-30] MEDS: THERAGRAN Tab PO SCH (10:18)
[2017-12-30] MEDS: PEPCID PO SCH ×2 (10:18→22:28)
[2017-12-30] MEDS: LASIX PO SCH (10:19)
[2017-12-30] MEDS: FLONASE NS SCH ×2 (10:20→22:00)
--- NOTE | 2017-12-30 13:23 | Progress Note ---
Assessment and Plan Acute hypercapnic hypoxemic respiratory failure, now on mechanical ventilatory support. Sepsis Syndrome (Resolved) Aspiration Pneumonia Seizure Disorder Acute encephalopathy, presumably related to the hypercapnia. Atrial fibrillation (Rate controlled) Alzheimers Dementia ABLA (holding full anticoagulation for A-fib) Hyponatremia, moderate at presentation, resolving. Respiratory acidosis. Thrombocytopenia at presentation, now resolved. Elevated D-dimer with negative CT angiogram. Cardiomyopathy, heart failure with reduced ejection fraction. Lactic acidosis at presentation, resolved. Hypoalbuminemia. - prn CXR's - continue supplemental oxygen as needed to keep sats > 90% - prn BIPAP at this point - continue aspiration precautions - continue keppra for seizures - holding anticoagulation re: ABLA - continue to follow clinically off antibiotics - continue secondary prevention with lipitor, BP control - ST evaluation - continue enteral nutrition as tolerated - d/c planning per attending and ongoing concurrently ..... re-evaluate in am & prn Subjective Date of service: 12/30/17 Principal diagnosis: Acute hypercapnic hypoxemic respiratory failure; Acute encephalopathy Interval history: Patient is seen today for: Acute hypercapnic hypoxemic respiratory failure s/p MVS; Acute encephalopathy; Hyponatremia; Respiratory acidosis; Thrombocytopenia Seen and examined at bedside; 24hour events reviewed; nursing and respiratory care staff consulted; no adverse overnight events reported to me; resting in bed ; under the covers; appears comfortably; denies chest pains; No emesis or overt aspiration; no active bleeding reported Objective Vital Signs - 12hr 12/30/17 12/30/17 05:27 12:09 Temperature 98.0 F 97.5 F L Pulse Rate 75 69 Respiratory 20 22 Rate Blood Pressure 112/66 120/67 O2 Sat by Pulse 100 100 Oximetry Constitutional: no acute distress, alert, other (elderly looking CM, normocephalic and atraumatic. Encephalopathic. weak.) Eyes: non-icteric ENT: oropharynx moist, other (Mallampati 2) Neck: supple, no lymphadenopathy, no JVD, other (No thyromegaly) Effort: mildly labored Ascultation: Bilateral: diminished breath sounds, rhonchi (bases) Percussion: Bilateral: not dull Cardiovascular: irregular rhythm, murmur noted (systolic) Gastrointestinal: normoactive bowel sounds, soft, non-tender, non-distended, other (No HSM) Integumentary: normal Extremities: no cyanosis, no edema, pink and warm, pulses normal Neurologic: non-focal exam (grossly), pupils equal and round, motor strength normal and Psychiatric: other (flat affect) CBC and BMP: 12/31/17 05:11 12/31/17 05:11 ABG, PT/INR, D-dimer: ABG POC ABG pH 7.411 (7.35-7.45) 12/18/17 12:51 POC ABG pCO2 46.4 (35-45) H 12/18/17 12:51 POC ABG pO2 131 (80-105) H 12/18/17 12:51 POC ABG HCO3 29.4 12/18/17 12:51 POC ABG Total CO2 31 12/18/17 12:51 POC ABG O2 Sat 99 12/18/17 12:51 PT/INR, D-dimer D-Dimer 389.72 ng/mlDDU (0-234) H 12/12/17 12:34 Abnormal lab findings: Abnormal Labs 12/12/17 12/12/17 12/12/17 10:50 10:50 10:50 WBC RBC Hgb Hct MCV MCH MCHC 35 H RDW 16.5 H Plt Count 139 L Lymph % (Auto) 11.9 L [place] % (Auto) 11.8 H Lymph # 0.8 L [place] # Seg Neutrophils % 74.6 H Seg Neutrophils # D-Dimer POC ABG pH POC ABG pCO2 POC ABG pO2 Sodium 124 L Chloride 88.0 L Carbon Dioxide BUN Creatinine 0.5 L Glucose 106 H POC Glucose Lactic Acid 3.60 H* Calcium Total Protein 6.1 L Albumin 3.2 L HDL Cholesterol Vitamin B12 Free T4 Crossmatch 12/12/17 12/12/17 12/12/17 12:08 12:34 19:58 WBC RBC Hgb Hct MCV MCH MCHC RDW Plt Count Lymph % (Auto) [place] % (Auto) Lymph # [place] # Seg Neutrophils % Seg Neutrophils # D-Dimer 389.72 H POC ABG pH POC ABG pCO2 POC ABG pO2 Sodium Chloride Carbon Dioxide BUN Creatinine Glucose POC Glucose Lactic Acid 2.30 H* Calcium Total Protein Albumin HDL Cholesterol Vitamin B12 Free T4 1.60 H Crossmatch 12/12/17 12/13/17 12/13/17 19:58 03:38 12:22 WBC RBC Hgb Hct MCV MCH MCHC 35 H RDW 16.6 H Plt Count 125 L Lymph % (Auto) 11.3 L [place] % (Auto) 10.1 H Lymph # 1.0 L [place] # 0.9 H Seg Neutrophils % 76.5 H Seg Neutrophils # D-Dimer POC ABG pH POC ABG pCO2 POC ABG pO2 Sodium Chloride Carbon Dioxide BUN Creatinine Glucose POC Glucose Lactic Acid Calcium Total Protein Albumin HDL Cholesterol 70 H Vitamin B12 > 2000 H Free T4 Crossmatch 12/13/17 12/14/17 12/14/17 12:22 04:47 04:47 WBC RBC Hgb Hct MCV MCH MCHC 35 H RDW 16.8 H Plt Count Lymph % (Auto) [place] % (Auto) Lymph # [place] # Seg Neutrophils % Seg Neutrophils # D-Dimer POC ABG pH POC ABG pCO2 POC ABG pO2 Sodium 130 L 133 L Chloride 90.3 L 91.4 L Carbon Dioxide BUN 28 H Creatinine 0.4 L 0.4 L Glucose 69 L 59 L POC Glucose Lactic Acid Calcium Total Protein Albumin HDL Cholesterol Vitamin B12 Free T4 Crossmatch 12/15/17 12/15/17 12/15/17 17:48 18:04 20:01 WBC RBC Hgb Hct MCV MCH MCHC RDW Plt Count Lymph % (Auto) [place] % (Auto) Lymph # [place] # Seg Neutrophils % Seg Neutrophils # D-Dimer POC ABG pH 7.084 L POC ABG pCO2 82.8 H 52.2 H POC ABG pO2 106 H 502 H Sodium Chloride Carbon Dioxide BUN Creatinine Glucose POC Glucose 108 H Lactic Acid Calcium Total Protein Albumin HDL Cholesterol Vitamin B12 Free T4 Crossmatch 12/16/17 12/16/17 12/16/17 05:56 16:00 17:41 WBC RBC Hgb Hct MCV MCH MCHC RDW Plt Count Lymph % (Auto) [place] % (Auto) Lymph # [place] # Seg Neutrophils % Seg Neutrophils # D-Dimer POC ABG pH 7.495 H POC ABG pCO2 31.7 L POC ABG pO2 112 H 133 H Sodium Chloride Carbon Dioxide BUN Creatinine Glucose POC Glucose 106 H Lactic Acid Calcium Total Protein Albumin HDL Cholesterol Vitamin B12 Free T4 Crossmatch 12/16/17 12/16/17 12/16/17 18:55 18:55 22:48 WBC 13.6 H RBC Hgb Hct MCV MCH MCHC RDW 16.4 H Plt Count Lymph % (Auto) 8.7 L [place] % (Auto) 8.6 H Lymph # [place] # 1.2 H Seg Neutrophils % 82.1 H Seg Neutrophils # 11.2 H D-Dimer POC ABG pH POC ABG pCO2 POC ABG pO2 Sodium 131 L Chloride Carbon Dioxide 20 L D BUN 30 H Creatinine 0.5 L Glucose 118 H POC Glucose 121 H Lactic Acid Calcium Total Protein Albumin HDL Cholesterol Vitamin B12 Free T4 Crossmatch 12/17/17 12/17/17 12/18/17 04:35 04:35 04:40 WBC RBC 3.46 L 3.40 L Hgb 11.0 L 11.0 L Hct 32.4 L 31.8 L MCV MCH MCHC 35 H RDW 17.0 H 16.9 H Plt Count 131 L 137 L Lymph % (Auto) [place] % (Auto) 10.6 H Lymph # [place] # Seg Neutrophils % Seg Neutrophils # D-Dimer POC ABG pH POC ABG pCO2 POC ABG pO2 Sodium 132 L Chloride 97.8 L Carbon Dioxide BUN 28 H Creatinine 0.5 L Glucose POC Glucose Lactic Acid Calcium 8.3 L Total Protein Albumin HDL Cholesterol Vitamin B12 Free T4 Crossmatch 12/18/17 12/18/17 12/18/17 04:40 12:51 17:18 WBC RBC Hgb Hct MCV MCH MCHC RDW Plt Count Lymph % (Auto) [place] % (Auto) Lymph # [place] # Seg Neutrophils % Seg Neutrophils # D-Dimer POC ABG pH POC ABG pCO2 46.4 H POC ABG pO2 131 H Sodium Chloride Carbon Dioxide BUN 30 H Creatinine 0.5 L Glucose POC Glucose 109 H Lactic Acid Calcium 8.3 L Total Protein Albumin HDL Cholesterol Vitamin B12 Free T4 Crossmatch 12/22/17 12/22/17 12/23/17 05:49 11:43 06:45 WBC RBC Hgb Hct MCV MCH MCHC RDW Plt Count Lymph % (Auto) [place] % (Auto) Lymph # [place] # Seg Neutrophils % Seg Neutrophils # D-Dimer POC ABG pH POC ABG pCO2 POC ABG pO2 Sodium Chloride Carbon Dioxide BUN Creatinine Glucose POC Glucose 112 H 120 H 138 H Lactic Acid Calcium Total Protein Albumin HDL Cholesterol Vitamin B12 Free T4 Crossmatch 12/23/17 12/23/17 12/23/17 12:05 13:36 13:36 WBC RBC 2.24 L Hgb 7.3 L Hct 21.4 L MCV 95 H MCH 33 H MCHC RDW 16.7 H Plt Count Lymph % (Auto) [place] % (Auto) 8.5 H Lymph # [place] # 0.9 H Seg Neutrophils % 72.4 H Seg Neutrophils # 8.0 H D-Dimer POC ABG pH POC ABG pCO2 POC ABG pO2 Sodium Chloride Carbon Dioxide BUN 61 H Creatinine 0.5 L Glucose 138 H POC Glucose 145 H Lactic Acid Calcium Total Protein Albumin HDL Cholesterol Vitamin B12 Free T4 Crossmatch 12/23/17 12/23/17 12/24/17 18:03 23:50 04:58 WBC 12.9 H RBC 2.04 L Hgb 6.6 L Hct 19.9 L* MCV 98 H MCH MCHC RDW 17.2 H Plt Count Lymph % (Auto) [place] % (Auto) Lymph # [place] # Seg Neutrophils % Seg Neutrophils # D-Dimer POC ABG pH POC ABG pCO2 POC ABG pO2 Sodium Chloride Carbon Dioxide BUN Creatinine Glucose POC Glucose 176 H 107 H Lactic Acid Calcium Total Protein Albumin HDL Cholesterol Vitamin B12 Free T4 Crossmatch 12/24/17 12/24/17 12/24/17 05:56 07:16 09:43 WBC 13.5 H RBC 2.08 L Hgb 6.7 L Hct 20.3 L MCV 98 H MCH MCHC RDW 17.3 H Plt Count Lymph % (Auto) [place] % (Auto) Lymph # [place] # Seg Neutrophils % Seg Neutrophils # D-Dimer POC ABG pH POC ABG pCO2 POC ABG pO2 Sodium Chloride Carbon Dioxide BUN Creatinine Glucose POC Glucose 122 H Lactic Acid Calcium Total Protein Albumin HDL Cholesterol Vitamin B12 Free T4 Crossmatch See Detail 12/24/17 12/24/17 12/24/17 12:06 18:55 23:52 WBC 11.3 H RBC 2.35 L Hgb 7.5 L Hct 22.5 L MCV 96 H MCH MCHC RDW 17.3 H Plt Count Lymph % (Auto) [place] % (Auto) Lymph # [place] # Seg Neutrophils % Seg Neutrophils # D-Dimer POC ABG pH POC ABG pCO2 POC ABG pO2 Sodium Chloride Carbon Dioxide BUN Creatinine Glucose POC Glucose 163 H 110 H Lactic Acid Calcium Total Protein Albumin HDL Cholesterol Vitamin B12 Free T4 Crossmatch 12/25/17 12/25/17 12/25/17 04:06 04:06 05:16 WBC RBC 2.35 L Hgb 7.6 L Hct 22.7 L MCV 97 H MCH MCHC RDW 17.7 H Plt Count Lymph % (Auto) [place] % (Auto) Lymph # [place] # Seg Neutrophils % Seg Neutrophils # D-Dimer POC ABG pH POC ABG pCO2 POC ABG pO2 Sodium Chloride Carbon Dioxide 32 H BUN 54 H Creatinine 0.6 L Glucose 101 H POC Glucose 127 H Lactic Acid Calcium 8.2 L Total Protein Albumin HDL Cholesterol Vitamin B12 Free T4 Crossmatch 12/25/17 12/25/17 12/25/17 12:03 18:10 23:38 WBC RBC Hgb Hct MCV MCH MCHC RDW Plt Count Lymph % (Auto) [place] % (Auto) Lymph # [place] # Seg Neutrophils % Seg Neutrophils # D-Dimer POC ABG pH POC ABG pCO2 POC ABG pO2 Sodium Chloride Carbon Dioxide BUN Creatinine Glucose POC Glucose 146 H 152 H 124 H Lactic Acid Calcium Total Protein Albumin HDL Cholesterol Vitamin B12 Free T4 Crossmatch 12/26/17 12/26/17 12/27/17 04:51 11:06 13:45 WBC RBC Hgb 6.7 L Hct 20.1 L MCV MCH MCHC RDW Plt Count Lymph % (Auto) [place] % (Auto) Lymph # [place] # Seg Neutrophils % Seg Neutrophils # D-Dimer POC ABG pH POC ABG pCO2 POC ABG pO2 Sodium Chloride Carbon Dioxide BUN Creatinine Glucose POC Glucose 113 H 123 H Lactic Acid Calcium Total Protein Albumin HDL Cholesterol Vitamin B12 Free T4 Crossmatch 12/27/17 12/28/17 12/28/17 18:06 03:54 03:54 WBC RBC 2.33 L Hgb 7.4 L Hct 21.9 L MCV MCH MCHC RDW 17.9 H Plt Count Lymph % (Auto) [place] % (Auto) Lymph # [place] # Seg Neutrophils % Seg Neutrophils # D-Dimer POC ABG pH POC ABG pCO2 POC ABG pO2 Sodium Chloride Carbon Dioxide BUN 29 H Creatinine 0.3 L Glucose POC Glucose Lactic Acid Calcium 7.5 L Total Protein Albumin HDL Cholesterol Vitamin B12 Free T4 Crossmatch See Detail 12/29/17 07:00 WBC RBC 2.54 L Hgb 8.0 L Hct 24.1 L MCV 95 H MCH MCHC RDW 18.0 H Plt Count Lymph % (Auto) [place] % (Auto) 9.3 H Lymph # [place] # Seg Neutrophils % Seg Neutrophils # D-Dimer POC ABG pH POC ABG pCO2 POC ABG pO2 Sodium Chloride Carbon Dioxide BUN Creatinine Glucose POC Glucose Lactic Acid Calcium Total Protein Albumin HDL Cholesterol Vitamin B12 Free T4 Crossmatch Allied health notes reviewed: nursing
--- NOTE | 2017-12-30 13:57 | Progress Note ---
Assessment and Plan Assessment and plan: 87 YO Male currently an inpatient at [facility] for [facility] with Dementia, HTN, DM, Psychosis, Cardiomyopathy S/P Pacemaker placement presents to ED for evaluation. Pt is confused and unable to provide history. Pt history taken from ED staff, and [place] staff. As per staff, the patient was found down and unresponsive this morning shortly after breakfast. EMS notified,and upon arrival the patient was found to be confused. Pt transported to [facility] for further care and evaluation. Pt seen and evaluated in ED and found to have symptoms suspicious for CVA, Encephalopathy, Hyponatremia, and Acidosis. Pt admitted to telemetry and initiated on CVA protocol. patient was a resident of [facility] prior to going to the [facility]. on discharge [facility] Declined accepting the patient, CASE Management is pending Afib-per son, patient known to have Afib and was on anticoagulation prior- Eliquis But not sure as patient also had a hx of bleeding ulcer in the past. -CARDIOLOGY FOLLOWING. - anticoagulation deferred to outpatient cardiology. Due to recent anemia will hold off. Risk discussed with son and patient. Acute blood loss Anemia-good response following a unit of blood s/p 2 unit PRBC. stable GI evaluated the patient and prefers conservative management at this time with no indication for endoscopy right now. Acute encephalopathy With some delirum - Resolving Acute Respiratory failure extubated and on when necessary BiPAP Hypotension - Patient was given bolus of IV fluid, blood pressure is normalized Aspiration penumonia - Patient is on IV antibiotics. COMPLETED. 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 May have found an accepting facility and anticipate paper work to be completed tomorrow for discharge History Interval history: Patient seen and examined in no acute distress. Resting comfortably, although intermittent confusion still persist. No other adverse event reported by nurses Hospitalist Physical - Physical exam Narrative exam: VITAL SIGNS: Reviewed. GENERAL: The patient appeared well nourished and normally developed. Vital signs as documented. HEAD: No signs of head trauma. EYES: Pupils are equal. Extraocular motions intact. EARS: Hearing grossly intact. MOUTH: Oropharynx is normal. NECK: No adenopathy, no JVD. CHEST: Chest with clear breath sounds bilaterally. No wheezes, rales, or rhonchi. CARDIAC: Regular rate and rhythm. S1 and S2, without murmurs, gallops, or rubs. VASCULAR: trace Edema. Peripheral pulses normal and equal in all extremities. ABDOMEN: Soft, without detectable tenderness. No sign of distention. No rebound or guarding, and no masses palpated. Bowel Sounds normal. MUSCULOSKELETAL: Good range of motion of all major joints. Extremities without clubbing, cyanosis. trace edema. NEUROLOGIC EXAM: awake, intermittent dilrium. oriented to person No focal sensory or strength deficits. Speech normal when tooth in place. PSYCHIATRIC: Mood normal. SKIN: No rash or lesions. - Constitutional Vitals: Temp Pulse Resp BP Pulse Ox 97.5 F L 69 22 120/67 100 12/30/17 12:09 12/30/17 12:09 12/30/17 12:09 12/30/17 12:09 12/30/17 12:09 General appearance: Present: no acute distress Results - Labs CBC & Chem 7: 12/29/17 07:00 12/28/17 03:54 Labs: Laboratory Last Values WBC 7.3 K/mm3 (4.5-11.0) 12/29/17 07:00 RBC 2.54 M/mm3 (3.65-5.03) L 12/29/17 07:00 Hgb 8.0 gm/dl (11.8-15.2) L 12/29/17 07:00 Hct 24.1 % (35.5-45.6) L 12/29/17 07:00 MCV 95 fl (84-94) H 12/29/17 07:00 MCH 32 pg (28-32) 12/29/17 07:00 MCHC 33 % (32-34) 12/29/17 07:00 RDW 18.0 % (13.2-15.2) H 12/29/17 07:00 Plt Count 401 K/mm3 (140-440) 12/29/17 07:00 Lymph % (Auto) 19.6 % (13.4-35.0) 12/29/17 07:00 [place] % (Auto) 9.3 % (0.0-7.3) H 12/29/17 07:00 Eos % (Auto) 2.6 % (0.0-4.3) 12/29/17 07:00 Baso % (Auto) 0.8 % (0.0-1.8) 12/29/17 07:00 Lymph # 1.4 K/mm3 (1.2-5.4) 12/29/17 07:00 [place] # 0.7 K/mm3 (0.0-0.8) 12/29/17 07:00 Eos # 0.2 K/mm3 (0.0-0.4) 12/29/17 07:00 Baso # 0.1 K/mm3 (0.0-0.1) 12/29/17 07:00 Seg Neutrophils % 67.7 % (40.0-70.0) 12/29/17 07:00 Seg Neutrophils # 4.9 K/mm3 (1.8-7.7) 12/29/17 07:00 D-Dimer 389.72 ng/mlDDU (0-234) H 12/12/17 12:34 POC ABG pH 7.411 (7.35-7.45) 12/18/17 12:51 POC ABG pCO2 46.4 (35-45) H 12/18/17 12:51 POC ABG pO2 131 (80-105) H 12/18/17 12:51 POC ABG HCO3 29.4 12/18/17 12:51 POC ABG Total CO2 31 12/18/17 12:51 POC ABG O2 Sat 99 12/18/17 12:51 POC ABG Base Excess 5 12/18/17 12:51 FiO2 28 % 12/18/17 12:51 Sodium 138 mmol/L (137-145) 12/28/17 03:54 Potassium 3.8 mmol/L (3.6-5.0) 12/28/17 03:54 Chloride 103.5 mmol/L (98-107) 12/28/17 03:54 Carbon Dioxide 28 mmol/L (22-30) 12/28/17 03:54 Anion Gap 10 mmol/L 12/28/17 03:54 BUN 29 mg/dL (9-20) H 12/28/17 03:54 Creatinine 0.3 mg/dL (0.8-1.5) L 12/28/17 03:54 Estimated GFR > 60 ml/min 12/28/17 03:54 BUN/Creatinine Ratio 97 % 12/28/17 03:54 Glucose 77 mg/dL (75-100) 12/28/17 03:54 POC Glucose 91 (70-105) 12/26/17 17:13 Lactic Acid 1.10 mmol/L (0.7-2.0) 12/13/17 12:22 Calcium 7.5 mg/dL (8.4-10.2) L 12/28/17 03:54 Total Bilirubin 0.90 mg/dL (0.1-1.2) 12/12/17 10:50 AST 32 units/L (5-40) 12/12/17 10:50 ALT 31 units/L (7-56) 12/12/17 10:50 Alkaline Phosphatase 110 units/L (35-129) 12/12/17 10:50 Ammonia 55.0 umol/L (25-60) 12/12/17 10:50 Troponin T < 0.010 ng/mL (0.00-0.029) 12/12/17 18:35 Total Protein 6.1 g/dL (6.3-8.2) L 12/12/17 10:50 Albumin 3.2 g/dL (3.9-5) L 12/12/17 10:50 Albumin/Globulin Ratio 1.1 % 12/12/17 10:50 Triglycerides 76 mg/dL (2-149) 12/13/17 03:38 Cholesterol 125 mg/dL (50-199) 12/13/17 03:38 LDL Cholesterol Direct 57 mg/dL (50-130) 12/13/17 03:38 HDL Cholesterol 70 mg/dL (40-59) H 12/13/17 03:38 Cholesterol/HDL Ratio 1.78 % 12/13/17 03:38 Vitamin B12 > 2000 pg/mL (211-911) H 12/12/17 19:58 TSH 2.470 mlU/mL (0.270-4.200) 12/12/17 19:58 Free T4 1.60 ng/dL (0.76-1.46) H 12/12/17 19:58 Urine Color Yellow (Yellow) 12/12/17 Unknown Urine Turbidity Clear (Clear) 12/12/17 Unknown Urine pH 6.0 (5.0-7.0) 12/12/17 Unknown Ur Specific [place] 1.009 (1.003-1.030) 12/12/17 Unknown Urine Protein <15 mg/dl mg/dL (Negative) 12/12/17 Unknown Urine Glucose (UA) Neg mg/dL (Negative) 12/12/17 Unknown Urine Ketones Neg mg/dL (Negative) 12/12/17 Unknown Urine Blood Neg (Negative) 12/12/17 Unknown Urine Nitrite Neg (Negative) 12/12/17 Unknown Urine Bilirubin Neg (Negative) 12/12/17 Unknown Urine Urobilinogen 2.0 mg/dL (<2.0) 12/12/17 Unknown Ur Leukocyte Esterase Tr (Negative) 12/12/17 Unknown Urine WBC (Auto) 3.0 /HPF (0.0-6.0) 12/12/17 Unknown Urine RBC (Auto) 5.0 /HPF (0.0-6.0) 12/12/17 Unknown U Epithel Cells (Auto) < 1.0 /HPF (0-13.0) 12/12/17 Unknown Urine Mucus Few /HPF 12/12/17 Unknown Blood Type O POSITIVE 12/27/17 18:06 Antibody Screen Negative 12/27/17 18:06 Crossmatch See Detail 12/27/17 18:06
--- NOTE | 2017-12-30 15:00 | Progress Note ---
Assessment and Plan 87 yr old male with history of dementia, cardiac disease, hypertension, diabetes , psychosis, presented to ER after being [facility]. He has been treated for aspiration pneumonia. CT brain reveals atrophy and small vessel disease. No acute stroke was found. Anticoagulation is being held becauser of GI bleeding issues. Plan - Continue atorvastqatin Awaiting placement. Subjective Date of service: 12/30/17 Principal diagnosis: Acute hypercapnic hypoxemic respiratory failure; Acute encephalopathy Interval history: This is an 87 year old male with diagnosis of Dementia, HTN, DM, Psychosis, Cardiomyopathy S/P Pacemaker. He is an inpatient at [facility] for Suicide Ideation Patient was admitted on 12/12/17 after being found down. On arrivl to ER he appeared confused and encephalopathic. He was later found to have a respiratory infection, probable aspiration pneumonia which has resolved. CT brain reveals atrophy and small vessel disease. He is awaiting placement. Objective - Exam Narrative Exam: HEENT - normocephalic. Chest - clear. Heart - reg. rate. Nl S-1, S-2. Abdomen - soft, nontender. Extemities - No CCE Neurological - Awakened easily. Very confused, speech with perseveration. Word substitutio Does not follow commands. Was able to tell me his name and birthdate. manager oracle - EOMs intact. face symmetric. Tongue midline. Motor - Moves extremities equally well. Sensory intact - Vital Sign Vital Signs - 12hr 12/30/17 12/30/17 05:27 12:09 Temperature 98.0 F 97.5 F L Pulse Rate 75 69 Respiratory 20 22 Rate Blood Pressure 112/66 120/67 O2 Sat by Pulse 100 100 Oximetry - Laboratory Findings CBC and BMP: 12/29/17 07:00 12/28/17 03:54 Abnormal Lab Findings: Abnormal Labs 12/12/17 12/12/17 12/12/17 10:50 10:50 10:50 WBC RBC Hgb Hct MCV MCH MCHC 35 H RDW 16.5 H Plt Count 139 L Lymph % (Auto) 11.9 L [place] % (Auto) 11.8 H Lymph # 0.8 L [place] # Seg Neutrophils % 74.6 H Seg Neutrophils # D-Dimer POC ABG pH POC ABG pCO2 POC ABG pO2 Sodium 124 L Chloride 88.0 L Carbon Dioxide BUN Creatinine 0.5 L Glucose 106 H POC Glucose Lactic Acid 3.60 H* Calcium Total Protein 6.1 L Albumin 3.2 L HDL Cholesterol Vitamin B12 Free T4 Crossmatch 12/12/17 12/12/17 12/12/17 12:08 12:34 19:58 WBC RBC Hgb Hct MCV MCH MCHC RDW Plt Count Lymph % (Auto) [place] % (Auto) Lymph # [place] # Seg Neutrophils % Seg Neutrophils # D-Dimer 389.72 H POC ABG pH POC ABG pCO2 POC ABG pO2 Sodium Chloride Carbon Dioxide BUN Creatinine Glucose POC Glucose Lactic Acid 2.30 H* Calcium Total Protein Albumin HDL Cholesterol Vitamin B12 Free T4 1.60 H Crossmatch 12/12/17 12/13/17 12/13/17 19:58 03:38 12:22 WBC RBC Hgb Hct MCV MCH MCHC 35 H RDW 16.6 H Plt Count 125 L Lymph % (Auto) 11.3 L [place] % (Auto) 10.1 H Lymph # 1.0 L [place] # 0.9 H Seg Neutrophils % 76.5 H Seg Neutrophils # D-Dimer POC ABG pH POC ABG pCO2 POC ABG pO2 Sodium Chloride Carbon Dioxide BUN Creatinine Glucose POC Glucose Lactic Acid Calcium Total Protein Albumin HDL Cholesterol 70 H Vitamin B12 > 2000 H Free T4 Crossmatch 12/13/17 12/14/17 12/14/17 12:22 04:47 04:47 WBC RBC Hgb Hct MCV MCH MCHC 35 H RDW 16.8 H Plt Count Lymph % (Auto) [place] % (Auto) Lymph # [place] # Seg Neutrophils % Seg Neutrophils # D-Dimer POC ABG pH POC ABG pCO2 POC ABG pO2 Sodium 130 L 133 L Chloride 90.3 L 91.4 L Carbon Dioxide BUN 28 H Creatinine 0.4 L 0.4 L Glucose 69 L 59 L POC Glucose Lactic Acid Calcium Total Protein Albumin HDL Cholesterol Vitamin B12 Free T4 Crossmatch 12/15/17 12/15/17 12/15/17 17:48 18:04 20:01 WBC RBC Hgb Hct MCV MCH MCHC RDW Plt Count Lymph % (Auto) [place] % (Auto) Lymph # [place] # Seg Neutrophils % Seg Neutrophils # D-Dimer POC ABG pH 7.084 L POC ABG pCO2 82.8 H 52.2 H POC ABG pO2 106 H 502 H Sodium Chloride Carbon Dioxide BUN Creatinine Glucose POC Glucose 108 H Lactic Acid Calcium Total Protein Albumin HDL Cholesterol Vitamin B12 Free T4 Crossmatch 12/16/17 12/16/17 12/16/17 05:56 16:00 17:41 WBC RBC Hgb Hct MCV MCH MCHC RDW Plt Count Lymph % (Auto) [place] % (Auto) Lymph # [place] # Seg Neutrophils % Seg Neutrophils # D-Dimer POC ABG pH 7.495 H POC ABG pCO2 31.7 L POC ABG pO2 112 H 133 H Sodium Chloride Carbon Dioxide BUN Creatinine Glucose POC Glucose 106 H Lactic Acid Calcium Total Protein Albumin HDL Cholesterol Vitamin B12 Free T4 Crossmatch 12/16/17 12/16/17 12/16/17 18:55 18:55 22:48 WBC 13.6 H RBC Hgb Hct MCV MCH MCHC RDW 16.4 H Plt Count Lymph % (Auto) 8.7 L [place] % (Auto) 8.6 H Lymph # [place] # 1.2 H Seg Neutrophils % 82.1 H Seg Neutrophils # 11.2 H D-Dimer POC ABG pH POC ABG pCO2 POC ABG pO2 Sodium 131 L Chloride Carbon Dioxide 20 L D BUN 30 H Creatinine 0.5 L Glucose 118 H POC Glucose 121 H Lactic Acid Calcium Total Protein Albumin HDL Cholesterol Vitamin B12 Free T4 Crossmatch 12/17/17 12/17/17 12/18/17 04:35 04:35 04:40 WBC RBC 3.46 L 3.40 L Hgb 11.0 L 11.0 L Hct 32.4 L 31.8 L MCV MCH MCHC 35 H RDW 17.0 H 16.9 H Plt Count 131 L 137 L Lymph % (Auto) [place] % (Auto) 10.6 H Lymph # [place] # Seg Neutrophils % Seg Neutrophils # D-Dimer POC ABG pH POC ABG pCO2 POC ABG pO2 Sodium 132 L Chloride 97.8 L Carbon Dioxide BUN 28 H Creatinine 0.5 L Glucose POC Glucose Lactic Acid Calcium 8.3 L Total Protein Albumin HDL Cholesterol Vitamin B12 Free T4 Crossmatch 12/18/17 12/18/17 12/18/17 04:40 12:51 17:18 WBC RBC Hgb Hct MCV MCH MCHC RDW Plt Count Lymph % (Auto) [place] % (Auto) Lymph # [place] # Seg Neutrophils % Seg Neutrophils # D-Dimer POC ABG pH POC ABG pCO2 46.4 H POC ABG pO2 131 H Sodium Chloride Carbon Dioxide BUN 30 H Creatinine 0.5 L Glucose POC Glucose 109 H Lactic Acid Calcium 8.3 L Total Protein Albumin HDL Cholesterol Vitamin B12 Free T4 Crossmatch 12/22/17 12/22/17 12/23/17 05:49 11:43 06:45 WBC RBC Hgb Hct MCV MCH MCHC RDW Plt Count Lymph % (Auto) [place] % (Auto) Lymph # [place] # Seg Neutrophils % Seg Neutrophils # D-Dimer POC ABG pH POC ABG pCO2 POC ABG pO2 Sodium Chloride Carbon Dioxide BUN Creatinine Glucose POC Glucose 112 H 120 H 138 H Lactic Acid Calcium Total Protein Albumin HDL Cholesterol Vitamin B12 Free T4 Crossmatch 12/23/17 12/23/17 12/23/17 12:05 13:36 13:36 WBC RBC 2.24 L Hgb 7.3 L Hct 21.4 L MCV 95 H MCH 33 H MCHC RDW 16.7 H Plt Count Lymph % (Auto) [place] % (Auto) 8.5 H Lymph # [place] # 0.9 H Seg Neutrophils % 72.4 H Seg Neutrophils # 8.0 H D-Dimer POC ABG pH POC ABG pCO2 POC ABG pO2 Sodium Chloride Carbon Dioxide BUN 61 H Creatinine 0.5 L Glucose 138 H POC Glucose 145 H Lactic Acid Calcium Total Protein Albumin HDL Cholesterol Vitamin B12 Free T4 Crossmatch 12/23/17 12/23/17 12/24/17 18:03 23:50 04:58 WBC 12.9 H RBC 2.04 L Hgb 6.6 L Hct 19.9 L* MCV 98 H MCH MCHC RDW 17.2 H Plt Count Lymph % (Auto) [place] % (Auto) Lymph # [place] # Seg Neutrophils % Seg Neutrophils # D-Dimer POC ABG pH POC ABG pCO2 POC ABG pO2 Sodium Chloride Carbon Dioxide BUN Creatinine Glucose POC Glucose 176 H 107 H Lactic Acid Calcium Total Protein Albumin HDL Cholesterol Vitamin B12 Free T4 Crossmatch 12/24/17 12/24/17 12/24/17 05:56 07:16 09:43 WBC 13.5 H RBC 2.08 L Hgb 6.7 L Hct 20.3 L MCV 98 H MCH MCHC RDW 17.3 H Plt Count Lymph % (Auto) [place] % (Auto) Lymph # [place] # Seg Neutrophils % Seg Neutrophils # D-Dimer POC ABG pH POC ABG pCO2 POC ABG pO2 Sodium Chloride Carbon Dioxide BUN Creatinine Glucose POC Glucose 122 H Lactic Acid Calcium Total Protein Albumin HDL Cholesterol Vitamin B12 Free T4 Crossmatch See Detail 12/24/17 12/24/17 12/24/17 12:06 18:55 23:52 WBC 11.3 H RBC 2.35 L Hgb 7.5 L Hct 22.5 L MCV 96 H MCH MCHC RDW 17.3 H Plt Count Lymph % (Auto) [place] % (Auto) Lymph # [place] # Seg Neutrophils % Seg Neutrophils # D-Dimer POC ABG pH POC ABG pCO2 POC ABG pO2 Sodium Chloride Carbon Dioxide BUN Creatinine Glucose POC Glucose 163 H 110 H Lactic Acid Calcium Total Protein Albumin HDL Cholesterol Vitamin B12 Free T4 Crossmatch 12/25/17 12/25/17 12/25/17 04:06 04:06 05:16 WBC RBC 2.35 L Hgb 7.6 L Hct 22.7 L MCV 97 H MCH MCHC RDW 17.7 H Plt Count Lymph % (Auto) [place] % (Auto) Lymph # [place] # Seg Neutrophils % Seg Neutrophils # D-Dimer POC ABG pH POC ABG pCO2 POC ABG pO2 Sodium Chloride Carbon Dioxide 32 H BUN 54 H Creatinine 0.6 L Glucose 101 H POC Glucose 127 H Lactic Acid Calcium 8.2 L Total Protein Albumin HDL Cholesterol Vitamin B12 Free T4 Crossmatch 12/25/17 12/25/17 12/25/17 12:03 18:10 23:38 WBC RBC Hgb Hct MCV MCH MCHC RDW Plt Count Lymph % (Auto) [place] % (Auto) Lymph # [place] # Seg Neutrophils % Seg Neutrophils # D-Dimer POC ABG pH POC ABG pCO2 POC ABG pO2 Sodium Chloride Carbon Dioxide BUN Creatinine Glucose POC Glucose 146 H 152 H 124 H Lactic Acid Calcium Total Protein Albumin HDL Cholesterol Vitamin B12 Free T4 Crossmatch 12/26/17 12/26/17 12/27/17 04:51 11:06 13:45 WBC RBC Hgb 6.7 L Hct 20.1 L MCV MCH MCHC RDW Plt Count Lymph % (Auto) [place] % (Auto) Lymph # [place] # Seg Neutrophils % Seg Neutrophils # D-Dimer POC ABG pH POC ABG pCO2 POC ABG pO2 Sodium Chloride Carbon Dioxide BUN Creatinine Glucose POC Glucose 113 H 123 H Lactic Acid Calcium Total Protein Albumin HDL Cholesterol Vitamin B12 Free T4 Crossmatch 12/27/17 12/28/17 12/28/17 18:06 03:54 03:54 WBC RBC 2.33 L Hgb 7.4 L Hct 21.9 L MCV MCH MCHC RDW 17.9 H Plt Count Lymph % (Auto) [place] % (Auto) Lymph # [place] # Seg Neutrophils % Seg Neutrophils # D-Dimer POC ABG pH POC ABG pCO2 POC ABG pO2 Sodium Chloride Carbon Dioxide BUN 29 H Creatinine 0.3 L Glucose POC Glucose Lactic Acid Calcium 7.5 L Total Protein Albumin HDL Cholesterol Vitamin B12 Free T4 Crossmatch See Detail 12/29/17 07:00 WBC RBC 2.54 L Hgb 8.0 L Hct 24.1 L MCV 95 H MCH MCHC RDW 18.0 H Plt Count Lymph % (Auto) [place] % (Auto) 9.3 H Lymph # [place] # Seg Neutrophils % Seg Neutrophils # D-Dimer POC ABG pH POC ABG pCO2 POC ABG pO2 Sodium Chloride Carbon Dioxide BUN Creatinine Glucose POC Glucose Lactic Acid Calcium Total Protein Albumin HDL Cholesterol Vitamin B12 Free T4 Crossmatch
[2017-12-30] MEDS: ARICEPT PO SCH (22:27)
[2017-12-31 05:46] LABS: Hematocrit 24.5 % (35.5-45.6); Hemoglobin 8.1 gm/dl (11.8-15.2); Mean Corpuscular HGB Conc 33 % (32-34); Mean Corpuscular Hemoglobin 32 pg (28-32); Mean Corpuscular Volume 96 fl (84-94); Platelet Count 373 K/mm3 (140-440); Red Blood Count 2.56 M/mm3 (3.65-5.03); Red Cell Distribution Width 17.8 % (13.2-15.2)
[2017-12-31 06:10] LABS: BUN/Creatinine Ratio 50; Blood Urea Nitrogen 15 mg/dL (9-20); Calcium 7.8 mg/dL (8.4-10.2); Hemolysis Index 11
[2017-12-31] MEDS: KEPPRA PO SCH (09:46)
[2017-12-31] MEDS: DepaKENE Liq FEEDTUBE SCH (09:47)
[2017-12-31] MEDS: LOPRESSOR PO SCH (09:47)
[2017-12-31] MEDS: THERAGRAN Tab PO SCH (09:48)
[2017-12-31] MEDS: PEPCID PO SCH (09:48)
[2017-12-31] MEDS: LASIX PO SCH (09:49)
[2017-12-31] MEDS: FLONASE NS SCH (09:49)
[2017-12-31 12:30] VITALS: BP 109/68
--- NOTE | 2017-12-31 13:21 | Discharge Summary ---
Providers - Providers Date of Admission: 12/12/17 14:17 Date of discharge: 12/31/17 Attending physician: ROXANNA NOLAND 12/12/17 14:17 Occupational Therapy Evaluate and Treat [CONS] Routine Comment: Reason For Exam: Neuro deficits Physical Therapy Evaluation and Treat [CONS] Routine Comment: Reason For Exam: Neuro deficits 12/12/17 16:33 Consult to Physician [CONS] Routine Comment: LEFT MESSAGE WITH THANIA AT 1659 Consulting Provider: EMELINA ARRIOLA Physician Instructions: Reason For Exam: cva 12/13/17 08:13 Consult to Wound/ET Nurse [CONS] Routine Reason For Exam: wound eval, redness buttock & skin tear left elbow 12/13/17 10:16 Consult to Mental Health [CONS] Routine Reason For Exam: suicidal hx Place consult to:: mental health Notified:: YES Phone number called:: [phone] Was contact made?: No Time called:: 10:45 Comment:: LEFT MESSAGE ON VOICE MAIL ONLY OPTION. [id number] NO ANSWER 12/13/17 12:17 Speech Therapy Evaluation and Treat [CONS] Routine Reason For Exam: Possible stroke 12/15/17 18:34 Consult to Physician [CONS] Routine Comment: Consulting Provider: JOHN VARGHESE Physician Instructions: Reason For Exam: Acute resp failure 12/16/17 12:18 Consult to Dietitian/Nutrition [CONS] Stat Physician Instructions: Reason For Exam: Reason for Consult: Write/Manage Tube Feeding Consult to Physician [CONS] Routine Comment: Consulting Provider: COURTNEY ONEAL Physician Instructions: Reason For Exam: seizure 12/19/17 13:11 Consult to Mental Health [CONS] Routine Reason For Exam: suicide hx Place consult to:: [id number] Notified:: yes Phone number called:: [phone] Was contact made?: Yes If yes, spoke with:: Oni Time called:: 13:12 12/20/17 14:01 Speech Therapy Evaluation and Treat [CONS] Routine Reason For Exam: difficulty w/swallow screen need further evaluatio 12/26/17 00:09 Consult to Wound/ET Nurse [CONS] Routine Reason For Exam: REDDENED ON BRIDGE OF NOSE AND ALSO BRUISES. 12/27/17 17:34 Consult to Physician [CONS] Routine Comment: Consulting Provider: MICHAEL HARRY Physician Instructions: Reason For Exam: GI bleed Primary care physician: CHIEF COMPRESSOR [employer]ATION ENGINEER Hospitalization Condition: Stable Hospital course: Patient is a 87 yo man who came from inpatient [facility] for Suicide Ideation with a history of Dementia, HTN, DM, Psychosis, Cardiomyopathy S/P Pacemaker placement. afib not on anticoagulation due to GI blood loss anemia who presented to [facility] ED for confused/AMS. In ED and found to have symptoms suspicious for CVA, Encephalopathy, Hyponatremia, and Acidosis. Pt admitted to telemetry and initiated on CVA protocol. patient was a resident of [facility] prior to going to the [facility]. on discharge [facility] Declined accepting the patient AMS most likely undifferientated encephalopathy from prior co-morbidities and pneumonia Afib Acute blood loss Anemia-good response following a unit of blood: s/p 2 unit PRBC. stable, GI evaluated the patient and prefers conservative management at this time with no indication for endoscopy right now. Acute encephalopathy With some delirum Acute Respiratory failure s/p mechanical ventilation and extubation Hypotension: Patient was given bolus of IV fluid, blood pressure is normalized Aspiration penumonia: COMPLETED antibx SEIZURE DISORDER: Patient is on Keppra Hyponatremia, hypovolemia Alzheimer dementia Metabolic acidosis Hypoglycemia Disposition: Rebekah Erwin CODE STATUS: AND/DNR Disposition: [id number] [facility] C[facility] Time spent for discharge: 34 min Core Measure Documentation - Palliative Care Palliative Care/ Comfort Measures: Not Applicable - Core Measures Any of the following diagnoses?: none - VTE Discharge Requirements Deep Vein Thrombosis/Pulmonary Embolism Present on Admission: No Has pt received <5 days of overlap therapy or INR<2.0: No Anticoagulant overlap therapy prescribed at discharge: No Contraindication No Overlap Therapy order at DC: Not Indicated Exam - Physical Exam Narrative exam: GEN: WDWN, NAD, Awake, Alert, confused HEENT: NCAT, EOMI, PERRL, OP Clear NECK: supple, no adenopathy, no thyromegaly, no JVD CVS/HEART: irregRRR, normal S1S2, pulses present bilaterally CHEST/LUNGS: CTA B, Symmetrical chest expansion, good air entry bilaterally GI/Abdomen: soft, NTND, good bowel sounds, no guarding or rebound /Bladder: no suprapubic tenderness, no CVA or paraspinal tenderness EXT/Skin: no c/c/e, no obvious rash MSK: FROM x 4 Neuro: CN 2-12 grossly intact, no new focal deficits Psych: calm and confused - Constitutional Vitals: Temp Pulse Resp BP Pulse Ox 97.9 F 71 22 109/68 100 12/31/17 11:56 12/31/17 11:56 12/31/17 11:56 12/31/17 11:56 12/31/17 11:56 Plan Activity: up only with assistance, fall precautions, other (no strenous activity ) Diet: other (pureed) Follow up with: CHELLE GURROLA MD [Staff Physician] - 7 Days PRIMARY CARE, [Primary Care Provider] - 3-5 Days COURTNEY ONEAL MD [Staff Physician] - 7 Days Prescriptions: AtorvaSTATin [Lipitor] 40 mg PO QHS #30 tablet Fluticasone [Flonase] 100 mcg NS BID #1 bottle Furosemide [Lasix TAB] 20 mg PO QDAY #30 tablet levETIRAcetam [Keppra TAB] 750 mg PO BID #60 tablet Metoprolol [Lopressor TAB] 12.5 mg PO BID #60 tablet
--- NOTE | 2017-12-31 14:00 | Progress Note ---
Assessment and Plan Acute hypercapnic hypoxemic respiratory failure, now on mechanical ventilatory support. Sepsis Syndrome (Resolved) Aspiration Pneumonia Seizure Disorder Acute encephalopathy, presumably related to the hypercapnia. Atrial fibrillation (Rate controlled) Alzheimers Dementia ABLA (holding full anticoagulation for A-fib) Hyponatremia, moderate at presentation, resolving. Respiratory acidosis. Thrombocytopenia at presentation, now resolved. Elevated D-dimer with negative CT angiogram. Cardiomyopathy, heart failure with reduced ejection fraction. Lactic acidosis at presentation, resolved. Hypoalbuminemia. - prn CXR's - continue supplemental oxygen as needed to keep sats > 90% - prn BIPAP at this point - continue aspiration precautions - continue keppra for seizures - holding anticoagulation re: ABLA - continue to follow clinically off antibiotics - continue secondary prevention with lipitor, BP control - ST evaluation - continue enteral nutrition as tolerated - d/c planning per attending and ongoing concurrently ..... re-evaluate in am & prn Subjective Date of service: 12/31/17 Principal diagnosis: Acute hypercapnic hypoxemic respiratory failure; Acute encephalopathy Interval history: Patient is seen today for: Acute hypercapnic hypoxemic respiratory failure s/p MVS; Acute encephalopathy; Hyponatremia; Respiratory acidosis; Thrombocytopenia Seen and examined at bedside; 24hour events reviewed; nursing and respiratory care staff consulted; no adverse overnight events reported to me; resting in bed ; Objective Vital Signs - 12hr 12/31/17 12/31/17 12/31/17 04:11 08:38 11:56 Temperature 96.1 F L 97.9 F Pulse Rate 70 71 Respiratory 18 22 Rate Blood Pressure 119/68 109/68 O2 Sat by Pulse 100 98 100 Oximetry Constitutional: no acute distress, alert, other (elderly looking CM, normocephalic and atraumatic. Encephalopathic. weak.) Eyes: non-icteric ENT: oropharynx moist, other (Mallampati 2) Neck: supple, no lymphadenopathy, no JVD, other (No thyromegaly) Effort: mildly labored Ascultation: Bilateral: diminished breath sounds, rhonchi (bases) Percussion: Bilateral: not dull Cardiovascular: irregular rhythm, murmur noted (systolic) Gastrointestinal: normoactive bowel sounds, soft, non-tender, non-distended, other (No HSM) Integumentary: normal Extremities: no cyanosis, no edema, pink and warm, pulses normal Neurologic: non-focal exam (grossly), pupils equal and round, motor strength normal and Psychiatric: other (flat affect) CBC and BMP: 12/31/17 05:11 12/31/17 05:11 ABG, PT/INR, D-dimer: ABG POC ABG pH 7.411 (7.35-7.45) 12/18/17 12:51 POC ABG pCO2 46.4 (35-45) H 12/18/17 12:51 POC ABG pO2 131 (80-105) H 12/18/17 12:51 POC ABG HCO3 29.4 12/18/17 12:51 POC ABG Total CO2 31 12/18/17 12:51 POC ABG O2 Sat 99 12/18/17 12:51 PT/INR, D-dimer D-Dimer 389.72 ng/mlDDU (0-234) H 12/12/17 12:34 Abnormal lab findings: Abnormal Labs 12/12/17 12/12/17 12/12/17 10:50 10:50 10:50 WBC RBC Hgb Hct MCV MCH MCHC 35 H RDW 16.5 H Plt Count 139 L Lymph % (Auto) 11.9 L [place] % (Auto) 11.8 H Lymph # 0.8 L [place] # Seg Neutrophils % 74.6 H Seg Neutrophils # D-Dimer POC ABG pH POC ABG pCO2 POC ABG pO2 Sodium 124 L Chloride 88.0 L Carbon Dioxide BUN Creatinine 0.5 L Glucose 106 H POC Glucose Lactic Acid 3.60 H* Calcium Total Protein 6.1 L Albumin 3.2 L HDL Cholesterol Vitamin B12 Free T4 Crossmatch 12/12/17 12/12/17 12/12/17 12:08 12:34 19:58 WBC RBC Hgb Hct MCV MCH MCHC RDW Plt Count Lymph % (Auto) [place] % (Auto) Lymph # [place] # Seg Neutrophils % Seg Neutrophils # D-Dimer 389.72 H POC ABG pH POC ABG pCO2 POC ABG pO2 Sodium Chloride Carbon Dioxide BUN Creatinine Glucose POC Glucose Lactic Acid 2.30 H* Calcium Total Protein Albumin HDL Cholesterol Vitamin B12 Free T4 1.60 H Crossmatch 12/12/17 12/13/17 12/13/17 19:58 03:38 12:22 WBC RBC Hgb Hct MCV MCH MCHC 35 H RDW 16.6 H Plt Count 125 L Lymph % (Auto) 11.3 L [place] % (Auto) 10.1 H Lymph # 1.0 L [place] # 0.9 H Seg Neutrophils % 76.5 H Seg Neutrophils # D-Dimer POC ABG pH POC ABG pCO2 POC ABG pO2 Sodium Chloride Carbon Dioxide BUN Creatinine Glucose POC Glucose Lactic Acid Calcium Total Protein Albumin HDL Cholesterol 70 H Vitamin B12 > 2000 H Free T4 Crossmatch 12/13/17 12/14/17 12/14/17 12:22 04:47 04:47 WBC RBC Hgb Hct MCV MCH MCHC 35 H RDW 16.8 H Plt Count Lymph % (Auto) [place] % (Auto) Lymph # [place] # Seg Neutrophils % Seg Neutrophils # D-Dimer POC ABG pH POC ABG pCO2 POC ABG pO2 Sodium 130 L 133 L Chloride 90.3 L 91.4 L Carbon Dioxide BUN 28 H Creatinine 0.4 L 0.4 L Glucose 69 L 59 L POC Glucose Lactic Acid Calcium Total Protein Albumin HDL Cholesterol Vitamin B12 Free T4 Crossmatch 12/15/17 12/15/17 12/15/17 17:48 18:04 20:01 WBC RBC Hgb Hct MCV MCH MCHC RDW Plt Count Lymph % (Auto) [place] % (Auto) Lymph # [place] # Seg Neutrophils % Seg Neutrophils # D-Dimer POC ABG pH 7.084 L POC ABG pCO2 82.8 H 52.2 H POC ABG pO2 106 H 502 H Sodium Chloride Carbon Dioxide BUN Creatinine Glucose POC Glucose 108 H Lactic Acid Calcium Total Protein Albumin HDL Cholesterol Vitamin B12 Free T4 Crossmatch 12/16/17 12/16/17 12/16/17 05:56 16:00 17:41 WBC RBC Hgb Hct MCV MCH MCHC RDW Plt Count Lymph % (Auto) [place] % (Auto) Lymph # [place] # Seg Neutrophils % Seg Neutrophils # D-Dimer POC ABG pH 7.495 H POC ABG pCO2 31.7 L POC ABG pO2 112 H 133 H Sodium Chloride Carbon Dioxide BUN Creatinine Glucose POC Glucose 106 H Lactic Acid Calcium Total Protein Albumin HDL Cholesterol Vitamin B12 Free T4 Crossmatch 12/16/17 12/16/17 12/16/17 18:55 18:55 22:48 WBC 13.6 H RBC Hgb Hct MCV MCH MCHC RDW 16.4 H Plt Count Lymph % (Auto) 8.7 L [place] % (Auto) 8.6 H Lymph # [place] # 1.2 H Seg Neutrophils % 82.1 H Seg Neutrophils # 11.2 H D-Dimer POC ABG pH POC ABG pCO2 POC ABG pO2 Sodium 131 L Chloride Carbon Dioxide 20 L D BUN 30 H Creatinine 0.5 L Glucose 118 H POC Glucose 121 H Lactic Acid Calcium Total Protein Albumin HDL Cholesterol Vitamin B12 Free T4 Crossmatch 12/17/17 12/17/17 12/18/17 04:35 04:35 04:40 WBC RBC 3.46 L 3.40 L Hgb 11.0 L 11.0 L Hct 32.4 L 31.8 L MCV MCH MCHC 35 H RDW 17.0 H 16.9 H Plt Count 131 L 137 L Lymph % (Auto) [place] % (Auto) 10.6 H Lymph # [place] # Seg Neutrophils % Seg Neutrophils # D-Dimer POC ABG pH POC ABG pCO2 POC ABG pO2 Sodium 132 L Chloride 97.8 L Carbon Dioxide BUN 28 H Creatinine 0.5 L Glucose POC Glucose Lactic Acid Calcium 8.3 L Total Protein Albumin HDL Cholesterol Vitamin B12 Free T4 Crossmatch 12/18/17 12/18/17 12/18/17 04:40 12:51 17:18 WBC RBC Hgb Hct MCV MCH MCHC RDW Plt Count Lymph % (Auto) [place] % (Auto) Lymph # [place] # Seg Neutrophils % Seg Neutrophils # D-Dimer POC ABG pH POC ABG pCO2 46.4 H POC ABG pO2 131 H Sodium Chloride Carbon Dioxide BUN 30 H Creatinine 0.5 L Glucose POC Glucose 109 H Lactic Acid Calcium 8.3 L Total Protein Albumin HDL Cholesterol Vitamin B12 Free T4 Crossmatch 12/22/17 12/22/17 12/23/17 05:49 11:43 06:45 WBC RBC Hgb Hct MCV MCH MCHC RDW Plt Count Lymph % (Auto) [place] % (Auto) Lymph # [place] # Seg Neutrophils % Seg Neutrophils # D-Dimer POC ABG pH POC ABG pCO2 POC ABG pO2 Sodium Chloride Carbon Dioxide BUN Creatinine Glucose POC Glucose 112 H 120 H 138 H Lactic Acid Calcium Total Protein Albumin HDL Cholesterol Vitamin B12 Free T4 Crossmatch 12/23/17 12/23/17 12/23/17 12:05 13:36 13:36 WBC RBC 2.24 L Hgb 7.3 L Hct 21.4 L MCV 95 H MCH 33 H MCHC RDW 16.7 H Plt Count Lymph % (Auto) [place] % (Auto) 8.5 H Lymph # [place] # 0.9 H Seg Neutrophils % 72.4 H Seg Neutrophils # 8.0 H D-Dimer POC ABG pH POC ABG pCO2 POC ABG pO2 Sodium Chloride Carbon Dioxide BUN 61 H Creatinine 0.5 L Glucose 138 H POC Glucose 145 H Lactic Acid Calcium Total Protein Albumin HDL Cholesterol Vitamin B12 Free T4 Crossmatch 12/23/17 12/23/17 12/24/17 18:03 23:50 04:58 WBC 12.9 H RBC 2.04 L Hgb 6.6 L Hct 19.9 L* MCV 98 H MCH MCHC RDW 17.2 H Plt Count Lymph % (Auto) [place] % (Auto) Lymph # [place] # Seg Neutrophils % Seg Neutrophils # D-Dimer POC ABG pH POC ABG pCO2 POC ABG pO2 Sodium Chloride Carbon Dioxide BUN Creatinine Glucose POC Glucose 176 H 107 H Lactic Acid Calcium Total Protein Albumin HDL Cholesterol Vitamin B12 Free T4 Crossmatch 12/24/17 12/24/17 12/24/17 05:56 07:16 09:43 WBC 13.5 H RBC 2.08 L Hgb 6.7 L Hct 20.3 L MCV 98 H MCH MCHC RDW 17.3 H Plt Count Lymph % (Auto) [place] % (Auto) Lymph # [place] # Seg Neutrophils % Seg Neutrophils # D-Dimer POC ABG pH POC ABG pCO2 POC ABG pO2 Sodium Chloride Carbon Dioxide BUN Creatinine Glucose POC Glucose 122 H Lactic Acid Calcium Total Protein Albumin HDL Cholesterol Vitamin B12 Free T4 Crossmatch See Detail 12/24/17 12/24/17 12/24/17 12:06 18:55 23:52 WBC 11.3 H RBC 2.35 L Hgb 7.5 L Hct 22.5 L MCV 96 H MCH MCHC RDW 17.3 H Plt Count Lymph % (Auto) [place] % (Auto) Lymph # [place] # Seg Neutrophils % Seg Neutrophils # D-Dimer POC ABG pH POC ABG pCO2 POC ABG pO2 Sodium Chloride Carbon Dioxide BUN Creatinine Glucose POC Glucose 163 H 110 H Lactic Acid Calcium Total Protein Albumin HDL Cholesterol Vitamin B12 Free T4 Crossmatch 12/25/17 12/25/17 12/25/17 04:06 04:06 05:16 WBC RBC 2.35 L Hgb 7.6 L Hct 22.7 L MCV 97 H MCH MCHC RDW 17.7 H Plt Count Lymph % (Auto) [place] % (Auto) Lymph # [place] # Seg Neutrophils % Seg Neutrophils # D-Dimer POC ABG pH POC ABG pCO2 POC ABG pO2 Sodium Chloride Carbon Dioxide 32 H BUN 54 H Creatinine 0.6 L Glucose 101 H POC Glucose 127 H Lactic Acid Calcium 8.2 L Total Protein Albumin HDL Cholesterol Vitamin B12 Free T4 Crossmatch 12/25/17 12/25/17 12/25/17 12:03 18:10 23:38 WBC RBC Hgb Hct MCV MCH MCHC RDW Plt Count Lymph % (Auto) [place] % (Auto) Lymph # [place] # Seg Neutrophils % Seg Neutrophils # D-Dimer POC ABG pH POC ABG pCO2 POC ABG pO2 Sodium Chloride Carbon Dioxide BUN Creatinine Glucose POC Glucose 146 H 152 H 124 H Lactic Acid Calcium Total Protein Albumin HDL Cholesterol Vitamin B12 Free T4 Crossmatch 12/26/17 12/26/17 12/27/17 04:51 11:06 13:45 WBC RBC Hgb 6.7 L Hct 20.1 L MCV MCH MCHC RDW Plt Count Lymph % (Auto) [place] % (Auto) Lymph # [place] # Seg Neutrophils % Seg Neutrophils # D-Dimer POC ABG pH POC ABG pCO2 POC ABG pO2 Sodium Chloride Carbon Dioxide BUN Creatinine Glucose POC Glucose 113 H 123 H Lactic Acid Calcium Total Protein Albumin HDL Cholesterol Vitamin B12 Free T4 Crossmatch 12/27/17 12/28/17 12/28/17 18:06 03:54 03:54 WBC RBC 2.33 L Hgb 7.4 L Hct 21.9 L MCV MCH MCHC RDW 17.9 H Plt Count Lymph % (Auto) [place] % (Auto) Lymph # [place] # Seg Neutrophils % Seg Neutrophils # D-Dimer POC ABG pH POC ABG pCO2 POC ABG pO2 Sodium Chloride Carbon Dioxide BUN 29 H Creatinine 0.3 L Glucose POC Glucose Lactic Acid Calcium 7.5 L Total Protein Albumin HDL Cholesterol Vitamin B12 Free T4 Crossmatch See Detail 12/29/17 12/31/17 12/31/17 07:00 05:11 05:11 WBC RBC 2.54 L 2.56 L Hgb 8.0 L 8.1 L Hct 24.1 L 24.5 L MCV 95 H 96 H MCH MCHC RDW 18.0 H 17.8 H Plt Count Lymph % (Auto) [place] % (Auto) 9.3 H Lymph # [place] # Seg Neutrophils % Seg Neutrophils # D-Dimer POC ABG pH POC ABG pCO2 POC ABG pO2 Sodium Chloride Carbon Dioxide BUN Creatinine 0.3 L Glucose 67 L POC Glucose Lactic Acid Calcium 7.8 L Total Protein Albumin HDL Cholesterol Vitamin B12 Free T4 Crossmatch Allied health notes reviewed: nursing
== END 2017-12-31 14:58 | DRG 208 ==
LOC: ED 10:25 → 4A 14:17 → 2B-ACE 12-14 13:18 → CC1 12-15 18:19 → IMCU 12-19 12:19 → 3A 12-26 15:36
PROVIDERS: ADMIT Internal Medicine; ATTEND Internal Medicine
PROC: 5A1935Z Respiratory Ventilation, Less than 24 Consecutive Hours (ICD-10-PCS; principal; 2017-12-15)
PROC: 0BH17EZ Insertion of Endotracheal Airway into Trachea, Via Natural or Artificial Opening (ICD-10-PCS; 2017-12-15)
PROC: 4A033R1 Measurement of Arterial Saturation, Peripheral, Percutaneous Approach (ICD-10-PCS; 2017-12-15)
PROC: 5A09357 Assistance with Respiratory Ventilation, Less than 24 Consecutive Hours, Continuous Positive Airway Pressure (ICD-10-PCS; 2017-12-16)
PROC: 5A09457 Assistance with Respiratory Ventilation, 24-96 Consecutive Hours, Continuous Positive Airway Pressure (ICD-10-PCS; 2017-12-18)
PROC: 30233N1 Transfusion of Nonautologous Red Blood Cells into Peripheral Vein, Percutaneous Approach (ICD-10-PCS; 2017-12-24)
PROC: 5A09457 Assistance with Respiratory Ventilation, 24-96 Consecutive Hours, Continuous Positive Airway Pressure (ICD-10-PCS; 2017-12-24)
PROC: 5A09357 Assistance with Respiratory Ventilation, Less than 24 Consecutive Hours, Continuous Positive Airway Pressure (ICD-10-PCS; 2017-12-27)
DX: J69.0 Pneumonitis due to inhalation of food and vomit (principal); J96.02 Acute respiratory failure with hypercapnia; I63.9 Cerebral infarction, unspecified; J96.01 Acute respiratory failure with hypoxia; G93.40 Encephalopathy, unspecified; E87.2 Acidosis; E87.1 Hypo-osmolality and hyponatremia; I42.9 Cardiomyopathy, unspecified; D62 Acute posthemorrhagic anemia; I95.9 Hypotension, unspecified; G40.909 Epilepsy, unspecified, not intractable, without status epilepticus; I48.91 Unspecified atrial fibrillation; G30.9 Alzheimer's disease, unspecified; F02.80 Dementia in other diseases classified elsewhere, unspecified severity, without behavioral disturbance, psychotic disturbance, mood disturbance, and anxiety; E11.649 Type 2 diabetes mellitus with hypoglycemia without coma; Z66 Do not resuscitate; K21.9 Gastro-esophageal reflux disease without esophagitis; D69.6 Thrombocytopenia, unspecified; E88.09 Other disorders of plasma-protein metabolism, not elsewhere classified; I11.0 Hypertensive heart disease with heart failure; I50.9 Heart failure, unspecified; Z79.82 Long term (current) use of aspirin; Z79.899 Other long term (current) drug therapy; Z88.0 Allergy status to penicillin; I25.2 Old myocardial infarction; Z83.3 Family history of diabetes mellitus; Z82.49 Family history of ischemic heart disease and other diseases of the circulatory system; Z95.810 Presence of automatic (implantable) cardiac defibrillator
CPT/HCPCS: 31500; 36415; 36600; 70450; 71045; 71275; 74018; 80048; 80053; 80061; 81001; 82140; 82270; 82607; 82803; 82962; 84439; 84443; 84484; 85014; 85018; 85025; 85027; 85379; 86850; 86900; 86901; 86920; 87070; 87205; 93005; 93010; 93306; 93880; 94002; 94003; 94660; 94760; 95819; 96360; 96375; A9270-GY; G8987-GO; G8988-GO; G8989-GO; G8996-GN; G8997-GN; G8998-GN; J0456; J0696; J1650; J1953; J2060; J2250; J7030; J7040; J7050; P9016; Q9967